=== PATIENT | male | born 1975 | race Caucasian/White ===

== ENCOUNTER 2018-08-26 09:59 | Inpatient (IN) ==
[2018-08-26] MEDS ORDERED: SODIUM CHLORIDE 0.9% 1000ML 1,000 ML IV ONE (10:22)
[2018-08-26] MEDS ORDERED: KETOROLAC TROMETHAMINE 15 MG/ML VIAL IV ONE (10:22)
[2018-08-26 10:47] LABS: Basophils # (auto) 0.02 K/uL (0-0.2); Basophils % (auto) 0.3 %; Eosinophils % (auto) 1.3 %; Hematocrit (blood only) 41.1 % (42-52); Immature Granulocytes # (auto) 0.02 K/uL (0.00-0.02); Immature Granulocytes % (auto) 0.3 %; Lymphocytes # (auto) 1.74 K/uL (1.2-3.4); Lymphocytes % (auto) 23.1 %; Mean Corpuscular Hgb Conc 34.1 g/dL (32-36); Mean Corpuscular Volume 89.9 fL (80-100); Mean Platelet Volume 8.8 fL (7.4-10.4); Monocytes # (auto) 0.54 K/uL (0.11-0.59); Monocytes % (auto) 7.2 %; Neutrophils # (auto) 5.12 K/uL (1.4-6.5); Neutrophils % (auto) 67.8 %; Platelet Count 197 K/uL (130-400); RDW Coefficient of Variation 13.9 % (11.5-14.5); RDW Standard Deviation 45.8 fL (36.4-46.3); Red Blood Count 4.57 M/uL (4.7-6.1); White Blood Count 7.54 K/uL (4.8-10.8)
--- NOTE | 2018-08-26 10:50 | XRay Report ---
XR chest 1V portable CLINICAL HISTORY: Atypical chest pain COMPARISON STUDY: No previous studies for comparison. FINDINGS: The heart is borderline enlarged. There is no failure. There is no focal pulmonary consolid ation. There are no pleural effusions. An 8mm density within the right upper lung zone likely represe nts a summation with the right first rib and costochondral junction.[ IMPRESSION: No active disease in the chest. Electronically signed by: Xavier Martinez M.D. 08/26/2018 10:49 AM
[2018-08-26 11:08] LABS: Alanine Aminotransferase 37 U/L (12-78); Albumin Level 3.7 gm/dl (3.4-5.0); Aspartate Aminotransferase 17 U/L (15-37); BUN Creatinine Ratio 16.1 (10-20); Blood Urea Nitrogen 18 mg/dl (7-18); Calcium 8.8 mg/dl (8.5-10.1); Carbon Dioxide 29 mmol/L (21-32); Chloride 107 mmol/L (98-107); Creatinine Clr Calc Pharmacy 118.5 ml/min; Est GFR (African American) 94.5; Est GFR (Non-African American) 81.5; Glucose 101 mg/dl (70-99); Potassium 3.5 mmol/L (3.5-5.1); Sodium 141 mmol/L (136-145)
[2018-08-26 11:13] LABS: Albumin Globulin Ratio 0.9 (0.9-2); Alkaline Phosphatase 117 U/L (45-117); Bilirubin,Total 0.5 mg/dl (0.2-1); Total Protein 7.7 gm/dl (6.4-8.2); Troponin I < 0.015 ng/ml (0-0.045)
[2018-08-26] MEDS ORDERED: IOVERSOL 100ml IV PRN (11:26)
--- NOTE | 2018-08-26 11:47 | CT Scan Report ---
ABDOMEN AND PELVIS CT WITH IV CONTRAST CT DOSE: 1287.21 mGy.cm HISTORY: Acute epigastric abdominal pain with history of inflammatory bowel disease epigastric abd pa in w/ dark stools hxt chrons TECHNIQUE: Multiaxial CT images of the abdomen and pelvis were performed following the use of intrave nous contrast. A dose lowering technique was utilized adhering to the principles of ALARA. COMPARISON STUDY: CT abdomen and pelvis 02/11/2018. FINDINGS: Lung bases are generally clear. Unchanged 3 mm solid nodule of the right middle lobe, image 30 series 3. Lung bases are otherwise generally clear. No pneumatosis or pneumoperitoneum. Imaged inferior car diac chambers are unremarkable. Cholecystectomy. Spleen, liver, pancreas and right adrenal gland are unremarkable. Mild thickening of the left adrenal gland suggests hyperplasia. There are few left-sided renal cysts noted measuring up to 11 mm within the superior pole. 3 mm nonobstructing calculus of the inferior pole right kidney. N o ureteral calculi or obstructive uropathy. Urinary bladder is unremarkable. Aorta and IVC are within normal limits. No adenopathy. No bowel obstruction. Mild colonic diverticulosis without acute diverticulitis. Persistent extensive wall thickening with mucosal hyperemia is noted about a long segment of terminal ileum which measures over 30 cm in length. No definite associated stricture, fistula or sinus tracts identified. Mild adj acent perinephric stranding with trace free fluid. Mild dilation of the ileum just proximal to the be ginning of the wall thickening is again noted, 3.2 cm. The overall degree of wall thickening appears similar to slightly decreased from comparison. No new segments of wall thickening identified. The ghazal endix is not definitively seen. No secondary signs of acute appendicitis. Prominent lymph nodes of th e right lower quadrant mesentery measure up to 1.2 x 0.9 cm. Soft tissues are unremarkable. Mild spon dylitic spurring of the spine. Partial bony fusion of the right SI joint. IMPRESSION: 1. Long segment wall thickening with mucosal hyperemia of the terminal ileum redemonstrated compatibl e with ileitis. This likely correlates with the patient's known inflammatory bowel disease. Adjacent inflammatory stranding with trace free fluid compatible with active acute inflammation. 2. Prominent lymph nodes of the right lower quadrant mesentery, likely reactive. 3. No bowel obstruction or high-grade stricture identified. 4. Cholecystectomy. 5. Nonobstructing right nephrolithiasis. Electronically signed by: Trung Sabillon M.D. 08/26/2018 11:46 AM
[2018-08-26 12:13] LABS: Appearance Urine Clear (Clear); Bilirubin Urine Negative (Negative); Blood Urine Negative (Negative); Color Urine Yellow; Glucose Urine UA Negative (Negative); Ketones Urine Negative (Negative); Leukocyte Esterase Urine Negative (Negative); Nitrite Urine Negative (Negative); Protein Urine Negative (Negative); Specific Gravity Urine > 1.045 (1.000-1.030); Urobilinogen Urine Negative (Negative)
--- NOTE | 2018-08-26 13:43 | History & Physical Report ---
Date of Service August 26, 2018 Assessment & Plan (1) Chest pain: - Admit to tele - Trend cardiac biomarkers, initial set was negative - EKG reviewed as above - bradycardic with HR in the 50s. Consider pericarditis. - Check 2 D echo - If negative enzymes can consider a stress test tomorrow morning - Consult cardiology, Dr. Santos (2) Ileitis: (3) Hx of Crohn's disease: -Consult GI, Dr. Salcido -Given dose of Solu-Medrol 20 mg IV in the ER, will continue prednisone 40 mg daily with plan to taper down 10 mg at a time over 4 weeks. -Allow clear liquid diet at this time -Continue fluids NSS at 125 mL/h -Analgesia with morphine IV prn, tylenol. -No stool sample provided yet, check fecal occult blood -Cont protonix, switch to 40 mg IV BID (4) History of cholecystectomy: - noted (5) DVT prophylaxis: -teds - no chemical ppx with possible GI bleed History of Present Illness Primary Care Provider: NO PCP This is a 43 yo M with PMHx of ilitis, Crohn's disease, morbid obesity with BMI of 38, smoking use x23 years, 1 pack/week, who presents with new onset of chest pain and abdominal pain. The patient notes that he suddenly developed chest pain several days ago while he was at work. Patient suddenly became lightheaded due to substernal chest pain, clenched his chest, dropped to his knees, and stayed there for about 5 minutes until feeling better. He proceeded to get up and continued with working like he normally would. This happened again last evening when he was home with his 11 yo son in the house, with similar presentation. He did not come to the ER. He reports that the pain is sudden in onset and has occurred whenever he is up walking and doing something physically exertional each time. He denies palpitations or tightness associated with the pain. The patient does not typically exercise however is able to complete a flight of stairs without difficulty. Patient was wondering if this could possibly be due to anxiety, as he is under significant stress at work. He notes that when he is stressed he typically smokes a cigarette to calm himself down. The patient reports that his abdominal pain has been going on for several days now as well, and that he has been afraid to eat anything for fear of worsening pain and diarrhea. Patient reports his last bowel movement was this morning, loose, dark, and denies BRBPR. He reports drinking some apple juice and water in small quantities over the last few days, along with small amounts of food. He denies nausea or vomiting. He was recently diagnosed with Crohn's disease only [address] Salcido by colonoscopy. Patient is not on any medications for tx of Crohn's. Pertinent family history: Father-AL at age 52, [employer] Mother-colitis, [employer] Allergies Allergy/AdvReac Type Severity Reaction Status Date / Time No Known Allergies Allergy Unverified 08/26/18 10:58 Home Medications Home Medications Medication Instructions Recorded Confirmed Type No Known Home Medications 08/26/18 08/26/18 History Past Med/Surg History Medical History Ileitis Hx of Crohn's disease Surgical History History of cholecystectomy (Resolved) Family History Other Colitis Social History Preferred Language: Jordanian Communication Ability: Effective Visual Impairment: No Limitations Hearing Ability: Normal current occupational status: employed 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 [employer] Feels Safe at Home: Yes Smoking Status: Never smoker Review of Systems Review of Systems: Constitutional: No fever, sweats or chills Eyes: No diplopia, no worsening or blurred vision ENT: normal hearing, no trouble swallowing Respiratory: No cough, sputum, dyspnea at rest or on exertion Cardiovascular: As per HPI Abdomen: As per HPI Musculoskeletal: No joint pain, calf pain, swelling Neurologic: No weakness, numbness/tingling, or balance problems Psychiatric: No anxiety or depression Skin: No rash or itch Physical Exam Physical Exam: General: awake, alert, no apparent distress, + obese Head: Normocephalic, atraumatic ENT: PERRL, EOMI, no pharyngeal exudate, mucous membranes moist Chest: Clear to auscultation, on room air, no adventitious breath sounds Cardiac: +bradycardic, no murmur, no JVD, normal peripheral pulses, good capillary refill Abdominal: NABS x 4 quadrants, soft, mildly distended, tender to palpation in the epigastric regions and LLQ with guarding, no rebound. Extremities: Normal inspection, no peripheral edema or erythema, calfs nontender to palpation Psych: Normal mood and affect Neuro: AAO x 3, strength intact bilaterally and related 5/5, no motor deficits, speech is clear, no peripheral sensory deficits Skin: no rash or erythema Results & Data Vital Signs (Past 12 Hours) Vital Signs Temp Pulse Pulse Resp BP BP Pulse Ox 08/26/18 11:47 62 19 136/74 96 08/26/18 10:02 36.6 C 62 20 145/90 H 97 Diagnostic Findings XR chest 1V portable CLINICAL HISTORY: Atypical chest pain COMPARISON STUDY: No previous studies for comparison. FINDINGS: The heart is borderline enlarged. There is no failure. There is no focal pulmonary consolidation. There are no pleural effusions. An 8mm density within the right upper lung zone likely represents a summation with the right first rib and costochondral junction.[ IMPRESSION: No active disease in the chest. ABDOMEN AND PELVIS CT WITH IV CONTRAST CT DOSE: 1287.21 mGy.cm HISTORY: Acute epigastric abdominal pain with history of inflammatory bowel disease epigastric abd pain w/ dark stools hxt chrons TECHNIQUE: Multiaxial CT images of the abdomen and pelvis were performed following the use of intravenous contrast. A dose lowering technique was utilized adhering to the principles of ALARA. COMPARISON STUDY: CT abdomen and pelvis 02/11/2018. FINDINGS: Lung bases are generally clear. Unchanged 3 mm solid nodule of the right middle lobe, image 30 series 3. Lung bases are otherwise generally clear. No pneumatosis or pneumoperitoneum. Imaged inferior cardiac chambers are unremarkable. Cholecystectomy. Spleen, liver, pancreas and right adrenal gland are unremarkable. Mild thickening of the left adrenal gland suggests hyperplasia. There are few left-sided renal cysts noted measuring up to 11 mm within the superior pole. 3 mm nonobstructing calculus of the inferior pole right kidney. No ureteral calculi or obstructive uropathy. Urinary bladder is unremarkable. Aorta and IVC are within normal limits. No adenopathy. No bowel obstruction. Mild colonic diverticulosis without acute diverticulitis. Persistent extensive wall thickening with mucosal hyperemia is noted about a long segment of terminal ileum which measures over 30 cm in length. No definite associated stricture, fistula or sinus tracts identified. Mild adjacent perinephric stranding with trace free fluid. Mild dilation of the ileum just proximal to the beginning of the wall thickening is again noted, 3.2 cm. The overall degree of wall thickening appears similar to slightly decreased from comparison. No new segments of wall thickening identified. The appendix is not definitively seen. No secondary signs of acute appendicitis. Prominent lymph nodes of the right lower quadrant mesentery measure up to 1.2 x 0.9 cm. Soft tissues are unremarkable. Mild spondylitic spurring of the spine. Partial bony fusion of the right SI joint. IMPRESSION: 1. Long segment wall thickening with mucosal hyperemia of the terminal ileum redemonstrated compatible with ileitis. This likely correlates with the patient's known inflammatory bowel disease. Adjacent inflammatory stranding with trace free fluid compatible with active acute inflammation. 2. Prominent lymph nodes of the right lower quadrant mesentery, likely reactive. 3. No bowel obstruction or high-grade stricture identified. 4. Cholecystectomy. 5. Nonobstructing right nephrolithiasis. Code Status & VTE Plan Code Status Full code Supervising Physician Co-Signing Physician Notes The patient was seen and examined by me and I agree with the assessment and plan done by Lisa Apodaca PA-C. The patient has had lower abdominal discomfort for several weeks that is progressively worsening. He states he had a colonoscopy last month and was prescribed medication for Crohn's colitis which he did not fill or take. He also has been having sharp anterior chest pains that are associated with shortness of breath. He denies palpitation or radiation of the discomfort. EKG reveals what appears to be repolarization variant but I suppose it could also represent pericarditis. Cardiac echo is pending along with cardiology consultation. The ED physician discussed the case with Dr. Salcido who will be consulted. Steroids have been started. He is hemodynamically stable at this time. Lungs are clear. Heart rhythm regular without murmur. Abdomen soft with active bowel sounds. Tenderness in the lower quadrants bilaterally without overt rebound or guarding. Extremities unremarkable. PG Care Time/CCT Total # of Minutes Spent Total Time Spent with Patient: Total time spent is greater than 50% in coordination of care (as documented) at patient's floor/unit and/or counseling patient:
[2018-08-26] MEDS ORDERED: PANTOprazole 40 MG in DEXTROSE 5% 100 ML IV SCH (13:45)
[2018-08-26] MEDS ORDERED: PANTOprazole 80 MG in DEXTROSE 5% 100 ML IV ONE (13:45)
[2018-08-26] MEDS ORDERED: ACETAMINOPHEN 325 MG TAB PO PRN (14:03)
[2018-08-26] MEDS ORDERED: ONDANSETRON INJ 2 MG/ML 2 ML VIAL IV PRN (14:03)
[2018-08-26] MEDS ORDERED: MoRPHine SULFATE 2 MG/ML CARP IV PRN (15:33)
[2018-08-26] MEDS: SODIUM CHLORIDE 0.9% 1000ML 1,000 ML IV SCH ×2 (16:01→23:46)
--- NOTE | 2018-08-26 16:29 | Emergency Department Note ---
Entered by Elaine Vega acting as a scribe for History of Present Illness General Chief complaint: Chest Pain Stated complaint: SEVERE UPPER ABD PAIN, PASSED OUT 2TIMES IN 3DAYS Source: patient Mode of arrival: ambulatory Limitations: no limitations History of Present Illness Onset (ago): week(s) 1 Location: chest Severity: severe and similar to prior episodes (Crohn's flare-ups) Pain Consistency: + intermittent Maximum Pain Intensity: 7 Quality: + stabbing Associated symptoms: + chest pain and + other (The patient denies hematochezia and urinary symptoms. ); no nausea/vomiting (The patient denies vomiting. ) and no syncope The patient is a 43 year old male with a history of Crohns disease and ileitis who presents to the ED with complaints of intermittent chest pain that onset 1 week ago. The patient complains of abdominal pain and melena. He notes that he typically has diarrhea secondary to Crohns disease. He states that his abdomen feels tight, as if something is moving through his intentions. The patient notes that the pain is similar to past Crohns flare-ups. He states that he is n ot currently taking medications. The patient denies hematochezia, vomiting, urinary symptoms, and loss of consciousness. The patient states that he has intermittent chest pain that lasts for 5 minutes. He describes this pain as stabbing and severe. He notes that the first time the pain happened he was at work. The patient reports that it brought him to his knees and brought tears to his eyes. He states that he had a similar episode of pain last night that also lasted for 5 minutes. The patient denies any exacerbating or alleviating factors. Home Medications Home Medications Medication Instructions Recorded Confirmed Type No Known Home Medications 08/26/18 08/26/18 History Allergies Allergy/AdvReac Type Severity Reaction Status Date / Time No Known Allergies Allergy Unverified 08/26/18 10:58 Past Med/Surg History Medical History Ileitis Hx of Crohn's disease Surgical History History of cholecystectomy (Resolved) Family History Other Colitis Social History Preferred Language: Greenlandic Communication Ability: Effective Visual Impairment: No Limitations Hearing Ability: Normal Psychiatric Clinical Nurse Specialist Required: No Beliefs That Will Affect Care: None Current Living Situation: Family current occupational status: employed current occupation: [employer] at [employer] Other Information That Helps Us Care for You: No Feels Safe at Home: Yes Safety Concerns: Feels Safe At This Time Smoking Status: Current every day smoker Tobacco Type: cigarettes Cigarettes Per Day: 3 Do You Dip or Chew Tobacco: No Tobacco Cessation Education Requested by Patient: No Hx Alcohol Use: No Hx Substance Use: No Review of Systems See HPI for pertinent positives & negatives. and A total of 10 systems reviewed and were otherwise negative Physical Exam Vital Signs Vital Signs - 24 hr 08/26/18 10:02 08/26/18 11:47 08/26/18 13:43 Temperature 36.6 C Temperature Source Oral Sepsis Recent Fever Within 48 Hours No Sepsis New/Unexplained Change in Mental Status No Sepsis Action Taken by Nursing No Action Required Pulse Rate 62 Pulse Rate [Apical] 62 47 L Pulse Rhythm Regular Pulse Rhythm [Apical] Regular Pulse Strength Normal Pulse Strength [Apical] Normal Respiratory Rate 20 19 17 Respiratory Effort / Characteristics Non-Labored Spontaneous Non-Labored Spontaneous Respiratory Depth Normal Normal Respiratory Pattern Regular Regular Blood Pressure 145/90 H Blood Pressure [Right Arm] 136/74 123/82 Blood Pressure Mean 108 Blood Pressure Mean [Right Arm] 94 95 Blood Pressure Position Sitting Pulse Oximetry 97 96 99 Oxygen Delivery Method Room Air Room Air Room Air GENERAL: Sitting up in bed. Disheveled, alert, well appearing, well nourished, no distress, non-toxic EYE EXAM: Normal conjunctiva. OROPHARYNX: no exudate, no erythema, lips, buccal mucosa, and tongue normal and mucous membranes are moist NECK: supple, no nuchal rigidity, no adenopathy, non-tender LUNGS: Clear to auscultation. Normal chest wall mechanics HEART: no murmurs, S1 normal and S2 normal ABDOMEN: abdomen soft, mild faint tenderness in the epigastric region, normo- active bowel sounds, no masses, no rebound or guarding. RECTAL: No stool in rectal vault, heme negative, no hemorrhoids. BACK: Back is symmetrical on inspection and there is no deformity, no midline tenderness, no CVA tenderness. SKIN: no rashes and no bruising UPPER EXTREMITIES: upper extremities are grossly normal. LOWER EXTREMITIES: No pitting edema. NEURO EXAM: Normal sensorium, cranial nerves II-XII grossly intact, normal speech, no gross weakness of arms, no gross weakness of legs. Course 1012: Past medical records reviewed. The patient was evaluated in room B11B. A complete history and physical examination was performed. 1257: I have re-evaluated the patient. 1336: I reviewed the patient's case with Dr. Salcido - Gastroenterology. 1341: I reviewed the patient's case with Dr. James Del Castillo - [facility]. He will evaluate the patient for further management. 1402: I reviewed the patient's case with Dr. Evgeny Santos - Cardiology. Consultations Consultation #1: 1336: I reviewed the patient's case with Dr. Salcido - Gastroenterology. Time: 13:36 Consultation #2: 1341: I reviewed the patient's case with Dr. James Del Castillo - [facility]. He will evaluate the patient for further management. Time: 13:41 Consultation #3: 1402: I reviewed the patient's case with Dr. Evgeny Santos - Cardiology. Time: 14:02 Administered Medications Sodium Chloride (Nss 1000ml) 1,000 mls @ 125 mls/hr IV .Q8H BONNIE Stop: 08/27/18 14:14 Last Admin: 08/26/18 16:01 Dose: 125 mls/hr Documented by: [id number] Ioversol (Optiray 320 100ml) 94 ml IV ONCE PRN PRN Reason: Interaction Checking Stop: 08/30/18 11:25 Last Admin: 08/26/18 11:27 Dose: 94 ml Documented by: [id number] Morphine Sulfate (Morphine Sulfate) 2 mg IV Q2H PRN PRN Reason: Pain Stop: 09/09/18 15:32 Last Admin: 08/26/18 16:01 Dose: 2 mg Documented by: [id number] Discontinued Medications Sodium Chloride (Nss 1000ml) 1,000 mls @ 999 mls/hr IV .Q1H1M ONE Stop: 08/26/18 11:22 Last Infusion: 08/26/18 11:38 Dose: 0 mls/hr Documented by: [id number] Admin: 08/26/18 10:45 Dose: 999 mls/hr Documented by: [id number] Pantoprazole Sodium 80 mg/ (Dextrose) 120 mls @ 480 mls/hr IV NOW ONE Stop: 08/26/18 13:59 Last Infusion: 08/26/18 14:10 Dose: 0 mls/hr Documented by: [id number] Admin: 08/26/18 13:47 Dose: 480 mls/hr Documented by: [id number] Pantoprazole Sodium 40 mg/ (Dextrose) 100 mls @ 20 mls/hr IV Q5H BONNIE Stop: 09/25/18 13:44 Last Infusion: 08/26/18 16:13 Dose: 0 mls/hr Documented by: [id number] Admin: 08/26/18 14:09 Dose: 20 mls/hr Documented by: [id number] Ketorolac Tromethamine (Toradol) 15 mg IV NOW ONE Stop: 08/26/18 10:23 Last Admin: 08/26/18 10:45 Dose: 15 mg Documented by: [id number] Methylprednisolone (Solumedrol) 20 mg IV NOW STA Stop: 08/26/18 13:38 Last Admin: 08/26/18 13:42 Dose: 20 mg Documented by: [id number] Medical Decision Making Differential Diagnosis Differential diagnoses: Appendicitis, diverticulitis, PUD, biliary pathology, UTI, pancreatitis, obstruction, mesenteric ischemia, aortic pathology, infections, inflammatory bowel disease, renal colic, acute coronary syndrome, myocardial infarction, pericarditis, pulmonary embolus, aortic dissection, pneumonia, pneumothorax, musculoskeletal, shingles, esophageal. Medical Records Attestation: I reviewed the patient's medical records. Home Medications Current Medication List: was personally reviewed by me Laboratory Data Attestation: I reviewed the patient's lab results. Result diagrams: 08/26/18 10:38 08/26/18 10:38 Lab Results 08/26/18 08/26/18 08/26/18 Range/Units 10:38 10:38 10:38 WBC 7.54 (4.8-10.8) K/uL RBC 4.57 L (4.7-6.1) M/uL Hgb 14.0 (14.0-18.0) g/dL Hct 41.1 L (42-52) % MCV 89.9 (80-100) fL MCH 30.6 (25-34) pg MCHC 34.1 (32-36) g/dL RDW Std Deviation 45.8 (36.4-46.3) fL RDW Coeff of Toni 13.9 (11.5-14.5) % Plt Count 197 (130-400) K/uL MPV 8.8 (7.4-10.4) fL Immature Gran % (Auto) 0.3 % Neut % (Auto) 67.8 % Lymph % (Auto) 23.1 % [place] % (Auto) 7.2 % Eos % (Auto) 1.3 % Baso % (Auto) 0.3 % Immature Gran # (Auto) 0.02 (0.00-0.02) K/uL Neut # (Auto) 5.12 (1.4-6.5) K/uL Lymph # (Auto) 1.74 (1.2-3.4) K/uL [place] # (Auto) 0.54 (0.11-0.59) K/uL Eos # (Auto) 0.10 (0-0.5) K/uL Baso # (Auto) 0.02 (0-0.2) K/uL PT 10.0 (9.0-12.0) Seconds INR 1.0 (0.9-1.1) Sodium 141 (136-145) mmol/L Potassium 3.5 (3.5-5.1) mmol/L Chloride 107 (98-107) mmol/L Carbon Dioxide 29 (21-32) mmol/L Anion Gap 5.0 (3-11) BUN 18 (7-18) mg/dl Creatinine 1.09 (0.6-1.4) mg/dl Est Cr Clr Drug Dosing 118.5 ml/min Est GFR ( Amer) 94.5 Est GFR (Non-Af Amer) 81.5 BUN/Creatinine Ratio 16.1 (10-20) Glucose 101 H (70-99) mg/dl Calcium 8.8 (8.5-10.1) mg/dl Total Bilirubin 0.5 (0.2-1) mg/dl AST 17 (15-37) U/L ALT 37 (12-78) U/L Alkaline Phosphatase 117 (45-117) U/L Troponin I < 0.015 (0-0.045) ng/ml Total Protein 7.7 (6.4-8.2) gm/dl Albumin 3.7 (3.4-5.0) gm/dl Globulin 4.0 (2.5-4.0) gm/dl Albumin/Globulin Ratio 0.9 (0.9-2) Lipase 96 (73-393) U/L Urine Color Urine Appearance (Clear) Urine pH (4.5-7.5) Ur Specific [place] (1.000-1.030) Urine Protein (Negative) Urine Glucose (UA) (Negative) Urine Ketones (Negative) Urine Blood (Negative) Urine Nitrite (Negative) Urine Bilirubin (Negative) Urine Urobilinogen (Negative) Ur Leukocyte Esterase (Negative) 08/26/18 Range/Units 12:05 WBC (4.8-10.8) K/uL RBC (4.7-6.1) M/uL Hgb (14.0-18.0) g/dL Hct (42-52) % MCV (80-100) fL MCH (25-34) pg MCHC (32-36) g/dL RDW Std Deviation (36.4-46.3) fL RDW Coeff of Toni (11.5-14.5) % Plt Count (130-400) K/uL MPV (7.4-10.4) fL Immature Gran % (Auto) % Neut % (Auto) % Lymph % (Auto) % [place] % (Auto) % Eos % (Auto) % Baso % (Auto) % Immature Gran # (Auto) (0.00-0.02) K/uL Neut # (Auto) (1.4-6.5) K/uL Lymph # (Auto) (1.2-3.4) K/uL [place] # (Auto) (0.11-0.59) K/uL Eos # (Auto) (0-0.5) K/uL Baso # (Auto) (0-0.2) K/uL PT (9.0-12.0) Seconds INR (0.9-1.1) Sodium (136-145) mmol/L Potassium (3.5-5.1) mmol/L Chloride (98-107) mmol/L Carbon Dioxide (21-32) mmol/L Anion Gap (3-11) BUN (7-18) mg/dl Creatinine (0.6-1.4) mg/dl Est Cr Clr Drug Dosing ml/min Est GFR ( Amer) Est GFR (Non-Af Amer) BUN/Creatinine Ratio (10-20) Glucose (70-99) mg/dl Calcium (8.5-10.1) mg/dl Total Bilirubin (0.2-1) mg/dl AST (15-37) U/L ALT (12-78) U/L Alkaline Phosphatase (45-117) U/L Troponin I (0-0.045) ng/ml Total Protein (6.4-8.2) gm/dl Albumin (3.4-5.0) gm/dl Globulin (2.5-4.0) gm/dl Albumin/Globulin Ratio (0.9-2) Lipase (73-393) U/L Urine Color Yellow Urine Appearance Clear (Clear) Urine pH 6.0 (4.5-7.5) Ur Specific [place] > 1.045 H (1.000-1.030) Urine Protein Negative (Negative) Urine Glucose (UA) Negative (Negative) Urine Ketones Negative (Negative) Urine Blood Negative (Negative) Urine Nitrite Negative (Negative) Urine Bilirubin Negative (Negative) Urine Urobilinogen Negative (Negative) Ur Leukocyte Esterase Negative (Negative) Imaging Data Radiologist's Impression: Radiology results as stated below per my review and the radiologist's interpretation: ABDOMEN AND PELVIS CT WITH IV CONTRAST CT DOSE: 1287.21 mGy.cm HISTORY: Acute epigastric abdominal pain with history of inflammatory bowel disease epigastric abd pain w/ dark stools hxt chrons TECHNIQUE: Multiaxial CT images of the abdomen and pelvis were performed following the use of intravenous contrast. A dose lowering technique was utilized adhering to the principles of ALARA. COMPARISON STUDY: CT abdomen and pelvis 02/11/2018. FINDINGS: Lung bases are generally clear. Unchanged 3 mm solid nodule of the right middle lobe, image 30 series 3. Lung bases are otherwise generally clear. No pneumatosis or pneumoperitoneum. Imaged inferior cardiac chambers are unremarkable. Cholecystectomy. Spleen, liver, pancreas and right adrenal gland are unremarkable. Mild thickening of the left adrenal gland suggests hyperplasia. There are few left-sided renal cysts noted measuring up to 11 mm within the superior pole. 3 mm nonobstructing calculus of the inferior pole right kidney. No ureteral calculi or obstructive uropathy. Urinary bladder is unremarkable. Aorta and IVC are within normal limits. No adenopathy. No bowel obstruction. Mild colonic diverticulosis without acute diverticulitis. Persistent extensive wall thickening with mucosal hyperemia is noted about a long segment of terminal ileum which measures over 30 cm in length. No definite associated stricture, fistula or sinus tracts identified. Mild adjacent perinephric stranding with trace free fluid. Mild dilation of the ileum just proximal to the beginning of the wall thickening is again noted, 3.2 cm. The overall degree of wall thickening appears similar to slightly decreased from comparison. No new segments of wall thickening identified. The appendix is not definitively seen. No secondary signs of acute appendicitis. Prominent lymph nodes of the right lower quadrant mesentery measure up to 1.2 x 0.9 cm. Soft tissues are unremarkable. Mild spondylitic spurring of the spine. Partial bony fusion of the right SI joint. IMPRESSION: 1. Long segment wall thickening with mucosal hyperemia of the terminal ileum redemonstrated compatible with ileitis. This likely correlates with the patient's known inflammatory bowel disease. Adjacent inflammatory stranding with trace free fluid compatible with active acute inflammation. 2. Prominent lymph nodes of the right lower quadrant mesentery, likely reactive. 3. No bowel obstruction or high-grade stricture identified. 4. Cholecystectomy. 5. Nonobstructing right nephrolithiasis. Electronically signed by: Trung Sabillon M.D. 08/26/2018 11:46 AM Dictated: 08/26/18 1134 Transcribed: 08/26/18 1134 XR chest 1V portable CLINICAL HISTORY: Atypical chest pain COMPARISON STUDY: No previous studies for comparison. FINDINGS: The heart is borderline enlarged. There is no failure. There is no focal pulmonary consolidation. There are no pleural effusions. An 8mm density within the right upper lung zone likely represents a summation with the right first rib and costochondral junction.[ IMPRESSION: No active disease in the chest. Electronically signed by: Xavier Martinez M.D. 08/26/2018 10:49 AM Dictated: 08/26/18 1048 Transcribed: 08/26/18 1048 ECG Data Attestation: I personally reviewed and interpreted this ECG as follows: Indication: chest pain Rate (beats per minute): 52 Rhythm: sinus bradycardia Findings: + other (normal axis) Blood Pressure Blood Pressure Findings: Normal blood pressure MDM Narrative Patient is a 43-year-old male who presents the ER for 1 week worth of abdominal pain in the epigastric region associate with cramping. He also admits to some dark tarry stools. He has intermittent chest pain 2-3 episodes over the past 3 days. Patient has no other complaints at this time with exception of the crampy pain and dark tarry stools. Labs show no significant leukocytosis or anemia. INR was unremarkable. BMP along with LFTs troponin bilirubin and lipase is negative. UA was unremarkable. CT shows a severe ileitis. Rectal was negative without any stool in the vault. No hemorrhoids. Attempted to obtain stool on 3 separate occasions but he could not have a bowel movement. EKG did show diffuse ST segment elevations. Do favor that this is likely re-pole as opposed to pericarditis. Discussed with Dr. Delgadillo from cardiology and they agree. Patient has no chest pain at this time. Nothing was positional to suggest pericarditis. Patient was updated bedside. Discussed with GI and they recommended observation and patient was admitted for further work-up. Impression & Plan Ileitis, GI bleed, Abnormal ECG Discharge Plan Visit Data *Final* Discharge Date/Time: 08/26/18 14:35 Chief Complaint: Chest Pain Stated Complaint: SEVERE UPPER ABD PAIN, PASSED OUT 2TIMES IN 3DAYS ED Provider: Burton Andrea Discharge Problem: Ileitis, GI bleed, Abnormal ECG Patient Disposition: Admitted As Inpatient Discharge Instructions Interventions: ED Discharge Assessment Last Done: 08/26/18 14:35 The scribe's documentation has been prepared under my direction and personally reviewed by me in its entirety. I confirm that the note above accurately reflects all work, treatment, procedures, and medical decision making performed by me.
--- NOTE | 2018-08-26 17:50 | Consultation Report ---
DATE OF CONSULTATION: 08/26/2018 REASON FOR EVALUATION: Ileal Crohn's disease. HISTORY OF PRESENT ILLNESS: The patient is a 43-year-old who I first saw in the office in 03/2018 following an Emergency Room visit at [facility] with abdominal pain and elevated pancreatic enzymes. The patient had a CAT scan during that ER visit, which showed ileal inflammation, but no real pancreatitis. He subsequently underwent a colonoscopy which showed rather severe ileal inflammation. The patient was advised to take Pentasa, but he never got the prescription filled because it was too expensive and he does not have any insurance. The patient over the last several weeks has been experiencing worsening lower abdominal pain. He has cut back eating and as consequence, his bowel movements have been less frequent. He also has had several episodes of severe chest pain where he has had to actually kneel on the floor for 5 minutes until the pain subsides. He presented to the hospital today. He has had an EKG which did not show any obvious ischemic changes, although he did have some bradycardia. CT scan of the abdomen again showed a long segment of terminal ileum, which was sausage shaped from inflammation. He is given a dose of IV Solu-Medrol and started on p.o. prednisone at 40 mg a day. Further cardiac evaluation is in progress. PAST MEDICAL HISTORY: Remarkable for appendectomy and cholecystectomy in 2010, appendectomy as a child. MEDICATIONS: None. ALLERGIES: None. 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 He smokes a pack of cigarettes about every 2 weeks. REVIEW OF SYSTEMS: Positive for chest and abdominal pain. PHYSICAL EXAMINATION: GENERAL: The patient is overweight, in no acute distress. VITAL SIGNS: Normal. He is afebrile. SKIN: Shows no abnormalities. ABDOMEN: Shows some scars in the right lower quadrant and laparoscopic scars. He is little bit tender in the lower abdomen bilaterally. No discrete masses were appreciated and there are no peritoneal signs. LABORATORY DATA: CBC is normal. IMPRESSION AND PLAN: The patient has ileal Crohn's disease, which has basically been untreated for the last 6 months because he was not able to afford Pentasa. Currently he is on oral prednisone at 40 mg a day after getting a dose of Solu-Medrol in the ER. I plan on putting him on a full liquid diet and will get his cardiac evaluation completed to make sure there is nothing urgent there. I did talk to him about a potential clinical trial that we may be able to enroll him as an outpatient if he qualifies in which case his medications and study related care would all be paid for and provided for free. He is considering this option, but for now we will just keep him on oral prednisone and see how he does. Will continue to follow the patient during his hospital stay.
[2018-08-26] MEDS: PANTOprazole 40 MG in SYRINGE 0 ML IV SCH (21:26)
[2018-08-27 03:53] LABS: Hematocrit (blood only) 37.9 % (42-52); Hemoglobin 12.8 g/dL (14.0-18.0); Mean Corpuscular Hgb Conc 33.8 g/dL (32-36); Mean Corpuscular Volume 89.2 fL (80-100); Mean Platelet Volume 8.8 fL (7.4-10.4); Platelet Count 183 K/uL (130-400); RDW Coefficient of Variation 13.7 % (11.5-14.5); RDW Standard Deviation 44.6 fL (36.4-46.3); Red Blood Count 4.25 M/uL (4.7-6.1); White Blood Count 9.82 K/uL (4.8-10.8)
[2018-08-27 04:14] LABS: Alanine Aminotransferase 32 U/L (12-78); Aspartate Aminotransferase 13 U/L (15-37); BUN Creatinine Ratio 14.8 (10-20); Blood Urea Nitrogen 14 mg/dl (7-18); Calcium 7.9 mg/dl (8.5-10.1); Carbon Dioxide 26 mmol/L (21-32); Chloride 109 mmol/L (98-107); Creatinine Clr Calc Pharmacy 130.4 ml/min; Est GFR (African American) 107.5; Est GFR (Non-African American) 92.7; Glucose 101 mg/dl (70-99); Magnesium 1.8 mg/dl (1.8-2.4); Potassium 3.7 mmol/L (3.5-5.1); Sodium 139 mmol/L (136-145)
[2018-08-27 04:19] LABS: Albumin Globulin Ratio 0.8 (0.9-2); Alkaline Phosphatase 105 U/L (45-117); Bilirubin,Total 0.6 mg/dl (0.2-1); Globulin 3.6 gm/dl (2.5-4.0); Phosphorus 3.2 mg/dl (2.5-4.9); Total Protein 6.6 gm/dl (6.4-8.2); Troponin I < 0.015 ng/ml (0-0.045)
[2018-08-27] MEDS: SODIUM CHLORIDE 0.9% 1000ML 1,000 ML IV SCH (08:01)
[2018-08-27] MEDS: predniSONE 20 MG TAB PO SCH (08:03)
[2018-08-27] MEDS: PANTOprazole 40 MG in SYRINGE 0 ML IV SCH (08:04)
--- NOTE | 2018-08-27 12:52 | Hospitalist Progress Note ---
Date of Service August 27, 2018 Assessment & Plan (1) Chest pain: Atypical, sharp pains in the substernal region and some in the epigastric region. Serial troponin negative x3, echocardiogram with normal EF, mild to moderate MR, mild AI, and no wall motion abnormalities, no pericardial effusion ECG with sinus bradycardia, likely early repolarization Although he does have a reported history of pericarditis x3, agree with electric motor rebuilder that this is not a recurrence of pericarditis Seems more likely that this is related to his Crohn's disease and a GI etiology versus musculoskeletal in nature although is not reproducible on examination Appreciate cardiology consultation -Defer to GI for further outpatient work-up with possible EGD in the future if pain persist -Start Protonix 40 mg once daily (2) Ileitis: With long segment of severe ileitis seen on CT scan, has mid to left lower quadrant pain on examination and by history which has been long-standing for 6 months He could not afford the Pentasa prescribed due to having no insurance He is started on steroids here and can continue to taper over the next month or so as an outpatient-he should be fairly cheap -Plan to follow-up with GI as an outpatient -Also there are plans to get him enrolled in a clinical trial which will then provide him with medication for free -Appreciate GI consultation (3) Hx of Crohn's disease: As noted above -Continue prednisone 40 mg daily with plan to taper down 10 mg at a time over 4 weeks. Advance diet to regular IV fluids have been discontinued -Continue analgesia with morphine IV prn, tylenol. -No stool sample provided yet, check fecal occult blood -Cont protonix 40 mg once daily (4) History of cholecystectomy: - noted (5) Anemia: Mild normocytic anemia-likely of chronic disease -Follow CBC as an outpatient (6) Bradycardia: With persistent sinus bradycardia in the 40s. He is not a very active individual and this does seem a bit unusual. He is completely asymptomatic. He cannot recall ever being told his heart rate was as low in the past Cardiology recommends checking a TSH -Check TSH with reflex to free T4 if abnormal -Following on telemetry (7) Valvular heart disease: With mild to moderate MR and mild AI -Follow routinely as an outpatient cardiology (8) DVT prophylaxis: Teds, no chemical prophylaxis due to possibility of anemia due to GI bleeding Disposition-remain on telemetry overnight and if tolerating diet and pain improved, can discharge home tomorrow Subjective Patient still having twinges of sharp substernal chest pain at times that go away on their own, no radiation. No nausea or vomiting. Still having left lower quadrant abdominal pain as before but that has been going on for many months now. No blood in his stool. Telemetry with sinus bradycardia with rates in the 40s I discussed case with electric motor rebuilder Review of Systems Review of Systems: All systems reviewed & are unremarkable except as noted in HPI & below Physical Exam Constitutional: WD/WN, vitals as above + obese Eyes: PERRL, conjunctivae normal, anicteric sclerae ENMT: external ear and nose normal, oropharynx normal Neck: trachea midline, no thyromegaly Respiratory: normal respiratory effort, lungs clear to auscultation Cardiovascular: RRR, no murmur, no edema Gastrointestinal (Abdomen): Inspection/Auscultation: abdomen normal to inspection and normal bowel sounds Percussion/Palpation: + abdomen tender (In the left lower quadrant without guarding or rebound tenderness) and abdomen soft Musculoskeletal: Extremities: extremities normal to inspection; no cyanosis and no clubbing Skin: no rashes, warm and dry Neurologic: moves all extremities and awake; no focal motor deficits Psychiatric: A+Ox3, euthymic affect Results & Data Vital Signs (Past 12 Hours) Vital Signs Temp Pulse Pulse Resp BP Pulse Ox 08/27/18 11:33 37 C 47 L 18 122/80 97 08/27/18 08:43 44 L 08/27/18 07:10 36.4 C L 47 L 18 127/83 98 08/27/18 04:30 36.4 C L 45 L 18 110/67 97 Laboratory Results 08/27/18 08/27/18 08/26/18 Range/Units 03:36 03:36 19:43 WBC 9.82 (4.8-10.8) K/uL RBC 4.25 L (4.7-6.1) M/uL Hgb 12.8 L (14.0-18.0) g/dL Hct 37.9 L (42-52) % MCV 89.2 (80-100) fL MCH 30.1 (25-34) pg MCHC 33.8 (32-36) g/dL RDW Std Deviation 44.6 (36.4-46.3) fL RDW Coeff of Toni 13.7 (11.5-14.5) % Plt Count 183 (130-400) K/uL MPV 8.8 (7.4-10.4) fL Sodium 139 (136-145) mmol/L Potassium 3.7 (3.5-5.1) mmol/L Chloride 109 H (98-107) mmol/L Carbon Dioxide 26 (21-32) mmol/L Anion Gap 4.0 (3-11) BUN 14 (7-18) mg/dl Creatinine 0.98 (0.6-1.4) mg/dl Est Cr Clr Drug Dosing 130.4 ml/min Est GFR ( Amer) 107.5 Est GFR (Non-Af Amer) 92.7 BUN/Creatinine Ratio 14.8 (10-20) Glucose 101 H (70-99) mg/dl Calcium 7.9 L (8.5-10.1) mg/dl Phosphorus 3.2 (2.5-4.9) mg/dl Magnesium 1.8 (1.8-2.4) mg/dl Total Bilirubin 0.6 (0.2-1) mg/dl AST 13 L (15-37) U/L ALT 32 (12-78) U/L Alkaline Phosphatase 105 (45-117) U/L Troponin I < 0.015 < 0.015 (0-0.045) ng/ml Total Protein 6.6 (6.4-8.2) gm/dl Albumin 3.0 L (3.4-5.0) gm/dl Globulin 3.6 (2.5-4.0) gm/dl Albumin/Globulin Ratio 0.8 L (0.9-2) PG Care Time/CCT Total # of Minutes Spent Total Time Spent with Patient: Total time spent is greater than 50% in coordination of care (as documented) at patient's floor/unit and/or counseling patient:
--- NOTE | 2018-08-27 14:23 | Cardiology Consultation ---
Date of Consultation August 27, 2018 Assessment & Plan (1) Chest pain: Do not believe the patient's chest pain is likely related to cardiac disease. There was some report of a history of pericarditis, but I do not believe his current symptoms are consistent with pericarditis either. This is certainly not associate financial representative of an acute coronary syndrome or coronary insufficiency. He is not appear to have other symptoms consistent with angina or coronary insufficiency. At this point, I do not see any reason to perform any additional testing. I think his symptoms can be discounted as noncardiac. There are no objective findings of ischemia or coronary disease. The etiology of the chest pain is unclear. I suppose this could be related to anxiety, esophageal spasm or costochondritis. Present on Admission?: Yes (2) Valvular heart disease: He has [id number] mitral regurgitation mild aortic regurgitation. This is somewhat unusual for a gentleman his age, but this point no specific evaluation is required. This can be followed over time with routine office evaluation (3) Bradycardia: Does have an element of sinus bradycardia. This also seems somewhat unusual given his current functional status and age. However, there did not appear to be any other abnormalities noted on his EKG. He is not reporting symptoms consistent with chronotropic incompetence such as dizziness, lightheadedness, syncope or exercise intolerance. Given his abdominal complaints and bradycardia it may be worth checking a TSH. Outside of avoiding medications which may exacerbate bradycardia, I do not believe his any specific evaluation is required currently. History of Present Illness Reason for Consultation: Chest pain Requesting Physician: Toni Attending Physician: Latanya Muñoz MD History of Present Illness The patient is a 43-year-old gentleman without a known history of coronary disease who presented to the emergency room with complaints of both abdominal discomfort and occasional chest pains. Apparently, the patient has been diagnosed with Crohn's previously. However, if this is gone untreated for few weeks. He has some mild intestinal complaints. However, the patient also complained of severe chest discomfort which occurs randomly. The patient states that for several weeks now he has been having symptoms of chest discomfort that have increased in frequency. These episodes now occur on almost daily basis. It seems that the most common setting for his symptoms of chest pain is work. He states that he would generally be working at his computer when he experiences severe jabbing discomfort in the middle of his chest. This is not appear to be associated with other symptoms such as breathing difficulty, dizziness or palpitations. This symptom itself can be followed by several other jabs in short succession. Episodes themselves only lasted couple of minutes before resolution. Patient states that he has had these symptoms over the years but they have become more frequent recently. In general he is a sedentary individual. However, he can perform some significant activity such as at ascending hills or stairs at his house. He has not report any chest pain with activity or exertion. There is not appear to be any reliable means by which to reproduce his symptoms. They are not appear to be positional in nature. There is no pleuritic component. Allergies Allergy/AdvReac Type Severity Reaction Status Date / Time No Known Allergies Allergy Unverified 08/26/18 10:58 Home Medications Home Medications Medication Instructions Recorded Confirmed Type No Known Home Medications 08/26/18 08/26/18 History Patient History Medical History Ileitis Hx of Crohn's disease Surgical History History of cholecystectomy (Resolved) Family History Other Colitis Social History Preferred Language: [place] Communication Ability: Effective Visual Impairment: No Limitations Hearing Ability: Normal Porcelain Enameling Supervisor Required: No Beliefs That Will Affect Care: None Current Living Situation: Family current occupational status: employed 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 He does smoke cigarettes. Does report significant anxiety recently. Physical Exam Physical Exam: The patient is alert and oriented. Mood and affect appeared normal. He answered all questions appropriately. HEENT: Pupils are equal and reactive to light and accommodation. Extraocular movements are intact. The sclerae are anicteric. Neuro: Cranial nerves intact Neck: Patient's neck is supple. He has palpable carotid pulses bilaterally without bruits on auscultation. There is no evidence of jugular venous distention. The thyroid is not enlarged. Lungs: Clear to auscultation bilaterally. He has good air movement without use of accessory muscles. No rales wheezes or rhonchi. Cardiac: Heart demonstrates a regular rate and rhythm. Normal S1 and S2. No murmurs on examination. Pulses: The patient has palpable radial pulses bilaterally that are equal in intensity Extremities: There was no evidence of hypoperfusion. There is no cyanosis or clubbing. There is no edema. Skin: I did not appreciate any rashes on examination today. Results & Data Vital Signs (Past 12 Hours) Vital Signs Temp Pulse Pulse Resp BP Pulse Ox 08/27/18 11:33 37 C 47 L 18 122/80 97 08/27/18 08:43 44 L 08/27/18 07:10 36.4 C L 47 L 18 127/83 98 08/27/18 04:30 36.4 C L 45 L 18 110/67 97 Laboratory Results Abnormal Lab Results 08/26/18 08/27/18 08/27/18 19:43 03:36 03:36 WBC 9.82 RBC 4.25 L Hgb 12.8 L Hct 37.9 L MCV 89.2 MCH 30.1 MCHC 33.8 RDW Std Deviation 44.6 RDW Coeff of Toni 13.7 Plt Count 183 MPV 8.8 Sodium 139 Potassium 3.7 Chloride 109 H Carbon Dioxide 26 Anion Gap 4.0 BUN 14 Creatinine 0.98 Est Cr Clr Drug Dosing 130.4 Est GFR ( Amer) 107.5 Est GFR (Non-Af Amer) 92.7 BUN/Creatinine Ratio 14.8 Glucose 101 H Calcium 7.9 L Phosphorus 3.2 Magnesium 1.8 Total Bilirubin 0.6 AST 13 L ALT 32 Alkaline Phosphatase 105 Troponin I < 0.015 < 0.015 Total Protein 6.6 Albumin 3.0 L Globulin 3.6 Albumin/Globulin Ratio 0.8 L Diagnostic Findings Echocardiogram performed yesterday revealed preserved LV systolic function with some valvular disease to include mild to moderate mitral regurgitation mild aortic regurgitation. ECG Additional Comments: Sinus bradycardia
--- NOTE | 2018-08-27 18:18 | Progress Note ---
DATE: 08/27/2018 SUBJECTIVE: The patient reports that he is continuing to have intermittent episodes of epigastric pain especially after eating. He has seen no blood in his stools. No nausea and vomiting. His cardiac evaluation has just shown some mitral valve dysfunction, but overall no signs of coronary artery disease. His bradycardia is asymptomatic. He is now on oral prednisone 40 mg a day as well as Protonix. His hemoglobin is 12.8, which is relatively stable. OBJECTIVE: Abdominal exam shows a little bit of tenderness in the epigastric area. IMPRESSION AND PLAN: The patient has ileal Crohn's disease which the patient has neglected for the last 6 months and I believe that is part of the problem today. He has not been taking any aspirin or nonsteroidals, but I would recommend continuing Protonix. I plan on advancing him to a low fiber diet to see if he tolerates it and if so, we can manage him as an outpatient. I did offer him the potential for a possible clinical study in which case his medications and care would be provided for free if he qualifies. If not, we will need to find an alternative way to get him treated for his Crohn's, so it does not end up requiring surgery. Hopefully, the patient will be able to be discharged tomorrow if he is able to tolerate solid food. SUKI
[2018-08-27] MEDS ORDERED: FAMOTIDINE 20 MG in SYRINGE 3 ML IV SCH (21:00)
[2018-08-28] MEDS: predniSONE 20 MG TAB PO SCH (07:56)
[2018-08-28] MEDS ORDERED: PANTOprazole 40 MG TAB PO SCH (09:00)
--- NOTE | 2018-08-28 09:17 | Progress Note ---
DATE: 08/28/2018 SUBJECTIVE: The patient reports that last night after supper, he had some lower abdominal pain that resolved. He has not had any since then. He has not moved his bowels since day before yesterday which was a soft, normal stool. He had a low fiber breakfast today which he has tolerated well with no abdominal pain. PHYSICAL EXAMINATION: VITAL SIGNS: Normal. He is afebrile. Room air saturations 96%. ABDOMEN: Soft and nontender. IMPRESSION AND PLAN: The patient has ileal Crohn's disease. I would recommend that he continue oral prednisone at 40 mg a day and we will follow him up as an outpatient for long-term treatment options. He should also continue the Protonix 40 mg a day at least for the next month. I believe he can probably be discharged today with outpatient followup in my office and I would recommend that he get instructed on a low fiber diet that he will need to maintain as an outpatient. This instruction hopefully will occur before he is discharged.
--- NOTE | 2018-08-28 11:51 | Discharge Summary ---
Date of Service August 28, 2018 Admission HPI Per Admitting Provider This is a 43 yo M with PMHx of ilitis, Crohn's disease, morbid obesity with BMI of 38, smoking use x23 years, 1 pack/week, who presents with new onset of chest pain and abdominal pain. The patient notes that he suddenly developed chest pain several days ago while he was at work. Patient suddenly became lightheaded due to substernal chest pain, clenched his chest, dropped to his knees, and stayed there for about 5 minutes until feeling better. He proceeded to get up and continued with working like he normally would. This happened again last evening when he was home with his 11 yo son in the house, with similar presentation. He did not come to the ER. He reports that the pain is sudden in onset and has occurred whenever he is up walking and doing something physically exertional each time. He denies pal pitations or tightness associated with the pain. The patient does not typically exercise however is able to complete a flight of stairs without difficulty. Patient was wondering if this could possibly be due to anxiety, as he is under significant stress at work. He notes that when he is stressed he typically smokes a cigarette to calm himself down. The patient reports that his abdominal pain has been going on for several days now as well, and that he has been afraid to eat anything for fear of worsening pain and diarrhea. Patient reports his last bowel movement was this morning, loose, dark, and denies BRBPR. He reports drinking some apple juice and water in small quantities over the last few days, along with small amounts of food. He denies nausea or vomiting. He was recently diagnosed with Crohn's disease only [address] Salcido by colonoscopy. Patient is not on any medications for tx of Crohn's. Pertinent family history: Father-ID at age 52, A[employer] Mother-colitis, [facility] Principal Diagnosis Crohn's disease flare Atypical chest pain-noncardiac Discharge Exam Constitutional WD/WN, vitals as above + obese Eyes PERRL, conjunctivae normal, anicteric sclerae ENMT external ear and nose normal, oropharynx normal Neck trachea midline, no thyromegaly Respiratory normal respiratory effort, lungs clear to auscultation Cardiovascular RRR, no murmur, no edema Gastrointestinal (Abdomen) Inspection/Auscultation: abdomen normal to inspection and normal bowel sounds Percussion/Palpation: + abdomen tender (Minimal in the left lower quadrant without guarding or rebound tenderness) and abdomen soft Musculoskeletal Extremities: extremities normal to inspection; no cyanosis and no clubbing Skin no rashes, warm and dry Neurologic moves all extremities and awake; no focal motor deficits Psychiatric A+Ox3, euthymic affect Discharge Data Allergies Allergy/AdvReac Type Severity Reaction Status Date / Time No Known Allergies Allergy Unverified 08/26/18 10:58 Consultations Gastroenterology Cardiology Procedures Performed Echocardiogram Ordered Studies 08/26/18 10:24 CT abd pelvis IV con only Stat Chest x-ray Hospital Course (1) Chest pain: Atypical, sharp pains in the substernal region and some in the epigastric region. Now much improved and almost completely resolved after treating with antacids Serial troponin negative x3, echocardiogram with normal EF, mild to moderate MR, mild AI, and no wall motion abnormalities, no pericardial effusion ECG with sinus bradycardia, likely early repolarization Although he does have a reported history of pericarditis x3, agree with assistant administrator that this is not a recurrence of pericarditis Seems more likely that this is related to his Crohn's disease and a GI etiology versus musculoskeletal in nature although is not reproducible on examination Appreciate cardiology consultation -Defer to GI for further outpatient work-up with possible EGD in the future if pain persists -Started Protonix 40 mg once daily and he should remain on this (2) Ileitis: With long segment of severe ileitis seen on CT scan, has mid to left lower quadrant pain on examination and by history which has been long-standing for 6 months He could not afford the Pentasa prescribed due to having no insurance He is started on steroids here and can continue prednisone 40 mg once daily after discharge as per GI recommendations -Plan to follow-up with GI as an outpatient -Also there are plans to get him enrolled in a clinical trial which will then provide him with medication for free -Appreciate GI consultation (3) Hx of Crohn's disease: As noted above -Continue prednisone 40 mg daily as above -Continue low fiber diet IV fluids have been discontinued -Continue analgesia with tylenol PRN. -Cont protonix 40 mg once daily (4) History of cholecystectomy: - noted (5) Anemia: Mild normocytic anemia-likely of chronic disease -Follow CBC as an outpatient (6) Bradycardia: With persistent sinus bradycardia in the 40s-50s. He is not a very active individual and this does seem a bit unusual. He is completely asymptomatic. He cannot recall ever being told his heart rate was as low in the past TSH was normal at 0.8 If no need for further work-up at this time Seen by cardiology (7) Valvular heart disease: With mild to moderate MR and mild AI -Follow routinely as an outpatient with cardiology or PCP (8) DVT prophylaxis: LOTTIE jay Disposition-stable for discharge to home He does not have a primary care physician-he plans to follow-up with [facility] in medicine for primary care Total Time Total Time Spent Total Time Spent (In Minutes): Greater than 30 Total Time Includes: Examination of the Patient, Discharge Planning and Medication Reconciliation Discharge Plan Discharge Items Patient Disposition: Home - Self-Care Reason For Visit: CHEST PAIN, CHRONS FLARE Discharge Diagnosis: Chest pain, Crohn's disease Condition: Good Discharge Goals: Decrease discomfort, Diagnostic testing, Improve disease control, Learn about illness and Therapeutic intervention Activity: As commented below Activity Comment: Please remain out of work until 08/31/2018 Lifting: Gradually increase as tolerated Bathing: No limitations Exercise/Sports: Gradually increase as tolerated Driving/Machine Use: No limitations Non-emergency contact: Primary Care Provider and Regional Truck Driver Call non-emergency contact if: you have any medication questions, your symptoms worsen, your pain is not controlled, your pain is worsening, your pain is unusual for you, your pain is concerning for you, you have a fever and your temperature is above 100.5 Follow-up/Referrals: Al Salcido [Physician] - (Dr. Salcido's office should contact you to schedule your follow-up visit) PCP,NO [Primary Care Provider] - (Please follow-up with [facility] in [facility] within 1 to 2 weeks as per the information given to you by case management.) Diet: Low Fiber Addtl Provider Instructions: Please continue to take prednisone 40 mg once daily along with an antacid once daily. The pantoprazole (Protonix) antacid pill was called into your pharmacy. If this is too expensive, please buy either Nexium 40 mg daily or Prilosec 20 mg daily [id number]. Please continue to follow a low fiber diet and follow-up with the manager battery as discussed. Prescriptions: New acetaminophen [Mapap (acetaminophen)] 325 mg Tablet 650 mg PO Q4H PRN (Reason: pain) Qty: 30 RF: 0 prednisone 20 mg Tablet 40 mg PO DAILY Qty: 60 RF: 0 pantoprazole 40 mg Tablet,Delayed Release (Dr/Ec) 40 mg PO QAM Qty: 30 RF: 0 No Action No Known Home Medications RF: 0 Visit Report Forms: Smoking Cessation Stand-Alone Forms: Work/School Release (ED), [facility] Discharge Orders: Discharge Order (Routine); Ordered 08/28/18 Ordered By: Latanya Muñoz Admission Data Admit Date/Time: 08/26/18 14:01 Attending Provider: Latanya Muñoz Admit Provider: Ariel Ramirez Primary Care Provider: PCP,NO Other Providers: Marcos Santos ; Al Salcido ; Ariel Ramirez Service: Telemetry Other Interventions: Discharge Summary Assessment (RN) Last Done: 08/28/18 11:29 Pending Studies at Discharge: No
== END 2018-08-28 12:32 | disposition home or self-care (01) | DRG 387 ==
LOC: ED 09:59 → 2S 14:01 → SUATTDRO 14:01 → 2S 14:35
DX: R00.1 Bradycardia, unspecified; Z90.49 Acquired absence of other specified parts of digestive tract; Z91.120 Patient's intentional underdosing of medication regimen due to financial hardship; Z86.79 Personal history of other diseases of the circulatory system; Z68.38 Body mass index [BMI] 38.0-38.9, adult; Z83.79 Family history of other diseases of the digestive system; E66.01 Morbid (severe) obesity due to excess calories; R07.89 Other chest pain; K50.00 Crohn's disease of small intestine without complications; T47.8X6A Underdosing of other agents primarily affecting gastrointestinal system, initial encounter; D63.8 Anemia in other chronic diseases classified elsewhere; Z82.49 Family history of ischemic heart disease and other diseases of the circulatory system; F17.210 Nicotine dependence, cigarettes, uncomplicated; I08.0 Rheumatic disorders of both mitral and aortic valves

== ENCOUNTER 2019-12-21 01:52 | Inpatient (IN) ==
[2019-12-21] MEDS: SODIUM CHLORIDE 0.9% 1000ML 1,000 ML IV SCH ×2 (02:26→03:53)
[2019-12-21 02:53] LABS: Alanine Aminotransferase 42 U/L (12-78); Albumin Globulin Ratio 0.7 (0.9-2); Albumin Level 3.5 gm/dl (3.4-5.0); Aspartate Aminotransferase 21 U/L (15-37); BUN Creatinine Ratio 14.9 (10-20); Bilirubin,Total 0.4 mg/dl (0.2-1); Blood Urea Nitrogen 26 mg/dl (7-18); Calcium 9.3 mg/dl (8.5-10.1); Carbon Dioxide 24 mmol/L (21-32); Chloride 91 mmol/L (98-107); Creatinine Clr Calc Pharmacy 70.5 ml/min; Est GFR (African American) 52.6; Est GFR (Non-African American) 45.4; Globulin 4.9 gm/dl (2.5-4.0); Lipase 122 U/L (73-393); Magnesium 1.8 mg/dl (1.8-2.4); Potassium 4.1 mmol/L (3.5-5.1); Sodium 126 mmol/L (136-145); Total Protein 8.4 gm/dl (6.4-8.2)
[2019-12-21 02:57] LABS: Troponin I < 0.015 ng/ml (0-0.045)
[2019-12-21] MEDS ORDERED: ONDANSETRON INJ 2 MG/ML 2 ML VIAL IV STA (02:57)
[2019-12-21 02:58] LABS: Alkaline Phosphatase 149 U/L (45-117)
[2019-12-21 02:59] LABS: Glucose 624 mg/dl (70-99)
[2019-12-21] MEDS ORDERED: NovoLIN-R INSULIN PER UNIT CHARGE IV STA (03:00)
[2019-12-21 03:10] LABS: Basophils # (auto) 0.02 K/uL (0-0.2); Basophils % (auto) 0.2 %; Eosinophils % (auto) 1.2 %; Hematocrit (blood only) 38.7 % (42-52); Hemoglobin 13.4 g/dL (14.0-18.0); Immature Granulocytes # (auto) 0.03 K/uL (0.00-0.02); Immature Granulocytes % (auto) 0.3 %; Lymphocytes # (auto) 2.16 K/uL (1.2-3.4); Lymphocytes % (auto) 24.9 %; Mean Corpuscular Hemoglobin 30.6 pg (25-34); Mean Corpuscular Hgb Conc 34.6 g/dL (32-36); Mean Corpuscular Volume 88.4 fL (80-100); Monocytes # (auto) 0.68 K/uL (0.11-0.59); Monocytes % (auto) 7.8 %; Neutrophils % (auto) 65.6 %; Platelet Count 238 K/uL (130-400); RDW Coefficient of Variation 13.1 % (11.5-14.5); RDW Standard Deviation 42.7 fL (36.4-46.3); Red Blood Count 4.38 M/uL (4.7-6.1); White Blood Count 8.69 K/uL (4.8-10.8)
[2019-12-21 03:18] LABS: Base Excess VBG 0.5 mEq/L; HCO3 VBG 25 mmol/L; Oxygen Saturation VBG 83.1 %; PCO2 VBG 39 mmHg (38-50); PO2 VBG 51 mmHg; pH VBG 7.42 (7.36-7.41)
[2019-12-21 04:04] LABS: Appearance Urine Clear (Clear); Bilirubin Urine Negative (Negative); Blood Urine Negative (Negative); Color Urine Yellow; Glucose Urine UA 3+ (Negative); Ketones Urine 1+ (Negative); Leukocyte Esterase Urine Negative (Negative); Nitrite Urine Negative (Negative); Protein Urine Negative (Negative); Specific Gravity Urine 1.037 (1.000-1.030); Urobilinogen Urine Negative (Negative)
[2019-12-21 04:12] LABS: Adenovirus PCR Not Detected (NotDetected); Bordetella parapertussis PCR Not Detected (NotDetected); Bordetella pertussis PCR Not Detected (NotDetected); Chlamydia pneumoniae PCR Not Detected (NotDetected); Coronavirus 229E PCR Not Detected (NotDetected); Coronavirus CoV-2 (COVID19)PCR Not Detected (NotDetected); Coronavirus HKU1 PCR Not Detected (NotDetected); Coronavirus NL63 PCR Not Detected (NotDetected); Coronavirus OC43PCR Not Detected (NotDetected); Human Metapneumovirus PCR Not Detected (NotDetected); Influenza A PCR Not Detected (NotDetected); Influenza B PCR Not Detected (NotDetected); Mycoplasma pneumoniae PCR Not Detected (NotDetected); Parainfluenza Virus 1 PCR Not Detected (NotDetected); Parainfluenza Virus 2 PCR Not Detected (NotDetected); Parainfluenza Virus 3 PCR Not Detected (NotDetected); Parainfluenza Virus 4 PCR Not Detected (NotDetected); Respiratory Syncytial VirusPCR Not Detected (NotDetected); Rhinovirus/Enterovirus PCR Not Detected (NotDetected)
[2019-12-21] MEDS ORDERED: SODIUM CHLORIDE 0.9% 1000ML 1,000 ML IV ONE (04:40)
[2019-12-21] MEDS ORDERED: INSULIN PROTOCOL GOAL RANGE ONE (04:41)
[2019-12-21] MEDS ORDERED: SEVERE STRESS LEVEL ONE (04:41)
[2019-12-21] MEDS: INSULIN REGULAR 250 UNITS in SODIUM CHLORIDE 0.9% 247.5 ML IV SCH (05:06)
--- NOTE | 2019-12-21 05:16 | History & Physical Report ---
Date of Service December 21, 2019 Assessment & Plan (1) Hyperglycemic crisis in diabetes mellitus: Hyperglycemic hyperosmolar syndrome New diagnosis of diabetes mellitus ARF secondary to above Recurrent syncope likely secondary to orthostasis secondary to dehydration Rule out cardiac dysfunction Abdominal pain with diarrhea rule out IBD flareup Rule out C. difficile New onset anemia Past tobacco abuse Medical telemetry IV insulin Monitor creatinine response to IVF Follow hemoglobin A1c Diabetic education May benefit from pharmacy glycemic control consult Check orthostatic vitals, TTE for syncope work-up Stool C. difficile CT abdomen pelvis RE abdominal pain N.p.o. for now until CT abdomen pelvis results known Anemia work-up, transfuse pRBC if hemoglobin less than 7 and or for symptomatic anemia DVT prophylaxis. Heparin subcu Full code Text document was generated using [employer] voice recognition software. It may contain grammatical or spelling errors. Kindly contact undersigned for clarification of any documentation item in question. History of Present Illness Chief Complaint: Weakness, peeing a lot Primary Care Provider: NO PCP Patient requesting to follow-up with a new PCP from [facility] on discharge. History obtained from patient, family, and records. Medical history significant for Crohn's disease, past tobacco abuse. Last confinement August 2018 for chest pain. The last week patient not feeling well. Peeing a lot, feeling thirsty. No chest pain, no S OB. Dizziness described as lightheadedness. 2 unwitnessed syncopal events at work yesterday preceded by lightheadedness. Patient was just out for a few moments. No headache symptoms. No head trauma. No tongue biting, urinary incontinence. Achy abdominal pain with usual loose watery stools. Patient worried about diabetes. At the ER, blood sugars noted to be 600s. Patient given IV insulin at the ER. Medical History as above Surgical History : Cholecystectomy Family History : Diabetes Personal/Social history : Past tobacco abuse, occasional EtOH intake, [employer] employee Allergies Allergy/AdvReac Type Severity Reaction Status Date / Time No Known Allergies Allergy Verified 12/15/19 18:48 Home Medications Home Medications Medication Instructions Recorded Confirmed Type omeprazole magnesium [Prilosec OTC] 20 mg PO DAILY 12/15/19 12/21/19 History Past Med/Surg History Medical History Abnormal ECG Anemia Bradycardia Hx of Crohn's disease Ileitis Valvular heart disease Surgical History History of cholecystectomy Family History Other Colitis Social History Smoking Status: Former smoker Tobacco Type: Cigarettes Cigarettes Per Day: 3; Hx Alcohol Use: No Hx Substance Use: No Preferred Language: Tuvaluan Communication Ability: Effective Visual Impairment: No Limitations Hearing Ability: Normal Sandwich Artist Required: No Beliefs That Will Affect Care: None Current Living Situation: Significant Other current occupational status: employed current occupation: [employer] at [employer] Other Information That Helps Us Care for You: No Feels Safe at Home: Yes Safety Concerns: Feels Safe At This Time Assistive Devices: Glasses Review of Systems Review of Systems: As per HPI, all 10 systems reviewed, all other ROS negative Physical Exam Physical Exam: GENERAL: Comfortable, pleasant, obese, no respiratory distress SKIN: Pallor , warm HEENT: Alopecia, pale palpebral conjunctivae, no ptosis, dry buccal mucosa NECK : Supple, short neck, no tenderness CHEST : CTA, no tenderness HEART : RRR, no obvious murmurs ABDOMEN: Some distention, minimal hypogatric tenderness RECTAL : Intact sphincter, yellow stool (FOBT negative) EXTREMITIES : Minimal LE swelling, no LE tenderness, no other conspicuous deformities noted NEUROLOGIC : Coherent, no facial asymmetry, no other gross focality Results & Data Results & Data ([facility]) Vital Signs (Past 12 Hours) Vital Signs Temp Pulse Pulse Resp BP BP Pulse Ox 12/21/19 05:00 83 19 130/99 94 12/21/19 03:30 98 H 17 149/100 H 94 12/21/19 02:25 105 H 24 154/104 H 95 12/21/19 02:07 108 H 97 12/21/19 01:57 37.3 C 114 H 16 130/94 96 Laboratory Results 12/21/19 12/21/19 12/21/19 02:05 02:16 02:16 WBC Cancelled RBC Cancelled Hgb Cancelled Hct Cancelled MCV Cancelled MCH Cancelled MCHC Cancelled RDW Std Deviation Cancelled RDW Coeff of Toni Cancelled Plt Count Cancelled MPV Cancelled Immature Gran % (Auto) Cancelled Neut % (Auto) Cancelled Lymph % (Auto) Cancelled [place] % (Auto) Cancelled Eos % (Auto) Cancelled Baso % (Auto) Cancelled Neut # (Auto) Cancelled Lymph # (Auto) Cancelled [place] # (Auto) Cancelled Eos # (Auto) Cancelled Baso # (Auto) Cancelled Immature Gran # (Auto) Cancelled Absolute Nucleated RBC Cancelled Nucleated RBC % (auto) Cancelled Neutrophils % (Manual) Cancelled Band Neutrophils % Cancelled Lymphocytes % (Manual) Cancelled Prolymphocyte % Cancelled Reactive Lymphs % (Man) Cancelled Monocytes % (Manual) Cancelled Eosinophils % (Manual) Cancelled Basophils % (Manual) Cancelled Metamyelocytes % (Man) Cancelled Myelocytes % (Man) Cancelled Promyelocytes % (Man) Cancelled Blast Cells % (Manual) Cancelled Plasma Cell % (Manual) Cancelled Other Cells % Cancelled Nucleated RBC % Cancelled Neutrophils # (Manual) Cancelled Band Neutrophils # Cancelled Total Absolute Neuts Cancelled Lymphocytes # (Manual) Cancelled Prolymphocyte # Cancelled Reactive Lymphs # Cancelled Total Abs Lymphocytes Cancelled Monocytes # (Manual) Cancelled Eosinophils # (Manual) Cancelled Basophils # (Manual) Cancelled Metamyelocytes # (Man) Cancelled Myelocytes # (Manual) Cancelled Promyelocytes # (Man) Cancelled Blast Cells # (Man) Cancelled Plasma Cell # (Manual) Cancelled Other Cells # Cancelled Nucleated RBCs # (Man) Cancelled Hypersegmented Neuts Cancelled Hyposegmented Neuts Cancelled Hypogranular Neuts Cancelled Large Granular Lymphs Cancelled # Lrg Granular Lymphs Cancelled Hairy Cells Cancelled Smudge Cells Cancelled Toxic Granulation Cancelled Toxic Vacuolation Cancelled Dohle Bodies Cancelled Dionne Rods Cancelled Platelet Estimate Cancelled Hypogranular Platelets Cancelled Clumped Platelets Cancelled Giant Platelets Cancelled Platelet Satelliting Cancelled RBC Morphology Cancelled Polychromasia Cancelled Hypochromasia Cancelled Poikilocytosis Cancelled Basophilic Stippling Cancelled Anisocytosis Cancelled Microcytosis Cancelled Macrocytosis Cancelled Spherocytes Cancelled Pappenheimer Bodies Cancelled Sickle Cells Cancelled Target Cells Cancelled Tear Drop Cells Cancelled Ovalocytes Cancelled Stomatocytes Cancelled [place] Bodies Cancelled Echinocytes Cancelled Acanthocytes (Spur) Cancelled Rouleaux Cancelled RBC Agglutinates Cancelled Schistocytes Cancelled RBC Morph Comment Cancelled Sezary Cell Cancelled VBG pH VBG pCO2 VBG pO2 VBG HCO3 VBG O2 Saturation VBG Base Excess Sodium 126 L Potassium 4.1 Chloride 91 L Carbon Dioxide 24 Anion Gap 11.0 BUN 26 H Creatinine 1.76 H Est Cr Clr Drug Dosing 70.5 Est GFR ( Amer) 52.6 Est GFR (Non-Af Amer) 45.4 BUN/Creatinine Ratio 14.9 Glucose 624 H* POC Glucose 573 H* Estimat Average Glucose Hemoglobin A1c Calcium 9.3 Magnesium 1.8 Total Bilirubin 0.4 AST 21 ALT 42 Alkaline Phosphatase 149 H Troponin I < 0.015 Total Protein 8.4 H Albumin 3.5 Globulin 4.9 H Albumin/Globulin Ratio 0.7 L Lipase 122 Beta-Hydroxybutyric Acd TSH 3.900 Specimen Hemolysis Urine Color Urine Appearance Urine pH Ur Specific [place] Urine Protein Urine Glucose (UA) Urine Ketones Urine Blood Urine Nitrite Urine Bilirubin Urine Urobilinogen Ur Leukocyte Esterase Adenovirus (PCR) B. pertussis DNA (PCR) B.parapertussis DNA PCR C. pneumoniae DNA (PCR) Coronavirus OC43 (PCR) Coronavirus HKU1 (PCR) Coronavirus 229E (PCR) COVID-19 PCR Coronavirus NL63 (PCR) Human Metapneumovir PCR Influenza Type A (PCR) Influenza Type B (PCR) M. pneumoniae (PCR) Parainfluenza 1 (PCR) Parainfluenza 2 (PCR) Parainfluenza 3 (PCR) Parainfluenza 4 (PCR) RSV (PCR) Entero/Rhino (PCR) 12/21/19 12/21/19 12/21/19 02:16 02:41 02:58 WBC RBC Hgb Hct MCV MCH MCHC RDW Std Deviation RDW Coeff of Toni Plt Count MPV Immature Gran % (Auto) Neut % (Auto) Lymph % (Auto) [place] % (Auto) Eos % (Auto) Baso % (Auto) Neut # (Auto) Lymph # (Auto) [place] # (Auto) Eos # (Auto) Baso # (Auto) Immature Gran # (Auto) Absolute Nucleated RBC Nucleated RBC % (auto) Neutrophils % (Manual) Band Neutrophils % Lymphocytes % (Manual) Prolymphocyte % Reactive Lymphs % (Man) Monocytes % (Manual) Eosinophils % (Manual) Basophils % (Manual) Metamyelocytes % (Man) Myelocytes % (Man) Promyelocytes % (Man) Blast Cells % (Manual) Plasma Cell % (Manual) Other Cells % Nucleated RBC % Neutrophils # (Manual) Band Neutrophils # Total Absolute Neuts Lymphocytes # (Manual) Prolymphocyte # Reactive Lymphs # Total Abs Lymphocytes Monocytes # (Manual) Eosinophils # (Manual) Basophils # (Manual) Metamyelocytes # (Man) Myelocytes # (Manual) Promyelocytes # (Man) Blast Cells # (Man) Plasma Cell # (Manual) Other Cells # Nucleated RBCs # (Man) Hypersegmented Neuts Hyposegmented Neuts Hypogranular Neuts Large Granular Lymphs # Lrg Granular Lymphs Hairy Cells Smudge Cells Toxic Granulation Toxic Vacuolation Dohle Bodies Dionne Rods Platelet Estimate Hypogranular Platelets Clumped Platelets Giant Platelets Platelet Satelliting RBC Morphology Polychromasia Hypochromasia Poikilocytosis Basophilic Stippling Anisocytosis Microcytosis Macrocytosis Spherocytes Pappenheimer Bodies Sickle Cells Target Cells Tear Drop Cells Ovalocytes Stomatocytes [place] Bodies Echinocytes Acanthocytes (Spur) Rouleaux RBC Agglutinates Schistocytes RBC Morph Comment Sezary Cell VBG pH 7.42 H VBG pCO2 39 VBG pO2 51 VBG HCO3 25 VBG O2 Saturation 83.1 VBG Base Excess 0.5 Sodium Potassium Chloride Carbon Dioxide Anion Gap BUN Creatinine Est Cr Clr Drug Dosing Est GFR ( Amer) Est GFR (Non-Af Amer) BUN/Creatinine Ratio Glucose POC Glucose Estimat Average Glucose Cancelled Hemoglobin A1c Cancelled Calcium Magnesium Total Bilirubin AST ALT Alkaline Phosphatase Troponin I Total Protein Albumin Globulin Albumin/Globulin Ratio Lipase Beta-Hydroxybutyric Acd TSH Specimen Hemolysis Urine Color Urine Appearance Urine pH Ur Specific [place] Urine Protein Urine Glucose (UA) Urine Ketones Urine Blood Urine Nitrite Urine Bilirubin Urine Urobilinogen Ur Leukocyte Esterase Adenovirus (PCR) Not Detected B. pertussis DNA (PCR) Not Detected B.parapertussis DNA PCR Not Detected C. pneumoniae DNA (PCR) Not Detected Coronavirus OC43 (PCR) Not Detected Coronavirus HKU1 (PCR) Not Detected Coronavirus 229E (PCR) Not Detected COVID-19 PCR Not Detected Coronavirus NL63 (PCR) Not Detected Human Metapneumovir PCR Not Detected Influenza Type A (PCR) Not Detected Influenza Type B (PCR) Not Detected M. pneumoniae (PCR) Not Detected Parainfluenza 1 (PCR) Not Detected Parainfluenza 2 (PCR) Not Detected Parainfluenza 3 (PCR) Not Detected Parainfluenza 4 (PCR) Not Detected RSV (PCR) Not Detected Entero/Rhino (PCR) Not Detected 12/21/19 12/21/19 12/21/19 02:58 02:58 03:47 WBC 8.69 RBC 4.38 L Hgb 13.4 L Hct 38.7 L MCV 88.4 MCH 30.6 MCHC 34.6 RDW Std Deviation 42.7 RDW Coeff of Toni 13.1 Plt Count 238 MPV 9.0 Immature Gran % (Auto) 0.3 Neut % (Auto) 65.6 Lymph % (Auto) 24.9 [place] % (Auto) 7.8 Eos % (Auto) 1.2 Baso % (Auto) 0.2 Neut # (Auto) 5.70 Lymph # (Auto) 2.16 [place] # (Auto) 0.68 H Eos # (Auto) 0.10 Baso # (Auto) 0.02 Immature Gran # (Auto) 0.03 H Absolute Nucleated RBC Nucleated RBC % (auto) Neutrophils % (Manual) Band Neutrophils % Lymphocytes % (Manual) Prolymphocyte % Reactive Lymphs % (Man) Monocytes % (Manual) Eosinophils % (Manual) Basophils % (Manual) Metamyelocytes % (Man) Myelocytes % (Man) Promyelocytes % (Man) Blast Cells % (Manual) Plasma Cell % (Manual) Other Cells % Nucleated RBC % Neutrophils # (Manual) Band Neutrophils # Total Absolute Neuts Lymphocytes # (Manual) Prolymphocyte # Reactive Lymphs # Total Abs Lymphocytes Monocytes # (Manual) Eosinophils # (Manual) Basophils # (Manual) Metamyelocytes # (Man) Myelocytes # (Manual) Promyelocytes # (Man) Blast Cells # (Man) Plasma Cell # (Manual) Other Cells # Nucleated RBCs # (Man) Hypersegmented Neuts Hyposegmented Neuts Hypogranular Neuts Large Granular Lymphs # Lrg Granular Lymphs Hairy Cells Smudge Cells Toxic Granulation Toxic Vacuolation Dohle Bodies Dionne Rods Platelet Estimate Hypogranular Platelets Clumped Platelets Giant Platelets Platelet Satelliting RBC Morphology Polychromasia Hypochromasia Poikilocytosis Basophilic Stippling Anisocytosis Microcytosis Macrocytosis Spherocytes Pappenheimer Bodies Sickle Cells Target Cells Tear Drop Cells Ovalocytes Stomatocytes [place] Bodies Echinocytes Acanthocytes (Spur) Rouleaux RBC Agglutinates Schistocytes RBC Morph Comment Sezary Cell VBG pH VBG pCO2 VBG pO2 VBG HCO3 VBG O2 Saturation VBG Base Excess Sodium Potassium Chloride Carbon Dioxide Anion Gap BUN Creatinine Est Cr Clr Drug Dosing Est GFR ( Amer) Est GFR (Non-Af Amer) BUN/Creatinine Ratio Glucose POC Glucose 426 H* Estimat Average Glucose Hemoglobin A1c Calcium Magnesium Total Bilirubin AST ALT Alkaline Phosphatase Troponin I Total Protein Albumin Globulin Albumin/Globulin Ratio Lipase Beta-Hydroxybutyric Acd 14.60 H TSH Specimen Hemolysis Urine Color Urine Appearance Urine pH Ur Specific [place] Urine Protein Urine Glucose (UA) Urine Ketones Urine Blood Urine Nitrite Urine Bilirubin Urine Urobilinogen Ur Leukocyte Esterase Adenovirus (PCR) B. pertussis DNA (PCR) B.parapertussis DNA PCR C. pneumoniae DNA (PCR) Coronavirus OC43 (PCR) Coronavirus HKU1 (PCR) Coronavirus 229E (PCR) COVID-19 PCR Coronavirus NL63 (PCR) Human Metapneumovir PCR Influenza Type A (PCR) Influenza Type B (PCR) M. pneumoniae (PCR) Parainfluenza 1 (PCR) Parainfluenza 2 (PCR) Parainfluenza 3 (PCR) Parainfluenza 4 (PCR) RSV (PCR) Entero/Rhino (PCR) 12/21/19 12/21/19 03:55 04:40 WBC RBC Hgb Hct MCV MCH MCHC RDW Std Deviation RDW Coeff of Toni Plt Count MPV Immature Gran % (Auto) Neut % (Auto) Lymph % (Auto) [place] % (Auto) Eos % (Auto) Baso % (Auto) Neut # (Auto) Lymph # (Auto) [place] # (Auto) Eos # (Auto) Baso # (Auto) Immature Gran # (Auto) Absolute Nucleated RBC Nucleated RBC % (auto) Neutrophils % (Manual) Band Neutrophils % Lymphocytes % (Manual) Prolymphocyte % Reactive Lymphs % (Man) Monocytes % (Manual) Eosinophils % (Manual) Basophils % (Manual) Metamyelocytes % (Man) Myelocytes % (Man) Promyelocytes % (Man) Blast Cells % (Manual) Plasma Cell % (Manual) Other Cells % Nucleated RBC % Neutrophils # (Manual) Band Neutrophils # Total Absolute Neuts Lymphocytes # (Manual) Prolymphocyte # Reactive Lymphs # Total Abs Lymphocytes Monocytes # (Manual) Eosinophils # (Manual) Basophils # (Manual) Metamyelocytes # (Man) Myelocytes # (Manual) Promyelocytes # (Man) Blast Cells # (Man) Plasma Cell # (Manual) Other Cells # Nucleated RBCs # (Man) Hypersegmented Neuts Hyposegmented Neuts Hypogranular Neuts Large Granular Lymphs # Lrg Granular Lymphs Hairy Cells Smudge Cells Toxic Granulation Toxic Vacuolation Dohle Bodies Dionne Rods Platelet Estimate Hypogranular Platelets Clumped Platelets Giant Platelets Platelet Satelliting RBC Morphology Polychromasia Hypochromasia Poikilocytosis Basophilic Stippling Anisocytosis Microcytosis Macrocytosis Spherocytes Pappenheimer Bodies Sickle Cells Target Cells Tear Drop Cells Ovalocytes Stomatocytes [place] Bodies Echinocytes Acanthocytes (Spur) Rouleaux RBC Agglutinates Schistocytes RBC Morph Comment Sezary Cell VBG pH VBG pCO2 VBG pO2 VBG HCO3 VBG O2 Saturation VBG Base Excess Sodium Potassium Chloride Carbon Dioxide Anion Gap BUN Creatinine Est Cr Clr Drug Dosing Est GFR ( Amer) Est GFR (Non-Af Amer) BUN/Creatinine Ratio Glucose POC Glucose 453 H* Estimat Average Glucose Hemoglobin A1c Calcium Magnesium Total Bilirubin AST ALT Alkaline Phosphatase Troponin I Total Protein Albumin Globulin Albumin/Globulin Ratio Lipase Beta-Hydroxybutyric Acd TSH Specimen Hemolysis Urine Color Yellow Urine Appearance Clear Urine pH 5.0 Ur Specific [place] 1.037 H Urine Protein Negative Urine Glucose (UA) 3+ H Urine Ketones 1+ H Urine Blood Negative Urine Nitrite Negative Urine Bilirubin Negative Urine Urobilinogen Negative Ur Leukocyte Esterase Negative Adenovirus (PCR) B. pertussis DNA (PCR) B.parapertussis DNA PCR C. pneumoniae DNA (PCR) Coronavirus OC43 (PCR) Coronavirus HKU1 (PCR) Coronavirus 229E (PCR) COVID-19 PCR Coronavirus NL63 (PCR) Human Metapneumovir PCR Influenza Type A (PCR) Influenza Type B (PCR) M. pneumoniae (PCR) Parainfluenza 1 (PCR) Parainfluenza 2 (PCR) Parainfluenza 3 (PCR) Parainfluenza 4 (PCR) RSV (PCR) Entero/Rhino (PCR) Diagnostic Findings Chest x-ray as per my dictation atelectasis EKG as per my interpretation : Rate 115, sinus tachycardia, normal axis, early repolarization
--- NOTE | 2019-12-21 05:29 | Emergency Department Note ---
History of Present Illness General Chief complaint: Hyperglycemia Stated complaint: SYNCOPE,FREQUENT URINATION,BLURRY VISION,THIRSTY Time Seen by Provider: 12/21/19 02:01 History of Present Illness This is a 44-year-old male presenting to the emergency department for evaluation of polyuria and polydipsia. The patient has also been feeling unwell for the past several days and had multiple near syncopal episodes at work. The patient has been seen in this department recently where he was vomiting and struck his head on the toilet. At that visit CT scan of the head was performed and was negative. The patient is currently not having significant head or neck pain. No chest pain, chest tightness, shortness of breath. He does have a family history of diabetes, and is concerned for the same. He rates his current discomfort a 7/10. He feels like he is urinating every hour or more. He does not have a history of diabetes. Home Medications Home Medications Medication Instructions Recorded Confirmed Type omeprazole magnesium [Prilosec OTC] 20 mg PO DAILY 12/15/19 12/21/19 History Allergies Allergy/AdvReac Type Severity Reaction Status Date / Time No Known Allergies Allergy Verified 12/15/19 18:48 Past Med/Surg History Medical History Abnormal ECG Anemia Bradycardia Hx of Crohn's disease Ileitis Valvular heart disease Surgical History History of cholecystectomy Family History Other Colitis Social History Smoking Status: Former smoker Tobacco Type: Cigarettes Cigarettes Per Day: 3; Hx Alcohol Use: No Hx Substance Use: No Preferred Language: Moldovan Communication Ability: Effective Visual Impairment: No Limitations Hearing Ability: Normal Commercial Service Technician Required: No Beliefs That Will Affect Care: None Current Living Situation: Family current occupational status: employed 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 [employer] Feels Safe at Home: Yes Assistive Devices: Apnea Monitor Review of Systems A total of 10 systems reviewed and were otherwise negative Physical Exam Vital Signs Vital Signs - 24 hr 12/21/19 01:57 12/21/19 02:07 12/21/19 02:25 Temperature 37.3 C Temperature Source Oral Pulse Rate 114 H 108 H Pulse Rate [Apical] 105 H Respiratory Rate 16 24 Respiratory Effort / Characteristics Non-Labored Spontaneous Respiratory Depth Normal Respiratory Pattern Regular Blood Pressure 130/94 Blood Pressure [Left Arm] 154/104 H Blood Pressure Mean 106 Blood Pressure Mean [Left Arm] 120 Blood Pressure Position Sitting Blood Pressure Position [Left Arm] Sitting Pulse Oximetry 96 97 95 Oxygen Delivery Method Room Air Room Air Room Air Sepsis Recent Fever Within 48 Hours No Sepsis New/Unexplained Change in Mental Status No Sepsis Action Taken by Nursing No Action Required 12/21/19 03:30 12/21/19 05:00 12/21/19 06:13 Temperature Temperature Source Pulse Rate Pulse Rate [Apical] 98 H 83 88 Respiratory Rate 17 19 20 Respiratory Effort / Characteristics Non-Labored Spontaneous Respiratory Depth Normal Respiratory Pattern Blood Pressure Blood Pressure [Left Arm] 149/100 H 130/99 126/83 Blood Pressure Mean Blood Pressure Mean [Left Arm] 116 109 97 Blood Pressure Position Blood Pressure Position [Left Arm] Lying Pulse Oximetry 94 94 95 Oxygen Delivery Method Room Air Room Air Sepsis Recent Fever Within 48 Hours Sepsis New/Unexplained Change in Mental Status Sepsis Action Taken by Nursing VITALS: Vitals are noted on the nurse's note and reviewed by myself. Vital signs with tachycardia GENERAL: Well-developed, well-nourished, white male, who is in no acute distress and resting comfortably. Patient is cooperative with the examination. HEAD: Normocephalic atraumatic. EARS: External ear normal. External auditory canals clear, tympanic membranes pearly cross without erythema or effusion bilaterally. EYES: Pupils equal round and reactive to light and accommodation. Conjunctivae without injection, sclerae without icterus. Extraocular movements intact. NOSE: Patent, turbinates without inflammation or discharge. MOUTH: Mucous membranes moist. Tonsils are not enlarged. Pharynx without erythema, blood, or exudate. Uvula midline. Airway patent. NECK: Supple without nuchal rigidity. No lymphadenopathy. No thyromegaly. Cervical spine is nontender. HEART: Regular rate and rhythm without murmurs gallops or rubs. LUNGS: Clear to auscultation bilaterally without wheezes, rales or rhonchi. No retractions or accessory muscle use. ABDOMEN: Positive normal bowel sounds x 4. Soft, nontender, without masses or organomegaly. No guarding or rebound tenderness. MUSCULOSKELETAL: No muscle atrophy, erythema, or edema noted. Full range of motion in all extremities. Course Administered Medications Insulin Human Regular 250 (units/ Sodium Chloride) 250 mls @ 5.3 mls/hr IV .Q24H BONNIE; Protocol Stop: 01/20/20 04:44 Last Titration: 12/21/19 06:11 Dose: 5.3 units/hr, 5.3 mls/hr Documented by: [id number] Cosigned by: [id number] Admin: 12/21/19 05:06 Dose: 4.4 units/hr, 4.4 mls/hr Documented by: [id number] Cosigned by: [id number] Discontinued Medications Sodium Chloride (Nss 1000ml) 1,000 mls @ 999 mls/hr IV .Q1H1M BONNIE Stop: 12/21/19 04:12 Last Infusion: 12/21/19 04:35 Dose: 0 mls/hr Documented by: [id number] Admin: 12/21/19 03:53 Dose: 999 mls/hr Documented by: [id number] Infusion: 12/21/19 03:53 Dose: 0 mls/hr Documented by: [id number] Admin: 12/21/19 02:26 Dose: 999 mls/hr Documented by: [id number] Sodium Chloride (Nss 1000ml) 1,000 mls @ 999 mls/hr IV .Q1H1M ONE Stop: 12/21/19 05:40 Last Infusion: 12/21/19 05:48 Dose: 0 mls/hr Documented by: [id number] Admin: 12/21/19 04:44 Dose: 999 mls/hr Documented by: [id number] Insulin Human Regular (Novolin-R Insulin Per Unit Charge) 10 units IV NOW STA Stop: 12/21/19 03:01 Last Admin: 12/21/19 03:07 Dose: 10 units Documented by: [id number] Cosigned by: [id number] Ondansetron HCl (Ondansetron Inj 2 Mg/Ml 2 Ml Vial) 4 mg IV NOW STA Stop: 12/21/19 02:58 Last Admin: 12/21/19 03:00 Dose: 4 mg Documented by: [id number] Medical Decision Making Differential Diagnosis Differential includes acute coronary syndrome, myocardial infarction, CVA, TIA, anemia, infection, pneumonia, UTI, pyelonephritis, poor nutrition, dehydration, electrolyte disturbance,hypoglycemia. Laboratory Data Result diagrams: 12/21/19 02:58 12/21/19 02:16 Lab Results 12/21/19 12/21/19 12/21/19 Range/Units 02:05 02:16 02:16 WBC Cancelled RBC Cancelled Hgb Cancelled Hct Cancelled MCV Cancelled MCH Cancelled MCHC Cancelled RDW Std Deviation Cancelled RDW Coeff of Toni Cancelled Plt Count Cancelled MPV Cancelled Immature Gran % (Auto) Cancelled Neut % (Auto) Cancelled Lymph % (Auto) Cancelled [place] % (Auto) Cancelled Eos % (Auto) Cancelled Baso % (Auto) Cancelled Neut # (Auto) Cancelled Lymph # (Auto) Cancelled [place] # (Auto) Cancelled Eos # (Auto) Cancelled Baso # (Auto) Cancelled Immature Gran # (Auto) Cancelled Absolute Nucleated RBC Cancelled Nucleated RBC % (auto) Cancelled Neutrophils % (Manual) Cancelled Band Neutrophils % Cancelled Lymphocytes % (Manual) Cancelled Prolymphocyte % Cancelled Reactive Lymphs % (Man) Cancelled Monocytes % (Manual) Cancelled Eosinophils % (Manual) Cancelled Basophils % (Manual) Cancelled Metamyelocytes % (Man) Cancelled Myelocytes % (Man) Cancelled Promyelocytes % (Man) Cancelled Blast Cells % (Manual) Cancelled Plasma Cell % (Manual) Cancelled Other Cells % Cancelled Nucleated RBC % Cancelled Neutrophils # (Manual) Cancelled Band Neutrophils # Cancelled Total Absolute Neuts Cancelled Lymphocytes # (Manual) Cancelled Prolymphocyte # Cancelled Reactive Lymphs # Cancelled Total Abs Lymphocytes Cancelled Monocytes # (Manual) Cancelled Eosinophils # (Manual) Cancelled Basophils # (Manual) Cancelled Metamyelocytes # (Man) Cancelled Myelocytes # (Manual) Cancelled Promyelocytes # (Man) Cancelled Blast Cells # (Man) Cancelled Plasma Cell # (Manual) Cancelled Other Cells # Cancelled Nucleated RBCs # (Man) Cancelled Hypersegmented Neuts Cancelled Hyposegmented Neuts Cancelled Hypogranular Neuts Cancelled Large Granular Lymphs Cancelled # Lrg Granular Lymphs Cancelled Hairy Cells Cancelled Smudge Cells Cancelled Toxic Granulation Cancelled Toxic Vacuolation Cancelled Dohle Bodies Cancelled Dionne Rods Cancelled Platelet Estimate Cancelled Hypogranular Platelets Cancelled Clumped Platelets Cancelled Giant Platelets Cancelled Platelet Satelliting Cancelled RBC Morphology Cancelled Polychromasia Cancelled Hypochromasia Cancelled Poikilocytosis Cancelled Basophilic Stippling Cancelled Anisocytosis Cancelled Microcytosis Cancelled Macrocytosis Cancelled Spherocytes Cancelled Pappenheimer Bodies Cancelled Sickle Cells Cancelled Target Cells Cancelled Tear Drop Cells Cancelled Ovalocytes Cancelled Stomatocytes Cancelled Archer-Hall Bodies Cancelled Echinocytes Cancelled Acanthocytes (Spur) Cancelled Rouleaux Cancelled RBC Agglutinates Cancelled Schistocytes Cancelled RBC Morph Comment Cancelled Sezary Cell Cancelled VBG pH (7.36-7.41) VBG pCO2 (38-50) mmHg VBG pO2 mmHg VBG HCO3 mmol/L VBG O2 Saturation % VBG Base Excess mEq/L Sodium 126 L (136-145) mmol/L Potassium 4.1 (3.5-5.1) mmol/L Chloride 91 L (98-107) mmol/L Carbon Dioxide 24 (21-32) mmol/L Anion Gap 11.0 (3-11) BUN 26 H (7-18) mg/dl Creatinine 1.76 H (0.6-1.4) mg/dl Est Cr Clr Drug Dosing 70.5 ml/min Est GFR ( Amer) 52.6 Est GFR (Non-Af Amer) 45.4 BUN/Creatinine Ratio 14.9 (10-20) Glucose 624 H* (70-99) mg/dl POC Glucose 573 H* (70-99) mg/dl Estimat Average Glucose Hemoglobin A1c Osmolality (280-300) mOsm/kg Calcium 9.3 (8.5-10.1) mg/dl Magnesium 1.8 (1.8-2.4) mg/dl Total Bilirubin 0.4 (0.2-1) mg/dl AST 21 (15-37) U/L ALT 42 (12-78) U/L Alkaline Phosphatase 149 H (45-117) U/L Troponin I < 0.015 (0-0.045) ng/ml Total Protein 8.4 H (6.4-8.2) gm/dl Albumin 3.5 (3.4-5.0) gm/dl Globulin 4.9 H (2.5-4.0) gm/dl Albumin/Globulin Ratio 0.7 L (0.9-2) Lipase 122 (73-393) U/L Beta-Hydroxybutyric Acd (0.2-2.81) mg/dl TSH 3.900 (0.300-4.500) uIu/ml Specimen Hemolysis Urine Color Urine Appearance (Clear) Urine pH (4.5-7.5) Ur Specific [place]es (1.000-1.030) Urine Protein (Negative) Urine Glucose (UA) (Negative) Urine Ketones (Negative) Urine Blood (Negative) Urine Nitrite (Negative) Urine Bilirubin (Negative) Urine Urobilinogen (Negative) Ur Leukocyte Esterase (Negative) Adenovirus (PCR) (NotDetected) B. pertussis DNA (PCR) (NotDetected) B.parapertussis DNA PCR (NotDetected) C. pneumoniae DNA (PCR) (NotDetected) Coronavirus OC43 (PCR) (NotDetected) Coronavirus HKU1 (PCR) (NotDetected) Coronavirus 229E (PCR) (NotDetected) COVID-19 PCR (NotDetected) Coronavirus NL63 (PCR) (NotDetected) Human Metapneumovir PCR (NotDetected) Influenza Type A (PCR) (NotDetected) Influenza Type B (PCR) (NotDetected) M. pneumoniae (PCR) (NotDetected) Parainfluenza 1 (PCR) (NotDetected) Parainfluenza 2 (PCR) (NotDetected) Parainfluenza 3 (PCR) (NotDetected) Parainfluenza 4 (PCR) (NotDetected) RSV (PCR) (NotDetected) Entero/Rhino (PCR) (NotDetected) 12/21/19 12/21/19 12/21/19 Range/Units 02:16 02:41 02:58 WBC RBC Hgb Hct MCV MCH MCHC RDW Std Deviation RDW Coeff of Toni Plt Count MPV Immature Gran % (Auto) Neut % (Auto) Lymph % (Auto) [place] % (Auto) Eos % (Auto) Baso % (Auto) Neut # (Auto) Lymph # (Auto) [place] # (Auto) Eos # (Auto) Baso # (Auto) Immature Gran # (Auto) Absolute Nucleated RBC Nucleated RBC % (auto) Neutrophils % (Manual) Band Neutrophils % Lymphocytes % (Manual) Prolymphocyte % Reactive Lymphs % (Man) Monocytes % (Manual) Eosinophils % (Manual) Basophils % (Manual) Metamyelocytes % (Man) Myelocytes % (Man) Promyelocytes % (Man) Blast Cells % (Manual) Plasma Cell % (Manual) Other Cells % Nucleated RBC % Neutrophils # (Manual) Band Neutrophils # Total Absolute Neuts Lymphocytes # (Manual) Prolymphocyte # Reactive Lymphs # Total Abs Lymphocytes Monocytes # (Manual) Eosinophils # (Manual) Basophils # (Manual) Metamyelocytes # (Man) Myelocytes # (Manual) Promyelocytes # (Man) Blast Cells # (Man) Plasma Cell # (Manual) Other Cells # Nucleated RBCs # (Man) Hypersegmented Neuts Hyposegmented Neuts Hypogranular Neuts Large Granular Lymphs # Lrg Granular Lymphs Hairy Cells Smudge Cells Toxic Granulation Toxic Vacuolation Dohle Bodies Dionne Rods Platelet Estimate Hypogranular Platelets Clumped Platelets Giant Platelets Platelet Satelliting RBC Morphology Polychromasia Hypochromasia Poikilocytosis Basophilic Stippling Anisocytosis Microcytosis Macrocytosis Spherocytes Pappenheimer Bodies Sickle Cells Target Cells Tear Drop Cells Ovalocytes Stomatocytes Archer-Hall Bodies Echinocytes Acanthocytes (Spur) Rouleaux RBC Agglutinates Schistocytes RBC Morph Comment Sezary Cell VBG pH 7.42 H (7.36-7.41) VBG pCO2 39 (38-50) mmHg VBG pO2 51 mmHg VBG HCO3 25 mmol/L VBG O2 Saturation 83.1 % VBG Base Excess 0.5 mEq/L Sodium (136-145) mmol/L Potassium (3.5-5.1) mmol/L Chloride (98-107) mmol/L Carbon Dioxide (21-32) mmol/L Anion Gap (3-11) BUN (7-18) mg/dl Creatinine (0.6-1.4) mg/dl Est Cr Clr Drug Dosing ml/min Est GFR ( Amer) Est GFR (Non-Af Amer) BUN/Creatinine Ratio (10-20) Glucose (70-99) mg/dl POC Glucose (70-99) mg/dl Estimat Average Glucose Cancelled Hemoglobin A1c Cancelled Osmolality (280-300) mOsm/kg Calcium (8.5-10.1) mg/dl Magnesium (1.8-2.4) mg/dl Total Bilirubin (0.2-1) mg/dl AST (15-37) U/L ALT (12-78) U/L Alkaline Phosphatase (45-117) U/L Troponin I (0-0.045) ng/ml Total Protein (6.4-8.2) gm/dl Albumin (3.4-5.0) gm/dl Globulin (2.5-4.0) gm/dl Albumin/Globulin Ratio (0.9-2) Lipase (73-393) U/L Beta-Hydroxybutyric Acd (0.2-2.81) mg/dl TSH (0.300-4.500) uIu/ml Specimen Hemolysis Urine Color Urine Appearance (Clear) Urine pH (4.5-7.5) Ur Specific [place] (1.000-1.030) Urine Protein (Negative) Urine Glucose (UA) (Negative) Urine Ketones (Negative) Urine Blood (Negative) Urine Nitrite (Negative) Urine Bilirubin (Negative) Urine Urobilinogen (Negative) Ur Leukocyte Esterase (Negative) Adenovirus (PCR) Not Detected (NotDetected) B. pertussis DNA (PCR) Not Detected (NotDetected) B.parapertussis DNA PCR Not Detected (NotDetected) C. pneumoniae DNA (PCR) Not Detected (NotDetected) Coronavirus OC43 (PCR) Not Detected (NotDetected) Coronavirus HKU1 (PCR) Not Detected (NotDetected) Coronavirus 229E (PCR) Not Detected (NotDetected) COVID-19 PCR Not Detected (NotDetected) Coronavirus NL63 (PCR) Not Detected (NotDetected) Human Metapneumovir PCR Not Detected (NotDetected) Influenza Type A (PCR) Not Detected (NotDetected) Influenza Type B (PCR) Not Detected (NotDetected) M. pneumoniae (PCR) Not Detected (NotDetected) Parainfluenza 1 (PCR) Not Detected (NotDetected) Parainfluenza 2 (PCR) Not Detected (NotDetected) Parainfluenza 3 (PCR) Not Detected (NotDetected) Parainfluenza 4 (PCR) Not Detected (NotDetected) RSV (PCR) Not Detected (NotDetected) Entero/Rhino (PCR) Not Detected (NotDetected) 12/21/19 12/21/19 12/21/19 Range/Units 02:58 02:58 02:59 WBC 8.69 RBC 4.38 L Hgb 13.4 L Hct 38.7 L MCV 88.4 MCH 30.6 MCHC 34.6 RDW Std Deviation 42.7 RDW Coeff of Toni 13.1 Plt Count 238 MPV 9.0 Immature Gran % (Auto) 0.3 Neut % (Auto) 65.6 Lymph % (Auto) 24.9 [place] % (Auto) 7.8 Eos % (Auto) 1.2 Baso % (Auto) 0.2 Neut # (Auto) 5.70 Lymph # (Auto) 2.16 [place] # (Auto) 0.68 H Eos # (Auto) 0.10 Baso # (Auto) 0.02 Immature Gran # (Auto) 0.03 H Absolute Nucleated RBC Nucleated RBC % (auto) Neutrophils % (Manual) Band Neutrophils % Lymphocytes % (Manual) Prolymphocyte % Reactive Lymphs % (Man) Monocytes % (Manual) Eosinophils % (Manual) Basophils % (Manual) Metamyelocytes % (Man) Myelocytes % (Man) Promyelocytes % (Man) Blast Cells % (Manual) Plasma Cell % (Manual) Other Cells % Nucleated RBC % Neutrophils # (Manual) Band Neutrophils # Total Absolute Neuts Lymphocytes # (Manual) Prolymphocyte # Reactive Lymphs # Total Abs Lymphocytes Monocytes # (Manual) Eosinophils # (Manual) Basophils # (Manual) Metamyelocytes # (Man) Myelocytes # (Manual) Promyelocytes # (Man) Blast Cells # (Man) Plasma Cell # (Manual) Other Cells # Nucleated RBCs # (Man) Hypersegmented Neuts Hyposegmented Neuts Hypogranular Neuts Large Granular Lymphs # Lrg Granular Lymphs Hairy Cells Smudge Cells Toxic Granulation Toxic Vacuolation Dohle Bodies Dionne Rods Platelet Estimate Hypogranular Platelets Clumped Platelets Giant Platelets Platelet Satelliting RBC Morphology Polychromasia Hypochromasia Poikilocytosis Basophilic Stippling Anisocytosis Microcytosis Macrocytosis Spherocytes Pappenheimer Bodies Sickle Cells Target Cells Tear Drop Cells Ovalocytes Stomatocytes Marylly Bodies Echinocytes Acanthocytes (Spur) Rouleaux RBC Agglutinates Schistocytes RBC Morph Comment Sezary Cell VBG pH (7.36-7.41) VBG pCO2 (38-50) mmHg VBG pO2 mmHg VBG HCO3 mmol/L VBG O2 Saturation % VBG Base Excess mEq/L Sodium (136-145) mmol/L Potassium (3.5-5.1) mmol/L Chloride (98-107) mmol/L Carbon Dioxide (21-32) mmol/L Anion Gap (3-11) BUN (7-18) mg/dl Creatinine (0.6-1.4) mg/dl Est Cr Clr Drug Dosing ml/min Est GFR ( Amer) Est GFR (Non-Af Amer) BUN/Creatinine Ratio (10-20) Glucose (70-99) mg/dl POC Glucose (70-99) mg/dl Estimat Average Glucose Hemoglobin A1c Osmolality 310 H (280-300) mOsm/kg Calcium (8.5-10.1) mg/dl Magnesium (1.8-2.4) mg/dl Total Bilirubin (0.2-1) mg/dl AST (15-37) U/L ALT (12-78) U/L Alkaline Phosphatase (45-117) U/L Troponin I (0-0.045) ng/ml Total Protein (6.4-8.2) gm/dl Albumin (3.4-5.0) gm/dl Globulin (2.5-4.0) gm/dl Albumin/Globulin Ratio (0.9-2) Lipase (73-393) U/L Beta-Hydroxybutyric Acd 14.60 H (0.2-2.81) mg/dl TSH (0.300-4.500) uIu/ml Specimen Hemolysis Urine Color Urine Appearance (Clear) Urine pH (4.5-7.5) Ur Specific [place] (1.000-1.030) Urine Protein (Negative) Urine Glucose (UA) (Negative) Urine Ketones (Negative) Urine Blood (Negative) Urine Nitrite (Negative) Urine Bilirubin (Negative) Urine Urobilinogen (Negative) Ur Leukocyte Esterase (Negative) Adenovirus (PCR) (NotDetected) B. pertussis DNA (PCR) (NotDetected) B.parapertussis DNA PCR (NotDetected) C. pneumoniae DNA (PCR) (NotDetected) Coronavirus OC43 (PCR) (NotDetected) Coronavirus HKU1 (PCR) (NotDetected) Coronavirus 229E (PCR) (NotDetected) COVID-19 PCR (NotDetected) Coronavirus NL63 (PCR) (NotDetected) Human Metapneumovir PCR (NotDetected) Influenza Type A (PCR) (NotDetected) Influenza Type B (PCR) (NotDetected) M. pneumoniae (PCR) (NotDetected) Parainfluenza 1 (PCR) (NotDetected) Parainfluenza 2 (PCR) (NotDetected) Parainfluenza 3 (PCR) (NotDetected) Parainfluenza 4 (PCR) (NotDetected) RSV (PCR) (NotDetected) Entero/Rhino (PCR) (NotDetected) 12/21/19 12/21/19 12/21/19 Range/Units 03:47 03:55 04:40 WBC RBC Hgb Hct MCV MCH MCHC RDW Std Deviation RDW Coeff of Toni Plt Count MPV Immature Gran % (Auto) Neut % (Auto) Lymph % (Auto) [place] % (Auto) Eos % (Auto) Baso % (Auto) Neut # (Auto) Lymph # (Auto) [place] # (Auto) Eos # (Auto) Baso # (Auto) Immature Gran # (Auto) Absolute Nucleated RBC Nucleated RBC % (auto) Neutrophils % (Manual) Band Neutrophils % Lymphocytes % (Manual) Prolymphocyte % Reactive Lymphs % (Man) Monocytes % (Manual) Eosinophils % (Manual) Basophils % (Manual) Metamyelocytes % (Man) Myelocytes % (Man) Promyelocytes % (Man) Blast Cells % (Manual) Plasma Cell % (Manual) Other Cells % Nucleated RBC % Neutrophils # (Manual) Band Neutrophils # Total Absolute Neuts Lymphocytes # (Manual) Prolymphocyte # Reactive Lymphs # Total Abs Lymphocytes Monocytes # (Manual) Eosinophils # (Manual) Basophils # (Manual) Metamyelocytes # (Man) Myelocytes # (Manual) Promyelocytes # (Man) Blast Cells # (Man) Plasma Cell # (Manual) Other Cells # Nucleated RBCs # (Man) Hypersegmented Neuts Hyposegmented Neuts Hypogranular Neuts Large Granular Lymphs # Lrg Granular Lymphs Hairy Cells Smudge Cells Toxic Granulation Toxic Vacuolation Dohle Bodies Dionne Rods Platelet Estimate Hypogranular Platelets Clumped Platelets Giant Platelets Platelet Satelliting RBC Morphology Polychromasia Hypochromasia Poikilocytosis Basophilic Stippling Anisocytosis Microcytosis Macrocytosis Spherocytes Pappenheimer Bodies Sickle Cells Target Cells Tear Drop Cells Ovalocytes Stomatocytes Archer-Hall Bodies Echinocytes Acanthocytes (Spur) Rouleaux RBC Agglutinates Schistocytes RBC Morph Comment Sezary Cell VBG pH (7.36-7.41) VBG pCO2 (38-50) mmHg VBG pO2 mmHg VBG HCO3 mmol/L VBG O2 Saturation % VBG Base Excess mEq/L Sodium (136-145) mmol/L Potassium (3.5-5.1) mmol/L Chloride (98-107) mmol/L Carbon Dioxide (21-32) mmol/L Anion Gap (3-11) BUN (7-18) mg/dl Creatinine (0.6-1.4) mg/dl Est Cr Clr Drug Dosing ml/min Est GFR ( Amer) Est GFR (Non-Af Amer) BUN/Creatinine Ratio (10-20) Glucose (70-99) mg/dl POC Glucose 426 H* 453 H* (70-99) mg/dl Estimat Average Glucose Hemoglobin A1c Osmolality (280-300) mOsm/kg Calcium (8.5-10.1) mg/dl Magnesium (1.8-2.4) mg/dl Total Bilirubin (0.2-1) mg/dl AST (15-37) U/L ALT (12-78) U/L Alkaline Phosphatase (45-117) U/L Troponin I (0-0.045) ng/ml Total Protein (6.4-8.2) gm/dl Albumin (3.4-5.0) gm/dl Globulin (2.5-4.0) gm/dl Albumin/Globulin Ratio (0.9-2) Lipase (73-393) U/L Beta-Hydroxybutyric Acd (0.2-2.81) mg/dl TSH (0.300-4.500) uIu/ml Specimen Hemolysis Urine Color Yellow Urine Appearance Clear (Clear) Urine pH 5.0 (4.5-7.5) Ur Specific [place] 1.037 H (1.000-1.030) Urine Protein Negative (Negative) Urine Glucose (UA) 3+ H (Negative) Urine Ketones 1+ H (Negative) Urine Blood Negative (Negative) Urine Nitrite Negative (Negative) Urine Bilirubin Negative (Negative) Urine Urobilinogen Negative (Negative) Ur Leukocyte Esterase Negative (Negative) Adenovirus (PCR) (NotDetected) B. pertussis DNA (PCR) (NotDetected) B.parapertussis DNA PCR (NotDetected) C. pneumoniae DNA (PCR) (NotDetected) Coronavirus OC43 (PCR) (NotDetected) Coronavirus HKU1 (PCR) (NotDetected) Coronavirus 229E (PCR) (NotDetected) COVID-19 PCR (NotDetected) Coronavirus NL63 (PCR) (NotDetected) Human Metapneumovir PCR (NotDetected) Influenza Type A (PCR) (NotDetected) Influenza Type B (PCR) (NotDetected) M. pneumoniae (PCR) (NotDetected) Parainfluenza 1 (PCR) (NotDetected) Parainfluenza 2 (PCR) (NotDetected) Parainfluenza 3 (PCR) (NotDetected) Parainfluenza 4 (PCR) (NotDetected) RSV (PCR) (NotDetected) Entero/Rhino (PCR) (NotDetected) 12/21/19 Range/Units 06:07 WBC RBC Hgb Hct MCV MCH MCHC RDW Std Deviation RDW Coeff of Toni Plt Count MPV Immature Gran % (Auto) Neut % (Auto) Lymph % (Auto) [place] % (Auto) Eos % (Auto) Baso % (Auto) Neut # (Auto) Lymph # (Auto) [place] # (Auto) Eos # (Auto) Baso # (Auto) Immature Gran # (Auto) Absolute Nucleated RBC Nucleated RBC % (auto) Neutrophils % (Manual) Band Neutrophils % Lymphocytes % (Manual) Prolymphocyte % Reactive Lymphs % (Man) Monocytes % (Manual) Eosinophils % (Manual) Basophils % (Manual) Metamyelocytes % (Man) Myelocytes % (Man) Promyelocytes % (Man) Blast Cells % (Manual) Plasma Cell % (Manual) Other Cells % Nucleated RBC % Neutrophils # (Manual) Band Neutrophils # Total Absolute Neuts Lymphocytes # (Manual) Prolymphocyte # Reactive Lymphs # Total Abs Lymphocytes Monocytes # (Manual) Eosinophils # (Manual) Basophils # (Manual) Metamyelocytes # (Man) Myelocytes # (Manual) Promyelocytes # (Man) Blast Cells # (Man) Plasma Cell # (Manual) Other Cells # Nucleated RBCs # (Man) Hypersegmented Neuts Hyposegmented Neuts Hypogranular Neuts Large Granular Lymphs # Lrg Granular Lymphs Hairy Cells Smudge Cells Toxic Granulation Toxic Vacuolation Dohle Bodies Dionne Rods Platelet Estimate Hypogranular Platelets Clumped Platelets Giant Platelets Platelet Satelliting RBC Morphology Polychromasia Hypochromasia Poikilocytosis Basophilic Stippling Anisocytosis Microcytosis Macrocytosis Spherocytes Pappenheimer Bodies Sickle Cells Target Cells Tear Drop Cells Ovalocytes Stomatocytes Archer-Hall Bodies Echinocytes Acanthocytes (Spur) Rouleaux RBC Agglutinates Schistocytes RBC Morph Comment Sezary Cell VBG pH (7.36-7.41) VBG pCO2 (38-50) mmHg VBG pO2 mmHg VBG HCO3 mmol/L VBG O2 Saturation % VBG Base Excess mEq/L Sodium (136-145) mmol/L Potassium (3.5-5.1) mmol/L Chloride (98-107) mmol/L Carbon Dioxide (21-32) mmol/L Anion Gap (3-11) BUN (7-18) mg/dl Creatinine (0.6-1.4) mg/dl Est Cr Clr Drug Dosing ml/min Est GFR ( Amer) Est GFR (Non-Af Amer) BUN/Creatinine Ratio (10-20) Glucose (70-99) mg/dl POC Glucose 388 H* (70-99) mg/dl Estimat Average Glucose Hemoglobin A1c Osmolality (280-300) mOsm/kg Calcium (8.5-10.1) mg/dl Magnesium (1.8-2.4) mg/dl Total Bilirubin (0.2-1) mg/dl AST (15-37) U/L ALT (12-78) U/L Alkaline Phosphatase (45-117) U/L Troponin I (0-0.045) ng/ml Total Protein (6.4-8.2) gm/dl Albumin (3.4-5.0) gm/dl Globulin (2.5-4.0) gm/dl Albumin/Globulin Ratio (0.9-2) Lipase (73-393) U/L Beta-Hydroxybutyric Acd (0.2-2.81) mg/dl TSH (0.300-4.500) uIu/ml Specimen Hemolysis Urine Color Urine Appearance (Clear) Urine pH (4.5-7.5) Ur Specific Lowes (1.000-1.030) Urine Protein (Negative) Urine Glucose (UA) (Negative) Urine Ketones (Negative) Urine Blood (Negative) Urine Nitrite (Negative) Urine Bilirubin (Negative) Urine Urobilinogen (Negative) Ur Leukocyte Esterase (Negative) Adenovirus (PCR) (NotDetected) B. pertussis DNA (PCR) (NotDetected) B.parapertussis DNA PCR (NotDetected) C. pneumoniae DNA (PCR) (NotDetected) Coronavirus OC43 (PCR) (NotDetected) Coronavirus HKU1 (PCR) (NotDetected) Coronavirus 229E (PCR) (NotDetected) COVID-19 PCR (NotDetected) Coronavirus NL63 (PCR) (NotDetected) Human Metapneumovir PCR (NotDetected) Influenza Type A (PCR) (NotDetected) Influenza Type B (PCR) (NotDetected) M. pneumoniae (PCR) (NotDetected) Parainfluenza 1 (PCR) (NotDetected) Parainfluenza 2 (PCR) (NotDetected) Parainfluenza 3 (PCR) (NotDetected) Parainfluenza 4 (PCR) (NotDetected) RSV (PCR) (NotDetected) Entero/Rhino (PCR) (NotDetected) MDM Narrative Physical exam and history were performed. Nursing notes, EMR, and Medication List were personally reviewed. Patient appears to have polyuria, polydipsia, and near syncopal episodes recently. EKG was performed and does not show acute ST elevation. Bedside glucose was gathered by nursing, and was greater than 550. IV access was established and labs were obtained. The patient was hydrated with 2 L normal saline. An order was placed for continuous cardiac monitoring. The monitor shows a rate of 83 with normal sinus rhythm. The patient's blood work is as above and was reviewed. He does not have a significantly elevated white blood cell count or gross anemia. Sodium is low at 126 with a chloride that is also low at 91. BUN and creatinine are elevated at 26 and 1.76. Lab glucose is 624 and the patient was given 10 units IV insulin. Lipase and transaminases are not diagnostic. Beta hydroxy is elevated at 14. Troponin x1 is negative. Urine is with glucose and ketones. Overall the patient does not appear well for discharge home. He has significant hyperglycemia and this is likely consistent with a new diagnosis of diabetes. He is ketotic without acidosis. The patient has had a vague cough for the past month, and due to his pending admission I did do viral PCR, which was negative including a negative influenza and negative COVID-19. The case was discussed with the on-call hospitalist, Dr. Stiles, who agreed to evaluate him here in the ER. Please see Dr. Stiles's dictation for further patient course, plan, and disposition. The chart was completed utilizing [employer] Speech Voice Recognition Software. Grammatical errors, random word insertions, pronoun errors, and incomplete sentences are an occasional consequence of this system due to software limitations, ambient noise, and hardware issues. Any formal questions or concerns about the content, text, or information contained within the body of this dictation should be directly addressed to the provider for clarification. . Impression & Plan Acute hyperglycemia, Diabetic ketosis, Near syncope, Acute dehydration Discharge Plan Visit Data Chief Complaint: Hyperglycemia Stated Complaint: SYNCOPE,FREQUENT URINATION,BLURRY VISION,THIRSTY ED Provider: [facility] Midlevel Provider: Иван Gaytan Discharge Problem: Acute hyperglycemia, Diabetic ketosis, Near syncope, Acute dehydration Forms Stand Alone Forms: My [facility] [employer] Prescriptions Prescriptions: No Action omeprazole magnesium [Prilosec OTC] 20 mg Tablet,Delayed Release (Dr/Ec) 20 mg PO DAILY RF: 0 Referrals Referrals: PCP,NO [Primary Care Provider] -
[2019-12-21 06:46] LABS: Estimated Average Glucose 298 mg/dl
[2019-12-21] MEDS ORDERED: PROMETHAZINE HCL 12.5 MG in SODIUM CHLORIDE 0.9% 50 ML IV PRN (08:15)
[2019-12-21] MEDS ORDERED: HYDROmorphone INJ 0.5 MG/0.5 ML SYR IV PRN (08:15)
[2019-12-21] MEDS ORDERED: oxyCODONE HCL IR 5 MG TAB (IMMEDIATE RELEASE) PO PRN (08:15)
--- NOTE | 2019-12-21 09:01 | CT Scan Report ---
CT OF THE ABDOMEN AND PELVIS WITHOUT CONTRAST CLINICAL HISTORY: Abdominal pain and vomiting. COMPARISON STUDY: CT of the abdomen and pelvis August 26, 2018. TECHNIQUE: Axial images of the abdomen and pelvis were obtained without IV contrast. Images were revi ewed in the axial, sagittal, and coronal planes. Automated exposure control was utilized for the fransisca dy. A dose lowering technique was utilized adhering to the principles of ALARA. FINDINGS: Lung bases are unremarkable. No pneumatosis, free air or portal venous gas is present. A 3 mm right renal calculus is noted. There are no ureteral calculi. No hydronephrosis or hydroureter. Ev aluation of the remainder of the abdomen and pelvis is suboptimal on this unenhanced exam. There is m oderate to severe fatty infiltration of the liver. There is hepatomegaly. There is no biliary ductal dilatation status post cholecystectomy. The spleen, adrenal glands and pancreas are unremarkable. The re is no evidence for a bowel obstruction. The appendix is not visualized. There is mild wall thicken ing and mild mesenteric infiltration within the distal ileum. This is slightly decreased when compare d to exam of August 26, 2018. There is no abscess. There is no free air. No fistula is identified. No a dditional sites of bowel wall thickening are identified on this examination. A few prominent ileocoli c lymph nodes are likely reactive. IMPRESSION: 1. Mild wall thickening with adjacent infiltration of the distal ileum, slightly decreased since CT o f August 26, 2018. This suggests mild active inflammatory bowel disease. No abscess, fistula or bowel o bstruction. 2. Fatty infiltration of the liver and hepatomegaly. 3. 3 mm right renal calculus. No ureteral calculi. ACT 112: Negative or not required by law. Electronically signed by: Parag Mike M.D. 12/21/2019 8:59 AM
--- NOTE | 2019-12-21 09:42 | XRay Report ---
XR chest 1V portable HISTORY: Cough COMPARISON: Chest 09/14/2019. FINDINGS: There are low lung volumes. Mild elevation the right hemidiaphragm. The heart is normal in size. No pleural effusions. No pneumothorax. No new focal lung consolidations to suggest pneumonia. N o evidence for pulmonary edema. IMPRESSION: Low lung volumes. No acute process within the chest. ACT 112: Negative or not required by law. Electronically signed by: Rolly Mahajan M.D. 12/21/2019 9:41 AM
[2019-12-21] MEDS ORDERED: D5W AND LACTATED RINGERS 1,000 ML IV PRN (10:10)
[2019-12-21 10:11] LABS: Reticulocyte % 1.7 % (0.5-2.0); Reticulocytes # 0.07 10^6/uL (0.02-0.10)
[2019-12-21 10:30] LABS: Calcium 8.5 mg/dl (8.5-10.1); Est GFR (African American) 77.3; Est GFR (Non-African American) 66.7
[2019-12-21 10:35] LABS: Ferritin 330.6 ng/ml (8-388)
[2019-12-21] MEDS: INSULIN ASPART 100 UNITS/ML 3 ML PEN SC SCH ×5 (10:46→21:31)
[2019-12-21] MEDS: PANTOprazole 40 MG TAB PO SCH (10:50)
[2019-12-21] MEDS: NSS + 20MEQ KCL 20 MEQ/1,000 ML BAG IV SCH ×3 (10:50→22:09)
[2019-12-21] MEDS: HEPARIN SOD 5,000 UNIT/0.5 ML VIAL SQ SCH ×3 (10:53→22:09)
[2019-12-21 11:11] LABS: Potassium 3.4 mmol/L (3.5-5.1)
--- NOTE | 2019-12-21 13:14 | Electrocardiogram Report ---
Test Reason : Blood Pressure : / mmHG Vent. Rate : 113 BPM Atrial Rate : 113 BPM P-R Int : 148 ms QRS Dur : 094 ms QT Int : 334 ms P-R-T Axes : 054 053 030 degrees QTc Int : 458 ms Poor data quality, interpretation may be adversely affected Sinus tachycardia Biatrial enlargement Early repolarization Abnormal ECG When compared with ECG of 14-SEP-2019 00:12, Vent. rate has increased BY [address] elevation now present in Inferior leads ST elevation now present in Lateral leads Confirmed by Mike Morales ([id number]) on 12/21/2019 1:14:28 PM Referred By: REFERRED SELF Confirmed By:Mike Morales
[2019-12-21] MEDS: ACETAMINOPHEN 325 MG TAB PO PRN (15:49)
--- NOTE | 2019-12-21 21:31 | Hospitalist Progress Note ---
Date of Service December 21, 2019 Assessment & Plan (1) Hyperglycemic crisis in diabetes mellitus: admitted with hyperglycemia , polyuria , polydypsia : new diagnosis of diabetes Type 2 Hb A1c 12 started on IV insulin appreciate input from Pharmacy for glycemic management and packer dried beef Acute renal failure : due to hyperglycemia , uncontrolled DM , dehydration renal function improved with IV hydration Recurrent syncope likely secondary to orthostasis secondary to dehydration symptoms has resolved stable vitals ECHO : normal study DVT prophylaxis. Heparin subcu Full code Disposition : will be discharged home when medically stable Admission and Anticipated Discharge Date Admission Date: December 21, 2019 Subjective pt reports of feeling much better today no complain of nausea vomitinf Review of Systems Review of Systems: All systems reviewed & are unremarkable except as noted in HPI & below Physical Exam Constitutional: WD/WN, vitals as above + obese Eyes: PERRL, conjunctivae normal, anicteric sclerae ENMT: external ear and nose normal, oropharynx normal Neck: trachea midline, no thyromegaly Respiratory: normal respiratory effort, lungs clear to auscultation Cardiovascular: RRR, no murmur, no edema Gastrointestinal (Abdomen): normal bowel sounds, soft, nontender, no hepatosplenomegaly Musculoskeletal: no cyanosis or clubbing, extremities motor strength 5/5 Skin: no rashes, warm and dry Neurologic: PERRL, EOMI, accommodation nl, no face palsy, no dysarthria Psychiatric: A+Ox3, euthymic affect Results & Data Results & Data ([facility]) Vital Signs (Past 12 Hours) Vital Signs Temp Pulse Pulse Pulse Resp BP Pulse Ox 12/21/19 19:00 36.9 C 69 18 119/79 96 12/21/19 16:02 76 12/21/19 14:59 36.3 C L 72 18 123/80 94 12/21/19 11:34 36.9 C 77 19 140/90 95
[2019-12-21] MEDS ORDERED: DEXTROSE 50% 50 ML SYRINGE IV PRN (22:30)
[2019-12-21] MEDS ORDERED: GLUCAGON FOR INJ 1 MG VIAL SQ PRN (22:30)
[2019-12-21] MEDS ORDERED: GLUCOSE 40% GEL 15 GM TUBE PO PRN (22:30)
[2019-12-21] MEDS ORDERED: GLUCOSE 10 TABS/TUBE PO PRN (22:30)
[2019-12-21] MEDS ORDERED: CARBOHYDRATES FOR HYPOGLYCEMIA PO PRN (22:30)
[2019-12-21] MEDS ORDERED: PHARMACY GLYCEMIC MGMT CONSULT PRN (23:08)
[2019-12-22] MEDS: NSS + 20MEQ KCL 20 MEQ/1,000 ML BAG IV SCH ×2 (04:36→16:41)
[2019-12-22 07:58] LABS: Basophils # (auto) 0.02 K/uL (0-0.2); Basophils % (auto) 0.3 %; Eosinophils # (auto) 0.11 K/uL (0-0.5); Eosinophils % (auto) 1.5 %; Hemoglobin 12.9 g/dL (14.0-18.0); Immature Granulocytes # (auto) 0.03 K/uL (0.00-0.02); Immature Granulocytes % (auto) 0.4 %; Lymphocytes # (auto) 1.68 K/uL (1.2-3.4); Lymphocytes % (auto) 23.4 %; Mean Corpuscular Hemoglobin 30.5 pg (25-34); Mean Corpuscular Hgb Conc 33.9 g/dL (32-36); Mean Corpuscular Volume 89.8 fL (80-100); Mean Platelet Volume 8.8 fL (7.4-10.4); Monocytes # (auto) 0.54 K/uL (0.11-0.59); Monocytes % (auto) 7.5 %; Neutrophils % (auto) 66.9 %; Platelet Count 203 K/uL (130-400); RDW Coefficient of Variation 13.7 % (11.5-14.5); RDW Standard Deviation 44.9 fL (36.4-46.3); Red Blood Count 4.23 M/uL (4.7-6.1); White Blood Count 7.18 K/uL (4.8-10.8)
[2019-12-22] MEDS ORDERED: INSULIN GLARGINE 100 UNIT/ML VIAL SC ONE ×3 (08:00→18:30)
[2019-12-22] MEDS: HEPARIN SOD 5,000 UNIT/0.5 ML VIAL SQ SCH ×3 (09:00→20:32)
[2019-12-22] MEDS: INSULIN ASPART 100 UNITS/ML 3 ML PEN SC SCH ×4 (09:01→20:31)
[2019-12-22] MEDS: PANTOprazole 40 MG TAB PO SCH (09:06)
[2019-12-22] MEDS: INSULIN REGULAR 250 UNITS in SODIUM CHLORIDE 0.9% 247.5 ML IV SCH (12:37)
--- NOTE | 2019-12-22 15:24 | Pharmacy Report ---
Glycemic Control Consultation - Date of Service December 22, 2019 - Scope Scope: Glycemic Pharmacist consulted for glycemic control and to write orders per [facility] inpatient glycemic control protocol. - Objective Weight: 147.6 kg Accuchecks BSG (last 24hrs): 12/21/19 12/21/19 12/21/19 15:28 16:17 17:19 POC Glucose 185 H 188 H 166 H 12/21/19 12/21/19 12/21/19 18:19 20:14 21:27 POC Glucose 191 H 125 H 118 H 12/21/19 12/21/19 12/21/19 21:46 22:07 22:09 POC Glucose 113 H 228 H 139 H 12/21/19 12/21/19 12/22/19 22:11 23:15 00:30 POC Glucose 217 H 165 H 188 H 12/22/19 12/22/19 12/22/19 02:04 03:01 04:05 POC Glucose 175 H 167 H 155 H 12/22/19 12/22/19 12/22/19 06:02 08:01 09:55 POC Glucose 174 H 180 H 266 H 12/22/19 12/22/19 11:47 14:06 POC Glucose 239 H 236 H HbA1c: Hemoglobin A1c 12.0 % (4.5-5.6) H 12/21/19 02:58 - Recent Pertinent Medications Outpatient Anti-diabetic Regimen: * None * A1c = 12% on 12/21/19 Risk Factors for Insulin Resistance: * Steroids: none * Infection: none * IVF: NS + 20 meq KCL @ 150 ml/hr * Recent Surgery: Cardiac cath * Diet: T2DM - Assessment & Plan Assessment & Plan: ASSESSMENT: * 44 y/o M admitted with Hyperglycemia. He is a newly diagnosed Type 2 diabetic. * Insulin infusion started per severe stress protocol. * Goal range was started at 150-200 then modified to 140-180 last night. Today it was adjusted down to goal of 120-160 mg/dl. * Insulin infusion rates have been changing since yesterday- currently running at 4.6 units/hr. Averaged around 120 units of insulin in past 24 hrs. * Patient also received additional 15 units of Novolog to cover carbs yesterday. * Lantus 60 units was given this AM. Additional Lantus ordered with dinner today to help transition patient off the drip. * Pending order entered to turn the drip off when BSG less than 180x 2 and insulin infusion rate is 1 unit/hr or less. PLAN FOR INPATIENT GLYCEMIC CONTROL: * IV insulin infusion per (severe) stress protocol * Goal Range 120 - 160 mg/dl * Plan to transition off tonight when BSG less than 180 mg/dl x 2 and drip rate is 1 unit/hr or less. * Basal insulin * Lantus 60 units SQ x1 this AM * Lantus 0-20 units at 1630 based on BSG scale * Bolus insulin * NovoLog per scale ACHS or Q6hrs while NPO * Goal Range: Low 120 mg/dL - High 160 mg/dL * Correction Factor: 12 mg/dL/unit * Nutritional / Prandial insulin per carb ratio of 1 unit per 4 grams CHO consumed * Please note that the plan above was derived based on current level of insulin resistance and hospital stress. These recommendations are appropriate for inpatient admission only. Plan of care upon discharge will need to be reassessed to avoid potential outpatient hypo/hyperglycemia. Thank you.
[2019-12-22 15:39] LABS: BUN Creatinine Ratio 9.3 (10-20); Calcium 8.4 mg/dl (8.5-10.1); Creatinine Clr Calc Pharmacy 118.4 ml/min; Est GFR (African American) 85.3; Est GFR (Non-African American) 73.6; Potassium 3.8 mmol/L (3.5-5.1)
--- NOTE | 2019-12-22 18:25 | Hospitalist Progress Note ---
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 cont BSG control witn IV insulin will need formal diabetic opthalmology eval DVT prophylaxis. Heparin subcu Full code Disposition : will be discharged home when medically stable Admission and Anticipated Discharge Date Admission Date: December 21, 2019 Subjective complains of headache started since afternoon mentions that he has been experiencing blurriness of vision for past few weeks not able to read letters Physical Exam Constitutional: WD/WN, vitals as above + obese Eyes: + anicteric sclerae blurred vision bilaterally ENMT: external ear and nose normal, oropharynx normal Neck: trachea midline, no thyromegaly Respiratory: normal respiratory effort, lungs clear to auscultation Cardiovascular: RRR, no murmur, no edema Gastrointestinal (Abdomen): normal bowel sounds, soft, nontender, no hepatos plenomegaly Musculoskeletal: no cyanosis or clubbing, extremities motor strength 5/5 Skin: no rashes, warm and dry Neurologic: PERRL, EOMI, accommodation nl, no face palsy, no dysarthria Psychiatric: A+Ox3, euthymic affect Results & Data Results & Data ([facility]) Vital Signs (Past 12 Hours) Vital Signs Temp Pulse Pulse Resp BP BP Pulse Ox 12/22/19 16:00 80 12/22/19 15:33 36.7 C 72 18 110/72 96 12/22/19 12:18 36.4 C L 64 20 125/63 93 12/22/19 08:28 37.6 C H 77 18 120/79 94 12/22/19 07:16 68
[2019-12-22] MEDS: ACETAMINOPHEN 325 MG TAB PO PRN (19:23)
[2019-12-22] MEDS ORDERED: DC IV INSULIN INFUSION 1 EA DEVI ONE (21:00)
[2019-12-23] MEDS: NSS + 20MEQ KCL 20 MEQ/1,000 ML BAG IV SCH ×3 (00:20→17:06)
[2019-12-23] MEDS: INSULIN ASPART 100 UNITS/ML 3 ML PEN SC SCH ×6 (00:21→20:47)
[2019-12-23] MEDS: HEPARIN SOD 5,000 UNIT/0.5 ML VIAL SQ SCH ×3 (06:00→21:12)
[2019-12-23 07:46] LABS: BUN Creatinine Ratio 9.3 (10-20); Calcium 8.4 mg/dl (8.5-10.1); Est GFR (African American) 93.8; Potassium 3.7 mmol/L (3.5-5.1)
[2019-12-23] MEDS: INSULIN GLARGINE 100 UNIT/ML VIAL SC SCH (08:32)
[2019-12-23] MEDS: PANTOprazole 40 MG TAB PO SCH (08:32)
[2019-12-23] MEDS ORDERED: diphenhydrAMINE Capsule 25 MG CAP PO PRN (11:08)
[2019-12-23] MEDS ORDERED: metFORMIN HCL 500 MG TAB PO SCH (12:00)
--- NOTE | 2019-12-23 12:09 | Communication Note ---
Date of Service: December 23, 2019 Developed pain and swelling on rt side of face since this AM difficult to open mouth wide open and experiencing difficulty is chewing food no fever or chills oral exam shows : broken tooth on rt upper jaw , very poor dentition + erythema , tenderness and swelling on rt facial area involving from lower jaw , cheek to rt scientology No sinus pressure or sinus congestion ,no complain of post nasal drip RT FACIAL CELLULITIS : possible due to dental infection ordered for CT of face start on IV Abx Unasyn with any evidence of abscess pt will need oralmaxilofacial surgery consult will need continued hospital stay for treatment Huong Watkins MD
[2019-12-23] MEDS ORDERED: OPTIRAY 320 125ml IV ONE (13:30)
--- NOTE | 2019-12-23 13:34 | Pharmacy Report ---
Pharmacy Glycemic Short Note 2 - Date of Service December 23, 2019 - Glycemic Short BSG Results (Last 24 hours): 12/22/19 12/22/19 12/22/19 14:06 15:04 15:55 Glucose 165 H POC Glucose 236 H 155 H 12/22/19 12/22/19 12/22/19 17:05 18:05 18:57 Glucose POC Glucose 138 H 250 H 220 H 12/22/19 12/23/19 12/23/19 20:04 00:13 04:26 Glucose POC Glucose 215 H 208 H 243 H 12/23/19 12/23/19 06:31 12:00 Glucose 206 H POC Glucose 174 H OUTPATIENT ANTIDIABETIC REGIMEN: * None * A1c = 12% on 12/21/19 Risk Factors for Insulin Resistance: * Infection: New facial cellulitis, IV Unasyn * IVF: NS + 20 meq KCL @ 150 ml/hr * Recent Surgery: Cardiac cath * Diet: T2DM ASSESSMENT: 12/23/19 * Patient transitioned off of insulin drip yesterday onto SQ insulin. Patient had 75 units basal and 55 units bolus + insulin drip yesterday. * Will continue to titrate basal insulin up and tighten CF and CR. * Patient does not have health insurance until Mar 2020 but discussed case with CDE and he is willing to use the card provided by CDE to pay the $99/mo for Toujeo pens (ideal for obese patient) and do once daily injections upon discharge. * OK to start Metformin as discussed with Dr Watkins. * New facial cellulitis developed today and started on IV Unasyn, pt to stay inpatient at this time d/t infection. * ADA & AACE recommend a goal blood sugar range 140-180 mg/dl for the majority of critically ill & non-critically ill patients. However, more stringent targets may be selected in individual cases. Will utilize more stringent goal of 110-140mg/dl based on patient age & comorbidities. Additionally, tighter glycemic control is warranted to facilitate wound/infection healing. 12/22/19 * 44 y/o M admitted with Hyperglycemia. He is a newly diagnosed Type 2 diabetic. * Insulin infusion started per severe stress protocol. * Goal range was started at 150-200 then modified to 140-180 last night. Today it was adjusted down to goal of 120-160 mg/dl. * Insulin infusion rates have been changing since yesterday- currently running at 4.6 units/hr. Averaged around 120 units of insulin in past 24 hrs. * Patient also received additional 15 units of Novolog to cover carbs yesterday. * Lantus 60 units was given this AM. Additional Lantus ordered with dinner today to help transition patient off the drip. * Pending order entered to turn the drip off when BSG less than 180x 2 and insulin infusion rate is 1 unit/hr or less. PLAN FOR INPATIENT GLYCEMIC CONTROL: * Metformin - begin with 500mg daily today, titrate up if hospital stay extended > 3 more days * Basal insulin -increase * Lantus 75 units SQ daily, titrate up daily based on fasting blood sugar * Bolus insulin - tighten CF/CR and goal range * NovoLog per scale ACHS or Q6hrs while NPO * Goal Range: Low 110 mg/dL - High 140 mg/dL * Correction Factor: 10 mg/dL/unit * Nutritional / Prandial insulin per carb ratio of 1 unit per 3 grams CHO consumed PLAN FOR DISCHARGE: 1. A1c 12%/new diagnosis- Ronnielina (with $99/mo card from [employer]) + Metformin. Doses determined upon discharge. 2. Lifestyle changes- eliminate regular soda/milk to drink. 3. A1c >9%- pt will need close follow-up at time of discharge. marketing campaign analyst notified to arrange for new PCP follow-up and MTM clinic follow-up.
[2019-12-23] MEDS: AMPICILLIN/SULBACTAM SOD 3,000 MG in 0.9 % SODIUM CHLORIDE 100 ML IV SCH ×2 (13:45→20:44)
--- NOTE | 2019-12-23 13:55 | CT Scan Report ---
CT facial bones w con HISTORY: 44 years-old Male cellulitis of face on right side WITH IV ONLY PER DR MUIR diffuse soft tissue swelling of the right face with reported cellulitis COMPARISON: Head CT 12/15/2019 TECHNIQUE: Multiple axial CT images of the maxillofacial bones were obtained following the intravenou s administration of 120 mL Optiray 320. A dose lowering technique was used consistent with the princi pals of GOOD. FINDINGS: Multifocal odontogenic disease with numerous dental caries and periapical cysts. Moderate periapical cyst involves the left mandibular second bicuspid. There is a large periapical cyst involving the rig ht lateral maxillary incisor (1.3 x 0.9 cm) with anterior cortical dehiscence on image 379 series 3. Moderate adjacent deep subcutaneous edema with peripherally enhancing 9 x 5 mm fluid collection, imag e 400 series 4. Moderate periapical cyst with mild anterior cortical dehiscence involves the right ma xillary first bicuspid. The orbits and globes are unremarkable. The parotid and some mandibular glands are unremarkable. Prom inent submandibular and cervical chain lymph nodes measure up to 8-9 mm. Unremarkable thyroid. No acu te fracture. Mild mucosal thickening of the maxillary and ethmoid sinuses. The mastoid air cells and middle ear cavities are clear. IMPRESSION: 1. Multifocal odontogenic disease with numerous dental caries and periapical cysts. There is a large periapical cyst involving the right lateral maxillary incisor with anterior cortical dehiscence. Mode rate adjacent cellulitis with subcentimeter peripherally enhancing fluid collection suggestive of abs cess. 2. Prominent cervical chain lymph nodes, likely reactive. ACT 112: Negative or not required by law. The above report was generated using voice recognition software. It may contain grammatical, syntax o r spelling errors. Electronically signed by: Trung Sabillon M.D. 12/23/2019 1:54 PM
[2019-12-23] MEDS ORDERED: diphenhydrAMINE 50 MG/ML VIAL IV PRN (14:01)
[2019-12-23] MEDS ORDERED: diphenhydrAMINE 50 MG/ML VIAL IV STA (14:01)
[2019-12-23] MEDS ORDERED: diphenhydrAMINE 50 MG/ML VIAL ONE (14:07)
[2019-12-23] MEDS ORDERED: MoRPHine SULFATE 2 MG/ML CARP IV STA (14:08)
[2019-12-23] MEDS: FAMOTIDINE 20 MG in SYRINGE 3 ML IV SCH ×2 (14:26→20:47)
--- NOTE | 2019-12-23 18:09 | Communication Note ---
Date of Service: December 23, 2019 CT of Face : Multifocal odontogenic disease with numerous dental caries and periapical cysts. There is a large periapical cyst involving the right lateral maxillary incisor with anterior cortical dehiscence. Moderate adjacent cellulitis with subcentimeter peripherally enhancing fluid collection suggestive of abscess. pt is continued with IV Unasyn maxilofacial surgery : Dr Guaman consulted pt updated regarding CT report Huong Watkins MD
[2019-12-23] MEDS ORDERED: HYDROmorphone INJ 1 MG/ML SYRINGE IV PRN (18:16)
[2019-12-24] MEDS: AMPICILLIN/SULBACTAM SOD 3,000 MG in 0.9 % SODIUM CHLORIDE 100 ML IV SCH ×3 (00:54→13:01)
[2019-12-24] MEDS: NSS + 20MEQ KCL 20 MEQ/1,000 ML BAG IV SCH ×3 (01:59→13:53)
[2019-12-24] MEDS: HEPARIN SOD 5,000 UNIT/0.5 ML VIAL SQ SCH ×2 (06:21→13:02)
[2019-12-24] MEDS: FAMOTIDINE 20 MG in SYRINGE 3 ML IV SCH (08:25)
[2019-12-24] MEDS: PANTOprazole 40 MG TAB PO SCH (08:26)
[2019-12-24] MEDS: INSULIN GLARGINE 100 UNIT/ML VIAL SC SCH (08:29)
[2019-12-24] MEDS: INSULIN ASPART 100 UNITS/ML 3 ML PEN SC SCH ×2 (08:32→13:01)
[2019-12-24 08:42] LABS: Hematocrit (blood only) 38.8 % (42-52); Hemoglobin 13.1 g/dL (14.0-18.0); Mean Corpuscular Hemoglobin 30.5 pg (25-34); Mean Corpuscular Hgb Conc 33.8 g/dL (32-36); Mean Corpuscular Volume 90.2 fL (80-100); Mean Platelet Volume 8.8 fL (7.4-10.4); Platelet Count 193 K/uL (130-400); RDW Coefficient of Variation 13.9 % (11.5-14.5); RDW Standard Deviation 45.5 fL (36.4-46.3); White Blood Count 8.49 K/uL (4.8-10.8)
[2019-12-24 09:13] LABS: BUN Creatinine Ratio 8.4 (10-20); Creatinine Clr Calc Pharmacy 117.7 ml/min; Est GFR (African American) 85.3; Est GFR (Non-African American) 73.6; Potassium 3.9 mmol/L (3.5-5.1)
--- NOTE | 2019-12-24 14:19 | Pharmacy Report ---
Pharmacy Glycemic Short Note 2 - Date of Service December 24, 2019 - Glycemic Short BSG Results (Last 24 hours): 12/23/19 12/23/19 12/24/19 16:18 20:46 07:24 Glucose POC Glucose 177 H 154 H 178 H 12/24/19 12/24/19 08:19 11:28 Glucose 187 H POC Glucose 163 H OUTPATIENT ANTIDIABETIC REGIMEN: * None * A1c = 12% on 12/21/19 Risk Factors for Insulin Resistance: * Infection: New facial cellulitis, IV Unasyn * IVF: NS + 20 meq KCL @ 150 ml/hr * Recent Surgery: Cardiac cath * Diet: T2DM ASSESSMENT: 12/24/19 * Patient received 153 units of insulin yesterday, 75 basal, blood sugars just above goal. * Patient to be discharged on oral antibiotics, see recommendations below 12/23/19 * Patient transitioned off of insulin drip yesterday onto SQ insulin. Patient had 75 units basal and 55 units bolus + insulin drip yesterday. * Will continue to titrate basal insulin up and tighten CF and CR. * Patient does not have health insurance until Mar 2020 but discussed case with CDE and he is willing to use the card provided by CDE to pay the $99/mo for Toujeo pens (ideal for obese patient) and do once daily injections upon discharge. * OK to start Metformin as discussed with Dr Watkins. * New facial cellulitis developed today and started on IV Unasyn, pt to stay inpatient at this time d/t infection. * ADA & AACE recommend a goal blood sugar range 140-180 mg/dl for the majority of critically ill & non-critically ill patients. However, more stringent targets may be selected in individual cases. Will utilize more stringent goal of 110-140mg/dl based on patient age & comorbidities. Additionally, tighter glycemic control is warranted to facilitate wound/infection healing. 12/22/19 * 44 y/o M admitted with Hyperglycemia. He is a newly diagnosed Type 2 diabetic. * Insulin infusion started per severe stress protocol. * Goal range was started at 150-200 then modified to 140-180 last night. Today it was adjusted down to goal of 120-160 mg/dl. * Insulin infusion rates have been changing since yesterday- currently running at 4.6 units/hr. Averaged around 120 units of insulin in past 24 hrs. * Patient also received additional 15 units of Novolog to cover carbs yesterday. * Lantus 60 units was given this AM. Additional Lantus ordered with dinner today to help transition patient off the drip. * Pending order entered to turn the drip off when BSG less than 180x 2 and insu kostas infusion rate is 1 unit/hr or less. PLAN FOR INPATIENT GLYCEMIC CONTROL: * Metformin - on hold thursday d/t IV Contrast * Basal insulin * Lantus 75 units SQ daily * Bolus insulin * NovoLog per scale ACHS or Q6hrs while NPO * Goal Range: Low 110 mg/dL - High 140 mg/dL * Correction Factor: 10 mg/dL/unit * Nutritional / Prandial insulin per carb ratio of 1 unit per 3 grams CHO consumed PLAN FOR DISCHARGE: 1. A1c 12%/new diagnosis- Toujeo (with $99/mo card from [employer]) + Metformin. * Toujeo 100 units SQ daily in the morning * Metformin - start Thursday12/26/19 - 500mg PO daily x 3 days, 500mg BID x 3 days, 1000mg with breakfast and 500mg with dinner x 3 days, then 1000mg twice daily with breakfast and dinner 2. Lifestyle changes- eliminate regular soda/milk to drink. 3. A1c >9%- pt will need close follow-up at time of discharge. boat mechanic notified to arrange for new PCP follow-up and MTM clinic follow-up.
--- NOTE | 2019-12-24 14:52 | Discharge Summary ---
Date of Service December 24, 2019 Admission HPI Per Admitting Provider History obtained from patient, family, and records. Medical history significant for Crohn's disease, past tobacco abuse. Last confinement August 2018 for chest pain. The last week patient not feeling well. Peeing a lot, feeling thirsty. No chest pain, no S OB. Dizziness described as lightheadedness. 2 unwitnessed syncopal events at work yesterday preceded by lightheadedness. Patient was just out for a few moments. No headache symptoms. No head trauma. No tongue biting, urinary incontinence. Achy abdominal pain with usual loose watery stools. Patient worried about diabetes. At the ER, blood sugars noted to be 600s. Patient given IV insulin at the ER. Medical History as above Surgical History : Cholecystectomy Family History : Diabetes Personal/Social history : Past tobacco abuse, occasional EtOH intake, [employer] employee Principal Diagnosis TYPE 2 DIABETES -NEW DIAGNOSIS DENTAL ABSCESS HYPERTENSION Discharge Exam Constitutional WD/WN, vitals as above + obese Eyes PERRL, conjunctivae normal, anicteric sclerae + anicteric sclerae ENMT external ear and nose normal, oropharynx normal Neck trachea midline, no thyromegaly Respiratory normal respiratory effort, lungs clear to auscultation Cardiovascular RRR, no murmur, no edema Gastrointestinal (Abdomen) normal bowel sounds, soft, nontender, no hepatosplenomegaly Musculoskeletal no cyanosis or clubbing, extremities motor strength 5/5 Skin no rashes, warm and dry Neurologic PERRL, EOMI, accommodation nl, no face palsy, no dysarthria Psychiatric A+Ox3, euthymic affect Discharge Data Allergies Allergy/AdvReac Type Severity Reaction Status Date / Time Iodinated Contrast Media Allergy Intermediate Rash Verified 12/24/19 14:53 Consultations 12/21/19 04:35 ED Decision to Admit Stat 12/23/19 18:07 Consult Oromaxillofacial Surgery Routine Ordered Studies 12/21/19 05:16 CT abd pelvis wo con Urgent 12/23/19 12:02 CT facial bones w con Routine Diabetes Follow up Diabetes Follow-up Needed for HgbA1c >9%,Newly Diagnosed Diabetes Hospital Course (1) Hyperglycemic crisis in diabetes mellitus: admitted with hyperglycemia , polyuria , polydypsia : new diagnosis of diabetes Type 2 Hb A1c 12 appreciate input from Pharmacy for glycemic management and 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 A1c 12%/new diagnosis- Toujeo (with $99/mo card from [employer]) + Metformin. Toujeo 100 units SQ daily in the morning Metformin - start Thursday12/26/19 ( as received IV contrast for CT face ) - 500mg PO daily x 3 days, 500mg BID x 3 days, 1000mg with breakfast and 500mg with dinner x 3 days, then 1000mg twice daily with breakfast and dinner 2. Lifestyle changes- eliminate regular soda/milk to drink. 3. A1c >9%- pt will need close follow-up at time of discharge. pt is scheduled with PCP follow-up and MTM clinic follow-up. Acute renal failure : due to hyperglycemia , uncontrolled DM , dehydration renal function improved with IV hydration Recurrent syncope likely secondary to orthostasis secondary to dehydration symptoms has resolved stable vitals ECHO : normal study HTN : BP 140's started on low dose ACEI DENTAL ABSCESS CT of Face : Multifocal odontogenic disease with numerous dental caries and periapical cysts. There is a large periapical cyst involving the right lateral maxillary incisor with anterior cortical dehiscence. Moderate adjacent cellulitis with subcentimeter peripherally enhancing fluid collection suggestive of abscess. pt is continued with IV Unasyn pain and swelling on much improved today no fever or chills , normal white count pt is very eager to be discharged home will be discharged with PO Augmentin , follow up with dentist /maxillofacial surgery in clinic bilateral blurred vision : possibly due to poorly controlled diabetes ? cont BSG control witn IV insulin will need formal diabetic opthalmology eval out pt DVT prophylaxis. Heparin subcu Full code Disposition : discharged home today Total Time Total Time Spent Total Time Spent (In Minutes): 35 mins Total Time Includes: Examination of the Patient, Discharge Planning and Medication Reconciliation Discharge Plan Discharge Items Patient Disposition: Home - Self-Care Reason For Visit: SYNCOPE,HYPERGLYCEMIC CRISIS Discharge Diagnosis: TYPE 2 DIABETES -NEW DIAGNOSIS DENTAL ABSCESS HYPERTENSION Activity: Resume your previous activity Non-emergency contact: Primary Care Provider Call non-emergency contact if: you have any medication questions Follow-up/Referrals: Charity Martin MD [Hospitalist] - (Date & Time 12/26/2019 11:00 AM Provider Charity Martin MD Department General Internal Medicine [place], [place] ) Rik Delcid, DMD [Physician] - Diet: Carb Consistent or DM2, Heart Healthy and Low Sodium (2gm) Addtl Attending Provider Instructions: NEED DIABATIC EYE EXAM SOON POSSIBLE -FOR BLURRED VISION , POORLY CONTROLLED DIABETES ESTABLISH CARE WITH DIABETIC /MTM PHARMACY AT [facility] PLEASE FOLLOW UP WITH DR DELCID FOR DENTAL ABSCESS DIABETIC MEDICATIONS : START TAKING METFORMIN 500 MG 1 TABLET DAILY FROM Thursday12/26/19 COMPLETE ANTIBIOTIC : AUGMENTIN 1 TABLET TWICE DAILY FOR 10 DAYS FOR DENTAL ABSCESS PLEASE NOTIFY YOUR FAMILY PHYSICIAN OR COME TO ER IF YOU HAVE FEVER , WORSENING PAIN IN MOUTH OR INCREASED SWELLING OF FACE Addtl Quarrying Manager Provider Instructions: DIABETIC MEDICATION DISCHARGE INSTRUCTION: 1. Toujeo 100 units SQ daily in the morning Metformin - start Thursday12/26/19 - 500mg PO daily x 3 days, 500mg BID x 3 days, 1000mg with breakfast and 500mg with dinner x 3 days, then 1000mg twice daily with breakfast and dinner 2. Lifestyle changes- eliminate regular soda/milk to drink. 3. A1c >9%- pt will need close follow-up at time of discharge. 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 please check blood sugar twice a day : before breakfast ( fasting ) before dinner keep log of the blood sugar reading and bring it to next physician visit Pending Studies at Discharge: No Stand-Alone Forms: My [facility], Work/School Release (Inpt), Smoking Cessation Medications and DC Order Prescriptions: New metformin [Glucophage] 500 mg Tablet 500 mg PO DAILY 30 Days Qty: 30 RF: 3 amoxicillin-pot clavulanate [Augmentin] 875-125 mg Tablet 1 tab PO BIDM 10 Days Qty: 20 RF: 0 lisinopril 2.5 mg tablet 2.5 mg PO DAILY Qty: 30 RF: 2 Toujeo SoloStar U-300 Insulin 300 unit/mL (1.5 mL) insulin pen 100 unit subcut DAILY Qty: 4.5 RF: 3 Continued omeprazole magnesium [Prilosec OTC] 20 mg Tablet,Delayed Release (Dr/Ec) 20 mg PO DAILY RF: 0 Discharge Orders: Discharge Order (Routine); Ordered 12/24/19 Ordered By: Huong Izaguirre/Other Patient Handouts: Diabetic Retinopathy Evaluate Eyes, Diabetes Shopping Preparing Meals, Diabetes Exercise Get Started, Blood Sugar Monitoring and ..., Diabetes Exercise Plan, Diabetes Learn Serve Portion Size, Diabetes and High Blood Pressure, A1C Admission Data Admit Date/Time: 12/21/19 05:18 Attending Provider: Huong Watkins Admit Provider: Huong Watkins Primary Care Provider: PCP,NO Other Providers: Anatoliy Stiles ; Rik Delcid Other Interventions: Discharge Summary Assessment (RN) Last Done: 12/24/19 16:04
[2019-12-24] MEDS ORDERED: AMOXICILLIN/CLAVULANATE 875 MG TAB PO SCH (17:00)
[2019-12-25] MEDS ORDERED: INSULIN GLARGINE 100 UNIT/ML VIAL SC SCH (09:00)
== END 2019-12-24 16:44 | disposition home or self-care (01) | DRG 638 ==
LOC: ED 01:52 → 2W 05:18

== ENCOUNTER 2021-08-12 05:51 | Observation (INO) ==
[2021-08-12] MEDS ORDERED: SODIUM CHLORIDE 0.9% 1000ML 1,000 ML IV STA (06:25)
[2021-08-12] MEDS ORDERED: ONDANSETRON INJ 2 MG/ML 2 ML VIAL IV STA (06:25)
[2021-08-12 06:40] LABS: Basophils # (auto) 0.03 K/uL (0-0.2); Basophils % (auto) 0.3 %; Eosinophils # (auto) 0.08 K/uL (0-0.5); Eosinophils % (auto) 0.9 %; Hematocrit (blood only) 43.9 % (42-52); Hemoglobin 15.3 g/dL (14.0-18.0); Immature Granulocytes # (auto) 0.02 K/uL (0.00-0.02); Immature Granulocytes % (auto) 0.2 %; Lymphocytes # (auto) 1.16 K/uL (1.2-3.4); Lymphocytes % (auto) 13.1 %; Mean Corpuscular Hgb Conc 34.9 g/dL (32-36); Mean Corpuscular Volume 88.9 fL (80-100); Mean Platelet Volume 9.4 fL (7.4-10.4); Monocytes # (auto) 0.75 K/uL (0.11-0.59); Monocytes % (auto) 8.5 %; Neutrophils # (auto) 6.81 K/uL (1.4-6.5); Platelet Count 223 K/uL (130-400); RDW Coefficient of Variation 13.5 % (11.5-14.5); RDW Standard Deviation 44.2 fL (36.4-46.3); Red Blood Count 4.94 M/uL (4.7-6.1); White Blood Count 8.85 K/uL (4.8-10.8)
--- NOTE | 2021-08-12 06:52 | Emergency Department Note ---
Impression & Plan Acute hyperglycemia, Nausea, Hypomagnesemia, Noncompliance with medication regimen ED Provider Note NAME: GARCIA CHEN AGE: 46 SEX: M : 1975 ARRIVES VIA: Walk-In INFORMANT: Patient, ED PROVIDER(S): Mike Workman DO CHIEF COMPLAINT: Elevated blood sugar and palpitations HPI: The patient is a 46-year-old male who presented to the emergency department for an evaluation of elevated heart rate and elevated blood sugar. The patient states that he has had symptoms over the last 2 to 3 days. He ran out of his diabetes medications. Patient stopped taking his insulin he thinks almost a month ago. He stopped taking his medications for other medical issues as well because of financial issues. He did not see his family doctor for the symptoms. He started noticing over the last 48 hours his blood sugars started to become much higher than usual. He has noticed them to be in the 600 range. He is also started to notice nausea. He has noticed polyuria and polydipsia. He also noticed palpitations. He denies having any chest pain. He has had a slight cough which is nonproductive. He has noticed slight lower extremity swelling as well. ROS: See above HPI for pertinent positives & negatives. A total of 10 systems reviewed and were otherwise negative. PAST MEDICAL HISTORY: See Below PAST SURGICAL HISTORY: See Below FAMILY HISTORY: See Below SOCIAL HISTORY: See Below HOME MEDICATIONS: See Below ALLERGIES: See Below VITALS: See Below PHYSICAL EXAMINATION: GENERAL: Patient is awake alert in no acute distress patient is resting comfortably and showing no signs of anxiety EYES: The conjunctivae are clear. The pupils are round and reactive. EARS, NOSE, MOUTH AND THROAT: The nose is without any evidence of any deformity. Mucous membranes are dry. NECK: The neck is nontender and supple. RESPIRATORY: Normal respiratory effort is noted there is no evidence of wheezing rhonchi or rales CARDIOVASCULAR: Tachycardic rate with regular rhythm was noted. There is no definite murmur. GASTROINTESTINAL: The abdomen is soft. Abdomen is nontender. MUSCULOSKELETAL/EXTREMITIES: There is no evidence of gross deformity full range of motion is noted in the hips and shoulders. SKIN: Trace pedal edema was noted bilaterally. NEUROLOGIC: Patient is awake alert and oriented x 3. MEDICAL DECISION MAKING: Patient is a 46-year-old male who presented to the emergency department for an evaluation of nausea and elevated blood sugar. The patient been noncompliant with his medications due to cost. He was treated in the emergency department with IV fluids and IV insulin. He was also treated with IV magnesium replacement. I discussed the patient's laboratory and radiographic studies with him. Given his elevated blood sugar as well as his noncompliance with medication I do not feel the patient would be a good candidate for outpatient management at this time. [facility] They will evaluate the patient in the emergency department for further management and disposition. Triage Nursing notes reviewed. Prior medical records reviewed Vital Signs: reviewed and remarkable for no significant abnormalities Differential diagnosis: Infection, dehydration, metabolic abnormality, hypo/hyperglycemia, electrolyte disturbance, anemia, hypoxia, cardiac sources, intracerebral event, toxicologic, neurologic, as well as other pathologies. ER treatment provided: See below Diagnostics interpreted by me: ECG: EKG was obtained in the emergency department. My interpretation is normal sinus rhythm at [address] segment abnormalities were noted diffusely. This was compared to a tracing from May 08, 2021. The ST segment abnormalities are new compared to the earlier tracing. Cardiac Monitoring: An order was placed for continuous cardiac monitoring. The monitor shows a rate of 76 bpm with sinus rhythm. Laboratory studies: As stated above and show below. Imaging studies: See below Consultation(s): [facility]. Past Med/Surg History Medical History (Updated 08/12/21 @ 07:52 by Mike Workman DO) Abnormal ECG Anemia Bradycardia Hx of Crohn's disease Ileitis Valvular heart disease Surgical History History of cholecystectomy Family History Other Colitis Social History Smoking Status: Never smoker Tobacco Type: Cigarettes Cigarettes Per Day: 3; Hx Alcohol Use: No Hx Substance Use: No Preferred Language: Lithuanian Communication Ability: Effective Visual Impairment: No Limitations Hearing Ability: Normal Typesetting Supervisor Required: No Beliefs That Will Affect Care: None marital status: Current Living Situation: Significant Other current occupational status: employed 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 [employer] Feels Safe at Home: Yes Assistive Devices: Glasses Allergies Allergies Allergy/AdvReac Type Severity Reaction Status Date / Time Iodinated Contrast Media Allergy Intermediate Rash Verified 08/12/21 07:02 metformin AdvReac Intermediate Swelling ~ Unverified 08/12/21 07:02 nausea Home Meds Home Medications Medication Instructions Recorded Confirmed Otc Restless Leg Tablet 2 tab PO HS 08/12/21 08/12/21 dulaglutide 1.5 mg/0.5 mL 1.5 mg SUBCUT WK 08/12/21 08/12/21 subcutaneous pen injector (Trulicity) lisinopril 2.5 mg tablet 2.5 mg PO QAM 08/12/21 08/12/21 Previous Rx's Medication Instructions Recorded insulin glargine U-300 conc 300 100 unit SUBCUT DAILY #4.5 ml 12/24/19 unit/mL (1.5 mL) subcutaneous pen (Toujeo SoloStar U-300 Insulin) magnesium oxide 400 mg (241.3 mg 400 mg PO BID #30 tab 05/08/21 magnesium) tablet Results & Data (ED) Vital Signs Vital Signs - 24 hr 08/12/21 05:56 08/12/21 06:26 Temperature 36.1 C L Temperature Source Temporal Artery Scan Pulse Rate 85 76 Pulse Rhythm Regular Pulse Strength Normal Respiratory Rate 18 20 Respiratory Effort / Characteristics Non-Labored Spontaneous Respiratory Depth Normal Blood Pressure 147/90 H 137/96 Blood Pressure Mean 109 109 Blood Pressure Position Sitting Pulse Oximetry 97 97 Oxygen Delivery Method Room Air Room Air Sepsis Recent Fever Within 48 Hours No Sepsis New/Unexplained Change in Mental Status N/A Sepsis Action Taken by Nursing No Action Required Home Medications Current Medication List: was personally reviewed by me Laboratory Data Attestation: I reviewed the patient's lab results. Result diagrams: 08/12/21 06:27 08/12/21 06:27 Lab Results 08/12/21 08/12/21 08/12/21 Range/Units 06:12 06:27 06:27 WBC 8.85 (4.8-10.8) K/uL RBC 4.94 (4.7-6.1) M/uL Hgb 15.3 (14.0-18.0) g/dL Hct 43.9 (42-52) % MCV 88.9 (80-100) fL MCH 31.0 (25-34) pg MCHC 34.9 (32-36) g/dL RDW Std Deviation 44.2 (36.4-46.3) fL RDW Coeff of Toni 13.5 (11.5-14.5) % Plt Count 223 (130-400) K/uL MPV 9.4 (7.4-10.4) fL Immature Gran % (Auto) 0.2 % Neut % (Auto) 77.0 % Lymph % (Auto) 13.1 % [place] % (Auto) 8.5 % Eos % (Auto) 0.9 % Baso % (Auto) 0.3 % Neut # (Auto) 6.81 H (1.4-6.5) K/uL Lymph # (Auto) 1.16 L (1.2-3.4) K/uL [place] # (Auto) 0.75 H (0.11-0.59) K/uL Eos # (Auto) 0.08 (0-0.5) K/uL Baso # (Auto) 0.03 (0-0.2) K/uL Immature Gran # (Auto) 0.02 (0.00-0.02) K/uL VBG pH (7.36-7.41) VBG pCO2 (38-50) mmHg VBG pO2 mmHg VBG HCO3 mmol/L VBG O2 Saturation % VBG Base Excess mEq/L Barometric Pressure mm/Hg Sodium 127 L (136-145) mmol/L Potassium 4.8 (3.5-5.1) mmol/L Chloride 93 L (98-107) mmol/L Carbon Dioxide 22 (21-32) mmol/L Anion Gap 12 H (3-11) BUN 20 (6-23) mg/dl Creatinine 1.09 (0.6-1.4) mg/dl Est Cr Clr Drug Dosing 115.4 ml/min Est GFR ( Amer) 92.5 ml/min Est GFR (Non-Af Amer) 79.8 ml/min BUN/Creatinine Ratio 18.3 (10-20) Glucose 749 H* (70-99(Fasting)) mg/dl POC Glucose > 600 H* (70-99) mg/dl Calcium 9.5 (8.5-10.1) mg/dl Magnesium 1.5 L (1.7-2.4) mg/dl Total Bilirubin 0.4 (0.2-1.0) mg/dl AST 14 (13-39) U/L ALT 16 (7-52) U/L Alkaline Phosphatase 125 H (34-104) U/L Troponin I High Sens 5.0 (0-20) pg/ml Total Protein 7.7 (6.0-8.3) gm/dl Albumin 4.0 (3.4-5.0) gm/dl Globulin 3.7 (2.5-4.0) gm/dl Albumin/Globulin Ratio 1.1 (0.9-2) Lipase 62 (11-82) U/L SARS-CoV-2, RNA, NAAT (NEGATIVE) 08/12/21 08/12/21 Range/Units 07:03 07:16 WBC (4.8-10.8) K/uL RBC (4.7-6.1) M/uL Hgb (14.0-18.0) g/dL Hct (42-52) % MCV (80-100) fL MCH (25-34) pg MCHC (32-36) g/dL RDW Std Deviation (36.4-46.3) fL RDW Coeff of Toni (11.5-14.5) % Plt Count (130-400) K/uL MPV (7.4-10.4) fL Immature Gran % (Auto) % Neut % (Auto) % Lymph % (Auto) % [place] % (Auto) % Eos % (Auto) % Baso % (Auto) % Neut # (Auto) (1.4-6.5) K/uL Lymph # (Auto) (1.2-3.4) K/uL [place] # (Auto) (0.11-0.59) K/uL Eos # (Auto) (0-0.5) K/uL Baso # (Auto) (0-0.2) K/uL Immature Gran # (Auto) (0.00-0.02) K/uL VBG pH 7.39 (7.36-7.41) VBG pCO2 42 (38-50) mmHg VBG pO2 57 mmHg VBG HCO3 25 mmol/L VBG O2 Saturation 90.1 % VBG Base Excess -0.1 mEq/L Barometric Pressure 732.3 mm/Hg Sodium (136-145) mmol/L Potassium (3.5-5.1) mmol/L Chloride (98-107) mmol/L Carbon Dioxide (21-32) mmol/L Anion Gap (3-11) BUN (6-23) mg/dl Creatinine (0.6-1.4) mg/dl Est Cr Clr Drug Dosing ml/min Est GFR ( Amer) ml/min Est GFR (Non-Af Amer) ml/min BUN/Creatinine Ratio (10-20) Glucose (70-99(Fasting)) mg/dl POC Glucose (70-99) mg/dl Calcium (8.5-10.1) mg/dl Magnesium (1.7-2.4) mg/dl Total Bilirubin (0.2-1.0) mg/dl AST (13-39) U/L ALT (7-52) U/L Alkaline Phosphatase (34-104) U/L Troponin I High Sens (0-20) pg/ml Total Protein (6.0-8.3) gm/dl Albumin (3.4-5.0) gm/dl Globulin (2.5-4.0) gm/dl Albumin/Globulin Ratio (0.9-2) Lipase (11-82) U/L SARS-CoV-2, RNA, NAAT NEGATIVE (NEGATIVE) Administered Medications Magnesium Sulfate/Dextrose (Magnesium Sulfate / D5w) 1 gm in 100 mls @ 100 mls/hr IV Q1H BONNIE Stop: 08/12/21 09:27 Last Admin: 08/12/21 07:38 Dose: 100 mls/hr Documented by: [id number] Sodium Chloride (Nss 1000ml) 1,000 mls @ 999 mls/hr IV .Q1H1M ONE Stop: 08/12/21 08:27 Last Admin: 08/12/21 07:38 Dose: 999 mls/hr Documented by: [id number] Discontinued Medications Sodium Chloride (Nss 1000ml) 1,000 mls @ 999 mls/hr IV .Q1H1M STA Stop: 08/12/21 07:25 Last Admin: 08/12/21 06:36 Dose: 999 mls/hr Documented by: [id number] Insulin Human Regular (Novolin-R Insulin Per Unit Charge) 10 units IV NOW STA Stop: 08/12/21 07:37 Last Admin: 08/12/21 07:41 Dose: 10 units Documented by: [id number] Cosigned by: [id number] Ondansetron HCl (Ondansetron Inj 2 Mg/Ml 2 Ml Vial) 4 mg IV NOW STA Stop: 08/12/21 06:26 Last Admin: 08/12/21 06:36 Dose: 4 mg Documented by: [id number] Imaging Data Radiologist's Impression: Chest X-Ray 08/12/21 06:26 XR chest 1V portable CLINICAL HISTORY: palps TECHNIQUE: Single frontal radiograph of the chest was obtained. Comparison: Comparison is made to chest radiograph of 05/08/2021 FINDINGS: No lines and tubes are seen. The cardiomediastinal silhouette is normal. The lungs are clear. No evidence of pleural effusion or pneumothorax. IMPRESSION: No acute chest disease. ACT 112: Negative or not required by law. Electronically signed by: Hola Hunt M.D. 08/12/2021 7:24 AM Discharge Plan Visit Data Chief Complaint: Hyperglycemia Stated Complaint: RACING HEART,HIGH SUGAR ED Provider: Mike Workman Discharge Problem: Acute hyperglycemia, Nausea, Hypomagnesemia, Noncompliance with medication regimen Patient Disposition: Being Evaluated by Hospitalist Forms Stand Alone Forms: My [facility] Prescriptions Prescriptions: No Action Rosa M Farfan U-300 Insulin 300 unit/mL (1.5 mL) insulin pen 100 unit subcut DAILY Qty: 4.5 RF: 3 magnesium oxide 400 mg (241.3 mg magnesium) tablet 400 mg PO BID Qty: 30 RF: 0 Trulicity 1.5 mg/0.5 mL pen injector 1.5 mg SUBCUT WK RF: 0 Otc Restless Leg Tablet 2 tab PO HS RF: 0 lisinopril 2.5 mg tablet 2.5 mg PO QAM RF: 0 Referrals Referrals: Charity Martin MD [Primary Care Provider] -
[2021-08-12 07:11] LABS: Albumin Globulin Ratio 1.1 (0.9-2); BUN Creatinine Ratio 18.3 (10-20); Bilirubin,Total 0.4 mg/dl (0.2-1.0); Calcium 9.5 mg/dl (8.5-10.1); Creatinine Clr Calc Pharmacy 115.4 ml/min; Est GFR (African American) 92.5 ml/min; Est GFR (Non-African American) 79.8 ml/min; Globulin 3.7 gm/dl (2.5-4.0); Magnesium 1.5 mg/dl (1.7-2.4); Total Protein 7.7 gm/dl (6.0-8.3)
--- NOTE | 2021-08-12 07:25 | XRay Report ---
XR chest 1V portable CLINICAL HISTORY: palps TECHNIQUE: Single frontal radiograph of the chest was obtained. Comparison: Comparison is made to chest radiograph of 05/08/2021 FINDINGS: No lines and tubes are seen. The cardiomediastinal silhouette is normal. The lungs are clear. No evid ence of pleural effusion or pneumothorax. IMPRESSION: No acute chest disease. ACT 112: Negative or not required by law. Electronically signed by: Hola Hunt M.D. 08/12/2021 7:24 AM
[2021-08-12] MEDS ORDERED: SODIUM CHLORIDE 0.9% 1000ML 1,000 ML IV ONE (07:27)
[2021-08-12 07:30] LABS: Base Excess VBG -0.1 mEq/L; Oxygen Saturation VBG 90.1 %; pH VBG 7.39 (7.36-7.41)
[2021-08-12 07:34] LABS: Potassium 4.8 mmol/L (3.5-5.1)
[2021-08-12] MEDS ORDERED: NovoLIN-R INSULIN PER UNIT CHARGE IV STA (07:36)
[2021-08-12] MEDS: MAGNESIUM SULFATE / D5W 1 GM/100 ML BAG IV SCH ×2 (07:38→08:59)
[2021-08-12 07:53] LABS: Appearance Urine Clear (Clear); Bilirubin Urine Negative (Negative); Blood Urine Negative (Negative); Color Urine Yellow; Glucose Urine UA 3+ (Negative); Ketones Urine Trace (Negative); Leukocyte Esterase Urine Negative (Negative); Nitrite Urine Negative (Negative); Protein Urine Negative (Negative); Specific Gravity Urine 1.026 (1.000-1.030); Urobilinogen Urine Negative (Negative); pH Urine 5.5 (4.5-7.5)
--- NOTE | 2021-08-12 08:33 | History & Physical Report ---
Date of Service August 12, 2021 Assessment & Plan (1) Hyperglycemic crisis in diabetes mellitus: (2) Noncompliance with medication regimen: (3) Hypomagnesemia: (4) Bilateral leg cramps: Plan: This is a 46-year-old male who has a significant past medical history of i nsulin-dependent uncontrolled T2DM, morbid obesity, HTN, Crohn's disease who presents to ED secondary to elevated blood sugar and palpitations x2 days. Hyperglycemia crisis in diabetes mellitus Noncompliance with medication regimen due to inability to afford medications Admit to telemetry Continue IV fluid Placed on insulin regimen, Lantus 50 units x 1 now and then twice daily NovoLog per protocol Consult glycemic pharmacy Consult nurse educator -patient states he does have supplies at home including glucose monitor, strips and lancets Consult case management to see if any aid in medications Hypomagnesemia Repleted in ED Will repeat magnesium and BMP at 1500 to monitor mag and potassium Bilateral leg cramps Likely secondary to hypomagnesemia and hyperglycemia Recommend to apply heat, gentle stretching Supplement magnesium, hydration As needed Flexeril DVT prophylaxis Lovenox twice daily Dispo: tele, likely d/c when bsg under control and plan in place for pt to be able to obtain and afford insulin in outpt setting PCP: Charity Martin FULL CODE Pt was seen and examined in collaboration with Dr. Donald, please see addendum History of Present Illness Chief Complaint: Elevated blood sugar and palpitations x 2 days. Primary Care Provider: Charity Martin MD This is a 46-year-old male who has a significant past medical history of insulin-dependent uncontrolled T2DM, morbid obesity, HTN, Crohn's disease who presents to ED secondary to elevated blood sugar and palpitations x2 days. Over the past two days his bsg was in 700s and lowest he got it down to was 350s, but it goes right back up. Prior to that it was in the 600s. Over the last two days he has been complaining of heart racing, SOB when his heart races, nausea, 2 episodes of vomiting this morning and leg cramps. He has been experiencing leg cramps frequently. He has not taken his medications in the last two months due to unable to afford it. He states he works for [employer] and when his shifts are scheduled there are no buses so he has to [employer] and he has been paying 1,000$ in [employer] a month and sacrificing his medicines due to cost of transport. He does have chronic diarrhea due to crohns. He does not take any medications for crohns due to unable to afford. He denies any recent illness, f/c/s, dizziness, lightheaded, chest pain, sob w/ exertion, abd pain, dysuria, increased urg/freq, dysuria, melena and hematochezia. In ED patient was found to have elevated blood sugar at 749. His serum sodium was low at 127 but corrected was 137. He did have mild elevation of anion gap to 12. His magnesium was low at 1.5. His CBC and VBG was otherwise unremarkable. Chest x-ray is negative for acute abnormality. In ED he received IV fluids, 10 units of regular insulin and was recommended for admission. Allergies Allergy/AdvReac Type Severity Reaction Status Date / Time Iodinated Contrast Media Allergy Intermediate Rash Verified 08/12/21 07:02 metformin AdvReac Intermediate Swelling ~ Unverified 08/12/21 07:02 nausea Home Medications Medication Instructions Recorded Confirmed Type insulin glargine U-300 conc 300 100 unit SUBCUT DAILY #4.5 ml 12/24/19 08/12/21 Rx unit/mL (1.5 mL) subcutaneous pen (Toujeo SoloStar U-300 Insulin) magnesium oxide 400 mg (241.3 mg 400 mg PO BID #30 tab 05/08/21 08/12/21 Rx magnesium) tablet Otc Restless Leg Tablet 2 tab PO HS 08/12/21 08/12/21 History dulaglutide 1.5 mg/0.5 mL 1.5 mg SUBCUT WK 08/12/21 08/12/21 History subcutaneous pen injector (Trulicity) lisinopril 2.5 mg tablet 2.5 mg PO QAM 08/12/21 08/12/21 History Past Med/Surg History Medical History (Updated 08/12/21 @ 09:03 by Lainey Berumen PA-C) Abnormal ECG Anemia Bilateral leg cramps Bradycardia Hx of Crohn's disease Ileitis T2DM (type 2 diabetes mellitus) Valvular heart disease Surgical History (Updated 08/12/21 @ 09:03 by Lainey Berumen PA-C) History of appendectomy History of cholecystectomy History of tonsillectomy Family History Mother Diabetes Other Colitis Social History (Updated 08/12/21 @ 08:44 by Lainey Berumen PA-C) Smoking Status: Never smoker Tobacco Type: Cigarettes Hx Alcohol Use: No Hx Substance Use: No Preferred Language: [place] Communication Ability: Effective Visual Impairment: No Limitations Hearing Ability: Normal Assembly Mechanic Required: No Beliefs That Will Affect Care: None marital status: Current Living Situation: Significant Other current occupational status: employed current occupation: works at [employer] Feels Safe at Home: Yes Assistive Devices: Glasses Review of Systems Review of Systems: All systems reviewed & are unremarkable except as noted in HPI & below Physical Exam Physical Exam: please refer to DR. Odilon yao for physical exam findings Results & Data Results & Data ([facility] [place]) Vital Signs (Past 12 Hours) Vital Signs Temp Pulse Resp BP Pulse Ox 08/12/21 06:26 76 20 137/96 97 08/12/21 05:56 36.1 C L 85 18 147/90 H 97 Diagnostic Findings Chest X-Ray 08/12/21 06:26 XR chest 1V portable CLINICAL HISTORY: palps TECHNIQUE: Single frontal radiograph of the chest was obtained. Comparison: Comparison is made to chest radiograph of 05/08/2021 FINDINGS: No lines and tubes are seen. The cardiomediastinal silhouette is normal. The lungs are clear. No evidence of pleural effusion or pneumothorax. IMPRESSION: No acute chest disease. ACT 112: Negative or not required by law. Electronically signed by: Hola Hunt M.D. 08/12/2021 7:24 AM Medications Administered Medication List Magnesium Sulfate/Dextrose (Magnesium Sulfate / D5w) 1 gm in 100 mls @ 100 mls/hr IV Q1H BONNIE Stop: 08/12/21 09:27 Last Admin: 08/12/21 07:38 Dose: 100 mls/hr Documented by: [id number] Discontinued Medications Sodium Chloride (Nss 1000ml) 1,000 mls @ 999 mls/hr IV .Q1H1M STA Stop: 08/12/21 07:25 Last Infusion: 08/12/21 07:59 Dose: 0 mls/hr Documented by: [id number] Admin: 08/12/21 06:36 Dose: 999 mls/hr Documented by: [id number] Sodium Chloride (Nss 1000ml) 1,000 mls @ 999 mls/hr IV .Q1H1M ONE Stop: 08/12/21 08:27 Last Admin: 08/12/21 07:38 Dose: 999 mls/hr Documented by: [id number] Insulin Human Regular (Novolin-R Insulin Per Unit Charge) 10 units IV NOW STA Stop: 08/12/21 07:37 Last Admin: 08/12/21 07:41 Dose: 10 units Documented by: [id number] Cosigned by: [id number] Ondansetron HCl (Ondansetron Inj 2 Mg/Ml 2 Ml Vial) 4 mg IV NOW STA Stop: 08/12/21 06:26 Last Admin: 08/12/21 06:36 Dose: 4 mg Documented by: [id number] ECG Rate (beats per minute): 74 Rhythm: normal sinus Additional Comments: early repol changes COVID-19 Results Results COVID-19 Adm Lab Results: RBC 4.94 M/uL (4.7-6.1) 08/12/21 WBC 8.85 K/uL (4.8-10.8) 08/12/21 Hgb 15.3 g/dL (14.0-18.0) 08/12/21 Hct 43.9 % (42-52) 08/12/21 Plt Count 223 K/uL (130-400) 08/12/21 Neutrophils (%) (Auto) 77.0 % 08/12/21 Lymphocytes (%) (Auto) 13.1 % 08/12/21 Monocytes # (Auto) 0.75 K/uL (0.11-0.59) H 08/12/21 Eosinophils # (Auto) 0.08 K/uL (0-0.5) 08/12/21 Immature Granulocyte % (Auto) 0.2 % 08/12/21 Neutrophils # (Auto) 6.81 K/uL (1.4-6.5) H 08/12/21 Lymphocytes # (Auto) 1.16 K/uL (1.2-3.4) L 08/12/21 Monocytes # (Auto) 0.75 K/uL (0.11-0.59) H 08/12/21 Eosinophils # (Auto) 0.08 K/uL (0-0.5) 08/12/21 Basophils # (Auto) 0.03 K/uL (0-0.2) 08/12/21 Immature Granulocyte # (Auto) 0.02 K/uL (0.00-0.02) 08/12/21 Na 127 mmol/L (136-145) L 08/12/21 K 4.8 mmol/L (3.5-5.1) 08/12/21 Cl 93 mmol/L (98-107) L 08/12/21 CO2 22 mmol/L (21-32) 08/12/21 Anion Gap 12 (3-11) H 08/12/21 BUN 20 mg/dl (6-23) 08/12/21 Creatinine 1.09 mg/dl (0.6-1.4) 08/12/21 BUN/Creatinine Ratio 18.3 (10-20) 08/12/21 Glucose Level 749 mg/dl (70-99(Fasting)) H* 08/12/21 Ca 9.5 mg/dl (8.5-10.1) 08/12/21 Total Bilirubin 0.4 mg/dl (0.2-1.0) 08/12/21 AST/SGOT 14 U/L (13-39) 08/12/21 ALT/SGPT 16 U/L (7-52) 08/12/21 Alkaline Phosphatase 125 U/L (34-104) H 08/12/21 Total Protein 7.7 gm/dl (6.0-8.3) 08/12/21 Albumin 4.0 gm/dl (3.4-5.0) 08/12/21 Globulin 3.7 gm/dl (2.5-4.0) 08/12/21 Albumin/Globulin Ratio 1.1 (0.9-2) 08/12/21 SARS-CoV-2, RNA, NAAT NEGATIVE (NEGATIVE) 08/12/21 Chest X-Ray 08/12/21 Code Status & VTE Plan Code Status Full Code VTE Prophylaxis Plan VTE Prophylaxis will be ordered: Yes Supervising Physician Co-Signing Physician Notes History and physical exam performed by me. History notable for 46 years old insulin-dependent diabetic who presents with high blood sugars at home,palpitations and leg cramps. Patient reported that he has not been able to afford his medications in the past 2 months due to increased spending to transport himself to work. He usually takes insulin glargine 100 units daily and Trulicity once a week. Reports that his blood sugar used to range between 70s to 200s then. However, in the past 2 months has not been able to afford his medicines due to increased travel expenses to work (No bus schedules during his work schedules) Blood glucose has been runnning in 300-600s in the past few days associated with palpitation, nausea, vomiting and leg cramps On exam, General: Well nourished, well hydrated, obese, intermittently in distress from leg cramps Eyes: PERRL, conjunctivae normal, not pale, anicteric sclerae, EOM intact bilaterally ENMT: External ear and nose normal, oropharynx normal Respiratory: Normal respiratory effort, no respiratory distress, lungs clear to auscultation, no crackles and no wheezes Cardiovascular:RRR S1 S2 Gastrointestinal (Abdomen): Abdomen is not distended, soft, non-tender to palpation, no guarding, no palpable hepatosplenomegaly, normal bowel sounds Musculoskeletal:No cyanosis or clubbing, all extremities motor strength 5/5. No pedal edema Neurologic: Alert and oriented x 3, No focal weakness, sensation grossly intact Psychiatric: Alert and oriented x 3, euthymic affect, no depressed affect Lab work notable for sodium of 127 [137 corrected for hyperglycemia], blood glucose of 749, magnesium of 1.5, alkaline phosphatase of 125, trace ketones in urine. Hyperglycemia Uncontrolled diabetes mellitus Hypomagnesemia Patient got IV fluids and 10 units of insulin in ER. Blood sugar repeat in ER at 554. Give insulin Lantus 15 units twice daily. Insulin sliding scale. Flexeril prn Pharmacy glycemic consult. community educator consult Case management consult to provide resources to aid patient medication. Follow up with GI outpatient for his crohn's Agree with other plans as detailed by Lainey Berumen PA-C
[2021-08-12] MEDS ORDERED: CYCLOBENZAPRINE HCL 5 MG TAB PO STA (08:45)
--- NOTE | 2021-08-12 09:00 | Communication Note ---
Date of Service: August 12 History and physical exam performed by me. History notable for 46 years old insulin-dependent diabetic who presents with high blood sugars at home and leg cramps. Patient reported that he has not been able to afford his medications in the past 2 months due to increased spending to transport himself to work. He usually takes insulin glargine 100 units daily and Trulicity once a week. Reports that his blood sugar used to range between 70s to 200s then. However, in the past 2 months has not been able to afford his medicines due to increased travel ex penses to work (No bus schedules during his work schedules) Blood glucose has been runnning in 300-600s in the past few days associated with palpitation, nausea, vomiting and leg cramps On exam, General: Well nourished, well hydrated, obese, intermittently in distress from leg cramps Eyes: PERRL, conjunctivae normal, not pale, anicteric sclerae, EOM intact bilaterally ENMT: External ear and nose normal, oropharynx normal Respiratory: Normal respiratory effort, no respiratory distress, lungs clear to auscultation, no crackles and no wheezes Cardiovascular: RRR S1 S2 Gastrointestinal (Abdomen): Abdomen is not distended, soft, non-tender to palpation, no guarding, no palpable hepatosplenomegaly, normal bowel sounds Musculoskeletal: No cyanosis or clubbing, all extremities motor strength 5/5. No pedal edema Neurologic: Alert and oriented x 3, No focal weakness, sensation grossly intact Psychiatric: Alert and oriented x 3, euthymic affect, no depressed affect Lab work notable for sodium of 127 [137 corrected for hyperglycemia], blood glucose of 749, magnesium of 1.5, alkaline phosphatase of 125, trace ketones in urine. Hyperglycemia Uncontrolled diabetes mellitus Hypomagnesemia Patient got IV fluids and 10 units of insulin in ER. Blood sugar repeat in ER at 554. Give insulin Lantus 15 units twice daily. Insulin sliding scale. Flexeril prn Pharmacy glycemic consult. outside sales engineer consult Case management consult to provide resources to aid patient medication. Agree with other plans as detailed by Lainey Berumen PA-C
[2021-08-12] MEDS ORDERED: LANTUS PER UNIT CHARGE SQ STA (09:07)
[2021-08-12] MEDS ORDERED: ALUMINUM/MAGNESIUM SUSP 30 ML UDC PO PRN (10:29)
[2021-08-12] MEDS ORDERED: GLUCAGON FOR INJ 1 MG VIAL SQ PRN (10:29)
[2021-08-12] MEDS ORDERED: GLUCOSE 40% GEL 15 GM TUBE PO PRN (10:29)
[2021-08-12] MEDS ORDERED: GLUCOSE 10 TABS/TUBE PO PRN (10:29)
[2021-08-12] MEDS ORDERED: ONDANSETRON INJ 2 MG/ML 2 ML VIAL IV PRN (10:29)
[2021-08-12] MEDS ORDERED: PHARMACY GLYCEMIC MGMT CONSULT PRN (10:29)
[2021-08-12] MEDS ORDERED: DEXTROSE 50% 50 ML SYRINGE IV PRN (10:29)
[2021-08-12] MEDS ORDERED: MAGNESIUM HYDROXIDE SUSP 30 ML UDC PO PRN (10:29)
[2021-08-12] MEDS ORDERED: ACETAMINOPHEN 325 MG TAB PO PRN (10:29)
[2021-08-12] MEDS ORDERED: POLYETHYLENE (MIRALAX) 17 GM PACK PO PRN (10:29)
[2021-08-12] MEDS ORDERED: CYCLOBENZAPRINE HCL 5 MG TAB PO PRN (10:29)
[2021-08-12] MEDS ORDERED: CARBOHYDRATES FOR HYPOGLYCEMIA PO PRN (10:29)
[2021-08-12] MEDS: SODIUM CHLORIDE 0.9% 1000ML 1,000 ML IV SCH ×2 (11:05→18:46)
--- NOTE | 2021-08-12 11:29 | Pharmacy Report ---
Pharmacy Glycemic Short Note 2 - Date of Service August 12, 2021 - Glycemic Short BSG Results (Last 24 hours): 08/12/21 08/12/21 08/12/21 06:12 06:27 08:50 Glucose 749 H* POC Glucose > 600 H* 554 H* OUTPATIENT ANTIDIABETIC REGIMEN: * Trulicity 1.5mg SQ weekly * Toujeo 100 units SQ daily HbA1C - pending ASSESSMENT: * Pharmacy consulted for assistance with glycemic control in this Type 2 diabetic who is uncontrolled due noncompliance secondary to inability to afford outpatient medications. Presents hyperglycemic, BSG - >600mg/dL, pH- 7.39, bicarb-22, AG-12. * Pt received 10 units regular insulin IV bolus this AM in the ED followed by 50 units of Lantus SQ X 1. ict educator consulted. * Discussed with hospitalist service, will attempt to avoid insulin infusion if possible. Pt is likely basal deficient and anticipate BSGs will trend down over the next 12-24h. Based upon the patient's outpatient insulin regimen, will transition to basal/bolus while hospitalized (): * Lantus per scale tonight + Novolog SSI ACHS with overnight checks * Reassess basal tomorrow PLAN FOR INPATIENT GLYCEMIC CONTROL: * Hold outpatient oral diabetes medications * Basal insulin * Lantus per scale HS - reassess basal in AM * Bolus insulin * NovoLog per scale ACHS or Q6hrs while NPO * Goal Range: Low 110 mg/dL - High 140 mg/dL * Correction Factor: 20 mg/dL/unit * Nutritional / Prandial insulin per carb ratio of 1 unit per 6 grams CHO consumed
[2021-08-12] MEDS ORDERED: INSULIN ASPART PER UNIT SC SCH ×2 (11:30→16:30)
[2021-08-12] MEDS: MAGNESIUM OXIDE 400 MG TAB PO SCH ×2 (11:50→21:02)
[2021-08-12] MEDS: lisinopril 2.5 MG TAB PO SCH (11:50)
[2021-08-12] MEDS ORDERED: INSULIN ASPART PER UNIT SC ONE (12:00)
[2021-08-12 15:39] LABS: BUN Creatinine Ratio 14.9 (10-20); Calcium 8.8 mg/dl (8.5-10.1); Creatinine Clr Calc Pharmacy 133.8 ml/min; Est GFR (African American) 110.7 ml/min; Est GFR (Non-African American) 95.5 ml/min; Magnesium 2.1 mg/dl (1.7-2.4); Potassium 3.7 mmol/L (3.5-5.1)
[2021-08-12] MEDS ORDERED: POTASSIUM CHLORIDE CRTAB 20 MEQ TABCR PO STA (16:19)
[2021-08-12] MEDS: INSULIN ASPART PER UNIT SC SCH ×2 (16:44→21:02)
[2021-08-12] MEDS ORDERED: INSULIN GLARGINE SOLOSTAR 100 UNITS/ML 3 ML PEN SC SCH ×2 (21:00→22:00)
[2021-08-12] MEDS: ENOXAPARIN INJ 40 MG/0.4 ML SYR SQ SCH (21:03)
[2021-08-13] MEDS: INSULIN ASPART PER UNIT SC SCH ×5 (00:43→17:37)
[2021-08-13] MEDS: SODIUM CHLORIDE 0.9% 1000ML 1,000 ML IV SCH ×2 (02:54→12:33)
[2021-08-13 06:07] LABS: Basophils # (auto) 0.01 K/uL (0-0.2); Basophils % (auto) 0.2 %; Eosinophils # (auto) 0.12 K/uL (0-0.5); Hematocrit (blood only) 38.2 % (42-52); Hemoglobin 13.4 g/dL (14.0-18.0); Immature Granulocytes # (auto) 0.02 K/uL (0.00-0.02); Immature Granulocytes % (auto) 0.3 %; Lymphocytes # (auto) 2.33 K/uL (1.2-3.4); Lymphocytes % (auto) 38.3 %; Mean Corpuscular Hemoglobin 30.7 pg (25-34); Mean Corpuscular Hgb Conc 35.1 g/dL (32-36); Mean Corpuscular Volume 87.6 fL (80-100); Mean Platelet Volume 8.8 fL (7.4-10.4); Monocytes # (auto) 0.48 K/uL (0.11-0.59); Monocytes % (auto) 7.9 %; Neutrophils # (auto) 3.12 K/uL (1.4-6.5); Neutrophils % (auto) 51.3 %; Platelet Count 181 K/uL (130-400); RDW Coefficient of Variation 13.9 % (11.5-14.5); RDW Standard Deviation 44.9 fL (36.4-46.3); Red Blood Count 4.36 M/uL (4.7-6.1); White Blood Count 6.08 K/uL (4.8-10.8)
[2021-08-13 06:33] LABS: Albumin Globulin Ratio 1.1 (0.9-2); Albumin Level 3.4 gm/dl (3.4-5.0); BUN Creatinine Ratio 17.4 (10-20); Bilirubin,Total 0.4 mg/dl (0.2-1.0); Calcium 8.2 mg/dl (8.5-10.1); Creatinine Clr Calc Pharmacy 147.5 ml/min; Est GFR (African American) 118.8 ml/min; Est GFR (Non-African American) 102.5 ml/min; Magnesium 1.8 mg/dl (1.7-2.4); Phosphorus 2.8 mg/dl (2.5-4.9); Potassium 3.6 mmol/L (3.5-5.1); Total Protein 6.4 gm/dl (6.0-8.3)
[2021-08-13 07:17] LABS: Estimated Average Glucose 312 mg/dl; Hemoglobin A1C 12.5 % (4.5-5.6)
[2021-08-13] MEDS: lisinopril 2.5 MG TAB PO SCH (08:01)
[2021-08-13] MEDS: MAGNESIUM OXIDE 400 MG TAB PO SCH (08:01)
[2021-08-13] MEDS: ENOXAPARIN INJ 40 MG/0.4 ML SYR SQ SCH (08:01)
[2021-08-13] MEDS ORDERED: INSULIN GLARGINE SOLOSTAR 100 UNITS/ML 3 ML PEN SC ONE (09:00)
--- NOTE | 2021-08-13 11:52 | Hospitalist Progress Note ---
Date of Service August 13, 2021 Assessment & Plan (1) Hyperglycemic crisis in diabetes mellitus: (2) Noncompliance with medication regimen: (3) Hypomagnesemia: (4) Bilateral leg cramps: Plan: This is a 46-year-old male who has a significant past medical history of i nsulin-dependent uncontrolled T2DM, morbid obesity, HTN, Crohn's disease who presents to ED secondary to elevated blood sugar and palpitations x2 days. Uncontrolled diabetes mellitus with hyperglycemia due to medication non compliance due to inability to afford medications - A1c 12.5. BG on presentation 749 but was not in DKA or HHS. - BG improved with basal bolus insulin. - Glycemic pharmacist managing his insulin - Seen by public health educator- recommendations noted - Will stop IVF Hypomagnesemia- resolved with repletion Bilateral leg cramps- resolved. DVT prophylaxis Lovenox twice daily Anticipate discharge tomorrow once he is able to afford his insulin. Admission and Anticipated Discharge Date Admission Date: August 12, 2021 Subjective Feels better. States he has coupon for [email or web address] and [employer] but does not have the money until tomorrow to get the medications. No nausea, vomiting, chest pain, shortness of breath. Reinforced about compliance to insulin. States he has been checking his BG at home even when he was not taking his insulin. Physical Exam Physical Exam: General: Lying comfortably in bed, not in distress, on room air HEENT: EOMI, CHARISMA, MMM Chest: Clear breath sounds bilaterally, no wheezes or crackles CVS: Regular rate and rhythm, normal heart sounds, no murmur Abdomen: Soft, non tender, not distended, normal bowel sounds Neuro: Awake, alert, oriented, conversing well, non focal Extremities: No cyanosis, clubbing or edema Results & Data Results & Data ([facility]) Vital Signs (Past 12 Hours) Vital Signs Temp Pulse Pulse Resp BP Pulse Ox 08/13/21 11:38 36.5 C 56 L 15 127/76 94 08/13/21 08:16 36.4 C L 56 L 16 105/57 L 95 08/13/21 07:23 56 L 08/13/21 03:00 36.9 C 54 L 18 140/86 93 08/12/21 23:59 60 Laboratory Results Short CBC 08/13/21 Range/Units 05:48 WBC 6.08 (4.8-10.8) K/uL Hgb 13.4 L (14.0-18.0) g/dL Hct 38.2 L (42-52) % Plt Count 181 (130-400) K/uL BMP 08/12/21 08/13/21 15:00 05:48 Sodium 135 L 137 Potassium 3.7 D 3.6 Chloride 102 107 Carbon Dioxide 28 24 BUN 14 15 Creatinine 0.94 0.86 Glucose 353 H* 166 H Calcium 8.8 8.2 L Liver Function 08/13/21 Range/Units 05:48 Total Bilirubin 0.4 (0.2-1.0) mg/dl AST 17 (13-39) U/L ALT 16 (7-52) U/L Alkaline Phosphatase 90 (34-104) U/L Albumin 3.4 (3.4-5.0) gm/dl Medications Administered Current Inpatient Medications Acetaminophen (Acetaminophen 325 Mg Tab) 650 mg PO Q4H PRN PRN Reason: Pain or Fever Stop: 09/11/21 10:28 Al Hydrox/Mg Hydrox/Simethicone (Aluminum/Magnesium Susp 30 Ml Udc) 15 ml PO Q4H PRN PRN Reason: Dyspepsia Stop: 09/11/21 10:28 Cyclobenzaprine HCl (Cyclobenzaprine Hcl 5 Mg Tab) 5 mg PO TID PRN PRN Reason: leg cramps Stop: 09/11/21 10:28 Last Admin: 08/12/21 17:00 Dose: 5 mg Documented by: Dextrose (Dextrose 50% 50 Ml Syringe) 25 - 50 ml IV UD PRN; Protocol PRN Reason: Hypoglycemia Protocol Stop: 09/11/21 10:28 Enoxaparin Sodium (Enoxaparin Inj 40 Mg/0.4 Ml Syr) 40 mg SQ Q12H [facility] Stop: 09/11/21 21:59 Last Admin: 08/13/21 08:01 Dose: 40 mg Documented by: Glucagon (Glucagon For Inj 1 Mg Vial) 1 mg SQ UD PRN; Protocol PRN Reason: Hypoglycemia Protocol Stop: 09/11/21 10:28 Glucose (Glucose 10 Tabs/Tube) 4 - 8 tabs PO UD PRN; Protocol PRN Reason: Hypoglycemia Protocol Stop: 09/11/21 10:28 Glucose (Glucose 40% Gel 15 Gm Tube) 15 - 30 gm PO UD PRN; Protocol PRN Reason: Hypoglycemia Protocol Stop: 09/11/21 10:28 Sodium Chloride (Nss 1000ml) 1,000 mls @ 125 mls/hr IV .Q8H [facility] Stop: 09/11/21 10:28 Last Admin: 08/13/21 02:54 Dose: 125 mls/hr Documented by: Insulin Aspart (Insulin Aspart Per Unit) 0 units SC ACHS [facility] Stop: 09/11/21 16:29 Last Admin: 08/13/21 08:16 Dose: 15 units Documented by: Insulin Glargine (Insulin Glargine Solostar 100 Units/Ml 3 Ml Pen) 0 units SC HS [facility]; Protocol Stop: 09/11/21 20:59 Last Admin: 08/12/21 21:02 Dose: 30 units Documented by: Lisinopril (Lisinopril 2.5 Mg Tab) 2.5 mg PO QAM [facility] Stop: 09/11/21 10:28 Last Admin: 08/13/21 08:01 Dose: 2.5 mg Documented by: Magnesium Hydroxide (Magnesium Hydroxide Susp 30 Ml Udc) 30 ml PO Q12H PRN PRN Reason: Constipation Stop: 09/11/21 10:28 Magnesium Oxide (Magnesium Oxide 400 Mg Tab) 400 mg PO BID [facility] Stop: 09/11/21 10:28 Last Admin: 08/13/21 08:01 Dose: 400 mg Documented by: Miscellaneous (Carbohydrates For Hypoglycemia ) 15 - 30 gm PO UD PRN PRN Reason: Hypoglycemia Protocol Stop: 09/11/21 10:28 Miscellaneous Information (Pharmacy Glycemic Mgmt Consult) 1 ea N/A UD PRN; Protocol PRN Reason: Consult Stop: 09/11/21 10:28 Ondansetron HCl (Ondansetron Inj 2 Mg/Ml 2 Ml Vial) 4 mg IV Q6H PRN PRN Reason: Nausea Stop: 09/11/21 10:28 Polyethylene Glycol (Polyethylene (Miralax) 17 Gm Pack) 17 gm PO DAILY PRN PRN Reason: Constipation Stop: 09/11/21 10:28
--- NOTE | 2021-08-13 18:01 | Discharge Summary ---
Date of Service August 13, 2021 Admission HPI Per Admitting Provider Chief Complaint: Elevated blood sugar and palpitations x 2 days. Primary Care Provider: Charity Martin MD This is a 46-year-old male who has a significant past medical history of insulin-dependent uncontrolled T2DM, morbid obesity, HTN, Crohn's disease who presents to ED secondary to elevated blood sugar and palpitations x2 days. Over the past two days his bsg was in 700s and lowest he got it down to was 350s, but it goes right back up. Prior to that it was in the 600s. Over the last two days he has been complaining of heart racing, SOB when his heart races, nausea, 2 episodes of vomiting this morning and leg cramps. He has been experiencing leg cramps frequently. He has not taken his medications in the last two months due to unable to afford it. He states he works for [employer] and when his shifts are scheduled there are no buses so he has to [employer] and he has been paying 1,000$ in [employer] a month and sacrificing his medicines due to cost of transport. He does have chronic diarrhea due to crohns. He does not take any medications for crohns due to unable to afford. He denies any recent illness, f/c/s, dizziness, lightheaded, chest pain, sob w/ exertion, abd pain, dysuria, increased urg/freq, dysuria, melena and hematochezia. In ED patient was found to have elevated blood sugar at 749. His serum sodium was low at 127 but corrected was 137. He did have mild elevation of anion gap to 12. His magnesium was low at 1.5. His CBC and VBG was otherwise unremarkable. Chest x-ray is negative for acute abnormality. In ED he received IV fluids, 10 units of regular insulin and was recommended for admission Admission Exam Per Admitting Provider General: Well nourished, well hydrated, obese, intermittently in distress from leg cramps Eyes: PERRL, conjunctivae normal, not pale, anicteric sclerae, EOM intact bilaterally ENMT: External ear and nose normal, oropharynx normal Respiratory: Normal respiratory effort, no respiratory distress, lungs clear to auscultation, no crackles and no wheezes Cardiovascular:RRR S1 S2 Gastrointestinal (Abdomen): Abdomen is not distended, soft, non-tender to palpation, no guarding, no palpable hepatosplenomegaly, normal bowel sounds Musculoskeletal:No cyanosis or clubbing, all extremities motor strength 5/5. No pedal edema Neurologic: Alert and oriented x 3, No focal weakness, sensation grossly intact Psychiatric: Alert and oriented x 3, euthymic affect, no depressed affect Principal Diagnosis Uncontrolled diabetes mellitus type 2 with hyperglycemia Discharge Exam General: Lying comfortably in bed, not in distress, on room air HEENT: EOMI, CHARISMA, MMM Chest: Clear breath sounds bilaterally, no wheezes or crackles CVS: Regular rate and rhythm, normal heart sounds, no murmur Abdomen: Soft, non tender, not distended, normal bowel sounds Neuro: Awake, alert, oriented, conversing well, non focal Extremities: No cyanosis, clubbing or edema Discharge Data Allergies Allergy/AdvReac Type Severity Reaction Status Date / Time Iodinated Contrast Media Allergy Intermediate Rash Verified 08/12/21 07:02 metformin AdvReac Intermediate Swelling ~ Unverified 08/12/21 07:02 nausea Consultations 08/12/21 07:53 ED Decision to Admit Stat Ordered Studies Laboratory Results WBC 6.08 K/uL (4.8-10.8) 08/13/21 05:48 RBC 4.36 M/uL (4.7-6.1) L 08/13/21 05:48 Hgb 13.4 g/dL (14.0-18.0) L 08/13/21 05:48 Hct 38.2 % (42-52) L 08/13/21 05:48 MCV 87.6 fL (80-100) 08/13/21 05:48 MCH 30.7 pg (25-34) 08/13/21 05:48 MCHC 35.1 g/dL (32-36) 08/13/21 05:48 RDW Std Deviation 44.9 fL (36.4-46.3) 08/13/21 05:48 RDW Coeff of Toni 13.9 % (11.5-14.5) 08/13/21 05:48 Plt Count 181 K/uL (130-400) 08/13/21 05:48 MPV 8.8 fL (7.4-10.4) 08/13/21 05:48 Immature Gran % (Auto) 0.3 % 08/13/21 05:48 Neut % (Auto) 51.3 % 08/13/21 05:48 Lymph % (Auto) 38.3 % 08/13/21 05:48 [place] % (Auto) 7.9 % 08/13/21 05:48 Eos % (Auto) 2.0 % 08/13/21 05:48 Baso % (Auto) 0.2 % 08/13/21 05:48 Neut # (Auto) 3.12 K/uL (1.4-6.5) 08/13/21 05:48 Lymph # (Auto) 2.33 K/uL (1.2-3.4) 08/13/21 05:48 [place] # (Auto) 0.48 K/uL (0.11-0.59) 08/13/21 05:48 Eos # (Auto) 0.12 K/uL (0-0.5) 08/13/21 05:48 Baso # (Auto) 0.01 K/uL (0-0.2) 08/13/21 05:48 Immature Gran # (Auto) 0.02 K/uL (0.00-0.02) 08/13/21 05:48 VBG pH 7.39 (7.36-7.41) 08/12/21 07:03 VBG pCO2 42 mmHg (38-50) 08/12/21 07:03 VBG pO2 57 mmHg 08/12/21 07:03 VBG HCO3 25 mmol/L 08/12/21 07:03 VBG O2 Saturation 90.1 % 08/12/21 07:03 VBG Base Excess -0.1 mEq/L 08/12/21 07:03 Barometric Pressure 732.3 mm/Hg 08/12/21 07:03 Sodium 137 mmol/L (136-145) 08/13/21 05:48 Potassium 3.6 mmol/L (3.5-5.1) 08/13/21 05:48 Chloride 107 mmol/L (98-107) 08/13/21 05:48 Carbon Dioxide 24 mmol/L (21-32) 08/13/21 05:48 Anion Gap 6 (3-11) 08/13/21 05:48 BUN 15 mg/dl (6-23) 08/13/21 05:48 Creatinine 0.86 mg/dl (0.6-1.4) 08/13/21 05:48 Est Cr Clr Drug Dosing 147.5 ml/min 08/13/21 05:48 Est GFR ( Amer) 118.8 ml/min 08/13/21 05:48 Est GFR (Non-Af Amer) 102.5 ml/min 08/13/21 05:48 BUN/Creatinine Ratio 17.4 (10-20) 08/13/21 05:48 Glucose 166 mg/dl (70-99(Fasting)) H 08/13/21 05:48 POC Glucose 175 mg/dl (70-99) H 08/13/21 16:22 Estimat Average Glucose 312 mg/dl 08/13/21 05:48 Hemoglobin A1c 12.5 % (4.5-5.6) H 08/13/21 05:48 Calcium 8.2 mg/dl (8.5-10.1) L 08/13/21 05:48 Phosphorus 2.8 mg/dl (2.5-4.9) 08/13/21 05:48 Magnesium 1.8 mg/dl (1.7-2.4) 08/13/21 05:48 Total Bilirubin 0.4 mg/dl (0.2-1.0) 08/13/21 05:48 AST 17 U/L (13-39) 08/13/21 05:48 ALT 16 U/L (7-52) 08/13/21 05:48 Alkaline Phosphatase 90 U/L (34-104) 08/13/21 05:48 Troponin I High Sens 5.0 pg/ml (0-20) 08/12/21 06:27 Total Protein 6.4 gm/dl (6.0-8.3) 08/13/21 05:48 Albumin 3.4 gm/dl (3.4-5.0) 08/13/21 05:48 Globulin 3.0 gm/dl (2.5-4.0) 08/13/21 05:48 Albumin/Globulin Ratio 1.1 (0.9-2) 08/13/21 05:48 Lipase 62 U/L (11-82) 08/12/21 06:27 Urine Color Yellow 08/12/21 07:45 Urine Appearance Clear (Clear) 08/12/21 07:45 Urine pH 5.5 (4.5-7.5) 08/12/21 07:45 Ur Specific [place] 1.026 (1.000-1.030) 08/12/21 07:45 Urine Protein Negative (Negative) 08/12/21 07:45 Urine Glucose (UA) 3+ (Negative) H 08/12/21 07:45 Urine Ketones Trace (Negative) H 08/12/21 07:45 Urine Blood Negative (Negative) 08/12/21 07:45 Urine Nitrite Negative (Negative) 08/12/21 07:45 Urine Bilirubin Negative (Negative) 08/12/21 07:45 Urine Urobilinogen Negative (Negative) 08/12/21 07:45 Ur Leukocyte Esterase Negative (Negative) 08/12/21 07:45 SARS-CoV-2, RNA, NAAT NEGATIVE (NEGATIVE) 08/12/21 07:16 Impressions Chest X-Ray 08/12/21 06:26 XR chest 1V portable CLINICAL HISTORY: palps TECHNIQUE: Single frontal radiograph of the chest was obtained. Comparison: Comparison is made to chest radiograph of 05/08/2021 FINDINGS: No lines and tubes are seen. The cardiomediastinal silhouette is normal. The lungs are clear. No evidence of pleural effusion or pneumothorax. IMPRESSION: No acute chest disease. ACT 112: Negative or not required by law. Electronically signed by: Hola Hunt M.D. 08/12/2021 7:24 AM Diabetes Follow up Diabetes Follow-up Needed for HgbA1c >9% Hospital Course (1) Hyperglycemic crisis in diabetes mellitus: (2) Noncompliance with medication regimen: (3) Hypomagnesemia: (4) Bilateral leg cramps: This is a 46-year-old male who has a significant past medical history of insulin-dependent uncontrolled T2DM, morbid obesity, HTN, Crohn's disease who presents to ED secondary to elevated blood sugar and palpitations x2 days. He was found to have significant hyperglycemia with BG 749 but not in DKA or HHS. He was managed for uncontrolled diabetes mellitus with hyperglycemia due to medication non compliance due to inability to afford medicationsHe was given iv insulin 10 U and then started on sc basal bolus insulin with good control of blood sugar. A1c 12.5. Seen by application systems administrator and recommendations noted. Provided coupon for anita. Called by RN that patient wanted to leave- I saw him at bedside. He states that he is not going to eat anything today and will moss picker his toujeo and trulicity first thing in the morning and will use it. His BG has been fairly controlled in 170s and had received 60 U of lantus in am. He will continue to check his BG and follow up with his diabetes provider for further management. He is comfortable and stable for discharge. Recommended to come back to ED if BG is significantly elevated >400. Prescribed glucagon kit if hypoglycemia. Total Time Total Time Spent Total Time Spent (In Minutes): 40 Discharge Plan Discharge Items Patient Disposition: Home - Self-Care Reason For Visit: HYPERGLYCEMIA Discharge Diagnosis: Uncontrolled DM-2 with hyperglycemia Activity: Resume your previous activity Non-emergency contact: Primary Care Provider Call non-emergency contact if: you have any medication questions and your symptoms worsen Follow-up/Referrals: Charity Martin MD [Primary Care Provider] - Diet: Carb Consistent or DM2 Addtl Attending Provider Instructions: Continue your trulicity and toujeo Continue checking your blood sugar twice daily and as needed for hypo or hyperglycemia. Follow up with your diabetes doctor and family doctor for further management of your diabetes Pending Studies at Discharge: No Stand-Alone Forms: My [employer], Smoking Cessation Medications and DC Order Prescriptions: New GlucaGen Diagnostic Kit 1 mg/mL Recon Soln 1 mg subcut UD PRN (Reason: hypoglycemia) Qty: 1 RF: 0 Continued Toujeo SoloStar U-300 Insulin 300 unit/mL (1.5 mL) insulin pen 100 unit subcut DAILY Qty: 4.5 RF: 3 magnesium oxide 400 mg (241.3 mg magnesium) tablet 400 mg PO BID Qty: 30 RF: 0 Trulicity 1.5 mg/0.5 mL pen injector 1.5 mg SUBCUT WK RF: 0 Otc Restless Leg Tablet 2 tab PO HS RF: 0 lisinopril 2.5 mg tablet 2.5 mg PO QAM RF: 0 Discharge Orders: Discharge Order (Routine); Ordered 08/13/21 Ordered By: Bi Jesus Admission Data Admit Date/Time: 08/12/21 08:30 Attending Provider: Bi Jesus Admit Provider: Adri Donald I. Primary Care Provider: Charity Martin Other Providers: Bi Jesus Other Interventions: Discharge Summary Assessment (RN) Last Done: 08/13/21 18:14
--- NOTE | 2021-08-14 06:10 | Electrocardiogram Report ---
Test Reason : Blood Pressure : / mmHG Vent. Rate : 079 BPM Atrial Rate : 079 BPM P-R Int : 146 ms QRS Dur : 096 ms QT Int : 370 ms P-R-T Axes : 045 036 023 degrees QTc Int : 424 ms Normal sinus rhythm Early repolarization Normal ECG When compared with ECG of 08-MAY-2021 11:03, No significant change was found Confirmed by Rashid Galloway ([id number]) on 08/14/2021 6:10:28 AM Referred By: REFERRED SELF Confirmed By:Rashid Galloway
== END 2021-08-13 18:29 | disposition home or self-care (01) ==
LOC: ED 05:51 → 2E 05:51 → SUATTDRO 08:30 → 2E 09:40

== ENCOUNTER 2023-03-20 23:51 | Inpatient (IN) ==
[2023-03-21] MEDS ORDERED: cefTRIAXone SODIUM 2,000 MG/50 ML BAG IV STA (00:09)
--- NOTE | 2023-03-21 00:15 | Emergency Department Note ---
History of Present Illness General Chief complaint: Wound Time Seen by Provider: 03/20/23 23:59 History of Present Illness Maximum Pain Intensity: 8 This 47-year-old type II diabetic presents the ER for left leg pain and swelling for the past day. Patient states he fell in [place] yesterday is not sure if something bit him. Patient denies chest pain, dyspnea, fever, chills, flulike illness, history of DVT. Home Medications Medication Instructions Recorded Confirmed Type insulin glargine U-300 conc 300 100 unit (0.3333 mL) subcut DAILY 12/24/19 03/21/23 Rx unit/mL (1.5 mL) subcutaneous pen #4.5 mL (Toujeo SoloStar U-300 Insulin) dulaglutide 1.5 mg/0.5 mL 1.5 mg subcut WK 08/12/21 03/21/23 History subcutaneous pen injector (BabyBus) lisinopril 2.5 mg tablet 2.5 mg PO QAM 08/12/21 03/21/23 History glucagon 1 mg/mL solution for 1 mg subcut UD PRN hypoglycemia #1 08/13/21 03/21/23 Rx injection (GlucaGen Diagnostic Kit) ea Allergies Allergy/AdvReac Type Severity Reaction Status Date / Time Iodinated Contrast Media Allergy Intermediate Rash Verified 08/12/21 07:02 metformin AdvReac Intermediate Swelling ~ Unverified 08/12/21 07:02 nausea Past Med/Surg History Medical History Bilateral leg cramps T2DM (type 2 diabetes mellitus) Anemia Bradycardia Valvular heart disease Abnormal ECG Ileitis Hx of Crohn's disease Surgical History History of tonsillectomy History of appendectomy History of cholecystectomy Family History Mother Diabetes Other Colitis Social History Smoking Status: Former smoker Tobacco Type: Cigarettes Second Hand Exposure: No; Do You Dip or Chew Tobacco: No; Hx Alcohol Use: Yes Alcohol type: beer Hx Substance Use: No Preferred Language: Honduran Communication Ability: Effective Visual Impairment: No Limitations Hearing Ability: Normal Procurement Manager Required: No Beliefs That Will Affect Care: None marital status: Single Current Living Situation: Significant Other current occupational status: employed current occupation: works at [employer] Other Information That Helps Us Care for You: No Feels Safe at Home: Yes Safety Concerns: Feels Safe At This Time Assistive Devices: Glasses Review of Systems A total of 10 systems reviewed and were otherwise negative Physical Exam Vital Signs Vital Signs - 24 hr 03/20/23 23:54 03/21/23 00:10 03/21/23 00:19 Temperature 36.5 C Temperature Source Temporal Artery Scan Pulse Rate 95 H 78 Pulse Rate [Finger] 80 Pulse Rhythm Regular Pulse Rhythm [Finger] Regular Respiratory Rate 18 16 16 Respiratory Effort / Characteristics Non-Labored Spontaneous Non-Labored Respiratory Depth Normal Normal Blood Pressure 157/79 H Blood Pressure [Left Arm] 131/89 Blood Pressure Mean 105 Blood Pressure Mean [Left Arm] 103 Pulse Oximetry 97 97 98 Oxygen Delivery Method Room Air Room Air Room Air Sepsis New/Unexplained Change in Mental Status N/A Sepsis Action Taken by Nursing No Action Required 03/21/23 01:15 03/21/23 01:15 03/21/23 01:30 Temperature Temperature Source Pulse Rate 77 73 75 Pulse Rate [Finger] Pulse Rhythm Pulse Rhythm [Finger] Respiratory Rate 13 15 Respiratory Effort / Characteristics Respiratory Depth Blood Pressure 124/75 123/69 Blood Pressure [Left Arm] Blood Pressure Mean 91 87 Blood Pressure Mean [Left Arm] Pulse Oximetry 98 97 Oxygen Delivery Method Sepsis New/Unexplained Change in Mental Status Sepsis Action Taken by Nursing 03/21/23 02:30 03/21/23 03:00 03/21/23 03:30 Temperature Temperature Source Pulse Rate 75 76 72 Pulse Rate [Finger] Pulse Rhythm Pulse Rhythm [Finger] Respiratory Rate 20 21 16 Respiratory Effort / Characteristics Respiratory Depth Blood Pressure 115/82 120/78 114/76 Blood Pressure [Left Arm] Blood Pressure Mean 93 92 88 Blood Pressure Mean [Left Arm] Pulse Oximetry 94 95 97 Oxygen Delivery Method Sepsis New/Unexplained Change in Mental Status Sepsis Action Taken by Nursing VITALS: Vitals are noted on the nurse's note and reviewed by myself. Vital signs stable. GENERAL: Pleasant gentleman, in no acute distress, nondiaphoretic, well- developed well-nourished. SKIN: Left lower leg erythematous and edematous concerning for infection, capillary reflex less than 2 seconds. HEENT: Normocephalic. PERRLA. EOMI. Nares patent. Mucous membranes moist. Neck is supple without nuchal rigidity. HEART: Regular rate and rhythm LUNGS: Clear to auscultation bilaterally without wheezes, rales or rhonchi. No retractions or accessory muscle use. ABDOMEN: Positive bowel sounds x 4. Normal tympanic percussion. Soft, nontender, without masses or organomegaly. Ramirez sign negative. No guarding or rebound tenderness. MUSCULOSKELETAL: No gross musculoskeletal defects. NEURO: Patient was alert and oriented to person place and time. No focal neurological deficits. Course Administered Medications Potassium Chloride/Sodium Chloride (Normal Saline W/20 Meq Kcl) 20 meq in 1,000 mls @ 100 mls/hr IV .Q10H ONE; Protocol Stop: 03/21/23 14:59 Last Admin: 03/21/23 05:33 Dose: 100 mls/hr Documented By: JB Insulin Aspart (Insulin Aspart Per Unit Charge) 0 units SC ACHS BONNIE Stop: 04/20/23 04:59 Last Admin: 03/21/23 05:19 Dose: 3 units Documented By: JB Co-signed By: ELIAZAR Ketorolac Tromethamine (Ketorolac Tromethamine 15 Mg/Ml Vial) 15 mg IV Q6H PRN PRN Reason: Pain Stop: 03/26/23 03:47 Last Admin: 03/21/23 05:18 Dose: 15 mg Documented By: JB Discontinued Medications Ceftriaxone Sodium (Rocephin) 2,000 mg in 50 mls @ 100 mls/hr IV NOW STA Stop: 03/21/23 00:38 Last Infusion: 03/21/23 01:48 Dose: Infused Documented By: LUIS MIGUEL Admin: 03/21/23 01:13 Dose: 100 mls/hr Documented By: JAYMIE Doxycycline Hyclate 100 mg/ (Dextrose) 100 mls @ 50 mls/hr IV NOW STA Stop: 03/21/23 04:45 Last Infusion: 03/21/23 06:09 Dose: Infused Documented By: Admin: 03/21/23 03:52 Dose: 50 mls/hr Documented By: JAYMIE Insulin Glargine (Lantus Per Unit Charge) 100 units SQ NOW ONE Stop: 03/21/23 05:01 Last Admin: 03/21/23 05:21 Dose: 100 units Documented By: JB Co-signed By: ELIAZAR Medical Decision Making Medical Records Attestation: I reviewed the patient's medical records. Home Medications Current Medication List: was personally reviewed by me Laboratory Data Attestation: I reviewed the patient's lab results. 03/21/23 00:25 03/21/23 00:25 Lab Results 03/21/23 03/21/23 Range/Units 00:25 00:36 WBC 8.18 (4.8-10.8) K/ul RBC 4.76 (4.70-6.10) M/uL Hgb 14.1 (14.0-18.0) g/dl Hct 42.5 (42.0-52.0) % MCV 89.3 (80.0-100.0) fL MCH 29.6 (25.0-34.0) pg MCHC 33.2 (32.0-36.0) g/dL RDW Std Deviation 42.1 (36.4-46.3) fL RDW Coeff of Toni 12.8 (11.5-14.5) % Plt Count 207 (130-400) K/uL MPV 9.0 L (9.4-12.4) fL Immature Gran % (Auto) 0.4 % Neut % (Auto) 65.8 % Lymph % (Auto) 21.9 % [place] % (Auto) 10.8 % Eos % (Auto) 0.9 % Baso % (Auto) 0.2 % Neut # (Auto) 5.39 (1.40-6.50) K/uL Lymph # (Auto) 1.79 (1.20-3.40) K/uL [place] # (Auto) 0.88 H (0.11-0.59) K/uL Eos # (Auto) 0.07 (0.00-0.50) K/uL Baso # (Auto) 0.02 (0.00-0.20) K/uL Immature Gran # (Auto) 0.03 (0.01-0.20) K/uL VBG pH 7.47 H (7.36-7.41) VBG pCO2 41 (38-50) mmHg VBG pO2 54 mmHg VBG HCO3 30 mmol/L VBG O2 Saturation 84.8 % VBG Base Excess 5.6 mEq/L Sodium 134 L (136-145) mmol/L Potassium 3.7 (3.5-5.1) mmol/L Chloride 97 L (98-107) mmol/L Carbon Dioxide 28 (21-32) mmol/L Anion Gap 9 (3-11) BUN 18 (6-23) mg/dl Creatinine 1.22 (0.6-1.4) mg/dl Est Cr Clr Drug Dosing 94.6 ml/min Est GFR ( Amer) 80.2 ml/min Est GFR (Non-Af Amer) 69.2 ml/min BUN/Creatinine Ratio 14.8 (10-20) Glucose 317 H* (70-99(Fasting)) mg/dl Lactate 1.5 (0.4-2.0) mmol/L Calcium 9.1 (8.6-10.3) mg/dl Magnesium 1.7 (1.7-2.4) mg/dl Total Bilirubin 0.4 (0.2-1.0) mg/dl Direct Bilirubin 0.0 (0-0.2) mg/dl AST 13 (13-39) U/L ALT 19 (7-52) U/L Alkaline Phosphatase 105 H (34-104) U/L Troponin I High Sens 10.5 (0-20) pg/ml Total Protein 7.7 (6.0-8.3) gm/dl Albumin 3.8 (3.4-5.0) gm/dl Procalcitonin 1.90 H (0-0.5) ng/ml Urine Color Yellow Urine Appearance Cloudy A (Clear) Urine pH 5.5 (4.5-7.5) Ur Specific [place] > 1.045 H (1.000-1.030) Urine Protein 1+ H (Negative) Urine Glucose (UA) 3+ H (Negative) Urine Ketones Trace H (Negative) Urine Blood Negative (Negative) Urine Nitrite Negative (Negative) Urine Bilirubin Negative (Negative) Urine Urobilinogen Negative (Negative) Ur Leukocyte Esterase Negative (Negative) Urine WBC (Auto) 5-10 H (0-5) /hpf Urine RBC (Auto) 0-4 (0-4) /hpf U Hyaline Cast (Auto) 5-10 H (0-5) /lpf U Epithel Cells (Auto) >30 H (0-5) /lpf Urine Bacteria (Auto) 1+ H (Negative) Imaging Data Attestation: I personally reviewed and interpreted this imaging study as follows: Radiologist's Impression: Venous Doppler Study 03/21/23 00:09 ULTRASOUND LEFT LOWER EXTREMITY VENOUS CLINICAL HISTORY: Left leg pain and swelling. Erythema. COMPARISON STUDY: No priors. TECHNIQUE: Real-time, grayscale, and color Doppler sonography of the deep veins of the left lower extremity was performed from the inguinal crease to the calf. Compression and augmentation were utilized. FINDINGS: There is no sonographic evidence of deep venous thrombosis identified in the left lower extremity. The common femoral, superficial femoral, and popliteal veins are patent and normally compressible. The greater saphenous vein and the profunda femoris vein at the junction with the common femoral vein are clear. The visualized calf veins are patent. A prominent left inguinal lymph node is likely reactive. IMPRESSION: There is no sonographic evidence of deep venous thrombosis identified in the left lower extremity. ACT 112: Negative or not required by law. Electronically signed by: Jayant Ma M.D. 03/21/2023 6:35 AM [facility] Narrative Prior records reviewed and summarized as above. Triage Nursing notes reviewed. Additional history obtained from nursing The patient's history was concerning for swelling and redness of the skin. Differential diagnosis: Etiologies such as cellulitis, abscess, MRSA infection, DVT, necrotizing fasciitis, dermatitis, drug eruption, as well as others were entertained.. Physical examination: The physical examination was consistent with cellulitis ER treatment provided: Rocephin was ordered On reassessment the patient felt better. Diagnostics interpreted by me: EKG ordered for weakness EKG: Normal sinus, normal intervals, no acute ST-T wave changes. Impression normal sinus rhythm independently interpreted by myself The labs Independently Interpreted by myself revealed No worrisome leukocytosis, hyperglycemia without DKA Blood cultures are pending Imaging studies: Chest x-ray with no acute consolidation, pneumothorax or free air per my independent interpretation Ultrasound was negative for DVT per my independent interpretation. Consultation: A consultation was placed with the hospitalist. The case was discussed and diagnostics were reviewed. The patient was evaluated in the ER for further treatment. This appears to be isolated cellulitis. Patient had a rapid onset of symptoms. His blood sugar was elevated. Patient was agreeable treatment plan of admission. Medicine was consulted and case discussed. Patient will be admitted to the medical service for further evaluation and treatment for his leg cellulitis and poorly controlled diabetes. Patient was not in DKA. By the evaluation outlined above emergent etiologies such as abscess, necrotizing fasciitis, DVT, as well as others were deemed relatively unlikely. The pt informed about the findings as listed above. All questions were answered and pleased with the treatment. The chart was completed utilizing [employer] Speech voice recognition software. Grammatical errors, random word insertions, pronoun errors, and incomplete sentences are an occassional consequence of this system due to software limitations, ambient noise, and hardware issues. Any formal questions or concerns about the content, text, or information contained within the body of this dictation should be directly addressed to the physician medical research assistant for clarification. Impression & Plan Cellulitis of left leg, Poorly controlled diabetes mellitus Discharge Plan Visit Data Chief Complaint: Wound ED Provider: Albert Littlejohn ED Midlevel Provider: Glenny Carty Discharge Problem: Cellulitis of left leg, Poorly controlled diabetes mellitus Patient Disposition: Admitted As Inpatient Condition: Good Discharge Instructions Interventions: ED Discharge Assessment Last Done: 03/21/23 04:43
[2023-03-21 00:40] LABS: Appearance Urine Cloudy (Clear); Bacteria Urine Automated 1+ (Negative); Bilirubin Urine Negative (Negative); Blood Urine Negative (Negative); Color Urine Yellow; Epithelial Cell Urine Auto >30 /lpf (0-5); Glucose Urine UA 3+ (Negative); Ketones Urine Trace (Negative); Leukocyte Esterase Urine Negative (Negative); Nitrite Urine Negative (Negative); Protein Urine 1+ (Negative); RBC Urine Automated 0-4 /hpf (0-4); Specific Gravity Urine > 1.045 (1.000-1.030); Urobilinogen Urine Negative (Negative); pH Urine 5.5 (4.5-7.5)
[2023-03-21 00:45] LABS: Hematocrit (blood only) 42.5 % (42.0-52.0); Hemoglobin 14.1 g/dl (14.0-18.0); Mean Corpuscular Hemoglobin 29.6 pg (25.0-34.0); Mean Corpuscular Hgb Conc 33.2 g/dL (32.0-36.0); Mean Corpuscular Volume 89.3 fL (80.0-100.0); Red Blood Count 4.76 M/uL (4.70-6.10); White Blood Count 8.18 K/ul (4.8-10.8)
[2023-03-21 00:46] LABS: Basophils # (auto) 0.02 K/uL (0.00-0.20); Basophils % (auto) 0.2 %; Eosinophils # (auto) 0.07 K/uL (0.00-0.50); Eosinophils % (auto) 0.9 %; Immature Granulocytes # (auto) 0.03 K/uL (0.01-0.20); Immature Granulocytes % (auto) 0.4 %; Lymphocytes # (auto) 1.79 K/uL (1.20-3.40); Lymphocytes % (auto) 21.9 %; Monocytes # (auto) 0.88 K/uL (0.11-0.59); Monocytes % (auto) 10.8 %; Neutrophils # (auto) 5.39 K/uL (1.40-6.50); Neutrophils % (auto) 65.8 %; Platelet Count 207 K/uL (130-400); RDW Coefficient of Variation 12.8 % (11.5-14.5); RDW Standard Deviation 42.1 fL (36.4-46.3)
[2023-03-21 00:54] LABS: Base Excess VBG 5.6 mEq/L; HCO3 VBG 30 mmol/L; Oxygen Saturation VBG 84.8 %; PCO2 VBG 41 mmHg (38-50); PO2 VBG 54 mmHg; pH VBG 7.47 (7.36-7.41)
[2023-03-21 01:04] LABS: Albumin Level 3.8 gm/dl (3.4-5.0); BUN Creatinine Ratio 14.8 (10-20); Bilirubin,Total 0.4 mg/dl (0.2-1.0); Calcium 9.1 mg/dl (8.6-10.3); Creatinine Clr Calc Pharmacy 94.6 ml/min; Est GFR (African American) 80.2 ml/min; Est GFR (Non-African American) 69.2 ml/min; Magnesium 1.7 mg/dl (1.7-2.4); Potassium 3.7 mmol/L (3.5-5.1); Total Protein 7.7 gm/dl (6.0-8.3)
[2023-03-21 01:10] LABS: Troponin I High Sensitivity 10.5 pg/ml (0-20)
--- OUTSIDE RECORDS SUMMARY | 2023-03-21 02:04 | External Medical Summary | Summary of Care ---
Author Name Unknown Organization [facility] Address [address] [place] [address] Phone [phone] Care Team Providers Care Fleet Service Manager Name Role Phone Charity Martin MD Primary Care Provider [phone] Reason for Visit * Reason Onset Date Comments Scheduling 10/17/2022 Colonoscopy Encounter Details Date Type Department Care Team Description 10/17/2022 Telephone General Internal Medicine [facility] [address] [place] [address] Charity Martin MD [address] [place] [address] Scheduling (Colonoscopy ) Allergies Active Allergy Reactions Severity Noted Date Comments Iodinated Contrast Media 12/30/2019 Metformin Wheezing 04/02/2020 documented as of this encounter (statuses as of 11/19/2022) Medications Medication Sig Dispensed Refills Start Date End Date Status ReliOn Pen [place] 32G X 4 MM USE 1 ONCE DAILY 0 0 Active Pen [place] 32G X 5 MMIndications:Ty pe 2 diabetes mellitus with hemoglobin A1c goal of less than 7.0% ([facility]) Use as directed. 50 Each 1 1 Active Glucagon Emergency 1 MG Injection KitIndications:T ype 2 diabetes mellitus with hyperglycemia, unspecified whether skilled nursing insulin use (HCC) Inject as directed when sugar goes low 1 Kit 1 2 Active Insulin Pen Needle 30G X 8 MM (NovoFine Autocover Pen Needle) Use once daily 100 Each 3 2 Active BD Pen Needle Short U/F 31G X 8 MM (Insulin Pen Needle) Use once daily 100 Each 3 2 Active Lisinopril 2.5 MG Oral Tablet (Prinivil) Take 1 Tablet by mouth in the morning. 90 Tablet 3 3 Active Aspirin 81 MG Oral Tablet Chewable Take 1 Tab by mouth daily. with food. 100 Tab 5 0 023 Discontinued Magnesium Oxide 400 (241.3 Mg) MG Oral Tablet Take by mouth 400 mg in the morning AND 400 mg before bedtime. 0 2 023 Discontinued Trulicity 1.5 MG/0.5ML Subcutaneous Solution Pen-injector (Dulaglutide)Ind ications:Type 2 diabetes mellitus with hemoglobin A1c goal of less than 7.0% ([facility]),Type 2 diabetes mellitus with hyperglycemia, unspecified whether skilled nursing insulin use (HCC) INJECT 1.5MG SUBCUTANEOUSLY ONCE A WEEK Strength: 1.5 MG/0.5ML 6 mL 0 3 023 Discontinued(Me dication/Dose Changed) Toujeo SoloStar 300 UNIT/ML Subcutaneous Solution Pen-injectorIndi cations:Type 2 diabetes mellitus with hemoglobin A1c goal of less than 7.0% ([facility]) INJECT 100 UNITS SUBCUTANEOUSLY ONCE DAILY 12 mL 0 3 023 Discontinued(Re fill) Omeprazole Magnesium 20 MG Oral Tablet Delayed Release (PriLOSEC OTC) Take 1 Tablet by mouth in the morning. 90 Tablet 3 3 023 Discontinued documented as of this encounter (statuses as of 11/19/2022) Active Problems Problem Noted Date Crohn's disease 05/21/2021 Overview: per pt BMI 40.0-44.9, adult 04/03/2020 Essential hypertension with goal blood p ressure less than 140/90 04/03/2020 Right leg swelling 04/03/2020 Type 2 diabetes mellitus with hemoglobin A1c goal of less than 7.0% 04/03/2020 Morbid obesity due to excess calories Type 2 diabetes mellitus with hyperglyce elena documented as of this encounter (statuses as of 11/19/2022) Immunizations Name Administration Dates Next Due Pneumococcal Conjugate Vaccine, 20-valent (Prevn ar20) 10/16/2022 Pneumococcal Polysaccharide PPV23 (Pneumovax) TDAP (age 10 and older)(Boostrix) 04/02/2020 documented as of this encounter Social History Tobacco Use Types Packs/Day Years Used Date Smoking Tobacco: Former Smokeless Tobacco: Never Alcohol Use Standard Drinks/Week Comments Yes 0 (1 standard drink = 0.6 oz pur e alcohol) Alcohol Habits Answer Date Recorded How often do you have a drink containing alcohol ? Monthly or less 12/30/2019 How many drinks containing a lcohol do you have on a typical day when you are drinking? Not asked 12/30/2019 How often do you have six or more drinks on one occasion? Not asked 12/30/2019 Food Insecurity Answer Date Recorded Within the past 12 months, y ou worried that your food would run out before you got money to buy more. Never true 04/02/2020 Within the past 12 months, t he food you bought just didn't last and you didn't have money to get more. Never true 04/02/2020 Sex Assigned at Date Recorded Male 04/02/2020 10:36 AM EST Job Start Date Occupation Industry Not on file Not on file Not on file documented as of this encounter Miscellaneous Notes * Telephone Encounter - YUDELKA Flores - 11/19/2022 2:10 PM EDT LMOM for pt to call back to schedule * Telephone Encounter - YUDELKA Flores - 10/30/2022 10:07 AM EDT Letter sent * Telephone Encounter - YUDELKA Flores - 10/27/2022 2:02 PM EDT LMOM for pt to call back to schedule * Telephone Encounter - YUDELKA Flores - 10/20/2022 11:26 AM EDT LMOM for pt to call back to schedule * Telephone Encounter - YUDELKA Barakat - 10/20/2022 9:56 AM EDT Pt calling back stating this week coming he only has Thursday and Thursday off and he will not know his schedule for the following week until he goes in that week pt states any time is fine [phone] * Telephone Encounter - YUDELKA Flores - 10/17/2022 4:03 PM EDT Colonoscopy Order placed during recent appointment with Charity Martin. No documentation regarding pt scheduling preferences. Please contact pt about scheduling preferences and then route to pool below for scheduling: [facility] SCHEDULING POOL/CLASS [[id number]] Thank you documented in this encounter Plan of Treatment Upcoming Encounters Date Type Specialty Care Team Description 12/15/2022 Cardiac Studies Cardiac Studies 01/16/2023 Office Visit Internal Medicine Charity Martin MD [address] [facility] [place] [address] 01/22/2023 Office Visit Gastroenterology Chapo Urban MD [address] [place] [address] Health Maintenance Due Date Last Done Comments Hepatitis B (1 of 3 - 3-dose series) 1975 COVID-19 Vaccine (#1) 1975 DIABETES-EYE EXAM 06/20/1991 Cologuard 2018 Colonoscopy 2018 Colorectal Cancer Screening 2018 Fecal Occult Blood Test 2018 Sigmoidoscopy 2018 Depression Screening 12/29/2020 12/30/2019 Diabetic Foot Exam 12/29/2020 12/30/2019 Influenza Vaccine (FLU shot) (#1) 2022 HbA1c 04/18/2023 10/16/2022, 05/21/2021 Albumin/Creatinine Ratio 10/17/2023 023, 05/21/2021 GFR 10/30/2023 10/29/2022, 10/16/2022, 05/21/2021 Lipid Panel 10/17/2027 10/16/2022, 05/21/2021 DTaP,Tdap,and Td Vaccines (2 - Td or Tdap) 04/02/2030 04/02/2020 Hepatitis C Screening Completed 10/16/2022 , 10/16/2022, 10/16/2022 Pneumococcal Vaccine: Pediatrics (0 to 5 Years) and At-Risk Patients (6 to 64 Years) Completed 10/16/2022, 04/02/2020 GARDASIL-HPV IMMUNIZATION SERIES Aged Out No longer eligible b ased on patient's age to complete this topic MENINGOCOCCAL (MENACTRA/MENVEO) Aged Out No longer eligible b ased on patient's age to complete this topic documented as of this encounter Medical Devices Not on filedocumented as of this encounter Care Teams Fleet Service Manager Relationship Specialty Start Date End Date Charity Martin MD [address] [place] [address], [place] [address] PCP - General Internal Medicine 04/02/20 documented as of this encounter
--- OUTSIDE RECORDS SUMMARY | 2023-03-21 02:04 | External Medical Summary | Summary of Care ---
Author Name Unknown Organization [facility] Address [address] [place] [address] Phone [phone] Care Team Providers Care Large Animal Husbandry Technician Name Role Phone Charity Martin MD Primary Care Provider [phone] Reason for Visit * Reason Onset Date Comments Test Results 10/17/2022 Encounter Details Date Type Department Care Team Description 10/17/2022 Telephone General Internal Medicine [facility] [address] [facility] [place] [address] Charity Martin MD [address] [facility] [place] [address] Test Results Allergies Active Allergy Reactions Severity Noted Date Comments Iodinated Contrast Media 12/30/2019 Metformin Wheezing 04/02/2020 documented as of this encounter (statuses as of 11/24/2022) Medications Medication Sig Dispensed Refills Start Date End Date Status ReliOn Pen [place] 32G X 4 MM USE 1 ONCE DAILY 0 0 Active Pen [place] 32G X 5 MMIndications:Ty pe 2 diabetes mellitus with hemoglobin A1c goal of less than 7.0% ([facility]) Use as directed. 50 Each 1 1 Active Glucagon Emergency 1 MG Injection KitIndications:T ype 2 diabetes mellitus with hyperglycemia, unspecified whether care home insulin use (HCC) Inject as directed when [...] 2 diabetes mellitus with hyperglycemia, unspecified whether intermodal customer service insulin use (HCC) INJECT 1.5MG SUBCUTANEOUSLY ONCE [...] as of this encounter (statuses as of 11/24/2022) Active Problems Problem Noted Date Crohn's disease [...] as of this encounter (statuses as of 11/24/2022) Immunizations Name Administration Dates Next Due Pneumococcal [...] encounter Miscellaneous Notes * Telephone Encounter - Alvina Farmer LPN - 11/24/2022 3:29 PM EDT Called pt and left a vm message asking to call the office. * Telephone Encounter - Micheline Leong CMA - 11/05/2022 5:44 PM EDT Called, left message for patient to return call. * Telephone Encounter - Micheline Leong CMA - 10/20/2022 9:25 AM EDT Called, left message for patient to return call. * Telephone Encounter - Charity Martin MD - 10/17/2022 4:57 PM EDT He has incidental finding like- 1. slightly large liver from fatty liver from obesity and uncontrolled diabetes . Wt loss will helpthat control or reverse otherwise could progress more 2.Also has small left kidney stone not causing obstruction - drinking plenty of fluid juaquin water is a good idea ( 60-70 oz/day ) These are not causing current symptoms but a good idea to see GI Nutrition for wt loss which will help with many things . * Telephone Encounter - Micheline Leong CMA - 10/17/2022 2:45 PM EDT Provider to address: jay Reason for Call: Test Results Contact: Telephone Call Contact Type: Care Coordination Outcome: Patient aware and verbalized understanding and is agreeable, asking about cyst on his kidney and ifthis is of any concerns. Scheduling please assist with MTM appt. Total Time including non face to face (minutes): 10 * Telephone Encounter - Micheline Leong CMA - 10/17/2022 2:39 PM EDT ----- Message from Charity Martin MD sent at 10/17/2022 2:24 PM EDT ----- Labs - hba1c very high at 11.1 . Increase Trulicity to 3 mg weekly and toujeo to 102 daily . If fasting sugar > 125 3 days in a row increase it by 1 unit and continue . Recheck with me in 3 monthswith sugar reading . Will do POC hba1c then . Be will likely need short acting insulin like novologfor meal coverage . Also suggest to write down before each meal and at night and email or drop in clinic for further adjustment . Suggest to consider MTM Vit b12 slightly low- start OTC Vit b12 1000 mcg daily Sed rate high from active chron's CT with active chron's but no other lesions . Very important to keep GI appoint. CXR good, no CHF documented in this encounter Plan of Treatment Upcoming Encounters Date Type Specialty Care Team Description 12/15/2022 Cardiac Studies Cardiac Studies 01/16/2023 Office Visit Internal Medicine Charity Martin MD [address] [place] [address] 01/22/2023 Office Visit Gastroenterology Chapo Urban MD [address] [place] [address] Health Maintenance Due Date Last Done Comments [...] filedocumented as of this encounter Care Teams Large Animal Husbandry Technician Relationship Specialty Start Date End Date Charity Martin MD [address] [place] [address], [place] [id number] PCP - General Internal Medicine 04/02/20 documented as of this encounter
--- OUTSIDE RECORDS SUMMARY | 2023-03-21 02:04 | External Medical Summary | Summary of Care ---
Author Name Unknown Organization [facility] Address [address] [place] [address] Phone [phone] Care Team Providers Care Forestry Workers Name Role Phone Charity Martin MD Primary Care Provider [phone] Reason for Visit * Reason Onset Date Comments Follow Up 01/15/2023 Encounter Details Date Type Department Care Team (Late st Contact Info) Description 01/15/2023 Telephone Gastroenterology, [facility] [address] [place] [address] Chapo Urban MD [address] [place] [address] Follow Up Allergies Active Allergy Reactions Criticality Noted Date Comments Iodinated Contrast Media 12/30/2019 Metformin Wheezing 04/02/2020 documented as of this encounter (statuses as of 01/16/2023) Medications Medication Sig Dispensed Refills Start Date End Date Status ReliOn Pen [place] 32G X 4 MM USE 1 ONCE DAILY 0 12/24/2019 Active Pen [place] 32G X 5 MMIndications:Type 2 diabetes mellitus with hemoglobin A1c goal of less than 7.0% ([facility]) Use as directed. 50 Each 1 04/02/2020 Active Glucagon Emergency 1 MG Injection KitIndications:Type 2 diabetes mellitus with hyperglycemia, unspecified whether director long term care insulin use (HCC) Inject as directed when sugar goes low 1 Kit 1 08/20/2021 Active Insulin Pen Needle 30G X 8 MM (NovoFine Autocover Pen Needle) Use once daily 100 Each 3 09/23/2021 Active BD Pen Needle Short U/F 31G X 8 MM (Insulin Pen Needle) Use once daily 100 Each 3 09/24/2021 Active Lisinopril 2.5 MG Oral Tablet (Prinivil) Take 1 Tablet by mouth in the morning. 90 Tablet 3 10/16/2022 Active Toujeo SoloStar 300 UNIT/ML Subcutaneous Solution Pen-injectorIndication s:Type 2 diabetes mellitus with hemoglobin A1c goal of less than 7.0% (HCC),Uncontrolled type 2 diabetes mellitus with hyperglycemia (HCC) 85 units every evening 12 mL 0 10/29/2022 Active Ondansetron HCl 4 MG Oral TabletIndications:Type 2 diabetes mellitus with hemoglobin A1c goal of less than 7.0% (HCC),Hypoglycemia,Oleg sea and vomiting, unspecified vomiting type Take 1 Tablet by mouth every 8 hours as needed for Nausea. 30 Tablet 0 10/29/2022 Active Trulicity 1.5 MG/0.5ML Subcutaneous Solution Pen-injector (Dulaglutide) Inject 1.5 mg under the skin once a week. 2 mL 11 12/24/2022 Active documented as of this encounter (statuses as of 01/16/2023) Active Problems Problem Noted Date Diagnosed Date Crohn's disease 05/21/2021 Overview: per pt BMI 40.0-44.9, adult 04/03/2020 Essential hypertension with goal blood pressure less than 140/90 04/03/2020 Right leg swelling 04/03/2020 Type 2 diabetes mellitus wit h hemoglobin A1c goal of less than 7.0% 04/03/2020 Morbid obesity due to excess calories 04/03/2020 Type 2 diabetes mellitus with hyperglycemia documented as of this encounter (statuses as of 01/16/2023) Immunizations Name Administration Dates Next Due Pneumococcal Conjugate Vaccine, 20-valent (Prevn ar20) 10/16/2022 Pneumococcal Polysaccharide PPV23 (Pneumovax) TDAP (age 10 and older)(Boostrix) 04/02/2020 documented as of this encounter Social History Tobacco Use Types Packs/Day Years Used Date Smoking Tobacco: Former Smokeless Tobacco: Never Alcohol Use Standard Drinks/Week Comments Yes 0 (1 standard drink = 0.6 oz pur e alcohol) AUDIT-C Answer Date Recorded Frequency of Alcohol Consumption Monthly or less 12/30/2019 Average Number of Drinks Not asked 020 Frequency of Binge Drinking Not asked 12/08 PHQ-2 Answer Date Recorded PHQ-2 Score 0 12/30/2019 Hunger Vital Sign Answer Date Recorded Within the past 12 months, y ou worried that your food would run out before you got the money to buy more. Never true 04/02/19 21 Within the past 12 months, t he food you bought just didn't last and you didn't have money to get more. Never true 04/02/2020 Sex and Gender Information Value Date Recorded Sex Assigned at Male 04/02/2020 10:36 AM EST Gender Identity Male 04/02/2020 10:36 AM EST Sexual Orientation Straight 04/02/2020 10 :36 AM EST Job Start Date Occupation Industry Not on file Not on file Not on file documented as of this encounter Miscellaneous Notes * Telephone Encounter - Radha Gamboa LPN - 01/15/2023 2:04 PM EST Pt is seen by [facility] PCP, however, not sure when was diagnosed with crohn's, where and when lastscopes were? Can pt give us that information? Left detailed msg on phone for pt to call us back, tia can obtain those records prior to appt next week. documented in this encounter Plan of Treatment Upcoming Encounters Date Type Department Care Team (Late st Contact Info) Description 01/16/2023 8:40 AM EST Office Visit General Internal Medicine [facility] [address] [place] [address] Charity Martin MD [address] [place] [address] 01/22/2023 11:00 AM EST Office Visit Gastroenterology, [facility] [address] [place] [address] Chapo Urban MD [address] [place] [address] Health Maintenance Due Date Last Done Comments Hepatitis B (1 of 3 - 3-dose series) 1975 COVID-19 Vaccine (#1) 1975 Diabetic Eye Exam 06/20/1991 Cologuard 2018 Colonoscopy 2018 Colorectal Cancer Screening 2018 Fecal Occult Blood Test 2018 Sigmoidoscopy 2018 Depression Screening 12/29/2020 12/30/2019 Diabetic Foot Exam 12/29/2020 12/30/2019 Influenza Vaccine (FLU shot) (#1) 2022 HbA1c 04/18/2023 10/16/2022, 05/21/2021 Albumin/Creatinine Ratio 10/17/2023 023, 05/21/2021 GFR 10/30/2023 10/29/2022, 10/16/2022, 05/21/2021 Lipid Panel 10/17/2027 10/16/2022, 05/21/2021 DTaP,Tdap,and Td Vaccines (2 - Td or Tdap) 04/02/2030 04/02/2020 Pneumococcal Vaccine: Pediatrics (0 to 5 Years) [...] filedocumented as of this encounter Care Teams Forestry Workers Relationship Specialty Start Date End Date Charity Martin MD [address] [facility] [place] [address] PCP - General Internal Medicine 04/02/20 documented as of this encounter
--- OUTSIDE RECORDS SUMMARY | 2023-03-21 02:04 | External Medical Summary | Summary of Care ---
Author Name Unknown Organization [facility] Address [address] [place] [place] [address] Phone [phone] Care Team Providers Care Commercial Lines Account Assistant Name Role Phone Charity Martin MD Primary Care Provider [phone] Reason for Visit * Reason Onset Date Comments Referral 11/17/2022 Encounter Details Date Type Department Care Team Description 11/17/2022 Telephone Pharmacy Call Center [address] [place] [address] Pharmacist1, [facility] [address] [facility] [address] Referral Allergies Active Allergy Reactions Severity Noted Date Comments Iodinated Contrast Media 12/30/2019 Metformin Wheezing 04/02/2020 documented as of this encounter (statuses as of 11/17/2022) Medications Medication Sig Dispensed Refills Start Date End Date Status ReliOn Pen [place] 32G X 4 MM USE 1 ONCE DAILY 0 12/24/2019 Active Pen [place] 32G X 5 MMIndications:Type 2 diabetes mellitus with hemoglobin A1c goal of less than 7.0% (HCC) Use as directed. 50 Each 1 04/02/2020 Active Glucagon Emergency 1 MG Injection KitIndications:Type 2 diabetes mellitus with hyperglycemia, unspecified whether middle or intermediate school principal insulin use (HCC) Inject as directed when [...] the morning. 90 Tablet 3 10/16/2022 Active Dulaglutide 3 MG/0.5ML Subcutaneous Solution Pen-injector (Trulicity)Indications :Uncontrolled type 2 diabetes mellitus with hyperglycemia (HCC) Inject 3 mg under the skin once a week. Inc since 10/21/2022 Do not start before November 04, 2022. 6 mL 0 11/04/2022 Active Toujeo SoloStar 300 UNIT/ML Subcutaneous Solution [...] for Nausea. 30 Tablet 0 10/29/2022 Active documented as of this encounter (statuses as of 11/17/2022) Active Problems Problem Noted Date Crohn's disease [...] as of this encounter (statuses as of 11/17/2022) Immunizations Name Administration Dates Next Due Pneumococcal [...] encounter Miscellaneous Notes * Telephone Encounter - BIANKA Redman - 11/17/2022 1:41 PM EDT Alexis Murry has not contacted the clinic to schedule/reschedule an appointment for DM management per referral from PCP despite multiple requests (via phone, letter and/or [facility]) to do so byour team. Patient is discharged from [facility] services at this time. Thank you, Lita Denton Monument Letterer [facility] ([facility]) 11/17/2022, 1:42 PM documented in this encounter Plan of Treatment Upcoming Encounters Date Type Specialty Care Team Description 12/15/2022 Cardiac Studies Cardiac Studies 01/16/2023 Office Visit Internal Medicine Charity Martin MD [address] [facility] [place] [address] 01/22/2023 Office Visit Gastroenterology Chapo Urban MD [address] [place] [address] Health Maintenance Due Date Last Done Comments [...] filedocumented as of this encounter Care Teams Commercial Lines Account Assistant Relationship Specialty Start Date End Date Charity Martin MD [address] [place] [address], [place] [address] PCP - General Internal Medicine 04/02/20 documented as of this encounter
--- OUTSIDE RECORDS SUMMARY | 2023-03-21 02:04 | External Medical Summary | Summary of Care ---
Author Name Unknown Organization [facility] Address [address] [place] [address] Phone [phone] Care Team Providers Care Operations Section Manager Name Role Phone Charity Martin MD Primary Care Provider [phone] Reason for Referral * Evaluate & Treat - Unlimited Visits (Within 10 days (routine)) - Pending Review Specialty Diagnoses / Procedures Referred By nUruly mg Referred To Contact Gastroenterology Diagnoses Crohn's disease of colon, unspecified complication (HCC) Kim Syed MD [address] [place] [address] Referral ID Status Reason Start Date Expiration Date Visits Requested Visits Authorized [id number] Pending Review Specialty Services Required 10/29/[phone] Question Answer Referral Priority Within 10 days (routine) For what condition is the patient being referred? All Gastro Conditions * Evaluate & Treat - Unlimited Visits (Within 10 days (routine)) - Pending Review Specialty Diagnoses / Procedures Referred By Unrluy mg Referred To Contact Pharmacist / Pharmacy Diagnoses Uncontrolled type 2 diabetes mellitus with hyperglycemia (HCC) Kim Syed MD [address] [place] [address] Referral ID Status Reason Start Date Expiration Date Visits Requested Visits Authorized [id number] Pending Review Specialty Services Required 10/29/2022 99 99 Question Answer Referral Priority Within 10 days (routine) Department: Primary Care Reason for Referral: DM Target A1c: < 7 Comments Pharmacist Medication Therapy Management: Minimum frequency patient should be seen in person for medication management: as appropriate per clinical condition and patient status By my signature, I understand that my patient Alexis Murry will have his medication therapy managed by the [facility] ([facility]) per established policies, procedures, and protocols. I also certify that this referral may serve as an initiation of service for the management of drug therapy in the above noted patient. [facility] providers will be responsible for scheduling patient visits, obtaining appropriate laboratory studies, and adjusting medication management therapy per patient's need, in addition to those roles spelled out in the clinic policy, procedures, and drug management protocols. I understand that the service provided by the [facility] is voluntary and have informed patient that they can refuse the service at their discretion. I am aware that the [facility] will provide me with a copy of the patient encounter via my [employer] [employer]. I authorize the [facility] to carry out these activities on my behalf. I consider this program to be a necessary part of the patient's medical care. Kim Syed MD Reason for Visit * Reason Comments Acute The pt stated they a re here due to N/V r/t the increased dose of Trulicity. Pt stated he is also experiencing severe episodes of hypoglycemia r/t the dosage increase. Encounter Details Date Type Department Care Team Description 10/29/2022 Office Visit General Internal Medicine [facility] [address] [facility], [place] [address] Kim Syed MD [address] [place] [address] Nausea and vomiting, unspecified vomiting type*; Type 2 diabetes mellitus with hyperglycemia, unspecified whether care home insulin use (HCC); Type 2 diabetes mellitus with hemoglobin A1c goal of less than 7.0% (HCC); Hypoglycemia; Uncontrolled type 2 diabetes mellitus with hyperglycemia (HCC); Crohn's disease of colon, unspecified complication ([facility]) Allergies Active Allergy Reactions Severity Noted Date Comments Iodinated Contrast Media 12/30/2019 Metformin Wheezing 04/02/2020 documented as of this encounter (statuses as of 11/24/2022) Medications Medication Sig Dispensed Refills Start Date End Date Status ReliOn Pen [place] 32G X 4 MM USE 1 ONCE DAILY 0 12/24/19 20 Active Pen [place] 32G X 5 MMIndications:Typ e 2 diabetes mellitus with hemoglobin A1c goal of less than 7.0% (HCC) Use as directed. 50 Each 1 04/02/19 21 Active Glucagon Emergency 1 MG Injection KitIndications:Ty pe 2 diabetes mellitus with hyperglycemia, unspecified whether care home insulin use (HCC) Inject as directed when sugar goes low 1 Kit 1 08/21/19 22 Active Insulin Pen Needle 30G X 8 MM (NovoFine Autocover Pen Needle) Use once daily 100 Each 3 09/24/19 22 Active BD Pen Needle Short U/F 31G X 8 MM (Insulin Pen Needle) Use once daily 100 Each 3 09/25/19 22 Active Lisinopril 2.5 MG Oral Tablet (Prinivil) Take 1 Tablet by mouth in the morning. 90 Tablet 3 10/17/19 23 Active Dulaglutide 3 MG/0.5ML Subcutaneous Solution Pen-injector (Trulicity)Indica tions:Uncontrolle d type 2 diabetes mellitus with hyperglycemia (HCC) Inject 3 mg under the skin once a week. Inc since 10/21/2022 Do not start before November 04, 2022. 6 mL 0 11/05/19 23 Active Toujeo SoloStar 300 UNIT/ML Subcutaneous Solution Pen-injectorIndic ations:Type 2 diabetes mellitus with hemoglobin A1c goal of less than 7.0% (HCC),Uncontrolle d type 2 diabetes mellitus with hyperglycemia (HCC) 85 units every evening 12 mL 0 10/30/19 23 Active Ondansetron HCl 4 MG Oral TabletIndications :Type 2 diabetes mellitus with hemoglobin A1c goal of less than 7.0% (HCC),Hypoglycemi a,Nausea and vomiting, unspecified vomiting type Take 1 Tablet by mouth every 8 hours as needed for Nausea. 30 Tablet 0 10/30/19 23 Active Aspirin 81 MG Oral Tablet Chewable Take 1 Tab by mouth daily. with food. 100 Tab 5 12/30/19 20 023 Discontinued Magnesium Oxide 400 (241.3 Mg) MG Oral Tablet Take by mouth 400 mg in the morning AND 400 mg before bedtime. 0 05/09/19 22 023 Discontinued Trulicity 1.5 MG/0.5ML Subcutaneous Solution Pen-injector (Dulaglutide)Consuelo cations:Type 2 diabetes mellitus with hemoglobin A1c goal of less than 7.0% ([facility]),Type 2 diabetes mellitus with hyperglycemia, unspecified whether care home insulin use ([facility]) INJECT 1.5MG SUBCUTANEOUSLY ONCE A WEEK Strength: 1.5 MG/0.5ML 6 mL 0 07/26/19 23 023 Discontinued(Me dication/Dose Changed) Toutitus SoloStar 300 UNIT/ML Subcutaneous Solution Pen-injectorIndic ations:Type 2 diabetes mellitus with hemoglobin A1c goal of less than 7.0% ([facility]) INJECT 100 UNITS SUBCUTANEOUSLY ONCE DAILY 12 mL 0 10/07/19 23 023 Discontinued(Re fill) Omeprazole Magnesium 20 MG Oral Tablet Delayed Release (PriLOSEC OTC) Take 1 Tablet by mouth in the morning. 90 Tablet 3 10/17/19 23 023 Discontinued documented as of this encounter [...] on file documented as of this encounter Last Filed Vital Signs Vital Sign Reading Time Taken Comments Blood Pressure 130/88 10/29/2022 2:44 PM EDT Pulse 95 10/29/2022 2:44 PM EDT Temperature 36.5 C (97.7 F) 10/29/2022 2:44 PM ED T Respiratory Rate - - Oxygen Saturation 96% 10/29/2022 2:44 PM EDT Inhaled Oxygen Concentration - - Weight 132.7 kg (292 lb 9.6 oz) 10/29/2022 2:44 PM EDT Height 182.9 cm (6') 10/29/2022 2:44 PM EDT Body Mass Index 39.68 10/29/2022 2:44 PM EDT documented in this encounter Progress Notes * Kim Syed MD - 10/29/2022 3:08 PM EDT SUBJECTIVE: Alexis Murry is a 47 year old male. Chief Complaint Patient presents with Acute The pt stated they are here due to N/V r/t the increased dose of Trulicity. Pt stated he is also experiencing severe episodes of hypoglycemia r/t the dosage increase. HPI: Patient with a problem list as below presents today with symptoms of nausea vomiting since increase dose of Trulicity. Saw PCP October 16, labs showed A1c 11%, Trulicity was increased from 1.5-3 mg weekly and Toujeo increased from 100- 102 units. He has been using to 1.5 mg injections once a week last dose was yesterday, admits to nausea with vomiting, feeling of fullness in the stomach and low blood sugars in the 30-40 range. He is not had to use glucagon or use glucose tablets, states fasting sugar this morning was around 50-60, in the evenings towards after the mean has been around 140 now. He did not bring in his glucometer, willing to be referred to [facility] clinic to consider continuous glucose monitoring device. Will also switch his Trulicity to 3 mg dose weekly so decrease the side effects and also advised to eat small amounts at more frequent intervals until he gets used to thenew medication, decrease Toujeo to 85 units . History of Crohn's and has loose stools, states he could not afford medications in the past, has not seen GI here willing to be referred is scheduled for colonoscopy later this year Hemoglobin AIC Results: Lab Results Component Value Date/Time HEMOGLOBIN A1C - [facility] 11.1 (H) 10/16/2022 02:41 PM HEMOGLOBIN A1C - [facility] 12.3 (H) 05/21/2021 12:18 PM Results for orders placed or performed in visit on 10/16/22 LIPID PANEL WITH DIRECT LDL IF TG IS HIGH Result Value Ref Range Triglycerides 318 (H) <=174 mg/dL Cholesterol 180 <200 mg/dL HDL Cholesterol 42 >39 mg/dL Non-HDL Cholesterol 138 <=159 mg/dL HEMOGLOBIN A1C Result Value Ref Range Hemoglobin A1C 11.1 (H) 4.0 - 5.6 % Estimated Average Glucose 272 (H) <126 mg/dL COMPREHENSIVE METABOLIC PANEL Result Value Ref Range BUN 13 6 - 20 mg/dL Creatinine 1.0 0.6 - 1.2 mg/dL Estimated Glomerular Filtration Rate >90 >=60 mL/min Sodium 142 135 - 146 mmol/L Potassium 4.1 3.5 - 5.1 mmol/L Chloride 101 98 - 107 mmol/L CO2 29 22 - 32 mmol/L Anion Gap 12 7 - 15 mmol/L Glucose 143 (H) 70 - 120 mg/dL Albumin 4.2 3.8 - 5.0 g/dL AST 17 10 - 50 U/L Alkaline Phosphatase 131 (H) 35 - 130 U/L Bilirubin, Total 0.4 <=1.2 mg/dL Calcium 9.3 8.4 - 10.2 mg/dL Protein 7.2 6.0 - 8.3 g/dL ALT 32 10 - 50 U/L ALBUMIN / CREATININE RATIO, URINE Result Value Ref Range Albumin, Random Urine 4.25 mg/dL Creatinine, Random Urine 187 mg/dL Albumin / Creatinine Ratio, Urine 23 <30 mg/g Creat MAGNESIUM Result Value Ref Range Magnesium 1.9 1.5 - 2.6 mg/dL VITAMIN B12 Result Value Ref Range Vitamin B12 297 232 - 1,245 pg/mL CBC Result Value Ref Range WBC 7.39 4.00 - 10.80 K/uL RBC 4.71 4.50 - 5.25 M/uL HGB 14.3 14.0 - 16.8 g/dL HCT 43.4 40.0 - 48.4 % MCV 92.1 82.0 - 99.5 fL MCH 30.4 27.0 - 34.0 pg MCHC 32.9 32.0 - 36.0 g/dL RDW 13.2 11.5 - 15.5 % PLT 225 140 - 400 K/uL MPV 8.4 6.6 - 11.1 fL HIV ANTIGEN & ANTIBODY SCREEN W/ CONFIRMATION Result Value Ref Range HIV Antigen & Antibody Negative Negative ERYTHROCYTE SEDIMENTATION RATE (ESR) Result Value Ref Range ESR 28 (H) <15 mm/hour LIPASE Result Value Ref Range Lipase 28 13 - 60 U/L HEPATITIS C ANTIBODY Result Value Ref Range Hepatitis C Antibody Negative Negative LDL CHOLESTEROL (DIRECT MEASURE) Result Value Ref Range LDL Cholesterol (Direct Measure) 90 <=129 mg/dL Patient Active Problem List Diagnosis Code Type 2 diabetes mellitus with hyperglycemia ([facility]) E11.65 BMI 40.0-44.9, adult ([facility]) Z68.41 Essential hypertension with goal blood pressure less than 140/90 I10 Right leg swelling M79.89 Type 2 diabetes mellitus with hemoglobin A1c goal of less than 7.0% ([facility]) E11.9 Morbid obesity due to excess calories ([facility]) E66.01 Crohn's disease ([facility]) K50.90 Current Outpatient Medications Medication Sig Dispense Refill ReliOn Pen [place] 32G X 4 MM USE 1 ONCE DAILY Pen [place] 32G X 5 MM Use as directed. 50 Each 1 Glucagon Emergency 1 MG Injection Kit Inject as directed when sugar goes low 1 Kit 1 Insulin Pen Needle 30G X 8 MM (NovoFine Autocover Pen Needle) Use once daily 100 Each 3 BD Pen Needle Short U/F 31G X 8 MM (Insulin Pen Needle) Use once daily 100 Each 3 Trulicity 1.5 MG/0.5ML Subcutaneous Solution Pen-injector (Dulaglutide) INJECT 1.5MG SUBCUTANEOUSLYONCE A WEEK Strength: 1.5 MG/0.5ML 6 mL 0 Toujeo SoloStar 300 UNIT/ML Subcutaneous Solution Pen-injector INJECT 100 UNITS SUBCUTANEOUSLY ONCEDAILY 12 mL 0 Lisinopril 2.5 MG Oral Tablet (Prinivil) Take 1 Tablet by mouth in the morning. 90 Tablet 3 No current facility-administered medications for this visit. Review of patient's allergies indicates: Allergen Reactions Iodinated Contrast Media Metformin Wheezing OBJECTIVE: BP 130/88 | Pulse 95 | Temp 36.5 C (97.7 F) | Ht 1.829 m (6') | Wt 132.7 kg (292 lb 9.6 oz) | SpO2 96% | BMI 39.68 kg/m | BSA 2.6 m PHYSICAL EXAM: General: alert, healthy, no distress, well developed Neck: supple, no adenopathy, thyroid Not enlarged without nodularity Heart: regular rhythm and rate,No murmurs. Lungs: lungs clear to auscultation Extremities: no edema Abdomen: Soft, non-tender, normal bowel sounds, no masses or organomegaly ASSESSMENT/PLAN: Nausea and vomiting, unspecified vomiting type (Primary) - Ondansetron HCl 4 MG Oral Tablet; Take 1 Tablet by mouth every 8 hours as needed for Nausea. - BASIC METABOLIC PANEL; Future; Expected date: 10/29/2022 Type 2 diabetes mellitus with hyperglycemia, unspecified whether care home insulin use (HCC) Type 2 diabetes mellitus with hemoglobin A1c goal of less than 7.0% (HCC) - Toujeo SoloStar 300 UNIT/ML Subcutaneous Solution Pen-injector; 85 units every evening - Ondansetron HCl 4 MG Oral Tablet; Take 1 Tablet by mouth every 8 hours as needed for Nausea. - BASIC METABOLIC PANEL; Future; Expected date: 10/29/2022 Hypoglycemia - Ondansetron HCl 4 MG Oral Tablet; Take 1 Tablet by mouth every 8 hours as needed for Nausea. - BASIC METABOLIC PANEL; Future; Expected date: 10/29/2022 Uncontrolled type 2 diabetes mellitus with hyperglycemia (HCC) - Dulaglutide 3 MG/0.5ML Subcutaneous Solution Pen-injector (Trulicity); Inject 3 mg under the skinonce a week. Inc since 10/21/2022 Do not start before November 04, 2022. - Toujeo SoloStar 300 UNIT/ML Subcutaneous Solution Pen-injector; 85 units every evening - PHARMACIST MEDS THERAPY MGMT REFERRAL OP - BASIC METABOLIC PANEL; Future; Expected date: 10/29/2022 Crohn's disease of colon, unspecified complication (HCC) - GASTROENTEROLOGY REFERRAL OP Chg to 3mg inj trulicity, eat small amts more fequently, dec kyra howard prn , mtm referral Follow Up: Return if symptoms worsen or fail to improve, for Labs Today. | For: Labs Today | Check-out note: Keshawn fu pcp in mid jan , mtm appt soon (This note was completed using the dictation program Fluency Direct. As such, there may be misspellings, word substitutions, or other variations that should not change the essence of the clinical content of this encounter note. If there is need for further clarification, please direct questions to the provider listed above.) Patient and / caregiver verbalize understanding of above instructions and agrees with plan of care. Kim Syed MD 10/29/2022 documented in this encounter Nursing Notes * Igor Sam LPN - 10/29/2022 2:40 PM EDT Chief Complaint Patient presents with Acute The pt stated they are here due to N/V r/t the increased dose of Trulicity. Pt stated he is also experiencing severe episodes of hypoglycemia r/t the dosage increase. documented in this encounter Plan of Treatment Upcoming Encounters Date Type Specialty Care Team Description 12/15/2022 Cardiac Studies Cardiac Studies 01/16/2023 Office Visit Internal Medicine Charity Martin MD [address] [place] [address] 01/22/2023 Office Visit Gastroenterology Chapo Urban MD [address] [place] [address] Scheduled Referrals Name Type Priority Associated Diagnoses Orde r Schedule PHARMACIST MEDS THERAPY MGMT REFERRAL OP Referral Within 10 days (routine) Uncontrolled type 2 diabetes mellitus with hyperglycemia (HCC) Ordered: 10/29/2022 GASTROENTEROLOGY REFERRAL OP Referral Within 10 days (routine) Crohn's disease of colon, unspecified complication (HCC) Ordered: 10/29/2022 Health Maintenance Due Date Last Done Comments [...] Not on filedocumented as of this encounter Results * (ABNORMAL) BASIC METABOLIC PANEL (10/29/2022 3:39 PM EDT) BUN 15 6 - 20 mg/dL 10/29/2022 4:01 PM EDT [facility] 56-02 Creatinine 1.0 0.6 - 1.2 mg/dL 10/29/2022 4:01 PM EDT [facility] 56 Estimated Glomerular Filtration Rate 89 >=60 mL/min 10/29/2022 4:01 PM EDT [facility] 56 Comment:eGFR is calculated b ased on the CKD-EPI 2020 equation Sodium 140 135 - 146 mmol/L 10/29/2022 4:01 PM EDT [facility] 56- Potassium 3.6 3.5 - 5.1 mmol/L 10/29/2022 4:01 PM EDT [facility] 56 Chloride 102 98 - 107 mmol/L 10/29/2022 4:01 PM [address]T [address] CO2 24 22 - 32 mmol/L 10/29/2022 4:01 PM EDT [address] Anion Gap 14 7 - 15 mmol/L 10/29/2022 4:01 PM EDT [facility] 56 Glucose 152(H) 70 - 120 mg/dL 10/29/2022 4:01 PM EDT [place] [address] Calcium 9.2 8.4 - 10.2 mg/dL 10/29/2022 4:01 PM EDT [facility] 56 Blood Venous blood specimen / Unknown Venipuncture / Unknown 10/29/2022 3:39 PM EDT 10/29/2022 3:39 PM EDT Kim Syed MD LAB BLOOD ORDERABLES [facility] [address] [place] [address] documented in this encounter Visit Diagnoses Diagnosis Nausea and vomiting, unspecified vomiting type- Primary Type 2 diabetes mellitus with hyperglycemia, unspecified whether continuous churn buttermaker insulin use (HCC) Type 2 diabetes mellitus with hemoglobin A1c goal of less than 7.0% (HCC) Hypoglycemia Hypoglycemia, unspecified Uncontrolled type 2 diabetes mellitus with hyperglycemia (HCC) Crohn's disease of colon, unspecified complication (HCC) documented in this encounter Care Teams Operations Section Manager Relationship Specialty Start Date End Date Charity Martin MD [address] [facility] [address] PCP - General Internal Medicine 04/02/20 documented as of this encounter"
--- OUTSIDE RECORDS SUMMARY | 2023-03-21 02:04 | External Medical Summary | Summary of Care ---
Author Name Unknown Organization [facility] Address [address] [place] [address] Phone [phone] Care Team Providers Care Raspberry Checker Name Role Phone Charity Martin MD Primary Care Provider [phone] Reason for Visit * Reason Onset Date Comments Test Results 10/17/2022 Encounter Details Date Type Department Care Team Description 10/17/2022 Telephone General Internal Medicine [facility] [address] [facility] [place] [address] Charity Martin MD [address] [facility] [place] [address] Test Results Allergies Active Allergy Reactions Severity Noted Date Comments Iodinated Contrast Media 12/30/2019 Metformin Wheezing 04/02/2020 documented as of this encounter (statuses as of 12/26/2022) Medications Medication Sig Dispensed Refills Start Date End Date Status ReliOn Pen [place] 32G X 4 MM USE 1 ONCE DAILY 0 0 Active Pen [place] 32G X 5 MMIndications:Ty pe 2 diabetes mellitus with hemoglobin A1c goal of less than 7.0% ([facility]) Use as directed. 50 Each 1 1 Active Glucagon Emergency 1 MG Injection KitIndications:T ype 2 diabetes mellitus with hyperglycemia, unspecified whether terminal computer operator insulin use (HCC) Inject as directed when [...] hemoglobin A1c goal of less than 7.0% ([facility]),Type 2 diabetes mellitus with hyperglycemia, unspecified whether longterm insulin use (HCC) INJECT 1.5MG SUBCUTANEOUSLY ONCE A WEEK Strength: 1.5 MG/0.5ML 6 mL 0 3 023 Discontinued(Me dication/Dose Changed) Toujeo SoloStar 300 UNIT/ML Subcutaneous Solution Pen-injectorIndi cations:Type 2 diabetes mellitus with hemoglobin A1c goal of less than 7.0% ([facility]) INJECT 100 UNITS SUBCUTANEOUSLY ONCE DAILY 12 mL 0 3 023 Discontinued(Re fill) Omeprazole Magnesium 20 MG Oral Tablet Delayed Release (PriLOSEC OTC) Take 1 Tablet by mouth in the morning. 90 Tablet 3 3 023 Discontinued documented as of this encounter (statuses as of 12/26/2022) Active Problems Problem Noted Date Crohn's disease [...] as of this encounter (statuses as of 12/26/2022) Immunizations Name Administration Dates Next Due Pneumococcal [...] encounter Miscellaneous Notes * Telephone Encounter - Igor Sam LPN - 12/26/2022 3:49 PM EDT Letter sent * Telephone Encounter - Alvina Farmer LPN [...] Encounters Date Type Specialty Care Team Description 01/16/2023 Office Visit Internal Medicine Charity Martin MD [address] [place] [address] 01/22/2023 Office Visit Gastroenterology Chapo Urban MD [address] [place] [address] Health Maintenance Due Date Last Done Comments [...] filedocumented as of this encounter Care Teams Raspberry Checker Relationship Specialty Start Date End Date Charity Martin MD [address] [facility] [place] [address] PCP - General Internal Medicine 04/02/20 documented as of this encounter
--- OUTSIDE RECORDS SUMMARY | 2023-03-21 02:05 | External Medical Summary | Summary of Care ---
Author Name Unknown Organization [facility] Address [address] [place] [address] Phone [phone] Care Team Providers Care Rat Farmer Name Role Phone Charity Martin MD Primary Care Provider [phone] Reason for Visit * Reason Onset Date Comments Medication Problem 10/16/2022 Encounter Details Date Type Department Care Team Description 10/16/2022 Telephone General Internal Medicine [facility] [address] [place] [address] Charity Martin MD [address] [place] [facility] [place] [address] Medication Problem Allergies Active Allergy Reactions Severity Noted Date Comments Iodinated Contrast Media 12/30/2019 Metformin Wheezing 04/02/2020 documented as of this encounter (statuses as of 10/16/2022) Medications Medication Sig Dispensed Refills Start Date End Date Status ReliOn Pen [place] 32G X 4 MM USE 1 ONCE DAILY 0 12/24/2019 Active Aspirin 81 MG Oral Tablet Chewable Take 1 Tab by mouth daily. with food. 100 Tab 5 12/30/2019 Active Pen [place] 32G X 5 MMIndications:Type 2 diabetes mellitus with hemoglobin A1c goal of less than 7.0% ([facility]) Use as directed. 50 Each 1 04/02/2020 Active Additional Information Patient not taking.Reported on 10/16/2022 Magnesium Oxide 400 (241.3 Mg) MG Oral Tablet Take by mouth 400 mg in the morning AND 400 mg before bedtime. 0 05/08/2021 Active Glucagon Emergency 1 MG Injection KitIndications:Typ e 2 diabetes mellitus with hyperglycemia, unspecified whether intermediate card tender insulin use (HCC) Inject as directed when sugar goes low 1 Kit 1 08/20/2021 Active Insulin Pen Needle 30G X 8 MM (NovoFine Autocover Pen Needle) Use once daily 100 Each 3 09/23/2021 Active Additional Information Patient not taking.Reported on 10/16/2022 BD Pen Needle Short U/F 31G X 8 MM (Insulin Pen Needle) Use once daily 100 Each 3 09/24/2021 Active Additional Information Patient not taking.Reported on 10/16/2022 Trulicity 1.5 MG/0.5ML Subcutaneous Solution Pen-injector (Dulaglutide)Indic ations:Type 2 diabetes mellitus with hemoglobin A1c goal of less than 7.0% ([facility]),Type 2 diabetes mellitus with hyperglycemia, unspecified whether intermediate card tender insulin use (HCC) INJECT 1.5MG SUBCUTANEOUSLY ONCE A WEEK Strength: 1.5 MG/0.5ML 6 mL 0 07/25/2022 Active Toujeo SoloStar 300 UNIT/ML Subcutaneous Solution Pen-injectorIndica tions:Type 2 diabetes mellitus with hemoglobin A1c goal of less than 7.0% ([facility]) INJECT 100 UNITS SUBCUTANEOUSLY ONCE DAILY 12 mL 0 10/06/2022 Active Omeprazole Magnesium 20 MG Oral Tablet Delayed Release (PriLOSEC OTC) Take 1 Tablet by mouth in the morning. 90 Tablet 3 10/16/2022 Active Lisinopril 2.5 MG Oral Tablet (Prinivil) Take 1 Tablet by mouth in the morning. 90 Tablet 3 10/16/2022 Active documented as of this encounter (statuses as of 10/16/2022) Active Problems Problem Noted Date Crohn's disease [...] as of this encounter (statuses as of 10/16/2022) Immunizations Name Administration Dates Next Due Pneumococcal [...] encounter Miscellaneous Notes * Telephone Encounter - Rosa Elena Reaves LPN - 10/16/2022 6:19 PM EDT Pt aware, he v/u and will go to the appt tomorrow. * Telephone Encounter - Charity Martin MD - 10/16/2022 5:31 PM EDT Discussed with deburring technician and I thought she called him Due to severe diabetes I decided to do without contrast but in the same appointment as he is scheduled Tomorrow * Telephone Encounter - YUDELKA Hughes - 10/16/2022 4:29 PM EDT Patient states that prednisone and bendadryll was supposed to be called in for his appointment tomorrow. He needs to take it 13 hours and sometime again prior to appointment. Needs this in 1 hour documented in this encounter Plan of Treatment Upcoming Encounters Date Type Specialty Care Team Description 10/17/2022 Imaging Radiology 12/15/2022 Cardiac Studies Cardiac Studies 01/22/2023 Office Visit Gastroenterology Chapo Urban MD [address] [place] [address] Health Maintenance Due Date Last Done Comments Hepatitis B (1 of 3 - 3-dose series) 1975 COVID-19 Vaccine (#1) 1973 HIV Screening 1988 DIABETES-EYE EXAM 06/20/1991 Hepatitis C Screening 06/20/1991 Cologuard 2018 Colonoscopy 2018 Colorectal Cancer Screening 2018 Fecal Occult Blood Test 2018 Sigmoidoscopy 2018 DIABETES-FOOT EXAM 12/29/2020 12/30/2019 Depression Screening, Annual for Pts 12 and Over 12/29/2020 12/30/2019 HbA1c 11/21/2021 05/21/2021 Albumin/Creatinine Ratio 05/21/2022 05/21/2021 Influenza Vaccine (FLU shot) (#1) 2022 GFR 10/17/2023 10/16/2022, 05/21/2021 Lipid Panel 05/21/2026 05/21/2021 DTaP,Tdap,and Td Vaccines (2 - Td [...] filedocumented as of this encounter Care Teams Rat Farmer Relationship Specialty Start Date End Date Charity Martin MD [address] [place] [address] PCP - General Internal Medicine 04/02/20 documented as of this encounter
--- OUTSIDE RECORDS SUMMARY | 2023-03-21 02:05 | External Medical Summary | Summary of Care ---
Author Name Unknown Organization [facility] Address [address] [place] [address] Phone [phone] Care Team Providers Care Tongue And Groove Machine Feeder Name Role Phone Charity Martin MD Primary Care Provider [phone] Reason for Visit * Reason Onset Date Comments Scheduling 10/17/2022 Colonoscopy Encounter Details Date Type Department Care Team Description 10/17/2022 Telephone General Internal Medicine [facility] [address] [place] [address] Charity Martin MD [address] [place] [facility] [place] [address] Scheduling (Colonoscopy ) Allergies Active Allergy Reactions Severity Noted Date Comments Iodinated Contrast Media 12/30/2019 Metformin Wheezing 04/02/2020 documented as of this encounter (statuses as of 10/20/2022) Medications Medication Sig Dispensed Refills Start Date End Date Status ReliOn Pen [place] 32G X 4 MM USE 1 ONCE DAILY 0 12/24/2019 Active Aspirin 81 MG Oral Tablet Chewable Take 1 Tab by mouth daily. with food. 100 Tab 5 12/30/2019 Active Pen [place] 32G X 5 MMIndications:Type 2 diabetes mellitus with hemoglobin A1c goal of less than 7.0% ([facility]) Use as directed. 50 Each 1 04/02/2020 Active Additional Information Patient not taking.Reported on 10/16/2022 Magnesium Oxide 400 (241.3 Mg) MG Oral Tablet Take by mouth 400 mg in the morning AND 400 mg before bedtime. 0 05/08/2021 Active Glucagon Emergency 1 MG Injection KitIndications:Typ e 2 diabetes mellitus with hyperglycemia, unspecified whether [facility] insulin use (HCC) Inject as directed when [...] hemoglobin A1c goal of less than 7.0% ([facility]),Type 2 diabetes mellitus with hyperglycemia, unspecified whether intermediate frame tender insulin use (HCC) INJECT 1.5MG SUBCUTANEOUSLY ONCE A WEEK Strength: 1.5 MG/0.5ML 6 mL 0 07/25/2022 Active Toujeo SoloStar 300 UNIT/ML Subcutaneous Solution Pen-injectorIndica tions:Type 2 diabetes mellitus with hemoglobin A1c goal of less than 7.0% ([facility]) INJECT 100 UNITS SUBCUTANEOUSLY ONCE DAILY 12 mL 0 10/06/2022 Active Omeprazole Magnesium 20 MG Oral Tablet Delayed Release (PriLOSEC OTC) Take 1 Tablet by mouth in the morning. 90 Tablet 3 10/16/2022 Active Lisinopril 2.5 MG Oral Tablet (Prinivil) Take 1 Tablet by mouth in the morning. 90 Tablet 3 10/16/2022 Active documented as of this encounter (statuses as of 10/20/2022) Active Problems Problem Noted Date Crohn's disease [...] as of this encounter (statuses as of 10/20/2022) Immunizations Name Administration Dates Next Due Pneumococcal [...] week pt states any time is fine [phone] * Telephone Encounter - YUDELKA Flores - 10/17/2022 4:03 PM EDT Colonoscopy Order placed during recent appointment with Charity Martin. No documentation regarding pt scheduling preferences. Please contact pt about scheduling preferences and then route to pool below for scheduling: [facility] SCHEDULING POOL/CLASS [[id number]] Thank you documented in this encounter Plan of Treatment Upcoming Encounters Date Type Specialty Care Team Description 12/15/2022 Cardiac Studies Cardiac Studies 01/22/2023 Office Visit Gastroenterology Chapo Urban MD [address] [place] [address] Health Maintenance Due Date Last Done Comments Hepatitis B (1 of 3 - 3-dose series) 1975 COVID-19 Vaccine (#1) 1973 DIABETES-EYE EXAM 06/20/1991 Cologuard 2018 Colonoscopy 2018 Colorectal Cancer Screening 2018 Fecal Occult Blood Test 2018 Sigmoidoscopy 2018 DIABETES-FOOT EXAM 12/29/2020 12/30/2019 Depression Screening, Annual for Pts 12 and Over 12/29/2020 12/30/2019 Influenza Vaccine (FLU shot) (#1) 2022 HbA1c 04/18/2023 10/16/2022, 05/21/2021 Albumin/Creatinine Ratio 10/17/2023 023, 05/21/2021 GFR 10/17/2023 10/16/2022, 05/21/2021 Lipid Panel 10/17/2027 10/16/2022, 05/21/2021 [...] filedocumented as of this encounter Care Teams Tongue And Groove Machine Feeder Relationship Specialty Start Date End Date Charity Martin MD [address] [place] [id number] PCP - General Internal Medicine 04/02/20 documented as of this encounter
--- OUTSIDE RECORDS SUMMARY | 2023-03-21 02:05 | External Medical Summary | Summary of Care ---
Author Name Unknown Organization [facility] Address [address] [place] [address] Phone [phone] Care Team Providers Care Farm Service Adviser Name Role Phone Charity Martin MD Primary Care Provider [phone] Reason for Visit * Reason Comments Outpatient Testing Encounter Details Date Type Department Care Team Description 10/16/2022 Laboratory [address] [place] [address] [place] [id number] [facility] [address] [place] [address] Encounter for long-term (current) use of medications; Encounter for long-term (current) use of other medications; Generalized abdominal pain; Diarrhea, unspecified type; Type 2 diabetes mellitus with hyperglycemia, unspecified whether long-term insulin use (HCC); Screening for HIV without presence of risk factors; Encounter for HCV screening test for low risk patient; Crohn's disease without complication, unspecified gastrointestinal tract location (HCC) Allergies Active Allergy Reactions Severity Noted Date Comments Iodinated Contrast Media 12/30/2019 Metformin Wheezing 04/02/2020 documented as of this encounter (statuses as of 10/16/2022) Medications Medication Sig Dispensed Refills Start Date End Date Status ReliOn Pen [place] 32G X 4 MM USE 1 ONCE DAILY 0 12/24/2019 Active Aspirin 81 MG Oral Tablet Chewable Take 1 Tab by mouth daily. with food. 100 Tab 5 12/30/2019 Active Pen [place] 32G X 5 MMIndications:Type 2 diabetes mellitus [...] diabetes mellitus with hyperglycemia, unspecified whether terminal clerk insulin use ([facility]) Inject as directed when sugar goes low [...] hemoglobin A1c goal of less than 7.0% ([facility]),Type 2 diabetes mellitus with hyperglycemia, unspecified whether terminal clerk insulin use ([facility]) INJECT 1.5MG SUBCUTANEOUSLY ONCE A WEEK Strength: 1.5 MG/0.5ML 6 mL 0 07/25/2022 Active Toujeo SoloStar 300 UNIT/ML Subcutaneous Solution Pen-injectorIndica tions:Type 2 diabetes mellitus with hemoglobin A1c goal of less than 7.0% ([facility]) INJECT 100 UNITS SUBCUTANEOUSLY ONCE DAILY [...] on file documented as of this encounter Plan of Treatment Upcoming Encounters Date Type Specialty Care Team Description 12/15/2022 Cardiac Studies Cardiac Studies 01/22/2023 Office Visit Gastroenterology Chapo Urban MD [address] [place] [address] Pending Results Name Type Priority Associated Diagnoses Date /Time LIPID PANEL WITH DIRECT LDL IF TG IS HIGH Lab Routine Encounter for long-term (current) use of medications 10/16/2022 2:41 PM EDT HEMOGLOBIN A1C Lab Routine Encounter for long-term (current) use of medications 10/16/2022 2:41 PM EDT COMPREHENSIVE METABOLIC PANEL Lab Routine Encounter for long-term (current) use of medications 10/16/2022 2:41 PM EDT ALBUMIN / CREATININE RATIO, URINE Lab Routine Encounter for long-term (current) use of medications 10/16/2022 2:41 PM EDT MAGNESIUM Lab Routine Encounter for long-term (current) use of other medications 10/16/2022 2:41 PM EDT VITAMIN B12 Lab Routine Encounter for long-term (current) use of other medications 10/16/2022 2:41 PM EDT HIV ANTIGEN & ANTIBODY SCREEN W/ CONFIRMATION Lab Routine Screening for HIV without presence of risk factors 10/16/2022 2:41 PM EDT HEPATITIS C ANTIBODY SCREEN WITH PROGRESSION TO HEPATITIS C RNA QUANTITATIVE Lab Routine Encounter for HCV screening test for low risk patient 10/16/2022 2:41 PM EDT ERYTHROCYTE SEDIMENTATION RATE (ESR) Lab Routine Crohn's disease without complication, unspecified gastrointestinal tract location (HCC) 10/16/2022 2:41 PM EDT LIPASE Lab Routine Generalized abdominal pain 10/16/2022 2:41 PM EDT HEPATITIS C ANTIBODY Lab Routine Encounter for HCV screening test for low risk patient 10/16/2022 2:41 PM EDT HEPATITIS C RNA ADD ON Lab Routine Encounter for HCV screening test for low risk patient 10/16/2022 2:41 PM EDT Health Maintenance Due Date Last Done Comments [...] HbA1c 11/21/2021 05/21/2021 Albumin/Creatinine Ratio 05/21/2022 05/21/2021 GFR 05/21/2022 05/21/2021 Influenza Vaccine (FLU shot) (#1) 2022 Lipid Panel 05/21/2026 05/21/2021 DTaP,Tdap,and Td Vaccines [...] Not on filedocumented as of this encounter Procedures Procedure Name Priority Date/Time Associated Diagnosis Comments CBC Routine 10/16/2022 2:41 PM EDT Generalized abdominal pain Diarrhea, unspecified type documented in this encounter Results * CBC (10/16/2022 2:41 PM EDT) WBC 7.39 4.00 - 10.80 K/uL 10/16/2022 2:52 PM EDT [facility] 56 RBC 4.71 4.50 - 5.25 M/uL 10/16/2022 2:52 PM EDT [facility] 56 HGB 14.3 14.0 - 16.8 g/dL 10/16/2022 2:52 PM EDT [facility] 56 HCT 43.4 40.0 - 48.4 % 10/16/2022 2:52 PM EDT [facility] 56 MCV 92.1 82.0 - 99.5 fL 10/16/2022 2:52 PM EDT [facility] 56 MCH 30.4 27.0 - 34.0 pg 10/16/2022 2:52 PM EDT [facility] 56 MCHC 32.9 32.0 - 36.0 g/dL 10/16/2022 2:52 PM EDT [facility] 56 RDW 13.2 11.5 - 15.5 % 10/16/2022 2:52 PM EDT [facility] 56 PLT 225 140 - 400 K/uL 10/16/2022 2:52 PM EDT [facility] 56 MPV 8.4 6.6 - 11.1 fL 10/16/2022 2:52 PM EDT [facility] Blood Venous blood specimen / Unknown Venipuncture / Unknown 10/16/2022 2:41 PM EDT 10/16/2022 2:41 PM EDT Charity Martin MD LAB BLOOD ORDERABLES Performing Organization Address City/State/[facility] Co de Phone Number [facility] [address] [place] [address] documented in this encounter Visit Diagnoses Diagnosis Encounter for long-term (current) use of medications Encounter for long-term (current) use of other medications Encounter for long-term (current) use of other medications Generalized abdominal pain Abdominal pain, generalized Diarrhea, unspecified type Type 2 diabetes mellitus with hyperglycemia, unspecified whether long-term insulin use (HCC) Screening for HIV without presence of risk factors Special screening examination for other specified viral diseases Encounter for HCV screening test for low risk patient Crohn's disease without complication, unspecified gastrointestinal tract location (HCC) documented in this encounter Care Teams Farm Service Adviser Relationship Specialty Start Date End Date [facility]ity Martin MD [address] [facility] [address] PCP - General Internal Medicine 04/02/20 documented as of this encounter
--- OUTSIDE RECORDS SUMMARY | 2023-03-21 02:05 | External Medical Summary | Summary of Care ---
Author Name Unknown Organization [facility] Address [address] [place] [address] Phone [phone] Care Team Providers Care Manager Document Name Role Phone Charity Martin MD Primary Care Provider [phone] Reason for Visit * Reason Comments Outpatient Testing Encounter Details Date Type Department Care Team Description 10/29/2022 Laboratory [address] [place] [address] [place] [id number] [place] [address]en[address] [place] [address] Type 2 diabetes mellitus with hemoglobin A1c goal of less than 7.0% ([facility]); Hypoglycemia; Nausea and vomiting, unspecified vomiting type; Uncontrolled type 2 diabetes mellitus with hyperglycemia ([facility]) Allergies Active Allergy Reactions Severity Noted Date Comments Iodinated Contrast Media 12/30/2019 Metformin Wheezing 04/02/2020 documented as of this encounter (statuses as of 10/29/2022) Medications Medication Sig Dispensed Refills Start Date End Date Status ReliOn Pen [place] 32G X 4 MM USE 1 ONCE DAILY 0 12/24/2019 Active Pen [place] 32G X 5 MMIndications:Type 2 diabetes mellitus with hemoglobin A1c goal of less than 7.0% ([facility]) Use as directed. 50 Each 1 04/02/2020 Active Glucagon Emergency 1 MG Injection KitIndications:Type 2 diabetes mellitus with hyperglycemia, unspecified whether halfway insulin use ([facility]) Inject as directed when sugar goes low [...] as of this encounter (statuses as of 10/29/2022) Active Problems Problem Noted Date Crohn's disease [...] as of this encounter (statuses as of 10/29/2022) Immunizations Name Administration Dates Next Due Pneumococcal [...] Visit Internal Medicine Charity Martin MD [address] [facility] [place] [address] 01/22/2023 Office Visit Gastroenterology Chapo Urban MD [address] [place] [address] Pending Results Name Type Priority Associated Diagnoses Date /Time BASIC METABOLIC PANEL Lab STAT Type 2 diabetes mellitus with hemoglobin A1c goal of less than 7.0% (HCC) Hypoglycemia Nausea and vomiting, unspecified vomiting type Uncontrolled type 2 diabetes mellitus with hyperglycemia (HCC) 10/29/2022 3:39 PM EDT Health Maintenance Due Date Last [...] Not on filedocumented as of this encounter Visit Diagnoses Diagnosis Type 2 diabetes mellitus with hemoglobin A1c goal of less than 7.0% (HCC) Hypoglycemia Hypoglycemia, unspecified Nausea and vomiting, unspecified vomiting type Uncontrolled type 2 diabetes mellitus with hyperglycemia (HCC) documented in this encounter Care Teams Manager Document Relationship Specialty Start Date End Date Charity Martin MD [address] [place] [id number] PCP - General Internal Medicine 04/02/20 documented as of this encounter
--- OUTSIDE RECORDS SUMMARY | 2023-03-21 02:05 | External Medical Summary | Summary of Care ---
Author Name Unknown Organization [facility] Address [address] [place] [address] Phone [phone] Care Team Providers Care Valuer Name Role Phone Charity Martin MD Primary Care Provider [phone] Reason for Visit * Reason Onset Date Comments Scheduling 10/17/2022 Colonoscopy Encounter Details Date Type Department Care Team Description 10/17/2022 Telephone General Internal Medicine [facility] [address] [place] [address] Charity Martin MD [address] [place] [facility] [place] [address] Scheduling (Colonoscopy ) Allergies Active Allergy Reactions Severity Noted Date Comments Iodinated Contrast Media 12/30/2019 Metformin Wheezing 04/02/2020 documented as of this encounter (statuses as of 10/30/2022) Medications Medication Sig Dispensed Refills Start Date End Date Status ReliOn Pen [place] 32G X 4 MM USE 1 ONCE DAILY 0 0 Active Pen [place] 32G X 5 MMIndications:Ty pe 2 diabetes mellitus with hemoglobin A1c goal of less than 7.0% ([facility]) Use as directed. 50 Each 1 1 Active Glucagon Emergency 1 MG Injection KitIndications:T ype 2 diabetes mellitus with hyperglycemia, unspecified whether intermodal customer service insulin use (HCC) Inject as directed when [...] hemoglobin A1c goal of less than 7.0% ([facility]),Type 2 diabetes mellitus with hyperglycemia, unspecified whether intermodal customer service insulin use (HCC) INJECT 1.5MG SUBCUTANEOUSLY ONCE A WEEK Strength: 1.5 MG/0.5ML 6 mL 0 3 023 Discontinued(Me dication/Dose Changed) Toujeo SoloStar 300 UNIT/ML Subcutaneous Solution Pen-injectorIndi cations:Type 2 diabetes mellitus with hemoglobin A1c goal of less than 7.0% ([facility]) INJECT 100 UNITS SUBCUTANEOUSLY ONCE DAILY 12 mL 0 3 023 Discontinued(Re fill) Omeprazole Magnesium 20 MG Oral Tablet Delayed Release (PriLOSEC OTC) Take 1 Tablet by mouth in the morning. 90 Tablet 3 3 023 Discontinued documented as of this encounter (statuses as of 10/30/2022) Active Problems Problem Noted Date Crohn's disease [...] as of this encounter (statuses as of 10/30/2022) Immunizations Name Administration Dates Next Due Pneumococcal [...] week pt states any time is fine [phone] * Telephone Encounter - YUDELKA Flores - 10/17/2022 4:03 PM EDT Colonoscopy Order placed during recent appointment with Charity Martin. No documentation regarding pt scheduling preferences. Please contact pt about scheduling preferences and then route to pool below for scheduling: KERWIN BELTRÁN [facility] SCHEDULING POOL/CLASS [[id number]] Thank you documented in this encounter Plan of Treatment Upcoming Encounters Date Type Specialty Care Team Description 12/15/2022 Cardiac Studies Cardiac Studies 01/16/2023 Office Visit Internal Medicine Charity Martin MD [address] [facility] [place] [address] 01/22/2023 Office Visit Gastroenterology Chapo Urban MD [address] [place] [address] Health Maintenance Due Date Last Done Comments [...] filedocumented as of this encounter Care Teams Valuer Relationship Specialty Start Date End Date Charity Martin MD [address] [place] [address], [place] [address] PCP - General Internal Medicine 04/02/20 documented as of this encounter
--- OUTSIDE RECORDS SUMMARY | 2023-03-21 02:05 | External Medical Summary ---
Author Name Unknown Address Unknown Organization [id number]:[facility] [place] [address] [facility] [address] Laboratory Report Ordering Provider Test Date Status TREE PETTY 10/16/2022 14:41:49 Final Observation Date Value Abnormality Reference (Units ) Status HbA1C 10/16/2022 14:41:49 11.1 Above high normal 4. 0-5.6 (%) Final The use of HbA1c to monitor glycemic status is based on normal hemoglobin and HbA composition. This test should not be used in patients with abnormal hemoglobin that affects the half life of the red blood cell or the in vivo glycation rates. Glucose, estimated average 10/16/2022 14:41:49 272 Above high normal <126 (mg/dL) Anurag rivers Performing Location [facility] [address] [facility] [address]
--- OUTSIDE RECORDS SUMMARY | 2023-03-21 02:05 | External Medical Summary ---
Author Name Unknown Address Unknown Organization [id number]:[facility] [place] [address] Laboratory Report Ordering Provider Test Date Status CIPRIANO BRENNAN 10/29/2022 15:39:09 Final Observation Date Value Abnormality Reference (Units ) Status BUN 10/29/2022 15:39:09 15 6-20 (mg/dL) Final Creatinine 10/29/2022 15:39:09 1.0 0.6-1.2 (mg/dL) Final Glomerular filtration rate/1.73 sq M.predicted [Volume Rate/Area] in Serum, Plasma or Blood by Creatinine-based formula (CKD-EPI) 10/29/2022 15:39:09 89 >=60 (mL/min) Final eGFR is calculated based on the CKD-EPI 2020 equation SODIUM 10/29/2022 15:39:09 140 135-146 (m mol/L) Final Potassium 10/29/2022 15:39:09 3.6 3.5-5.1 (m mol/L) Final Cl 10/29/2022 15:39:09 102 98-107 (mm ol/L) Final CO2 10/29/2022 15:39:09 24 22-32 (mmo l/L) Final Anion gap 10/29/2022 15:39:09 14 7-15 (mmol /L) Final Glucose 10/29/2022 15:39:09 152 Above high normal 70 -120 (mg/dL) Final Calcium 10/29/2022 15:39:09 9.2 8.4-10.2 ( mg/dL) Final Performing Location [facility] [place] [address]
--- OUTSIDE RECORDS SUMMARY | 2023-03-21 02:05 | External Medical Summary | Summary of Care ---
Author Name Unknown Organization [facility] Address [address] [place] [address] Phone [phone] Care Team Providers Care Criminal Justice Program Director Name Role Phone Charity Martin MD Primary Care Provider [phone] Reason for Visit * Reason Onset Date Comments Scheduling 10/17/2022 Colonoscopy Encounter Details Date Type Department Care Team Description 10/17/2022 Telephone General Internal Medicine [facility] [address] [place] [address] Charity Martin MD [address] [place] [address] Scheduling (Colonoscopy ) Allergies Active Allergy Reactions Severity Noted Date Comments Iodinated Contrast Media 12/30/2019 Metformin Wheezing 04/02/2020 documented as of this encounter (statuses as of 10/27/2022) Medications Medication Sig Dispensed Refills Start Date End Date Status ReliOn Pen [place] 32G X 4 MM USE 1 ONCE DAILY 0 12/24/2019 Active Aspirin 81 MG Oral Tablet Chewable Take 1 Tab by mouth daily. with food. 100 Tab 5 12/30/2019 Active Pen [place] 32G X 5 MMIndications:Type 2 diabetes mellitus with hemoglobin A1c goal of less than 7.0% ([facility]) Use as directed. 50 Each 1 04/02/2020 Active Additional Information Patient not taking.Reported on 10/16/2022 Magnesium Oxide 400 (241.3 Mg) MG Oral Tablet Take by mouth 400 mg in the morning AND 400 mg before bedtime. 0 05/08/2021 Active Glucagon Emergency 1 MG Injection KitIndications:Typ e 2 diabetes mellitus with hyperglycemia, unspecified whether alf insulin use (HCC) Inject as directed when [...] hemoglobin A1c goal of less than 7.0% (HCC),Type 2 diabetes mellitus with hyperglycemia, unspecified whether long term care social worker insulin use (HCC) INJECT 1.5MG SUBCUTANEOUSLY ONCE A WEEK Strength: 1.5 MG/0.5ML 6 mL 0 07/25/2022 Active Toujeo SoloStar 300 UNIT/ML Subcutaneous Solution Pen-injectorIndica tions:Type 2 diabetes mellitus with hemoglobin A1c goal of less than 7.0% ([facility]) INJECT 100 UNITS SUBCUTANEOUSLY ONCE DAILY 12 mL 0 10/06/2022 Active Omeprazole Magnesium 20 MG Oral Tablet Delayed Release (PriLOSEC OTC) Take 1 Tablet by mouth in the morning. 90 Tablet 3 10/16/2022 Active Lisinopril 2.5 MG Oral Tablet (Prinivil) Take 1 Tablet by mouth in the morning. 90 Tablet 3 10/16/2022 Active documented as of this encounter (statuses as of 10/27/2022) Active Problems Problem Noted Date Crohn's disease [...] as of this encounter (statuses as of 10/27/2022) Immunizations Name Administration Dates Next Due Pneumococcal [...] week pt states any time is fine [phone] * Telephone Encounter - YUDELKA Flores - 10/17/2022 4:03 PM EDT Colonoscopy Order placed during recent appointment with Charity Martin. No documentation regarding pt scheduling preferences. Please contact pt about scheduling preferences and then route to pool below for scheduling: KERWIN AMAYA SCHEDULING POOL/CLASS [[id number]] Thank you documented in this encounter Plan of Treatment Upcoming Encounters Date Type Specialty Care Team Description 12/15/2022 Cardiac Studies Cardiac Studies 01/22/2023 Office Visit Gastroenterology Chapo Urban MD [address] [place] [address] Health Maintenance Due Date Last Done Comments [...] filedocumented as of this encounter Care Teams Criminal Justice Program Director Relationship Specialty Start Date End Date Charity Martin MD [address] [place] [address], [place] [address] PCP - General Internal Medicine 04/02/20 documented as of this encounter
--- OUTSIDE RECORDS SUMMARY | 2023-03-21 02:05 | External Medical Summary ---
Author Name Unknown Address Unknown Organization [id number] [address] [place] [address] Laboratory Report Ordering Provider Test Date Status TREE PETTY 10/16/2022 14:41:49 Final Observation Date Value Abnormality Reference (Units ) Status LDL, (direct) 10/16/2022 14:41:49 90 <=129 (mg/dL) Final LDL Cholesterol Reference Ra nges (mg/dL):
<70 Target level for high risk ASCVD patient
<100 Optimal for general population
100-129 Near optimal for general population
130-159 Borderline high
160-189 High
>=190 Very high Performing Location [facility] - [address] [place] [address]
--- OUTSIDE RECORDS SUMMARY | 2023-03-21 02:05 | External Medical Summary | Summary of Care ---
Author Name Unknown Organization [facility] Address [address] [place] [address] Phone [phone] Care Team Providers Care Human Resource Advisor Name Role Phone Charity Martin MD Primary Care Provider [phone] Reason for Visit * Reason Onset Date Comments Test Results 10/17/2022 Encounter Details Date Type Department Care Team Description 10/17/2022 Telephone General Internal Medicine [facility] [address] [place] [address] Charity Martin MD [address] [facility] [place] [address] Test Results Allergies Active Allergy Reactions Severity Noted Date Comments Iodinated Contrast Media 12/30/2019 Metformin Wheezing 04/02/2020 documented as of this encounter (statuses as of 11/05/2022) Medications Medication Sig Dispensed Refills Start Date End Date Status ReliOn Pen [place] 32G X 4 MM USE 1 ONCE DAILY 0 0 Active Pen [place] 32G X 5 MMIndications:Ty pe 2 diabetes mellitus with hemoglobin A1c goal of less than 7.0% ([facility]) Use as directed. 50 Each 1 1 Active Glucagon Emergency 1 MG Injection KitIndications:T ype 2 diabetes mellitus with hyperglycemia, unspecified whether [facility] insulin use (HCC) Inject as directed when [...] 2 diabetes mellitus with hyperglycemia, unspecified whether termite control representative insulin use (HCC) INJECT 1.5MG SUBCUTANEOUSLY ONCE [...] as of this encounter (statuses as of 11/05/2022) Active Problems Problem Noted Date Crohn's disease [...] as of this encounter (statuses as of 11/05/2022) Immunizations Name Administration Dates Next Due Pneumococcal [...] encounter Miscellaneous Notes * Telephone Encounter - Micheline Leong CMA [...] Internal Medicine Charity Martin MD [address] [facility] [address] [place] [address] 01/22/2023 Office Visit Gastroenterology Chapo Urban MD [address] [place] [address] Health Maintenance Due Date Last Done Comments [...] filedocumented as of this encounter Care Teams Human Resource Advisor Relationship Specialty Start Date End Date Charity Martin MD [address] [place] [address] PCP - General Internal Medicine 04/02/20 documented as of this encounter
--- OUTSIDE RECORDS SUMMARY | 2023-03-21 02:05 | External Medical Summary | Summary of Care ---
Author Name Unknown Organization [facility] Address [address] [place] [address] Phone [phone] Care Team Providers Care Senior Mobile Solutions Architect Name Role Phone Charity Martin MD Primary Care Provider [phone] Reason for Visit * Reason Onset Date Comments Scheduling 10/17/2022 Colonoscopy Encounter Details Date Type Department Care Team Description 10/17/2022 Telephone General Internal Medicine [facility] [address] [place] [address] Charity Martin MD [address] [place] [address] Scheduling (Colonoscopy ) Allergies Active Allergy Reactions Severity Noted Date Comments Iodinated Contrast Media 12/30/2019 Metformin Wheezing 04/02/2020 documented as of this encounter (statuses as of 10/20/2022) Medications Medication Sig Dispensed Refills Start Date End Date Status ReliOn Pen [place] 32G X 4 MM USE 1 ONCE DAILY 0 12/24/2019 Active Aspirin 81 MG Oral Tablet Chewable Take 1 Tab by mouth daily. with food. 100 Tab 5 12/30/2019 Active Pen [place] 32G X 5 MMIndications:Type 2 diabetes mellitus with hemoglobin A1c goal of less than 7.0% ([facility]) Use as directed. 50 Each 1 04/02/2020 Active Additional Information Patient not taking.Reported on 10/16/2022 Magnesium Oxide 400 (241.3 Mg) MG Oral Tablet Take by mouth 400 mg in the morning AND 400 mg before bedtime. 0 05/08/2021 Active Glucagon Emergency 1 MG Injection KitIndications:Typ e 2 diabetes mellitus with hyperglycemia, unspecified whether penitentiary insulin use (HCC) Inject as directed when [...] A1c goal of less than 7.0% ([facility]),Type 2 diabetes mellitus with hyperglycemia, unspecified whether penitentiary insulin use (HCC) INJECT 1.5MG SUBCUTANEOUSLY ONCE A WEEK Strength: 1.5 MG/0.5ML 6 mL 0 07/25/2022 Active Toujeo SoloStar 300 UNIT/ML Subcutaneous Solution Pen-injectorIndica tions:Type 2 diabetes mellitus with hemoglobin A1c goal of less than 7.0% ([facility]) INJECT 100 UNITS SUBCUTANEOUSLY ONCE [...] Miscellaneous Notes * Telephone Encounter - YUDELKA Barakat - 10/20/2022 9:56 AM EDT Pt calling back stating this week coming he only has Thursday and Thursday off and he will not know his schedule for the following week until he goes in that week pt states any time is fine [phone] * Telephone Encounter - YUDELKA Flores - 10/17/2022 4:03 PM EDT Colonoscopy Order placed during recent appointment with Charity Martin. No documentation regarding pt scheduling preferences. Please contact pt about scheduling preferences and then route to pool below for scheduling: KERWIN AMAYA SCHEDULING POOL/CLASS [[id number]] Thank you documented in this encounter Plan of Treatment Upcoming Encounters Date Type Specialty Care Team Description 12/15/2022 Cardiac Studies Cardiac Studies 01/22/2023 Office Visit Gastroenterology Chapo Urban MD [address] [place] [address] Health Maintenance Due Date Last Done Comments [...] filedocumented as of this encounter Care Teams Senior Mobile Solutions Architect Relationship Specialty Start Date End Date Charity Martin MD [address] [facility] [place] [address] PCP - General Internal Medicine 04/02/20 documented as of this encounter
--- OUTSIDE RECORDS SUMMARY | 2023-03-21 02:05 | External Medical Summary ---
Author Name Unknown Address Unknown Organization [facility] [place] [address] Laboratory Report Ordering Provider Test Date Status ABEL VACA 10/16/2022 14:41:49 Final Observation Date Value Abnormality Reference (Units ) Status Magnesium 10/16/2022 14:41:49 1.9 1.5-2.6 (m g/dL) Final Performing Location [facility] [place] [address]
--- OUTSIDE RECORDS SUMMARY | 2023-03-21 02:05 | External Medical Summary | Summary of Care ---
Author Name Unknown Organization [facility] Address [address] [place] [address] Phone [phone] Care Team Providers Care Spinning Machine Tender Name Role Phone Charity Martin MD Primary Care Provider [phone] Reason for Visit * Reason Onset Date Comments Scheduling 10/17/2022 Colonoscopy Encounter Details Date Type Department Care Team Description 10/17/2022 Telephone General Internal Medicine [facility] [address] [place] [address] Charity Martin MD [address] [place] [facility] [place] [address] Scheduling (Colonoscopy ) Allergies Active Allergy Reactions Severity Noted Date Comments Iodinated Contrast Media 12/30/2019 Metformin Wheezing 04/02/2020 documented as of this encounter (statuses as of 10/17/2022) Medications Medication Sig Dispensed Refills Start Date End Date Status ReliOn Pen [place] 32G X 4 MM USE 1 ONCE DAILY 0 12/24/2019 Active Aspirin 81 MG Oral Tablet Chewable Take 1 Tab by mouth daily. with food. 100 Tab 5 12/30/2019 Active Pen [place] 32G X 5 MMIndications:Type 2 diabetes mellitus with hemoglobin A1c goal of less than 7.0% ([facility]) Use as directed. 50 Each 1 04/02/2020 [...] hemoglobin A1c goal of less than 7.0% ([facility]),Type 2 diabetes mellitus with hyperglycemia, unspecified whether alf insulin use (HCC) INJECT 1.5MG SUBCUTANEOUSLY ONCE A WEEK Strength: 1.5 MG/0.5ML 6 mL 0 07/25/2022 Active Toujeo SoloStar 300 UNIT/ML Subcutaneous Solution Pen-injectorIndica tions:Type 2 diabetes mellitus with hemoglobin A1c goal of less than 7.0% ([facility]) INJECT 100 UNITS SUBCUTANEOUSLY ONCE DAILY 12 mL 0 10/06/2022 Active Omeprazole Magnesium 20 MG Oral Tablet Delayed Release (PriLOSEC OTC) Take 1 Tablet by mouth in the morning. 90 Tablet 3 10/16/2022 Active Lisinopril 2.5 MG Oral Tablet (Prinivil) Take 1 Tablet by mouth in the morning. 90 Tablet 3 10/16/2022 Active documented as of this encounter (statuses as of 10/17/2022) Active Problems Problem Noted Date Crohn's disease [...] as of this encounter (statuses as of 10/17/2022) Immunizations Name Administration Dates Next Due Pneumococcal [...] route to pool below for scheduling: [facility] SCHEDULING POOL/CLASS [[id number]] Thank you documented in this encounter Plan of Treatment Upcoming Encounters Date Type Specialty Care Team Description 12/15/2022 Cardiac Studies Cardiac Studies 01/22/2023 Office Visit Gastroenterology Chapo Urban MD [address] [place] [address] Health Maintenance Due Date Last Done Comments [...] (2 - Td or Tdap) 04/02/2030 04/02/2020 HIV Screening Completed 10/16/2022 Hepatitis C Screening Completed 10/16/2022 , 10/16/2022, [...] filedocumented as of this encounter Care Teams Spinning Machine Tender Relationship Specialty Start Date End Date Charity Martin MD [address] [place] [address] PCP - General Internal Medicine 04/02/20 documented as of this encounter
--- OUTSIDE RECORDS SUMMARY | 2023-03-21 02:05 | External Medical Summary | Summary of Care ---
Author Name Unknown Organization [facility] Address [address] [place] [address] Phone [phone] Care Team Providers Care Duty Manager Name Role Phone Charity Martin MD Primary Care Provider [phone] Reason for Referral * Precert (Within 24 hrs (call dept; emergent)) - Pending Review Specialty Diagnoses / Procedures Referred By Contac t Referred To Contact Radiology Diagnoses Crohn's disease without complication, unspecified gastrointestinal tract location (HCC) Diarrhea, unspecified type Abdominal pain, generalized Procedures CT ABD/PELVIS WO IV/ORAL CONTRAST Charity Martin MD [address] [facility] [place] [address] Referral ID Status Reason Start Date Expiration Date Visits Requested Visits Authorized [id number] Pending Review Precert 10/17/2022 01/15/2023 999 999 * Precert (Within 10 days (routine)) - Pending Review Specialty Diagnoses / Procedures Referred By Contac t Referred To Contact Cardiac Studies Diagnoses Generalized edema ROJAS (dyspnea on exertion) Procedures ECHO, COMPLETE (2D), TRANS-THORACIC Charity Martin MD [address] [place] [address] Referral ID Status Reason Start Date Expiration Date Visits Requested Visits Authorized [id number] Pending Review Precert 10/16/2022 999 999 * Evaluate & Treat - Unlimited Visits (Within 30 days (routine)) - Pending Review Specialty Diagnoses / Procedures Referred By Contac t Referred To Contact Gastroenterology Diagnoses Crohn's disease without complication, unspecified gastrointestinal tract location (HCC) Charity Martin MD [address] [facility] [place] [address] Referral ID Status Reason Start Date Expiration Date Visits Requested Visits Authorized [id number] Pending Review Specialty Services Required 10/16/2022 999 999 Question Answer Referral Priority Within 30 days (routine) For what condition is the patient being referred? All Gastro Conditions Comments CD - uncontrolled not on meds due to finances * Evaluate & Treat - Unlimited Visits (Within 10 days (routine)) - Pending Review Specialty Diagnoses / Procedures Referred By Unruly mg Referred To Contact Gastroenterology Diagnoses Special screening for malignant neoplasms, colon Charity Martin MD [address] [facility] [place] [address] Referral ID Status Reason Start Date Expiration Date Visits Requested Visits Authorized [id number] Pending Review Ancillary Services Required 10/16/2022 999 999 Question Answer Referral Priority Within 10 days (routine) Comments ALERT: Do not order for pediatric patients (18 years or younger). Cancel off screen and order PEDS GASTROENTEROLOGY CONSULT (Type: 1 visit only-Evaluate and Treat) The following Pt. Instructions are available: - Gastro Colonoscopy Prep Instructions [29415] - Gastro Colonoscopy Prep Instructions (Egyptian Version) [[id number]] Go to the Pt. Instructions section within the Visit Navigator to access. Colonoscopy ASGE Guidelines: Average risk screening (begin at age 50, 10 year intervals) ADDITIONAL INFORMATION 1. Is the patient on Coumadin? No 2. Is the patient on Pradaxa? No Reason for Visit * Reason Comments Follow Up Encounter Details Date Type Department Care Team Description 10/16/2022 Office Visit General Internal Medicine [facility] [place] [address] [place] [address] Charity Martin MD [address] [facility] [place] [place] [address] Type 2 diabetes mellitus with hemoglobin A1c goal of less than 7.0% ([facility])*; Type 2 diabetes mellitus with hyperglycemia, unspecified whether usp insulin use ([facility]); Crohn's disease without complication, unspecified gastrointestinal tract location ([facility]); BMI 40.0-44.9, adult ([facility]); Essential hypertension with goal blood pressure less than 140/90; Morbid obesity due to excess calories ([facility]); Right leg swelling; Generalized abdominal pain; Screening for HIV without presence of risk factors; Special screening for malignant neoplasms, colon; Encounter for HCV screening test for low risk patient; Diarrhea, unspecified type; Generalized edema; ROJAS (dyspnea on exertion); Need for prophylactic vaccination against Streptococcus pneumoniae (pneumococcus); Abdominal pain, generalized Allergies Active Allergy Reactions Severity Noted Date Comments Iodinated Contrast Media 12/30/2019 Metformin Wheezing 04/02/2020 documented as of this encounter (statuses as of 10/27/2022) Medications Medication Sig Dispensed Refills Start Date End Date Status ReliOn Pen [place] 32G X 4 MM USE 1 ONCE DAILY 0 12/24/2019 Active Aspirin 81 MG Oral Tablet Chewable Take 1 Tab by mouth daily. with food. 100 Tab 5 12/30/2019 Active Pen [place] 32G X 5 MMIndications:Typ e 2 diabetes mellitus with hemoglobin A1c goal of less than 7.0% ([facility]) Use as directed. 50 Each 1 04/02/2020 Active Additional Information Patient not taking.Reported on 10/16/2022 Magnesium Oxide 400 (241.3 Mg) MG Oral Tablet Take by mouth 400 mg in the morning AND 400 mg before bedtime. 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 ([facility]) Inject as directed when sugar goes low [...] 10/16/2022 Trulicity 1.5 MG/0.5ML Subcutaneous Solution Pen-injector (Dulaglutide)Consuelo cations:Type 2 diabetes mellitus with hemoglobin A1c goal of less than 7.0% ([facility]),Type 2 diabetes mellitus with hyperglycemia, unspecified whether usp insulin use ([facility]) INJECT 1.5MG SUBCUTANEOUSLY ONCE A WEEK Strength: 1.5 MG/0.5ML 6 mL 0 07/25/2022 Active Toujeo SoloStar 300 UNIT/ML Subcutaneous Solution Pen-injectorIndic ations:Type 2 diabetes mellitus with hemoglobin A1c goal of less than 7.0% ([facility]) INJECT 100 UNITS SUBCUTANEOUSLY ONCE DAILY 12 mL 0 10/06/2022 Active Omeprazole Magnesium 20 MG Oral Tablet Delayed Release (PriLOSEC OTC) Take 1 Tablet by mouth in the morning. 90 Tablet 3 10/16/2022 Active Lisinopril 2.5 MG Oral Tablet (Prinivil) Take 1 Tablet by mouth in the morning. 90 Tablet 3 10/16/2022 Active Omeprazole Magnesium 20 MG Oral Tablet Delayed Release (PriLOSEC OTC) 20 mg. 0 12/15/2019 3 Discontinu ed(Refill) Lisinopril 2.5 MG Oral Tablet (Prinivil) Take by mouth 2.5 mg in the morning. 0 3 Discontinu ed(Refill) documented as of this encounter (statuses as [...] Sign Reading Time Taken Comments Blood Pressure 120/76 10/16/2022 1:45 PM EDT Pulse 60 10/16/2022 1:45 PM EDT Temperature 36.1 C (97 F) 10/16/2022 1:45 PM EDT Respiratory Rate 16 10/16/2022 1:45 PM EDT Oxygen Saturation 97% 10/16/2022 1:45 PM EDT Inhaled Oxygen Concentration - - Weight 135.5 kg (298 lb 11.2 oz) 10/16/2022 1:45 PM EDT Height 182.9 cm (6') 10/16/2022 1:45 PM EDT Body Mass Index 40.51 10/16/2022 1:45 PM EDT documented in this encounter Progress Notes * Igor Sam LPN - 10/16/2022 2:12 PM EDT Pre-Administration Time Out Procedure Performed: Yes Patient Identified (Ask Name/Date of ): Yes Does the patient have a fever greater than 101 degrees today? No Patient allergic to latex? No Has the patient ever fainted after receiving an injection? No VFC Stock: No Immunization(s) verified: Yes, Immunization Name: Prevnar and Prevnar 20 (PCV20), VIS Sheet(s) given: Yes Verified Side and Site: Yes Verified Shot(s) with Parent(s)/Patient: Yes * Charity Martin MD - 10/16/2022 1:51 PM EDT Images from the original note were not included. History of Present Illness Alexis Murry is a 47 year old male that presents for Follow Up 45 year oldYOmale with PMH significant for recently diagnosed DM type 2 , remote tobacco abuse, GERD presents here for recheck. Acute concern :- -He said that he has been having stomach issues but he has crohn's and colitis and he said that is what is causing it. Loose stool with mucus and occ blood but not that often . BM 4-5 times and oftenloose Interimmedical history : hasn't been to follow up much . Was out of insulin and went ot ERR with very high BP , weakness and found to have DKA with sugar of 600s Watching diet and exercise : trying some with diet now Routine labs : due Routine HM : agreeable to catch u p some Chronic medical problem: reviewed and stable Physical Exam Vitals: 10/16/22 1345 Temp: 36.1 C (97 F) Pulse: 60 Resp: 16 SpO2: 97% BP: 120/76 BMI: 40.5 Physical Exam Vitals and nursing note reviewed. Constitutional: General: He is not in acute distress. Appearance: He is normal weight. HENT: Head: Normocephalic. Cardiovascular: Rate and Rhythm: Normal rate and regular rhythm. Pulmonary: Effort: Pulmonary effort is normal. No respiratory distress. Breath sounds: No wheezing. Abdominal: General: Bowel sounds are normal. There is no distension. Palpations: Abdomen is soft. There is no mass. Musculoskeletal: General: No swelling, tenderness or signs of injury. Cervical back: Neck supple. No rigidity. Skin: General: Skin is warm. Findings: No erythema, lesion or rash. Neurological: General: No focal deficit present. Mental Status: He is alert. Motor: No weakness. Psychiatric: Mood and Affect: Mood normal. I have reviewed the following results: Assessment and Plan Type 2 diabetes mellitus with hemoglobin A1c goal of less than 7.0% (HCC) See below Type 2 diabetes mellitus with hyperglycemia, unspecified whether usp insulin use (HCC) Stable Continue current treatment as directed - HEMOGLOBIN A1C; Future - ALBUMIN / CREATININE RATIO, URINE; Future Crohn's disease without complication, unspecified gastrointestinal tract location (HCC) Discussed importance of geeing GI on regular basis - GASTROENTEROLOGY REFERRAL OP - ERYTHROCYTE SEDIMENTATION RATE (ESR); Future - CT ABD/PELVIS WO IV/ORAL CONTRAST; Future BMI 40.0-44.9, adult (HCC) Essential hypertension with goal blood pressure less than 140/90 Morbid obesity due to excess calories (HCC) Right leg swelling Generalized abdominal pain - COMPREHENSIVE METABOLIC PANEL; Future - CBC; Future - LIPASE; Future Screening for HIV without presence of risk factors - HIV ANTIGEN & ANTIBODY SCREEN W/ CONFIRMATION; Future Special screening for malignant neoplasms, colon - COLONOSCOPY, GI REFERRAL OP Encounter for HCV screening test for low risk patient - HEPATITIS C ANTIBODY SCREEN WITH PROGRESSION TO HEPATITIS C RNA QUANTITATIVE; Future Diarrhea, unspecified type - COMPREHENSIVE METABOLIC PANEL; Future - CBC; Future - GASTROINTESTINAL PATHOGEN PANEL, STOOL; Future - CLOSTRIDIUM DIFFICILE, PCR; Future - CT ABD/PELVIS WO IV/ORAL CONTRAST; Future Generalized edema - ECHO, COMPLETE (2D), TRANS-THORACIC; Future - XR CHEST 2 VIEWS ROJAS (dyspnea on exertion) - ECHO, COMPLETE (2D), TRANS-THORACIC; Future - XR CHEST 2 VIEWS Need for prophylactic vaccination against Streptococcus pneumoniae (pneumococcus) - PNEUMOCOCCAL VACC, PCV20, IM ([id number]) Abdominal pain, generalized - CT ABD/PELVIS WO IV/ORAL CONTRAST; Future Wrap-Up Time: I spent a total of 40-54 minutes (exact time 45 mins) on the date of service in preparation, delivery, and documentation of the care provided to Alexis Murry excluding any time spent in the performance of separately billed services. documented in this encounter Nursing Notes * Rosa Elena Reaves LPN - 10/16/2022 1:44 PM EDT Patient presents today for a follow up. He said that he has been having stomach issues but he has crohn's and colitis and he said that is what is causing it. documented in this encounter Plan of Treatment Upcoming Encounters Date Type Specialty Care Team Description 12/15/2022 Cardiac Studies Cardiac Studies 01/22/2023 Office Visit Gastroenterology Chapo Urban MD [address] [place] [address] Scheduled Orders Name Type Priority Associated Diagnoses Orde r Schedule GASTROINTESTINAL PATHOGEN PANEL, STOOL Lab Routine Diarrhea, unspecified type Expected: 10/16/2022 (Approximate), Expires: 10/16/2023 CLOSTRIDIUM DIFFICILE, PCR Lab Routine Diarrhea, unspecified type Expected: 10/16/2022 (Approximate), Expires: 10/16/2023 ECHO, COMPLETE (2D), TRANS-THORACIC Echocardiology Routine Generalized edema ROJAS (dyspnea on exertion) Expected: 10/16/2022, Expires: 11/16/2024 Scheduled Referrals Name Type Priority Associated Diagnoses Orde r Schedule COLONOSCOPY, GI REFERRAL OP Referral Within 10 days (routine) Special screening for malignant neoplasms, colon Ordered: 10/16/2022 GASTROENTEROLOGY REFERRAL OP Referral Within 30 days (routine) Crohn's disease without complication, unspecified gastrointestinal tract location (HCC) Ordered: 10/16/2022 Health Maintenance Due Date Last Done Comments [...] Procedure Name Priority Date/Time Associated Diagnosis Comments XR CHEST 2 VIEWS STAT 10/16/2022 2:37 PM EDT Generalized edema ROJAS (dyspnea on exertion) documented in this encounter Results * CT ABD/PELVIS WO IV/ORAL CONTRAST (10/17/2022 11:33 AM EDT) Anatomical Region Laterality Modality Body, Abdomen, Pelvis Computed T omography 10/17/2022 12:2 4 PM EDT Impressions 10/17/2022 12:21 PM EDT IMPRESSION Findings concerning for active inflammation of the distal ileum. No evidence of stricture or bowel obstruction. Narrative 10/17/2022 12:21 PM EDT EXAM EXAM: CT ABD/PELVIS WO IV/ORAL CONTRAST DATE and TIME: 10/17/2022 11:33 am HISTORY generalized abd pain and cramping , diarrhea . CD not on Rx TECHNIQUE Axial images of the abdomen and pelvis were obtained. Sagittal and coronal images were reconstructed from the axial data. Oral Contrast: Not administered. IV Contrast: Not administered. COMPARISON None FINDINGS Lower chest: Lung bases are unremarkable. Lines and devices: None. Liver: Hepatomegaly (24 cm) with hepatic steatosis. Gallbladder: Cholecystectomy. Bile ducts: Unremarkable. Pancreas: Unremarkable. Spleen: Unremarkable. Adrenals: Unremarkable. Kidneys/Ureters: Punctate nonobstructing left renal calculus. Left renal cyst. No hydronephrosis. Bladder: Unremarkable. Reproductive organs: Unremarkable. Peritoneum/Retroperitoneum: Unremarkable. Bowel: Long segment bowel wall thickening of the distal ileum, suggestive of ileitis. No upstream dilated loops of bowel to suggest underlying stricture. Lymph nodes: No lymphadenopathy. Vessels: Unremarkable. Abdominal Wall/Soft Tissues: Unremarkable. Bones: Degenerative osseous changes. Procedure Note Mike Aggarwal MD - 10/17/2022 EXAM EXAM: CT ABD/PELVIS WO IV/ORAL CONTRAST DATE and TIME: 10/17/2022 11:33 am HISTORY generalized abd pain and cramping , diarrhea . CD not on Rx TECHNIQUE Axial images of the abdomen and pelvis were obtained. Sagittal and coronalimages were reconstructed from the axial data. Oral Contrast: Not administered. IV Contrast: Not administered. COMPARISON None FINDINGS Lower chest: Lung bases are unremarkable. Lines and devices: None. Liver: Hepatomegaly (24 cm) with hepatic steatosis. Gallbladder: Cholecystectomy. Bile ducts: Unremarkable. Pancreas: Unremarkable. Spleen: Unremarkable. Adrenals: Unremarkable. Kidneys/Ureters: Punctate nonobstructing left renal calculus. Left renalcyst. No hydronephrosis. Bladder: Unremarkable. Reproductive organs: Unremarkable. Peritoneum/Retroperitoneum: Unremarkable. Bowel: Long segment bowel wall thickening of the distal ileum, suggestiveof ileitis. No upstream dilated loops of bowel to suggest underlyingstricture. Lymph nodes: No lymphadenopathy. Vessels: Unremarkable. Abdominal Wall/Soft Tissues: Unremarkable. Bones: Degenerative osseous changes. IMPRESSION IMPRESSION Findings concerning for active inflammation of the distal ileum. Noevidence of stricture or bowel obstruction. Charity Martin MD RAD CT * LIPASE (10/16/2022 2:41 PM EDT) Lipase 28 13 - 60 U/L 10/17/2022 12:52 AM EDT [facility] Blood Venous blood specimen / Unknown Venipuncture / Unknown 10/16/2022 2:41 PM EDT 10/16/2022 2:41 PM EDT Charity Martin MD LAB BLOOD ORDERABLES [facility] [address] [place] [address] * (ABNORMAL) ERYTHROCYTE SEDIMENTATION RATE (ESR) (10/16/2022 2:41 PM EDT) [facility] ESR 28(H) <15 mm/hour 10/16/2022 10:22 PM EDT [facility] Blood Venous blood specimen / Unknown Venipuncture / Unknown 10/16/2022 2:41 PM EDT 10/16/2022 2:41 PM EDT Charity Martin MD LAB BLOOD ORDERABLES Performing Organization Address City/[facility] Co de Phone Number [facility] [address] [place] [address] * HIV ANTIGEN & ANTIBODY SCREEN W/ CONFIRMATION (10/16/2022 2:41 PM EDT) [facility] HIV Antigen & Antibody Negative Negative 10/16/2022 10:34 PM EDT [facility] Comment:Negative HIV-1/2 ant igen and antibody screening tset results usually indicate the absence of HIV-1 and HIV-2 infection. However, such negative results do not rule-out acute HIV infection. If acute HIV-1 infection is highly suspected, it is recommended that a specimen be submitted for detection of HIV-1 RNA. Blood Venous blood specimen / Unknown Venipuncture / Unknown 10/16/2022 2:41 PM EDT 10/16/2022 2:41 PM EDT Charity Martin MD LAB BLOOD ORDERABLES Performing Organization Address City/[facility] Co de Phone Number LABORATORY [place] [address] [place] [address] * CBC (10/16/2022 2:41 PM EDT) [facility] WBC 7.39 4.00 - 10.80 K/uL 10/16/2022 2:52 PM EDT [facility] 56- RBC 4.71 4.50 - 5.25 M/uL 10/16/2022 2:52 PM EDT [facility] 56- HGB 14.3 14.0 - 16.8 g/dL 10/16/2022 2:52 PM EDT [place] [address] HCT 43.4 40.0 - 48.4 % 10/16/2022 2:52 PM EDT [place] [address] MCV 92.1 82.0 - 99.5 fL 10/16/2022 2:52 PM EDT [place] [address] MCH 30.4 27.0 - 34.0 pg 10/16/2022 2:52 PM EDT [place] [address] MCHC 32.9 32.0 - 36.0 g/dL 10/16/2022 2:52 PM EDT [place] [address] RDW 13.2 11.5 - 15.5 % 10/16/2022 2:52 PM EDT [address]T 225 140 - 400 K/uL 10/16/2022 2:52 PM EDT [place] [address] MPV 8.4 6.6 - 11.1 fL 10/16/2022 2:52 PM EDT [place] [address] Blood Venous blood specimen / Unknown Venipuncture / Unknown 10/16/2022 2:41 PM EDT 10/16/2022 2:41 PM EDT Charity Martin MD LAB BLOOD ORDERABLES [place] [address] [place] [address] * XR CHEST 2 VIEWS (10/16/2022 2:37 PM EDT) Anatomical Region Laterality Modality Chest Computed Radiogr aphy 10/16/2022 2:56 PM EDT Impressions 10/16/2022 2:53 PM EDT IMPRESSION 1. No active cardiopulmonary disease seen. Narrative 10/16/2022 2:53 PM EDT EXAM XR CHEST 2 VIEWS - 10/16/2022 2:37 pm HISTORY cough and ROJAS TECHNIQUE Frontal and lateral radiographs of the chest were obtained. COMPARISON None FINDINGS FOREIGN BODIES, SUPPORT TUBES, LINES, DEVICES: None. LUNGS, PLEURA: No consolidation. No pneumothorax or effusion. CARDIOVASCULAR, MEDIASTINUM: Normal cardiomediastinal silhouette. OTHER: None. Procedure Note Srini Blake MD - 10/16/2022 EXAM XR CHEST 2 VIEWS - 10/16/2022 2:37 pm HISTORY cough and ROJAS TECHNIQUE Frontal and lateral radiographs of the chest were obtained. COMPARISON None FINDINGS FOREIGN BODIES, SUPPORT TUBES, LINES, DEVICES: None. LUNGS, PLEURA: No consolidation. No pneumothorax or effusion. CARDIOVASCULAR, MEDIASTINUM: Normal cardiomediastinal silhouette. OTHER: None. IMPRESSION IMPRESSION 1. No active cardiopulmonary disease seen. 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) Crohn's disease without complication, unspecified gastrointestinal tract location (HCC) BMI 40.0-44.9, adult (HCC) Body Mass Index 40.0-44.9, adult Essential hypertension with goal blood pressure less than 140/90 Morbid obesity due to excess calories (HCC) Right leg swelling Generalized abdominal pain Abdominal pain, generalized Screening for HIV without presence of risk factors Special screening examination for other specified viral diseases Special screening for malignant neoplasms, colon Encounter for HCV screening test for low risk patient Diarrhea, unspecified type Generalized edema Edema ROJAS (dyspnea on exertion) Other dyspnea and respiratory abnormality Need for prophylactic vaccination against Streptococcus pneumoniae (pneumococcus) Need for prophylactic vaccination against streptococcus pneumoniae (pneumococcus) Abdominal pain, generalized Crohn's disease without complication, unspecified gastrointestinal tract location (HCC) Diarrhea, unspecified type Abdominal pain, generalized documented in this encounter Care Teams Duty Manager Relationship Specialty Start Date End Date Charity Martin MD [address] [place] [address], [place] [address] PCP - General Internal Medicine 04/02/20 documented as of this encounter
--- OUTSIDE RECORDS SUMMARY | 2023-03-21 02:06 | External Medical Summary ---
Author Name Unknown Address Unknown Organization [id number]:LABORATORY [facility] - [address] [facility] [address] [place] [address] Laboratory Report Ordering Provider Test Date Status TREE PETTY 10/16/2022 14:41:49 Final Observation Date Value Abnormality Reference (Units ) Status Triglyceride 10/16/2022 14:41:49 318 Above high normal <=174 (mg/dL) Final Triglyceride Reference Range s (mg/dL):
<150 Acceptable
150-174 Borderline high
175-499 High
>=500 Very high Cholesterol 10/16/2022 14:41:49 180 <200 (mg /dL) Final Total Cholesterol Reference Ranges (mg/dL):
<200 Desirable
200-239 Borderline high
>=240 High HDL 10/16/2022 14:41:49 42 >39 (mg/dL ) Final HDL Cholesterol Reference Ra nges (mg/dL):
>=60 High (Desirable)
<50 Low (Undesirable) For Females
<40 Low (Undesirable) For Males NON-HDL CHOLESTEROL 10/16/2022 14:41:49 138 <=159 (mg/dL) Final Non-HDL Cholesterol Referenc e Range (mg/dL):
<100 Target level for high risk ASCVD patient
<130 Optimal for general population
130-159 Near optimal for general population
160-189 Borderline High
190-219 High
>=220 Very High Performing Location LABORATORY [facility] - [address] [place] [id number]
--- OUTSIDE RECORDS SUMMARY | 2023-03-21 02:06 | External Medical Summary ---
Author Name Unknown Address Unknown Organization [id number]:[facility] [place] [address] [facility] [address] Laboratory Report Ordering Provider Test Date Status TREE PETTY 10/16/2022 14:41:49 Final Normal: <30 mg/g creatinine< br/>High: 30-300 mg/g creatinine
Very High: >300 mg/g creatinine
Nephrotic: >2200 mg/g creatinine Observation Date Value Abnormality Reference (Units ) Status Albumin, Urine 10/16/2022 14:41:49 4.25 (mg/dL) Final Creatinine, Urine 10/16/2022 14:41:49 187 (mg/dL) Final Albumin/Creatinine [Mass Ratio] in Urine 10/16/2022 14:41:49 23 <30 (mg/g Creat) Final Performing Location [facility] [address] [facility] [address]
--- OUTSIDE RECORDS SUMMARY | 2023-03-21 02:06 | External Medical Summary ---
Author Name Unknown Address Unknown Organization [id number][place] [place] [address] [place] [address] Laboratory Report Ordering Provider Test Date Status GABRIELLA ANDREW 10/16/2022 14:41:49 Final Observation Date Value Abnormality Reference (Units ) Status Lipase 10/16/2022 14:41:49 28 13-60 (U/L ) Final Performing Location [facility] [place] [address] [place] [address]
--- OUTSIDE RECORDS SUMMARY | 2023-03-21 02:06 | External Medical Summary ---
Author Name Unknown Address Unknown Organization [id number]:LABORATORY [facility] [place] - [address] [place] [address] Ave. [facility] [address] Laboratory Report Ordering Provider Test Date Status GABRIELLA ANDREW 10/16/2022 14:41:49 Final Observation Date Value Abnormality Reference (Units ) Status HIV 1+2 Ab+HIV1 p24 Ag [Presence] in Serum or Plasma by Immunoassay 10/16/2022 14:41:49 Negative Negative Final Negative HIV-1/2 antigen and antibody screening tset results usually indicate the absence of HIV-1 and HIV-2 infection. However, such negative results do not rule-out acute HIV infection. If acute HIV-1 infection is highly suspected, it is recommended that a specimen be submitted for detection of HIV-1 RNA. Performing Location LABORATORY [facility] [place] - [facility] [address] [facility] [address] [facility] [address]
--- OUTSIDE RECORDS SUMMARY | 2023-03-21 02:06 | External Medical Summary ---
Author Name Unknown Address Unknown Organization [id number]:LABORATORY [facility] [place] - [address] [facility] [address] Laboratory Report Ordering Provider Test Date Status GABRIELLA ANDREW 10/16/2022 14:41:49 Final Observation Date Value Abnormality Reference (Units ) Status Erythrocyte sedimentation rate by Photometric method 10/16/2022 14:41:49 28 Above high normal <15 (mm/hour) Final Performing Location LABORATORY [facility] [place] - [address] [facility] [address]
--- OUTSIDE RECORDS SUMMARY | 2023-03-21 02:06 | External Medical Summary ---
Author Name Unknown Address Unknown Organization [id number]:LABORATORY [facility] [place] - [address] [place] [address] Laboratory Report Ordering Provider Test Date Status ABEL VACA 10/16/2022 14:41:49 Final Observation Date Value Abnormality Reference (Units ) Status Vitamin B12 10/16/2022 14:41:49 898 014-3129 (pg/mL) Final Performing Location LABORATORY [facility] [place] - [address] [place] [address]
--- OUTSIDE RECORDS SUMMARY | 2023-03-21 02:06 | External Medical Summary ---
Author Name Unknown Address Unknown Organization K09:LABORATORY [place] [address] Laboratory Report Ordering Provider Test Date Status GABRIELLA ANDREW 10/16/2022 14:41:49 Final Observation Date Value Abnormality Reference (Units ) Status WBC, Total 10/16/2022 14:41:49 7.39 4.00-10.8 0 (K/uL) Final RBC 10/16/2022 14:41:49 4.71 4.50-5.25 (M/uL) Final Hemoglobin 10/16/2022 14:41:49 14.3 14.0-16.8 (g/dL) Final HCT 10/16/2022 14:41:49 43.4 40.0-48.4 (%) Final MCV 10/16/2022 14:41:49 92.1 82.0-99.5 (fL) Final MCH 10/16/2022 14:41:49 30.4 27.0-34.0 (pg) Final MCHC 10/16/2022 14:41:49 32.9 32.0-36.0 (g/dL) Final RDW 10/16/2022 14:41:49 13.2 11.5-15.5 (%) Final Platelets 10/16/2022 14:41:49 225 140-400 (K /uL) Final MPV 10/16/2022 14:41:49 8.4 6.6-11.1 ( fL) Final Performing Location LABORATORY [place] [address]
--- OUTSIDE RECORDS SUMMARY | 2023-03-21 02:06 | External Medical Summary | Summary of Care ---
Author Name Unknown Organization [facility] Address [address] [place] [address] Phone [phone] Care Team Providers Care Trimmer Operator Name Role Phone Lorrie Martin MD Primary Care Provider [phone] Reason for Visit * Reason Comments eRx-Medication Refill Encounter Details Date Type Department Care Team Description 10/03/2022 Refill General Internal Medicine [facility] [address] [place] [address] Lorrie Martin MD [address] [place] [address] Type 2 diabetes mellitus with hemoglobin A1c goal of less than 7.0% ([facility]) Allergies Active Allergy Reactions Severity Noted Date Comments Iodinated Contrast Media 12/30/2019 Metformin Wheezing 04/02/2020 documented as of this encounter (statuses as of 10/08/2022) Medications Medication Sig Dispensed Refills Start Date End Date Status ReliOn Pen [place] 32G X 4 MM USE 1 ONCE DAILY 0 0 Active Omeprazole Magnesium 20 MG Oral Tablet Delayed Release (PriLOSEC OTC) 20 mg. 0 0 Active Aspirin 81 MG Oral Tablet Chewable Take 1 Tab by mouth daily. with food. 100 Tab 5 0 Active Pen [place] 32G X 5 MMIndications:Typ e 2 diabetes mellitus with hemoglobin A1c goal of less than 7.0% (HCC) Use as directed. 50 Each 1 1 Active Additional Information Patient not taking.Reported on 05/08/2021 Magnesium Oxide 400 (241.3 Mg) MG Oral Tablet Take by mouth 400 mg in the morning AND 400 mg before bedtime. 0 2 Active Lisinopril 2.5 MG Oral Tablet (Prinivil) Take by mouth 2.5 mg in the morning. 0 Active Glucagon Emergency 1 MG Injection KitIndications:Ty pe 2 diabetes mellitus with hyperglycemia, unspecified whether prison insulin use (HCC) Inject as directed when sugar goes low 1 Kit 1 2 Active Insulin Pen Needle 30G X 8 MM (NovoFine Autocover Pen Needle) Use once daily 100 Each 3 2 Active BD Pen Needle Short U/F 31G X 8 MM (Insulin Pen Needle) Use once daily 100 Each 3 2 Active Trulicity 1.5 MG/0.5ML Subcutaneous Solution Pen-injector (Dulaglutide)Consuelo cations:Type 2 diabetes mellitus with hemoglobin A1c goal of less than 7.0% (HCC),Type 2 diabetes mellitus with hyperglycemia, unspecified whether prison insulin use (HCC) INJECT 1.5MG SUBCUTANEOUSLY ONCE A WEEK Strength: 1.5 MG/0.5ML 6 mL 0 3 Active Toujeo SoloStar 300 UNIT/ML Subcutaneous Solution Pen-injectorIndic ations:Type 2 diabetes mellitus with hemoglobin A1c goal of less than 7.0% (HCC) INJECT 100 UNITS SUBCUTANEOUSLY ONCE DAILY 12 mL 0 3 Active Toujeo SoloStar 300 UNIT/ML Subcutaneous Solution Pen-injectorIndic ations:Type 2 diabetes mellitus with hemoglobin A1c goal of less than 7.0% (HCC) INJECT 100 UNITS SUBCUTANEOUSLY ONCE DAILY 12 mL 1 3 10/07/19 23 Discontinued documented as of this encounter (statuses as of 10/08/2022) Active Problems Problem Noted Date Crohn's disease 05/21/2021 Overview: per pt BMI 40.0-44.9, adult 04/03/2020 Essential hypertension with goal blood p ressure less than 140/90 04/03/2020 Right leg swelling 04/03/2020 Type 2 diabetes mellitus with hemoglobin A1c goal of less than 7.0% 04/03/2020 Morbid obesity due to excess calories 01 / Type 2 diabetes mellitus with hyperglyce elena documented as of this encounter (statuses as of 10/08/2022) Immunizations Name Administration Dates Next Due Pneumococcal Polysaccharide PPV23 (Pneumovax) TDAP (age 8 [...] Miscellaneous Notes * Telephone Encounter - BIANKA Ramos - 10/08/2022 3:23 PM EDT Received message from [facility] regarding patient needing labs. Placed call to patient to advise. Left message on voicemail advising of required labs Thank you, Manjula Keen [employer] [place] [facility] 10/08/2022, 3:23 PM * Telephone Encounter - Sarah Leon [facility] - 10/06/2022 5:22 AM EDTSigned Prescriptions: Disp Refills Toujeo SoloStar 300 UNIT/ML Subcutaneous S*12 mL 0 Sig: INJECT 100 UNITS SUBCUTANEOUSLY ONCE DAILY Authorizing Provider: LORRIE MARTIN Ordering User: SARAH LEON * Telephone Encounter - Sarah Leon RPh - 10/06/2022 5:21 AM EDT 2nd attempt Provided 1 refill until appt. Per refill protocol patient should have routine on file within past year. Reviewed AMP report, Care Gaps/Health Maintenance, medications list, and for any routine labs typically ordered for this patient. Lab orders placed. Please contact patient to advise of labs ordered for blood draw AND URINE specimen (patient will have to be able to void to provide sample). Recommend patient to fast if able for labs. Patient may still have water and regular medications. Advise to obtain labs before requesting the next refill. Thank you, Sarah Leon, PharmD. Clinical Pharmacist [facility] ([facility]) (formerly Telepharmacy) 10/06/2022, 5:22 AM documented in this encounter Plan of Treatment Upcoming Encounters Date Type Specialty Care Team Description 10/16/2022 Office Visit Internal Medicine Lorrie Martin MD [address] [place] [address] Health Maintenance Due Date Last Done Comments Hepatitis B (1 of 3 - 3-dose series) 1973 COVID-19 Vaccine (#1) 1973 HIV Screening 1988 DIABETES-EYE EXAM 06/20/1991 Hepatitis C Screening 06/20/1991 Cologuard 2018 Colonoscopy 2018 Colorectal Cancer Screening 2018 Fecal Occult Blood Test 2018 Sigmoidoscopy 2018 DIABETES-FOOT EXAM 12/29/2020 12/30/2019 Depression Screening, Annual for Pts 12 and Over 12/29/2020 12/30/2019 Pneumococcal Vaccine: Pediat rics (0 to 5 Years) and At-Risk Patients (6 to 64 Years) (2 - PCV) 04/02/2021 04/02/2020 HbA1c 11/21/2021 05/21/2021 Albumin/Creatinine Ratio 05/21/2022 05/21/2021 GFR 05/21/2022 05/21/2021 Influenza Vaccine (FLU shot) (#1) 2022 Lipid Panel 05/21/2026 05/21/2021 DTaP,Tdap,and Td Vaccines (2 - Td or Tdap) 04/02/2030 04/02/2020 GARDASIL-HPV IMMUNIZATION SERIES Aged Out No longer eligible based on patient's age to complete this topic MENINGOCOCCAL (MENACTRA/MENVEO) Aged Out No longer eligible based on patient's age to complete this topic documented as of this encounter Medical Devices Not on filedocumented as of this encounter Visit Diagnoses Diagnosis Type 2 diabetes mellitus with hemoglobin A1c goal of less than 7.0% (HCC) documented in this encounter Care Teams Trimmer Operator Relationship Specialty Start Date End Date Lorrie Martin MD [address] [place] [address] PCP - General Internal Medicine 04/02/20 documented as of this encounter
--- OUTSIDE RECORDS SUMMARY | 2023-03-21 02:06 | External Medical Summary ---
Author Name Unknown Address Unknown Organization K09:LABORATORY [facility] - [address] [place] [address] Laboratory Report Ordering Provider Test Date Status SAURABH PETTYUS 10/16/2022 14:41:49 Final Observation Date Value Abnormality Reference (Units ) Status BUN 10/16/2022 14:41:49 13 6-20 (mg/dL) Final Creatinine 10/16/2022 14:41:49 1.0 0.6-1.2 (mg/dL) Final Glomerular filtration rate/1.73 sq M.predicted [Volume Rate/Area] in Serum, Plasma or Blood by Creatinine-based formula (CKD-EPI) 10/16/2022 14:41:49 >90 >=60 (mL/min) Final eGFR is calculated based on the CKD-EPI 2020 equation SODIUM 10/16/2022 14:41:49 142 135-146 (m mol/L) Final Potassium 10/16/2022 14:41:49 4.1 3.5-5.1 (m mol/L) Final Cl 10/16/2022 14:41:49 101 98-107 (mm ol/L) Final CO2 10/16/2022 14:41:49 29 22-32 (mmo l/L) Final Anion gap 10/16/2022 14:41:49 12 7-15 (mmol /L) Final Glucose 10/16/2022 14:41:49 143 Above high normal 70 -120 (mg/dL) Final Albumin 10/16/2022 14:41:49 4.2 3.8-5.0 (g /dL) Final AST (Aspartate aminotransferase) 10/16/2022 14:41:49 17 10-50 (U/L) Fin al Alk Phos 10/16/2022 14:41:49 131 Above high normal 35 -130 (U/L) Final Bilirubin, Total 10/16/2022 14:41:49 0.4 <=1 .2 (mg/dL) Final Calcium 10/16/2022 14:41:49 9.3 8.4-10.2 ( mg/dL) Final Protein 10/16/2022 14:41:49 7.2 6.0-8.3 (g /dL) Final ALT (Alanine aminotransferase) 10/16/2022 14:41:49 32 10-50 (U/L) Anurag rivers Performing Location LABORATORY [facility] [address] [place] [address]
--- OUTSIDE RECORDS SUMMARY | 2023-03-21 02:06 | External Medical Summary ---
Author Name Unknown Address Unknown Organization K01:LAB[facility]ATORY [facility] - [address] [place] [address] Laboratory Report Ordering Provider Test Date Status GABRIELLA ANDREW 10/16/2022 14:41:49 Final Observation Date Value Abnormality Reference (Units ) Status Hep C Ab 10/16/2022 14:41:49 Negative Negative Final Further HCV quantitative pardeep ting not performed per protocol. Performing Location LABORATORY [facility] - [address] [place] [address]
[2023-03-21] MEDS ORDERED: DOXYCYCLINE HYCLATE 100 MG in DEXTROSE 5% MINI-B 100 ML IV STA (02:46)
[2023-03-21] MEDS ORDERED: GLUCAGON FOR INJ 1 MG VIAL SQ PRN (03:44)
[2023-03-21] MEDS ORDERED: GLUCOSE 40% GEL 15 GM TUBE PO PRN (03:44)
[2023-03-21] MEDS ORDERED: CARBOHYDRATES FOR HYPOGLYCEMIA PO PRN (03:44)
[2023-03-21] MEDS ORDERED: DEXTROSE 50% 50 ML SYRINGE IV PRN (03:44)
[2023-03-21] MEDS ORDERED: GLUCOSE 10 TAB/TUBE PO PRN (03:44)
--- NOTE | 2023-03-21 03:46 | History & Physical Report ---
Date of Service March 21, 2023 Assessment & Plan (1) Cellulitis of left leg: Plan: No overt sepsis for now Elevated procalcitonin. hypertension, BP on the lower side DM 2 insulin requiring, suboptimal control as of recent hemoglobin A1c of 11.07 October 2022 Crohn's disease, currently stable past tobacco abuse GMF Doxycycline Add Cefepime if without improvement Local measures for leg cellulitis Basal bolus insulin, ISS BG goal 1 10-1 40, carb count coverage, update hemoglobin A1c DVT prophylaxis per Lovenox subcu Full code Text document was generated using [employer] voice recognition software. It may contain grammatical or spelling errors. Kindly contact undersigned for clarification of any documentation item in question. History of Present Illness Chief Complaint: Worsening left leg swelling Primary Care Provider: Charity Martin MD History obtained from patient and records. Medical history significant for hypertension, DM 2 insulin requiring, Crohn's disease, past tobacco abuse. Last confinement August 2021 for hyperglycemic crisis. Patient fell in a smith yesterday after running after his cat. Subsequent left leg pain and swelling throughout the day. Patient admits to scratching left leg at night due to itch. No fever, no chills, no chest pain, no SOB. Patient consulted ER for worsening symptoms. IV ceftriaxone administered at the ER. 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 Allergies Allergy/AdvReac Type Severity Reaction Status Date / Time Iodinated Contrast Media Allergy Intermediate Rash Verified 08/12/21 07:02 metformin AdvReac Intermediate Swelling ~ Unverified 08/12/21 07:02 nausea Home Medications Medication Instructions Recorded Confirmed Type insulin glargine U-300 conc 300 100 unit (0.3333 mL) subcut DAILY 12/24/19 03/21/23 Rx unit/mL (1.5 mL) subcutaneous pen #4.5 mL (Rosa M SoloStar U-300 Insulin) dulaglutide 1.5 mg/0.5 mL 1.5 mg subcut WK 08/12/21 03/21/23 History [facility] lisinopril 2.5 mg tablet 2.5 mg PO QAM 08/12/21 03/21/23 History glucagon 1 mg/mL solution for 1 mg subcut UD PRN hypoglycemia #1 08/13/21 03/21/23 Rx injection (GlucaGen Diagnostic Kit) ea Past Med/Surg History Medical History Bilateral leg cramps T2DM (type 2 diabetes mellitus) Anemia Bradycardia Valvular heart disease Abnormal ECG Ileitis Hx of Crohn's disease Surgical History History of tonsillectomy History of appendectomy History of cholecystectomy Family History Mother Diabetes Other Colitis Social History Smoking Status: Former smoker Tobacco Type: Cigarettes Second Hand Exposure: No; Do You Dip or Chew Tobacco: No; Hx Alcohol Use: Yes Alcohol type: beer Hx Substance Use: No Preferred Language: Bulgarian Communication Ability: Effective Visual Impairment: No Limitations Hearing Ability: Normal Mental Health Practitioner Required: No Beliefs That Will Affect Care: None marital status: Single Current Living Situation: Significant Other current occupational status: employed current occupation: works at [employer] Other Information That Helps Us Care for You: No Feels Safe at Home: Yes Safety Concerns: Feels Safe At This Time Assistive Devices: Glasses Review of Systems Review of Systems: As per HPI, all other systems reviewed and negative Physical Exam Physical Exam: GENERAL: Comfortable, slightly anxious, obese, no respiratory distress SKIN: Normal color, warm HEENT: Alopecia, bespectacled [place] palpebral conjunctivae, no ptosis, dry buccal mucosa NECK : Supple, short neck, no tenderness CHEST : CTA, no tenderness HEART : RRR, no obvious murmurs ABDOMEN: Some distention, nontender EXTREMITIES : Tender LLE induration NEUROLOGIC : Coherent, no facial asymmetry, no other gross focality Results & Data Results & Data Vital Signs (Past 12 Hours) Vital Signs Temp Pulse Pulse Resp BP BP Pulse Ox 03/21/23 02:30 75 20 115/82 94 03/21/23 01:30 75 15 123/69 97 03/21/23 01:15 73 13 124/75 98 03/21/23 01:15 77 03/21/23 00:19 78 16 98 03/21/23 00:10 80 16 131/89 97 03/20/23 23:54 36.5 C 95 H 18 157/79 H 97 O2 Del Method 03/21/23 02:30 03/21/23 01:30 03/21/23 01:15 03/21/23 01:15 03/21/23 00:19 Room Air 03/21/23 00:10 Room Air 03/20/23 23:54 Room Air Laboratory Results Laboratory Results WBC 8.18 K/ul (4.8-10.8) 03/21/23 00:25 RBC 4.76 M/uL (4.70-6.10) 03/21/23 00:25 Hgb 14.1 g/dl (14.0-18.0) 03/21/23 00:25 Hct 42.5 % (42.0-52.0) 03/21/23 00:25 MCV 89.3 fL (80.0-100.0) 03/21/23 00:25 MCH 29.6 pg (25.0-34.0) 03/21/23 00:25 MCHC 33.2 g/dL (32.0-36.0) 03/21/23 00:25 RDW Std Deviation 42.1 fL (36.4-46.3) 03/21/23 00:25 RDW Coeff of Toni 12.8 % (11.5-14.5) 03/21/23 00:25 Plt Count 207 K/uL (130-400) 03/21/23 00:25 MPV 9.0 fL (9.4-12.4) L 03/21/23 00:25 Immature Gran % (Auto) 0.4 % 03/21/23 00:25 Neut % (Auto) 65.8 % 03/21/23 00:25 Lymph % (Auto) 21.9 % 03/21/23 00:25 [place] % (Auto) 10.8 % 03/21/23 00:25 Eos % (Auto) 0.9 % 03/21/23 00:25 Baso % (Auto) 0.2 % 03/21/23 00:25 Neut # (Auto) 5.39 K/uL (1.40-6.50) 03/21/23 00:25 Lymph # (Auto) 1.79 K/uL (1.20-3.40) 03/21/23 00:25 [place] # (Auto) 0.88 K/uL (0.11-0.59) H 03/21/23 00:25 Eos # (Auto) 0.07 K/uL (0.00-0.50) 03/21/23 00:25 Baso # (Auto) 0.02 K/uL (0.00-0.20) 03/21/23 00:25 Immature Gran # (Auto) 0.03 K/uL (0.01-0.20) 03/21/23 00:25 VBG pH 7.47 (7.36-7.41) H 03/21/23 00:36 VBG pCO2 41 mmHg (38-50) 03/21/23 00:36 VBG pO2 54 mmHg 03/21/23 00:36 VBG HCO3 30 mmol/L 03/21/23 00:36 VBG O2 Saturation 84.8 % 03/21/23 00:36 VBG Base Excess 5.6 mEq/L 03/21/23:36 Sodium 134 mmol/L (136-145) L 03/21/23 00:25 Potassium 3.7 mmol/L (3.5-5.1) 03/21/23 00:25 Chloride 97 mmol/L (98-107) L 03/21/23 00:25 Carbon Dioxide 28 mmol/L (21-32) 03/21/23 00:25 Anion Gap 9 (3-11) 03/21/23 00:25 BUN 18 mg/dl (6-23) 03/21/23 00:25 Creatinine 1.22 mg/dl (0.6-1.4) 03/21/23 00:25 Est Cr Clr Drug Dosing 94.6 ml/min 03/21/23 00:25 Est GFR ( Amer) 80.2 ml/min 03/21/23 00:25 Est GFR (Non-Af Amer) 69.2 ml/min 03/21/23 00:25 BUN/Creatinine Ratio 14.8 (10-20) 03/21/23 00:25 Glucose 317 mg/dl (70-99(Fasting)) H* 03/21/23 00:25 Lactate 1.5 mmol/L (0.4-2.0) 03/21/23 00:25 Calcium 9.1 mg/dl (8.6-10.3) 03/21/23 00:25 Magnesium 1.7 mg/dl (1.7-2.4) 03/21/23 00:25 Total Bilirubin 0.4 mg/dl (0.2-1.0) 03/21/23 00: Direct Bilirubin 0.0 mg/dl (0-0.2) 03/21/23 00:25 AST 13 U/L (13-39) 03/21/23: ALT 19 U/L (7-52) 03/21/23:25 Alkaline Phosphatase 105 U/L (34-104) H 03/21/23 00:25 Troponin I High Sens 10.5 pg/ml (0-20) 03/21/23 00: Total Protein 7.7 gm/dl (6.0-8.3) 03/21/23 00: Albumin 3.8 gm/dl (3.4-5.0) 03/21/23 00: Procalcitonin 1.90 ng/ml (0-0.5) H 03/21/23 00:25 Urine Color Yellow 03/21/23 00: Urine Appearance Cloudy (Clear) A 03/21/23 00: Urine pH 5.5 (4.5-7.5) 03/21/23 00:25 Ur Specific [place] > 1.045 (1.000-1.030) H 03/21/23 00:25 Urine Protein 1+ (Negative) H 03/21/23 00:25 Urine Glucose (UA) 3+ (Negative) H 03/21/23 00:25 Urine Ketones Trace (Negative) H 03/21/23 00:25 Urine Blood Negative (Negative) 03/21/23 00: Urine Nitrite Negative (Negative) 03/21/23 00: Urine Bilirubin Negative (Negative) 03/21/23: Urine Urobilinogen Negative (Negative) 03/21/23 00:25 Ur Leukocyte Esterase Negative (Negative) 03/21/23 00:25 Urine WBC (Auto) 5-10 /hpf (0-5) H 03/21/23 00:25 Urine RBC (Auto) 0-4 /hpf (0-4) 03/21/23 00:25 U Hyaline Cast (Auto) 5-10 /lpf (0-5) H 03/21/23 00:25 U Epithel Cells (Auto) >30 /lpf (0-5) H 03/21/23 00:25 Urine Bacteria (Auto) 1+ (Negative) H 03/21/23 00:25 LLE venous Dopplers : There is no sonographic evidence of deep venous thrombosis identified in the left lower extremity.
[2023-03-21] MEDS ORDERED: ACETAMINOPHEN 325 MG TAB PO PRN (03:48)
[2023-03-21] MEDS ORDERED: IBUPROFEN 200 MG TAB PO PRN (03:48)
[2023-03-21] MEDS ORDERED: KETOROLAC TROMETHAMINE 15 MG/ML VIAL IV PRN (03:48)
[2023-03-21] MEDS ORDERED: PROMETHAZINE HCL 12.5 MG in SODIUM CHLORIDE 0.9% 50 ML IV PRN (03:48)
[2023-03-21] MEDS ORDERED: NSS + 20MEQ KCL 20 MEQ/1,000 ML BAG IV ONE (05:00)
[2023-03-21] MEDS ORDERED: LANTUS PER UNIT CHARGE SQ ONE (05:00)
[2023-03-21] MEDS: INSULIN ASPART PER UNIT CHARGE SC SCH ×5 (05:19→20:57)
--- NOTE | 2023-03-21 06:37 | Ultrasound Report ---
ULTRASOUND LEFT LOWER EXTREMITY VENOUS CLINICAL HISTORY: Left leg pain and swelling. Erythema. COMPARISON STUDY: No priors. TECHNIQUE: Real-time, grayscale, and color Doppler sonography of the deep veins of the left lower ext remity was performed from the inguinal crease to the calf. Compression and augmentation were utilized . FINDINGS: There is no sonographic evidence of deep venous thrombosis identified in the left lower ext remity. The common femoral, superficial femoral, and popliteal veins are patent and normally compress ible. The greater saphenous vein and the profunda femoris vein at the junction with the common femora l vein are clear. The visualized calf veins are patent. A prominent left inguinal lymph node is likel y reactive. IMPRESSION: There is no sonographic evidence of deep venous thrombosis identified in the left lower e xtremity. ACT 112: Negative or not required by law. Electronically signed by: Jayant Ma M.D. 03/21/2023 6:35 AM
--- NOTE | 2023-03-21 07:09 | XRay Report ---
SINGLE VIEW CHEST CLINICAL HISTORY: Sepsis. FINDINGS: An AP, portable, upright chest radiograph is compared to study dated 08/12/2021. The cardiome diastinal silhouette is top normal for projection. There is minimal bibasilar atelectasis. The lungs and pleural spaces are otherwise clear. No pneumothorax is seen. The bony thorax is grossly intact. IMPRESSION: No active disease in the chest. ACT 112: Negative or not required by law. Electronically signed by: Jayant Ma M.D. 03/21/2023 7:07 AM
[2023-03-21 07:32] LABS: Estimated Average Glucose 392 mg/dl; Hemoglobin A1C 15.3 % (4.5-5.6)
[2023-03-21] MEDS: lisinopril 2.5 MG TAB PO SCH (08:24)
[2023-03-21] MEDS: ENOXAPARIN INJ 40 MG/0.4 ML SYR SQ SCH (08:24)
[2023-03-21] MEDS ORDERED: ENOXAPARIN INJ 40 MG/0.4 ML SYR SQ SCH (09:00)
--- NOTE | 2023-03-21 11:48 | Communication Note ---
Date of Service: March 21, 2023 Patient was seen and examined at bedside. 47-year-old male with PMH of hypertension, T2DM insulin requiring, Crohn's disease, past tobacco abuse came in with left leg pain and swelling after trauma to LLE. Patient denies fever or chills or shortness of breath or chest pain. He is being managed for the following: LLE cellulitis Came in with LLE erythema/swelling/pain. Denies fever. LLE Doppler negative for DVT. Elevated procalcitonin. No sepsis POA. Patient was started on doxycycline 03/21, continue. Continue to monitor for improvement of infection. Other chronic medical conditions: Continue with/resume home meds as and when able. Hypertension: Continue home lisinopril. T2DM: A1c of 15.3 this admission [patient has been made aware and discussed regarding medication compliance and weight loss and need for medication adjustment/endocrinology follow-up/diabetic clinic follow-up], patient reports compliance with his medication except for missing Trulicity sometimes. He also reports losing 50 pounds in last 1 year [EMR shows about 150 kg in December 2019, admitting weight around 120 kg this time]. Patient reports he has been on Trulicity and Toujeo for about 2 years. His A1c was 11.1 in October 2022. nurses educator consult. Will monitor the need for insulin while in hospital. Will need medication adjustment prior to discharge and close follow-up with diabetic clinic/endocrinology follow-up on discharge. Chron's disease: Currently stable Past tobacco abuse DVT prophylaxis per Lovenox subcu Full code Text document was generated using [employer] voice recognition software. It may contain grammatical or spelling errors. Kindly contact undersigned for clarification of any documentation item in question.
[2023-03-21] MEDS: LANTUS PER UNIT CHARGE SQ SCH (20:56)
[2023-03-21] MEDS: DOXYCYCLINE HYCLATE 100 MG CAP PO SCH (20:57)
[2023-03-22 07:05] LABS: Basophils # (auto) 0.04 K/uL (0.00-0.20); Basophils % (auto) 0.5 %; Eosinophils # (auto) 0.08 K/uL (0.00-0.50); Hematocrit (blood only) 42.6 % (42.0-52.0); Hemoglobin 13.9 g/dl (14.0-18.0); Immature Granulocytes # (auto) 0.03 K/uL (0.01-0.20); Immature Granulocytes % (auto) 0.4 %; Lymphocytes # (auto) 1.71 K/uL (1.20-3.40); Lymphocytes % (auto) 22.4 %; Mean Corpuscular Hemoglobin 29.7 pg (25.0-34.0); Mean Corpuscular Hgb Conc 32.6 g/dL (32.0-36.0); Monocytes % (auto) 10.5 %; Neutrophils # (auto) 4.99 K/uL (1.40-6.50); Neutrophils % (auto) 65.2 %; Platelet Count 207 K/uL (130-400); RDW Coefficient of Variation 12.8 % (11.5-14.5); RDW Standard Deviation 42.5 fL (36.4-46.3); Red Blood Count 4.68 M/uL (4.70-6.10); White Blood Count 7.65 K/ul (4.8-10.8)
[2023-03-22 07:11] LABS: BUN Creatinine Ratio 17.5 (10-20); Calcium 8.4 mg/dl (8.6-10.3); Creatinine Clr Calc Pharmacy 124.4 ml/min; Est GFR (African American) 105.8 ml/min; Est GFR (Non-African American) 91.3 ml/min; Magnesium 1.7 mg/dl (1.7-2.4); Potassium 3.5 mmol/L (3.5-5.1)
[2023-03-22] MEDS: DOXYCYCLINE HYCLATE 100 MG CAP PO SCH ×2 (08:07→21:11)
[2023-03-22] MEDS: lisinopril 2.5 MG TAB PO SCH (08:07)
[2023-03-22] MEDS: INSULIN ASPART PER UNIT CHARGE SC SCH ×4 (08:39→21:13)
[2023-03-22] MEDS: ENOXAPARIN INJ 40 MG/0.4 ML SYR SQ SCH (08:40)
[2023-03-22] MEDS: cefTRIAXone SODIUM 2,000 MG in DEXTROSE 5 % MINI-B 50 ML IV SCH (13:31)
--- NOTE | 2023-03-22 14:50 | Hospitalist Progress Note ---
Date of Service March 22, 2023 Assessment & Plan (1) Cellulitis of left leg: Plan 47-year-old male with PMH of hypertension, T2DM insulin requiring, Crohn's disease, past tobacco abuse came in with left leg pain and swelling after trauma to LLE. Patient denies fever or chills or shortness of breath or chest pain. He is being managed for the following: LLE cellulitis Came in with LLE erythema/swelling/pain. Denies fever. LLE Doppler negative for DVT. Elevated procalcitonin. No sepsis POA. Patient was started on doxycycline 03/21, continue. Not much improvement, added ceftriaxone 03/22. Continue to monitor for improvement of infection. Other chronic medical conditions: Continue with/resume home meds as and when able. Hypertension: Continue home lisinopril. T2DM: A1c of 15.3 this admission [patient has been made aware and discussed regarding medication compliance and weight loss and need for medication adjustment/endocrinology follow-up/diabetic clinic follow-up], patient reports compliance with his medication except for missing Trulicity sometimes. He also reports losing 50 pounds in last 1 year [EMR shows about 150 kg in December 2019, admitting weight around 120 kg this time]. Patient reports he has been on Trulicity and Toujeo for about 2 years. His A1c was 11.1 in October 2022. pitting machine operator consult. Appears that patient has very poor dietary habit which he is willing to improve and would like to closely follow-up with his diabetic clinic for any medication changes. He has not tolerated medication changes in the past. Appreciate job boss Recs. Chron's disease: Currently stable Past tobacco abuse DVT prophylaxis per Lovenox subcu Full code Text document was generated using [employer] voice recognition software. It may contain grammatical or spelling errors. Kindly contact undersigned for clarification of any documentation item in question. Admission and Anticipated Discharge Date Admission Date: March 21, 2023 Subjective Patient was seen and examined at bedside. Patient was lying in bed, on room air, resting comfortably, not in any acute distress. Patient denies fever/headache/dizziness. Patient reports not much improvement in his LLE pain and erythema. We discussed about adding antibiotic. He agreed. Upon further discussion, patient has very poor dietary habits, contact center assistant was at bedside who educated patient in detail regarding healthy lifestyle and dietary habits and their effect on his blood glucose control. also educated him on using insulin at different sites [rotating sites] and keeping the injected needle for longer duration so that he does not lose insulin. Physical Exam Physical Exam: GENERAL: Comfortable, slightly anxious, obese, no respiratory distress SKIN: Normal color, warm HEENT: Alopecia, bespectacled [place] palpebral conjunctivae, no ptosis, dry buccal mucosa NECK : Supple, short neck, no tenderness CHEST : CTA, no tenderness HEART : RRR, no obvious murmurs ABDOMEN: Some distention, nontender EXTREMITIES : Tender LLE induration, erythema about the same, tenderness about the same/slightly improved. NEUROLOGIC : Coherent, no facial asymmetry, no other gross focality Results & Data Results & Data Vital Signs (Past 12 Hours) Vital Signs Temp Pulse Resp BP Pulse Ox O2 Del Method 03/22/23 07:21 36.5 C 55 L 16 99/62 L 98 Room Air
[2023-03-22] MEDS: ADVANCED PROBIOTIC 1250 MG CAPSULE PO SCH (15:31)
--- NOTE | 2023-03-22 20:28 | Electrocardiogram Report ---
Test Reason : Blood Pressure : / mmHG Vent. Rate : 074 BPM Atrial Rate : 074 BPM P-R Int : 142 ms QRS Dur : 092 ms QT Int : 366 ms P-R-T Axes : 040 044 033 degrees QTc Int : 406 ms Normal sinus rhythm Normal ECG When compared with ECG of 12-AUG-2021 06:38, ST less elevated in Lateral leads Confirmed by Jed Landers ([id number]) on 03/22/2023 8:28:03 PM Referred By: REFERRED SELF Confirmed By:Jed Landers
[2023-03-22] MEDS: LANTUS PER UNIT CHARGE SQ SCH (21:12)
[2023-03-23 07:43] LABS: Hemoglobin 13.6 g/dl (14.0-18.0); Mean Corpuscular Hemoglobin 29.3 pg (25.0-34.0); Mean Corpuscular Hgb Conc 32.4 g/dL (32.0-36.0); Mean Corpuscular Volume 90.5 fL (80.0-100.0); Mean Platelet Volume 8.5 fL (9.4-12.4); Platelet Count 215 K/uL (130-400); RDW Coefficient of Variation 12.7 % (11.5-14.5); RDW Standard Deviation 42.4 fL (36.4-46.3); Red Blood Count 4.64 M/uL (4.70-6.10); White Blood Count 7.14 K/ul (4.8-10.8)
[2023-03-23 08:04] LABS: BUN Creatinine Ratio 16.5 (10-20); Calcium 8.6 mg/dl (8.6-10.3); Creatinine Clr Calc Pharmacy 124.4 ml/min; Est GFR (African American) 105.8 ml/min; Est GFR (Non-African American) 91.3 ml/min; Magnesium 1.7 mg/dl (1.7-2.4); Phosphorus 4.3 mg/dl (2.5-4.9); Potassium 3.3 mmol/L (3.5-5.1)
[2023-03-23] MEDS: ADVANCED PROBIOTIC 1250 MG CAPSULE PO SCH (08:14)
[2023-03-23] MEDS: lisinopril 2.5 MG TAB PO SCH (08:14)
[2023-03-23] MEDS: INSULIN ASPART PER UNIT CHARGE SC SCH ×2 (08:14→12:24)
[2023-03-23] MEDS: ENOXAPARIN INJ 40 MG/0.4 ML SYR SQ SCH (08:15)
[2023-03-23] MEDS: DOXYCYCLINE HYCLATE 100 MG CAP PO SCH (08:15)
[2023-03-23] MEDS ORDERED: POTASSIUM CHLORIDE CRTAB 20 MEQ TABCR PO STA (09:37)
[2023-03-23] MEDS: cefTRIAXone SODIUM 2,000 MG in DEXTROSE 5 % MINI-B 50 ML IV SCH (12:28)
--- NOTE | 2023-03-23 12:33 | Discharge Summary ---
Date of Service March 23, 2023 Admission HPI Per Admitting Provider History obtained from patient and records. Medical history significant for hypertension, DM 2 insulin requiring, Crohn's disease, past tobacco abuse. Last confinement August 2021 for hyperglycemic crisis. Patient fell in a smith yesterday after running after his cat. Subsequent left leg pain and swelling throughout the day. Patient admits to scratching left leg at night due to itch. No fever, no chills, no chest pain, no SOB. Patient consulted ER for worsening symptoms. IV ceftriaxone administered at the ER. 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 Admission Exam Per Admitting Provider GENERAL: Comfortable, slightly anxious, obese, no respiratory distress SKIN: Normal color, warm HEENT: Alopecia, bespectacled [place] palpebral conjunctivae, no ptosis, dry buccal mucosa NECK : Supple, short neck, no tenderness CHEST : CTA, no tenderness HEART : RRR, no obvious murmurs ABDOMEN: Some distention, nontender EXTREMITIES : Tender LLE induration NEUROLOGIC : Coherent, no facial asymmetry, no other gross focality Principal Diagnosis LLE cellulitis Uncontrolled T2DM, likely secondary to dietary indiscretion and poor insulin use technique Discharge Exam GENERAL: Comfortable, NAD, obese, no respiratory distress SKIN: Normal color, warm HEENT: Alopecia, bespectacled [place] palpebral conjunctivae, no ptosis, dry buccal mucosa NECK : Supple, short neck, no tenderness CHEST : CTA, no tenderness HEART : RRR, no obvious murmurs ABDOMEN: Some distention, nontender EXTREMITIES : Tender LLE induration, --improved significantly NEUROLOGIC : Coherent, no facial asymmetry, no other gross focality Discharge Data Allergies Allergy/AdvReac Type Severity Reaction Status Date / Time Iodinated Contrast Media Allergy Intermediate Rash Verified 08/12/21 07:02 metformin AdvReac Intermediate Swelling ~ Unverified 08/12/21 07:02 nausea Consultations 03/21/23 02:48 ED Decision to Admit Stat Ordered Studies 03/21/23 00:09 US venous doppler LE Stat Hospital Course (1) Cellulitis of left leg: Plan 47-year-old male with PMH of hypertension, T2DM insulin requiring, Crohn's disease, past tobacco abuse came in with left leg pain and swelling after trauma to LLE. Patient denies fever or chills or shortness of breath or chest pain. He was managed for the following: LLE cellulitis Came in with LLE erythema/swelling/pain. Denies fever. LLE Doppler negative for DVT. Elevated procalcitonin. No sepsis POA. Patient was started on doxycycline 03/21, continue. Not much improvement, added ceftriaxone 03/22. Significant improvement in his pain and tenderness today. Will discharge on cefdinir and doxycycline to complete the course. Probiotics added. Other chronic medical conditions: Continue with/resume home meds as and when able. Hypertension: Continue home lisinopril. T2DM: A1c of 15.3 this admission [patient has been made aware and discussed regarding medication compliance and weight loss and need for medication adjustment/endocrinology follow-up/diabetic clinic follow-up], patient reports compliance with his medication except for missing Trulicity sometimes. He also reports losing 50 pounds in last 1 year [EMR shows about 150 kg in December 2019, admitting weight around 120 kg this time]. Patient reports he has been on Trulicity and Toujeo for about 2 years. His A1c was 11.1 in October 2022. development educator consult. Appears that patient has very poor dietary habit which he is willing to improve and would like to closely follow-up with his diabetic clinic for any medication changes. He has not tolerated medication changes in the past. Also he has poor insulin injection technique which asthma educator educated him on proper technique. Appreciate asthma educator Recs. Patient to follow-up closely with his diabetic clinic upon discharge. Chron's disease: Currently stable Past tobacco abuse DVT prophylaxis per Lovenox subcu Full code Text document was generated using [employer] voice recognition software. It may contain grammatical or spelling errors. Kindly contact undersigned for clarification of any documentation item in question. Patient is being discharged with following instruction at the point of discharge: Follow-up with your primary care physician within a week time and likely you will need labs CBC/CMP/magnesium/phosphorus. For your LLE cellulitis, you will be discharged on antibiotic to complete the course. Probiotics will be added. Take antibiotics as prescribed. For your uncontrolled type 2 diabetes mellitus, as discussed at the bedside, utilize proper insulin injection technique. Maintain heart healthy diet as per the handouts given to you by asthma educator. Follow closely with your diabetic clinic. Take your medications as prescribed. Please make sure that you are able to get your medications today by calling your pharmacy before you leave the hospital so that your treatment continuity is not broken. Home Health Attestation I certify that this patient is under my care and that I, or a physicians assistant professor sculpture working with me, had a face to-face encounter that meets the home health [id number] encounter requirements with this patient. The encounter with the patient was in whole, or in part, for the following medical condition, which is the primary reason for home health care (list medical condition): I certify that, based on my findings, the following services are medically necessary home health services: My clinical findings support the need for the above services because: Further, I certify that my clinical findings support that this patient is homebound (i.e. absences from home require considerable and taxing effort and are for medical reasons or judaism services or infrequently or of short duration when for other reasons) because: Certification for Home Health Services: Based on the above findings, I certify that this patient is confined to the home and needs intermittent long-term care, physical therapy and/or speech therapy or continues to need occupational therapy. The patient is under my care, and I have initiated the establishment of the plan of care. This patient will be followed by a physician who will periodically review the plan of care. Total Time Total Time Spent Total Time Spent (In Minutes): 45 Discharge Plan Discharge Items Patient Disposition: Home - Self-Care Reason For Visit: LLE CELLULITIS Discharge Diagnosis: LLE cellulitis Uncontrolled T2DM, likely secondary to dietary indiscretion and poor insulin use technique Condition on Discharge: Good Activity: Resume your previous activity Non-emergency contact: Primary Care Provider Call non-emergency contact if: you have any medication questions, your symptoms worsen and your temperature is above 101.5 Follow-up/Referrals: Charity Martin MD [Primary Care Provider] - (Date & Time 03/27/2023 11:00 AM Provider Charity Martin MD Department General Internal Medicine [facility] ) Diet: Carb Consistent or DM2 Addtl Attending Provider Instructions: Follow-up with your primary care physician within a week time and likely you will need labs CBC/CMP/magnesium/phosphorus. For your LLE cellulitis, you will be discharged on antibiotic to complete the course. Probiotics will be added. Take antibiotics as prescribed. For your uncontrolled type 2 diabetes mellitus, as discussed at the bedside, utilize proper insulin injection technique. Maintain heart healthy diet as per the handouts given to you by asthma educator. Follow closely with your diabetic clinic. Take your medications as prescribed. Please make sure that you are able to get your medications today by calling your pharmacy before you leave the hospital so that your treatment continuity is not broken. Pending Studies at Discharge: Yes Stand-Alone Forms: My [facility], Smoking Cessation Medications and DC Order Prescriptions: New doxycycline hyclate 100 mg Capsule 100 mg PO BID 5 Days Qty: 10 0RF Advanced Probiotic 625 mg (10 billion cell) Capsule 2 cap PO DAILY 7 Days Qty: 14 0RF Toujeo Max U-300 SoloStar 300 unit/mL (3 mL) insulin pen 100 unit subcut DAILY Qty: 12 0RF cefdinir 300 mg capsule 300 mg PO BID 5 Days Qty: 10 0RF Continued Trulicity 1.5 mg/0.5 mL pen injector 1.5 mg SUBCUT WK Rx Instructions: Thursday lisinopril 2.5 mg tablet 2.5 mg PO QAM GlucaGen Diagnostic Kit 1 mg/mL Recon Soln 1 mg subcut UD PRN (Reason: hypoglycemia) Qty: 1 0RF Discontinued Toujeo SoloStar U-300 Insulin 300 unit/mL (1.5 mL) insulin pen 100 unit subcut DAILY Qty: 4.5 3RF Discharge Orders: Discharge Order (Routine); Ordered 03/23/23 Ordered By: Shanita Rodriguez Admission Data Admit Date/Time: 03/21/23 03:48 Attending Provider: Shanita Rodriguez Admit Provider: Anatoliy Stiles Primary Care Provider: Charity Martin Other Providers: Anatoliy Stiles
== END 2023-03-23 13:53 | disposition home or self-care (01) | DRG 603 ==
LOC: ED 23:51 → 3N 03-21 03:48

== ENCOUNTER 2024-02-02 12:19 | Inpatient (IN) ==
--- NOTE | 2024-02-02 12:44 | Emergency Department Note ---
Impression & Plan Acute CVA (cerebrovascular accident), Visual disturbance, Coagulopathy, History of pulmonary embolism, Acute hyperglycemia ED Provider Note NAME: GARCIA CHEN AGE: 48 SEX: M : 1975 ARRIVES VIA: Walk-In INFORMANT: [Patient] ED PROVIDER(S): [Jayant Calvert MD] CHIEF COMPLAINT: Visual disturbance HISTORY OF PRESENT ILLNESS: The patient is a 48-year-old male who was in our ED 6 days ago, found to have a saddle PE, he was life flighted to [facility] where a thrombectomy was performed. He was in their hospital 2 days. At discharge, the patient was complaining of some flashes to his left vision. He states that the doctors there were not concerned. The flashes have been a continued issue now for the last 6 days. Today, he spoke to his doctor's office, he was referred in for a CT scan. The patient is not currently short of breath. He states he does wear glasses but has not seen an eye doctor in a long time. He has not noticed any difficulty with his visual acuity, it is just the flashing and funny lines in the vision on the left. The patient does not have a headache. He is currently on Eliquis twice a day since discharge from [facility]. PMHx/PSHx/Social Hx: See Below PHYSICAL EXAM: GENERAL: Patient is in no acute distress. Wearing glasses. HEENT: No acute trauma, normocephalic atraumatic, mucous membranes moist, no nasal congestion. Pupils equal and reactive to light. NECK: No stridor, no adenopathy, no meningismus, trachea is midline. LUNGS: Clear to auscultation bilaterally, no wheeze, no rhonchi, breath sounds equal. HEART: Without murmurs gallops or rubs, regular rate and rhythm. ABDOMEN: Soft, nontender, no peritonitis. EXTREMITIES: No cyanosis, full range of motion of all the joints without pain or difficulty. NEUROLOGIC: Oriented x 3, no acute motor or sensory deficits, no focal weakness. SKIN: No jaundice, no diaphoresis. DIFFERENTIAL DIAGNOSIS: Retinal detachment, vitreous hemorrhage, stroke, intracranial bleeding, among others. EMERGENCY DEPARTMENT PROCEDURES: Retinal scans were performed bilaterally. No acute finding per my interpretation. MEDICAL DECISION MAKING: There is no leukocytosis or concerning anemia. There was a normal platelet count. No renal failure. Glucose was initially recorded at a high value, 337. Brain CT shows a subacute right posterior circulation infarct. No acute bleeding. On exam, patient had no focal neurologic findings. He was awake and interactive. Stroke scale per nursing staff was 0. I did call and speak with neurology. The patient needs continued Eliquis and a stroke workup. Certainly, a cardiac septal defect may have been responsible for the CVA. His CVA likely occurred at around the same time as his massive PE. As the patient's stroke is subacute, he has had symptoms for 5 days, he is not a tPA candidate. I did speak with the patient. Hospitalization is warranted. Further stroke workup is warranted. Case management and the on-call hospitalist were consulted. Of note, because of the hyperglycemia, the patient was given 8 units of IV insulin. His sugar was recorded afterwards at a value of 172. Prior/Outside records/notes reviewed: Previous ED visit note describing his presentation, care and need for transfer. Imaging/x-ray results per my interpretation: Chronic Medical/Social conditions affecting care: Recent saddle PE requiring thrombectomy. Currently on Eliquis. Care/Management discussed with: [facility] neurology-Dr. Carmine Galvan. Case management and the on-call hospitalist. 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 Ex-smoker Acute respiratory failure with hypoxia Elevated troponin (Acute) Acute saddle pulmonary embolism with acute cor pulmonale (Acute) Poorly controlled diabetes mellitus (Acute) Cellulitis of left leg (Acute) T2DM (type 2 diabetes mellitus) Hx of Crohn's disease Medical History Bilateral leg cramps Anemia Bradycardia Valvular heart disease Abnormal ECG Ileitis Surgical History History of tonsillectomy History of appendectomy History of cholecystectomy Family History Mother Diabetes Other Colitis Social History Smoking Status: Former smoker Tobacco Type: Cigarettes Second Hand Exposure: No; Do You Dip or Chew Tobacco: No; Hx Alcohol Use: No Hx Substance Use: No Preferred Language: Montserratian Communication Ability: Effective Visual Impairment: No Limitations Hearing Ability: Normal Student Ministry Pastor Required: No Beliefs That Will Affect Care: None marital status: Single Current Living Situation: Significant Other current occupational status: employed current occupation: works at [employer] Other Information That Helps Us Care for You: No Feels Safe at Home: Yes Safety Concerns: Feels Safe At This Time Assistive Devices: Glasses Allergies Allergies Allergy/AdvReac Type Severity Reaction Status Date / Time Iodinated Contrast Media Allergy Intermediate Rash Verified 08/12/21 07:02 metformin AdvReac Intermediate Swelling ~ Unverified 08/12/21 07:02 nausea Home Meds Home Medications Medication Instructions Recorded Confirmed dulaglutide 1.5 mg/0.5 mL 1.5 mg subcut UD 08/12/21 02/02/24 subcutaneous pen injector (Trulicity) lisinopril 2.5 mg tablet 2.5 mg PO UD 08/12/21 02/02/24 Eliquis 10 mg PO BID 02/02/24 02/02/24 furosemide 20 mg tablet 20 mg PO UD 02/02/24 02/02/24 insulin glargine U-300 conc 300 100 unit subcut HS 02/02/24 02/02/24 unit/mL (3 mL) subcutaneous pen (Toujeo Max U-300 SoloStar) Previous Rx's Medication Instructions Recorded glucagon 1 mg/mL solution for 1 mg subcut UD PRN hypoglycemia #1 08/13/21 injection (GlucaGen Diagnostic Kit) ea Results & Data (ED) Vital Signs Vital Signs - 24 hr 02/02/24 12:22 02/02/24 13:39 02/02/24 14:00 Temperature 36.5 C Temperature Source Temporal Artery Scan Pulse Rate 83 Pulse Rate [Finger] 68 67 Pulse Rhythm [Finger] Regular Regular Pulse Strength [Finger] Normal Normal Respiratory Rate 16 18 18 Respiratory Effort / Characteristics Non-Labored Non-Labored Spontaneous Non-Labored Spontaneous Respiratory Depth Normal Normal Normal Respiratory Pattern Regular Blood Pressure 151/92 H Blood Pressure [Left Arm] 113/76 121/81 Blood Pressure Mean 111 Blood Pressure Mean [Left Arm] 88 94 Blood Pressure Position [Left Arm] Lying Lying Pulse Oximetry 98 97 96 Oxygen Delivery Method Room Air Room Air Room Air Sepsis Recent Fever Within 48 Hours No Sepsis New/Unexplained Change in Mental Status N/A Sepsis Action Taken by Nursing No Action Required 02/02/24 15:00 Temperature Temperature Source Pulse Rate Pulse Rate [Finger] 71 Pulse Rhythm [Finger] Pulse Strength [Finger] Respiratory Rate 18 Respiratory Effort / Characteristics Non-Labored Spontaneous Respiratory Depth Normal Respiratory Pattern Blood Pressure Blood Pressure [Left Arm] 125/77 Blood Pressure Mean Blood Pressure Mean [Left Arm] 93 Blood Pressure Position [Left Arm] Pulse Oximetry 98 Oxygen Delivery Method Room Air Sepsis Recent Fever Within 48 Hours Sepsis New/Unexplained Change in Mental Status Sepsis Action Taken by Group Home Medications Current Medication List: was personally reviewed by me Laboratory Data Attestation: I reviewed the patient's lab results. 02/02/24 13:00 02/02/24 13:00 Lab Results 02/02/24 02/02/24 Range/Units 13:00 14:15 WBC 8.63 (4.8-10.8) K/ul RBC 4.79 (4.70-6.10) M/uL Hgb 14.3 (14.0-18.0) g/dl Hct 41.3 L (42.0-52.0) % MCV 86.2 (80.0-100.0) fL MCH 29.9 (25.0-34.0) pg MCHC 34.6 (32.0-36.0) g/dL RDW Std Deviation 39.2 (36.4-46.3) fL RDW Coeff of Toni 12.9 (11.5-14.5) % Plt Count 254 (130-400) K/uL MPV 8.9 L (9.4-12.4) fL PT 10.7 (9.0-12.0) Seconds INR 1.0 (0.9-1.1) APTT 28 (21-31) Seconds PTT Ratio 1.0 Sodium 133 L (136-145) mmol/L Potassium 4.0 (3.5-5.1) mmol/L Chloride 98 (98-107) mmol/L Carbon Dioxide 26 (21-32) mmol/L Anion Gap 9 (3-11) BUN 14 (6-23) mg/dl Creatinine 0.85 (0.6-1.4) mg/dl Est Cr Clr Drug Dosing 139.4 ml/min eGFR 105.86 BUN/Creatinine Ratio 16.5 (10-20) Glucose 337 H* (70-99(Fasting)) mg/dl POC Glucose 289 H (70-99) mg/dl Calcium 9.4 (8.6-10.3) mg/dl Administered Medications Insulin Aspart (Insulin Aspart Per Unit Charge) 0 units SC ACHS BONNIE Stop: 03/03/24 16:29 Last Admin: 02/02/24 18:18 Dose: 7 units Documented By: CORA Co-signed By: JESSICA Discontinued Medications Insulin Human Regular (Novolin-R Insulin Per Unit Charge) 10 units IV NOW STA Stop: 02/02/24 14:05 Last Admin: 02/02/24 15:09 Dose: Not Given Documented By: WAI Insulin Human Regular (Novolin-R Insulin Per Unit Charge) 8 units IV NOW STA Stop: 02/02/24 14:26 Last Admin: 02/02/24 14:52 Dose: 8 units Documented By: WAI Co-signed By: DEEDEE Imaging Data Radiologist's Impression: Head CT 02/02/24 12:36 CT OF THE HEAD WITHOUT CONTRAST CLINICAL HISTORY: eliquis, visual change COMPARISON STUDY: Head CT January 27, 2024. CT DOSE: 625.8 mGy.cm TECHNIQUE: Helical axial images of the head were obtained without IV contrast. Automated exposure control was utilized for the study. A dose lowering technique was utilized adhering to the principles of ALARA. FINDINGS: No acute intracranial hemorrhage is present. A 7.2 x 3.6 cm hypodense focus with loss of cross-white differentiation within the right occipital lobe and posterior right temporal lobe has developed since CT of January 27, 2024. There is minimal mass effect with sulcal effacement. White matter hypodense foci favor small vessel disease. These are unchanged. There are no calvarial fractures. IMPRESSION: 1. Interval development of a 7.2 x 3.6 cm hypodense focus with loss of cross- white differentiation within the right occipital lobe and posterior right temporal lobe suggestive of a large subacute right CERTIFIED NURSE infarct. Mild mass effect with sulcal effacement. 2. No acute intracranial hemorrhage. ACT 112: Negative or not required by law. Electronically signed by: Parag Mike M.D. 02/02/2024 1:53 PM Venous Doppler Study 02/02/24 14:48 EXAM: US Duplex Bilateral Lower Extremities Veins INDICATION: DVT. TECHNIQUE: Real-time duplex ultrasound scan of the bilateral lower extremity veins integrating B-mode two-dimensional vascular structure, Doppler spectral analysis, color flow Doppler imaging and compression. COMPARISON: Left 03/21/2023 FINDINGS: Right deep veins: No DVT in the right common femoral, femoral or popliteal veins. The veins demonstrate normal color flow, are normally compressible, with normal phasic flow and/or augmentation response. Right superficial veins: No abnormality noted. No thrombus in the visualized right great saphenous vein. Left deep veins: There is nonocclusive thrombus of the mid left femoral vein. Occlusive thrombus extends from the distal femoral vein through the popliteal vein and involving the peroneal vein in the calf. Common femoral and tibial veins patent. Left superficial veins: No abnormality noted. No thrombus in the visualized left great saphenous vein. Soft tissues: No abnormality noted. IMPRESSION: 1. Positive left femoral, popliteal and peroneal vein DVT. 2. No deep venous thrombosis of the right lower extremity. ACT 112: Negative or not required by law. Electronically signed by Ana M Diego 02-02-2024 5:46 PM Discharge Plan Visit Data Chief Complaint: Visual Disturbance Stated Complaint: HEADSCAN, VISION FLASHES, DOC WANTS SCAN ED Provider: Jayant Calvert Discharge Problem: Acute CVA (cerebrovascular accident), Visual disturbance, Coagulopathy, History of pulmonary embolism, Acute hyperglycemia Patient Disposition: Admitted As Inpatient Condition: Fair Discharge Instructions Interventions: ED Discharge Assessment Last Done: 02/02/24 16:30
[2024-02-02 13:34] LABS: Hematocrit (blood only) 41.3 % (42.0-52.0); Hemoglobin 14.3 g/dl (14.0-18.0); Mean Corpuscular Hemoglobin 29.9 pg (25.0-34.0); Mean Corpuscular Hgb Conc 34.6 g/dL (32.0-36.0); Mean Corpuscular Volume 86.2 fL (80.0-100.0); Mean Platelet Volume 8.9 fL (9.4-12.4); Platelet Count 254 K/uL (130-400); RDW Coefficient of Variation 12.9 % (11.5-14.5); RDW Standard Deviation 39.2 fL (36.4-46.3); Red Blood Count 4.79 M/uL (4.70-6.10); White Blood Count 8.63 K/ul (4.8-10.8)
--- NOTE | 2024-02-02 13:55 | CT Scan Report ---
CT OF THE HEAD WITHOUT CONTRAST CLINICAL HISTORY: donquis, visual change COMPARISON STUDY: Head CT January 27, 2024. CT DOSE: 625.8 mGy.cm TECHNIQUE: Helical axial images of the head were obtained without IV contrast. Automated exposure con trol was utilized for the study. A dose lowering technique was utilized adhering to the principles o f ALARA. FINDINGS: No acute intracranial hemorrhage is present. A 7.2 x 3.6 cm hypodense focus with loss of gr ay-white differentiation within the right occipital lobe and posterior right temporal lobe has develo ped since CT of January 27, 2024. There is minimal mass effect with sulcal effacement. White matter hypodense foci favor small vessel disease. These are unchanged. There are no calvarial fractures. IMPRESSION: 1. Interval development of a 7.2 x 3.6 cm hypodense focus with loss of cross-white differentiation wit hin the right occipital lobe and posterior right temporal lobe suggestive of a large subacute right P CA infarct. Mild mass effect with sulcal effacement. 2. No acute intracranial hemorrhage. ACT 112: Negative or not required by law. Electronically signed by: Parag Mike M.D. 02/02/2024 1:53 PM
[2024-02-02 14:00] LABS: BUN Creatinine Ratio 16.5 (10-20); Calcium 9.4 mg/dl (8.6-10.3); Creatinine Clr Calc Pharmacy 139.4 ml/min
[2024-02-02 14:06] LABS: Partial Thromboplastin Time 28 Seconds (21-31); Prothrombin Time 10.7 Seconds (9.0-12.0)
[2024-02-02] MEDS ORDERED: GLUCAGON FOR INJ 1 MG VIAL SQ PRN (14:47)
[2024-02-02] MEDS ORDERED: CARBOHYDRATES FOR HYPOGLYCEMIA PO PRN (14:47)
[2024-02-02] MEDS ORDERED: GLUCOSE 40% GEL 15 GM TUBE PO PRN (14:47)
[2024-02-02] MEDS ORDERED: DEXTROSE 50% 50 ML SYRINGE IV PRN (14:47)
[2024-02-02] MEDS ORDERED: GLUCOSE 10 TAB/TUBE PO PRN (14:47)
[2024-02-02] MEDS: NovoLIN-R INSULIN PER UNIT CHARGE IV STA ×2 (14:52→15:09)
--- NOTE | 2024-02-02 15:04 | History & Physical Report ---
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 lobe subacute infarct on CT scan Neurologist precision lens polisher was consulted and will be seen by neurologist tomorrow Advised to have echo and MRI to evaluate the process and continue current medications Patient remains stable otherwise Patent Foramen Ovale Paradoxical Embolisation (2) Acute saddle pulmonary embolism with acute cor pulmonale: Plan: As above Will get hypercoagulation workup US showed Left Femoral,Popliteal and Peroneal veins thrombus (3) T2DM (type 2 diabetes mellitus): Plan: Has been taking long-acting insulin 100 units at night every day Will continue that and also put him on sliding scale insulin coverage Will hold his lisinopril and also hydrochlorothiazide to maintain blood pressure (4) Hx of Crohn's disease: Plan: no acute issue (5) Ex-smoker: (6) Flashing lights: Plan As above and is secondary to subacute stroke DVT prophylaxis on Eliquis CODE STATUS Full History of Present Illness Chief Complaint: Flushing lights in the left eye since last Primary Care Provider: Charity Martin MD He is a 48-year-old obese male significant past medical history of diabetes on insulin and also stable Crohn's disease has had saddle pulmonary emboli on January and came to emergency room with acute respiratory failure. He was transferred to [facility] and has had thrombectomy on the same day. He left [facility] Center on on Eliquis. He has been complaining of flashing of lights in the left eye since and he told about that to the providers at [facility] and was told that everything will be fine. He is flashing of lights in the left side did not improve and it was bothering him too much at his workplace today and was advised to come to the emergency room after talking to his primary care physician. Denies any numbness or tingling in the extremities or any weakness involving any side of the body, denies any problem with speech or any problems swallowing. Does not have any problem with ambulating he is only symptoms remain dull headache involving mostly on the right side. CT scan in the emergency room noted to have subacute infarct involving the right occipital lobe and posterior right temporal lobe since CT of January 27, 2024. There is minimal mass effect. the ER physician did talk to the neurologist Dr. Galvan and was advised that the patient can safely go home or can be observed in the hospital with an echo and an MRI and the patient will be seen tomorrow and continue with the current management that he is getting. this was discussed with the patient in detail and was admitted to telemetry unit for continuation of care. Allergies Allergy/AdvReac Type Severity Reaction Status Date / Time Iodinated Contrast Media Allergy Intermediate Rash Verified 08/12/21 07:02 metformin AdvReac Intermediate Swelling ~ Unverified 08/12/21 07:02 nausea Home Medications Medication Instructions Recorded Confirmed Type dulaglutide 1.5 mg/0.5 mL 1.5 mg subcut UD 08/12/21 02/02/24 History subcutaneous pen injector (Trulicity) lisinopril 2.5 mg tablet 2.5 mg PO UD 08/12/21 02/02/24 History glucagon 1 mg/mL solution for 1 mg subcut UD PRN hypoglycemia #1 08/13/21 02/02/24 Rx injection (GlucaGen Diagnostic Kit) ea Eliquis 10 mg PO BID 02/02/24 02/02/24 History furosemide 20 mg tablet 20 mg PO UD 02/02/24 02/02/24 History insulin glargine U-300 conc 300 100 unit subcut HS 02/02/24 02/02/24 History unit/mL (3 mL) subcutaneous pen (Toujeo Max U-300 SoloStar) Past Med/Surg History Problem List (Updated 02/02/24 @ 15:10 by Monico Malloy MD) Flashing lights Stroke due to embolism of posterior cerebral artery Ex-smoker Acute respiratory failure with hypoxia Elevated troponin (Acute) Acute saddle pulmonary embolism with acute cor pulmonale (Acute) Poorly controlled diabetes mellitus (Acute) Cellulitis of left leg (Acute) T2DM (type 2 diabetes mellitus) Hx of Crohn's disease Medical History Bilateral leg cramps T2DM (type 2 diabetes mellitus) Anemia Bradycardia Valvular heart disease Abnormal ECG Ileitis Hx of Crohn's disease Surgical History History of tonsillectomy History of appendectomy History of cholecystectomy Family History Mother Diabetes Other Colitis Social History Smoking Status: Former smoker Tobacco Type: Cigarettes Second Hand Exposure: No; Do You Dip or Chew Tobacco: No; Hx Alcohol Use: Yes Alcohol type: beer Hx Substance Use: No Preferred Language: Bolivian Communication Ability: Effective Visual Impairment: No Limitations Hearing Ability: Normal Mental Health Program Specialist Required: No Beliefs That Will Affect Care: None marital status: Single Current Living Situation: Significant Other current occupational status: employed current occupation: works at [employer] Feels Safe at Home: Yes Assistive Devices: None Review of Systems Review of Systems: All systems reviewed and are unremarkable except as noted below Physical Exam Physical Exam: lying in bed without any apparent distress Constitutional: well developed and well nourished; not ill appearing and not obese Eyes: PERRL, conjunctivae normal, anicteric sclerae ENMT: external ear and nose normal, oropharynx normal Neck: trachea midline, no thyromegaly Respiratory: no respiratory distress Auscultation: lungs clear to auscultation bilaterally Cardiovascular: Rate/Rhythm: regular rate and regular rhythm; not tachycardic Heart Sounds: normal S1 and normal S2; no murmur Extremities: + edema ( trace edema bilaterally) Gastrointestinal (Abdomen): Inspection/Auscultation: normal bowel sounds; abdomen not distended Percussion/Palpation: abdomen soft; abdomen nontender Musculoskeletal: no acute arthritis involving any of the joint Neurologic: normal touch/pain/proprioception and moves all extremities; no focal motor deficits Psychiatric: A+Ox3, euthymic affect Lymphatic: no cervical or axillary lymphadenopathy Results & Data Results & Data Vital Signs (Past 12 Hours) Vital Signs Temp Pulse Pulse Resp BP BP Pulse Ox 02/02/24 14:00 67 18 121/81 96 02/02/24 13:39 68 18 113/76 97 02/02/24 12:22 36.5 C 83 16 151/92 H 98 O2 Del Method 02/02/24 14:00 Room Air 02/02/24 13:39 Room Air 02/02/24 12:22 Room Air Laboratory Results Short CBC 02/02/24 Range/Units 13:00 WBC 8.63 (4.8-10.8) K/ul Hgb 14.3 (14.0-18.0) g/dl Hct 41.3 L (42.0-52.0) % Plt Count 254 (130-400) K/uL BMP 02/02/24 13:00 Sodium 133 L Potassium 4.0 Chloride 98 Carbon Dioxide 26 BUN 14 Creatinine 0.85 Glucose 337 H* Calcium 9.4 Medications Administered Current Inpatient Medications Dextrose (Dextrose 50% 50 Ml Syringe) 25 - 50 ml IV UD PRN; Protocol PRN Reason: Hypoglycemia Protocol Stop: 03/03/24 14:46 Glucagon (Glucagon For Inj 1 Mg Vial) 1 mg SQ UD PRN; Protocol PRN Reason: Hypoglycemia Protocol Stop: 03/03/24 14:46 Glucose (Glucose 40% Gel 15 Gm Tube) 15 - 30 gm PO UD PRN; Protocol PRN Reason: Hypoglycemia Protocol Stop: 03/03/24 14:46 Glucose (Glucose 10 Tab/Tube) 4 - 8 tab PO UD PRN; Protocol PRN Reason: Hypoglycemia Protocol Stop: 03/03/24 14:46 Insulin Aspart (Insulin Aspart Per Unit Charge) 0 units SC ACHS BONNIE Stop: 03/03/24 16:29 Miscellaneous (Carbohydrates For Hypoglycemia ) 15 - 30 gm PO UD PRN PRN Reason: Hypoglycemia Protocol Stop: 03/03/24 14:46
--- NOTE | 2024-02-02 17:47 | Ultrasound Report ---
EXAM: US Duplex Bilateral Lower Extremities Veins INDICATION: DVT. TECHNIQUE: Real-time duplex ultrasound scan of the bilateral lower extremity veins integrating B-mode two-dimensional vascular structure, Doppler spectral analysis, color flow Doppler imaging and compression. COMPARISON: Left 03/21/2023 FINDINGS: Right deep veins: No DVT in the right common femoral, femoral or popliteal veins. The veins demonstrate normal color flow, are normally compressible, with normal phasic flow and/or augmentation response. Right superficial veins: No abnormality noted. No thrombus in the visualized right great saphenous vein. Left deep veins: There is nonocclusive thrombus of the mid left femoral vein. Occlusive thrombus extends from the distal femoral vein through the popliteal vein and involving the peroneal vein in the calf. Common femoral and tibial veins patent. Left superficial veins: No abnormality noted. No thrombus in the visualized left great saphenous vein. Soft tissues: No abnormality noted. IMPRESSION: 1. Positive left femoral, popliteal and peroneal vein DVT. 2. No deep venous thrombosis of the right lower extremity. ACT 112: Negative or not required by law. Electronically signed by Ana M Diego 02-02-2024 5:46 PM
[2024-02-02] MEDS: INSULIN ASPART PER UNIT CHARGE SC SCH (18:18)
[2024-02-02] MEDS: LANTUS PER UNIT CHARGE SC ONE (20:18)
[2024-02-02] MEDS: APIXABAN 5 MG TABLET PO SCH (20:18)
[2024-02-02] MEDS ORDERED: NON-FORMULARY MEDICATION (Insulin Glargine U-300 Conc [Toujeo Max U-300 Solostar] 300 unit SQ SCH (21:00)
[2024-02-02] MEDS ORDERED: LANTUS PER UNIT CHARGE SC SCH (21:00)
[2024-02-03 03:52] VITALS: RESP 18
--- OUTSIDE RECORDS SUMMARY | 2024-02-03 04:31 | External Medical Summary | Summary of Care ---
Author Name Unknown Organization [facility] Address [address] [place] [address] Phone [phone] Care Team Providers Care Drawing Supervisor Name Role Phone Charity Martin MD Primary Care Provider [phone] Encounter Details Date Type Department Care Team (Latest Contact Info) Description 01/27/2024 2:10 PM EST - 01/27/2024 11:59 PM EST Hospital Encounter Radiology Film File [address], [place] [id number] Arrived Discharge Disposition: Home - Self Care Allergies Active Allergy Reactions Criticality Noted Date Comments Iodinated Contrast Media 12/30/2019 Metformin Wheezing 04/02/2020 documented as of this encounter (statuses as of 01/29/2024) Medications ReliOn Pen [place] 32G X 4 MM USE 1 ONCE DAILY 0 Active Pen [place] 32G X 5 MMIndications:Type 2 diabetes mellitus with hemoglobin A1c goal of less than 7.0% ([facility]) Use as directed. 50 Each 1 1 Active Insulin Pen Needle 30G X 8 MM (NovoFine Autocover Pen Needle) Use once daily 100 Each 3 2 Active BD Pen Needle Short U/F 31G X 8 MM (Insulin Pen Needle) Use once daily 100 Each 3 2 Active Lisinopril 2.5 MG Oral Tablet (Prinivil) Take 1 Tablet by mouth in the morning. 90 Tablet 3 3 Active Trulicity 1.5 MG/0.5ML Subcutaneous Solution Pen-injector (Dulaglutide) Inject 1.5 mg under the skin once a week. 2 mL 11 3 Active Probiotic Acidophilus Oral Capsule 2 Capsules. 4 Active hydrOXYzine HCl 25 MG Oral TabletIndications: Cellulitis of left lower extremity Take 1 Tablet by mouth every 6 hours as needed for Itching. 40 Tablet 2 4 Active Glucagon Emergency 1 MG Injection KitIndications:Typ e 2 diabetes mellitus with hemoglobin A1c goal of less than 7.0% (HCC) Inject as directed when sugar goes low 1 Kit 1 4 Active Fluconazole 150 MG Oral Tablet (Diflucan)Indicati ons:Cellulitis of left lower extremity,Tinea pedis of both feet 1 tab once a week for 6 weeks 1 Tablet 4 Active Toujeo SoloStar 300 UNIT/ML Subcutaneous Solution Pen-injectorIndica tions:Type 2 diabetes mellitus with hemoglobin A1c goal of less than 7.0% (HCC),Uncontrolled type 2 diabetes mellitus with hyperglycemia (HCC) 100 units every evening 12 mL 3 4 Active Ozempic (0.25 or 0.5 MG/DOSE) 2 MG/3ML Solution Pen-injector (Semaglutide(0.25 or 0.5MG/DOS))Indicat ions:Type 2 diabetes mellitus with hyperglycemia, unspecified whether signaling design engineer insulin use (HCC),Morbid obesity due to excess calories (HCC) Inject 0.5 mg under the skin once a week. 3 mL 5 4 Active Furosemide 20 MG Oral Tablet (Lasix)Indications :Venous stasis Take 1 Tablet by mouth in the morning. 30 Tablet 1 4 Active Potassium Chloride ER 10 MEQ Oral Capsule Extended ReleaseIndications :Venous stasis Take 1 Capsule by mouth in the morning. 30 Capsule 1 4 Active documented as of this encounter (statuses as of 01/29/2024) Active Problems Problem Noted Date Diagnosed Date Venous stasis dermatitis of both lower extremiti es 05/17/2023 Crohn's disease of colon, unspecified complicati on 03/31/2023 Crohn's disease 05/21/2021 Overview (05/21/2021): per pt BMI 40.0-44.9, adult 04/03/2020 Essential hypertension with goal blood pressure less than 140/90 04/03/2020 Right leg swelling 04/03/2020 Type 2 diabetes mellitus wit h hemoglobin A1c goal of less than 7.0% 04/03/2020 Morbid obesity due to excess calories 04/03/2020 Type 2 diabetes mellitus with hyperglycemia documented as of this encounter (statuses as of 01/29/2024) Immunizations Name Administration Dates Next Due Pneumococcal [...] money to get more. Never true 04/02/2020 Utilities Answer Date Recorded Do you have trouble paying y our heating, water, or electric bill? (Adult - for ages 18 years and over) Not on file 08/25/2023 Is your family able to pay t he heat, water, or electric bill? (Household - for ages 0-17 years) Not on file 08/25/2023 Does your family have access to good internet? (Household - for ages 0-17 years) Not on file 08/25/2023 Social Connections Answer Date Recorded How often do you feel lonely or isolated from those around you? (Adult - for ages 18 years and over) Not on file 08/25/2023 Sex and Gender Information Value Date Recorded Sex Assigned at Male 04/02/2020 10:36 AM EST Legal Sex Male 12:24 PM EDT Gender Identity Male 04/02/2020 10:36 AM EST Sexual Orientation Straight 04/02/2020 10 :36 AM EST documented as of this encounter Plan of Treatment Health Maintenance Due Date Last Done Comments Diabetic Eye Exam 06/20/1991 Hepatitis B Vaccine (1 of 3 - 19+ 3-dose series) 1992 Cologuard 2018 Colonoscopy 2018 Colorectal Cancer Screening 2018 Fecal Occult Blood Test 2018 Sigmoidoscopy 2018 Depression Screening 12/29/2020 12/30/2019 HbA1c 04/18/2023 10/16/2022, 05/21/2021 Zoster Vaccines (1 of 2) 06/20/2023 Albumin/Creatinine Ratio 10/17/2023 023, 05/21/2021 GFR 10/30/2023 10/29/2022, 10/16/2022, 05/21/2021 COVID-19 Vaccine (1 - 2023-2 5 season) 2023 Influenza Vaccine (FLU shot) (#1) 2023 Diabetic Foot Exam 05/05/2024 05/05/2023, 12/30/2019 Lipid Panel 10/17/2027 10/16/2022, 05/21/2021 DTap/Tdap Vaccines (2 - Td o r Tdap) 04/02/2030 04/02/2020 Pneumococcal Vaccine: Pediatrics (0 to 5 Years) and At-Risk Patients (6 to 64 Years) Completed 10/16/2022, 04/02/2020 HPV (Gardasil) Vaccine Aged Out No lo nger eligible based on patient's age to complete this topic MENINGOCOCCAL (MENACTRA/MENVEO) Aged Out No longer eligible b ased on patient's age to complete this topic documented as of this encounter Medical Devices Not on filedocumented as of this encounter Procedures Procedure Name Priority Date/Time Associated Diagnosis Comments RADIOLOGY EXAM - CT (IMAGES ONLY, NO REPORT) Routine 01/27/2024 2:10 PM EST documented in this encounter Results * RADIOLOGY EXAM - CT (IMAGES ONLY, NO REPORT) (01/27/2024 2:10 PM EST) 01/27/2024 2:10 PM EST Narrative Scheduling, Silent - 01/28/2024 7:13 PM EST This is an imaging study not interpreted or resulted by a [facility] or [facility] radiologist. Charity Martin MD RAD CT Final Result documented in this encounter Care Teams Drawing Supervisor Relationship Specialty Start Date End Date Charity Martin MD [address] [place] [address] [place] [address] PCP - General Internal Medicine 04/02/20 documented as of this encounter
--- OUTSIDE RECORDS SUMMARY | 2024-02-03 04:31 | External Medical Summary | Summary of Care ---
Author Name Unknown Organization [facility] Address [address] [place] [address] Phone [phone] Care Team Providers Care Space Technologist Name Role Phone Charity Martin MD Primary Care Provider [phone] Encounter Details Date Type Department Care Team (Late st Contact Info) Description 01/27/2024 Orders Only General Internal Medicine [facility] [address] [facility] [place] [address] Charity Martin MD [address] [facility] [place] [address] Allergies Active Allergy Reactions Criticality Noted Date Comments Iodinated Contrast Media 12/30/2019 Metformin Wheezing 04/02/2020 documented as of this encounter (statuses as of 01/28/2024) Medications ReliOn Pen [place] 32G X 4 MM USE 1 ONCE DAILY 0 Active Pen [place] 32G X 5 MMIndications:Type 2 diabetes mellitus with hemoglobin A1c goal of less than 7.0% ([facility]) Use as directed. 50 Each [...] 2 diabetes mellitus with hyperglycemia, unspecified whether ocean transportation intermediary insulin use (HCC),Morbid obesity due to excess [...] as of this encounter (statuses as of 01/28/2024) Active Problems Problem Noted Date Diagnosed Date [...] as of this encounter (statuses as of 01/28/2024) Immunizations Name Administration Dates Next Due Pneumococcal [...] interpreted or resulted by a [facility] or [facility] contracted radiologist. Charity Martin MD RAD CT Final Result documented in this encounter Care Teams Space Technologist Relationship Specialty Start Date End Date Charity Martin MD [address] [place] [address] [place] [address] PCP - General Internal Medicine 04/02/20 documented as of this encounter
--- OUTSIDE RECORDS SUMMARY | 2024-02-03 04:31 | External Medical Summary | Summary of Care ---
Author Name Unknown Organization [facility] Address [address] [place] [address] Phone [phone] Care Team Providers Care Bracelet Maker Novelty Name Role Phone Charity Martin MD Primary Care Provider [phone] Encounter Details Date Type Department Care Team (Latest Contact Info) Description 01/27/2024 12:25 PM EST - 01/27/2024 12:54 PM EST Hospital Encounter Radiology Film File [address] [place] [address] Arrived Discharge Disposition: Home - Self Care Allergies Active Allergy Reactions Criticality Noted Date Comments Iodinated Contrast Media 12/30/2019 Metformin Wheezing 04/02/2020 documented as of this encounter (statuses as of 01/29/2024) Medications ReliOn Pen [place] 32G X 4 MM USE 1 ONCE DAILY 0 Active Pen [place] 32G X 5 MMIndications:Type 2 diabetes mellitus with hemoglobin A1c goal of less than 7.0% ([facility]) Use as directed. 50 Each [...] diabetes mellitus with hyperglycemia, unspecified whether termite exterminator insulin use (HCC),Morbid obesity due to excess [...] Date/Time Associated Diagnosis Comments RADIOLOGY EXAM - GENERAL RAD (IMAGES ONLY,NO REPORT) Routine 01/27/2024 12:25 PM EST documented in this encounter Results * RADIOLOGY EXAM - GENERAL RAD (IMAGES ONLY,NO REPORT) (01/27/2024 12:25 PM EST) 01/27/2024 12:2 1 PM EST Narrative Scheduling, Silent - 01/28/2024 7:09 PM EST This is an imaging study not interpreted or resulted by a [facility] or [facility] radiologist. Charity Martin MD RADIOLOGY (RAD GENERAL) Final Result documented in this encounter Care Teams Bracelet Maker Novelty Relationship Specialty Start Date End Date Charity Martin MD [address] [place] [address] [place] [address] PCP - General Internal Medicine 04/02/20 documented as of this encounter
--- OUTSIDE RECORDS SUMMARY | 2024-02-03 04:31 | External Medical Summary | Summary of Care ---
Author Name Unknown Organization [facility] Address [address] [place] [address] Phone [phone] Care Team Providers Care Foster Care Therapist Name Role Phone Charity Martin MD Primary Care Provider [phone] Encounter Details Date Type Department Care Team (Late st Contact Info) Description 01/27/2024 Orders Only General Internal Medicine [facility] [address] [facility] [place] [address] Charity Martin MD [address] [facility] [place] [address] Allergies Active Allergy Reactions Criticality Noted Date Comments Iodinated Contrast Media 12/30/2019 Metformin Wheezing 04/02/2020 documented as of this encounter (statuses as of 01/28/2024) Medications ReliOn Pen [place] 32G X 4 MM USE 1 ONCE DAILY 0 Active Pen [place] 32G X 5 MMIndications:Type 2 diabetes mellitus with hemoglobin A1c goal of less than 7.0% ([facility]) Use as directed. 50 Each 1 [...] 2 diabetes mellitus with hyperglycemia, unspecified whether manager intermediate insulin use (HCC),Morbid obesity due to excess [...] Result documented in this encounter Care Teams Foster Care Therapist Relationship Specialty Start Date End Date Charity Martin MD [address] [facility] [place] [address] PCP - General Internal Medicine 04/02/20 documented as of this encounter
--- OUTSIDE RECORDS SUMMARY | 2024-02-03 04:31 | External Medical Summary | Continuity of Care Document ---
Author Name Unknown Organization [facility] Address [address] [place] [id number] Encounter [facility] [id number] Date(s): 01/27/24 - 01/29/[address] [id number] [phone] Encounter Diagnosis Pulmonary embolus(Discharge Diagnosis) - 01/27/24 Discharge Disposition: Home or Self Care Attending Physician: MD Dangelo, Kaiser Joyce Admitting Physician: MD Pierson Michael J Referring Physician: MD Jaswinder, Umesh Sheridan Allergies, Adverse Reactions, Alerts Substance Criticality Severity Reaction Reaction Severity Status IVP dye Unknown Active metFORMIN Wheezing Active Functional Status 01/29/24 Neurological Symptoms None ADLs Independent Facial Symmetry Symmetric Gait Steady Swallowing Difficulty None Level of Consciousness Neuro Alert History of Fall in Last 3 Months Valdez Y es Presence of Secondary Diagnosis Valdez Ye s Use of Ambulatory Aid Valdez None/bedrest /nurse assist IV/Heparin Lock Fall Risk Valdez Yes Gait/Transferring Fall Risk Valdez Normal /bedrest/immobile Mental Status Fall Risk Valdez Oriented t o own ability Valdez Fall Risk Score 60 Valdez Fall Risk High risk Speech Pattern Clear Medications Eliquis 5 mg oral tablet Start: 01/29/24 3:12:00 PM EST, 1 tab, PO, bid, Disp# 90 tab, Refills: 3, take two tabs in the morning and two tabs in the evening from 01/29-02/03. On 02/04- take one tab in the morning and one tab in the evening carrie, Pharmacy: [facility] Start Date: 01/29/24 Status: Ordered furosemide 20 mg oral tablet Start: 01/27/24 8:18:00 PM EST, 1 tab, PO, Daily Start Date: 01/27/24 Status: Ordered HumaLOG Sliding Scale Adult Critical Care Dose Range: SSI, injection, subQ, 01/28/24 8:00:00 PM EST, 01/28/24 8:51:47 PM EST, 01/28/24 1:57:00 EST Start Date: 01/28/24 Stop Date: 01/28/24 Status: Completed HumaLOG Sliding Scale Adult Critical Care Dose Range: SSI, injection, subQ, 01/29/24 12:00:00 AM EST, 01/29/24 12:13:55 AM EST, 01/28/24 1:57:00 EST Start Date: 01/29/24 Stop Date: 01/29/24 Status: Completed HumaLOG Sliding Scale Adult Critical Care Dose Range: SSI, injection, subQ, 01/29/24 4:00:00 AM EST, 01/29/24 4:08:35 AM EST, 01/28/24 1:57:00 EST Start Date: 01/29/24 Stop Date: 01/29/24 Status: Completed lisinopril Start: 01/27/24 8:22:00 PM EST Start Date: 01/27/24 Status: Ordered Toujeo SoloStar 300 units/mL subcutaneous solution 80 unit =, subQ, Daily, INJECT 100 UNITS EVERY EVENING SUBCUTANEOUSLY Start Date: 01/27/24 Status: Ordered Trulicity Pen 1.5 mg/0.5 mL subcutaneous solution Start: 01/27/24 8:18:00 PM EST, 0.75 mg =, subQ, q7days, Disp# 6 mL Start Date: 01/27/24 Status: Ordered Mental Status 01/27/24 Primary Language British Problem List Condition Confirmation Course Effective Dates Status [facility] atus Informant Crohn disease of colon Confirmed Active Hypertension Confirmed Active Diabetes mellitus type 2, insulin dependent Confirmed Active Previous Tobacco user Confirmed Active Venous stasis Confirmed Active Diagnosis Diagnosis Type Effective Dates Health Status Cl inical Service Informant Pulmonary embolus Discharge Diagnosis 01/27/24 Non-Specified Procedures Procedure Date Related Diagnosis Body Site Status CT of abdomen and pelvis 1 02/10/18 Completed 11) Findings consistent with mild interstitial edematous pancreatitis at the pancreatic tail. No acute peripancreatic fluid collection. No evidence of necrosis. 2) Significant wall thickening of the terminal ileum along a length of approx. 15-20 cm. No resulting obstruction. This is most consistent with ileitis, which could be infectious or inflammatory. Less likely diagnostic considerations include lymphoma. It is recommemnded that this be followed to resolution and/or gastroenterology consultation. Results Laboratory List Name Date Glucose Meter (GLUCOSE METER) 01/29/24 Glucose Meter (GLUCOSE METER) 01/29/24 Glucose Meter (GLUCOSE METER) 01/29/24 Partial Thromboplastin Time (PTT) Complete Blood Count (CBC w Platelets) 1 03/30/23 Comprehensive Metabolic Panel (CMP) 01/08 05/02 Magnesium Level (Mg Level) 01/29/24 Prothrombin Time w/ INR (PT/INR) 4 Partial Thromboplastin Time (PTT) Partial Thromboplastin Time (PTT) ACT, Celite, by IStat (Dental Therapist) (ACT CE LITE ISTAT (CATH)) 01/28/24 ACT, Celite, by IStat (Dental Therapist) (ACT CE LITE ISTAT (CATH)) 01/28/24 NT-Pro BNP 01/28/24 Blood Type/Antibody Screen ( for possible transfusion) (Type and Screen (for possible transfusion)) 01/28/24 Prothrombin Time w/ INR (PT/INR) 4 Complete Blood Count (CBC w Platelets) 1 03/29/23 Comprehensive Metabolic Panel (CMP) 01/08 04/01 Magnesium Level (Mg Level) 01/28/24 Blood Type (ABO/Rh) (ABO/RH) 01/28/24 Complete Blood Count w Differential (CBC w Platelets and Diff) 01/27/24 Comprehensive Metabolic Panel (CMP) 01/08 Magnesium Level 01/27/24 Phosphorus Level 01/27/24 Lactic Acid Level 01/27/24 Hemoglobin A1C (Glycohemoglobin) 4 MRSA Surveillance (Nasal Swab) 01/27/24 Troponin T ( 5th Gen) 01/27/24 Venous Blood Gases (VBG Venous Blood Gas ) 01/27/24 Urine Analysis w/ Reflexed M icroscopic. (Urinalysis w/ Reflexed Microscopic.) 01/27/24 Most recent to oldest [Reference Range]: 1 2 3 ABO/Rh O POSITIVE (01/28/24 4:30 AM) O POSITIVE (01/28/24 4:30 AM) Antibody Scr NEGATIVE (01/28/24 4:30 AM) Expires at 0600AM on 01/31/2024 (01/28/24 4:30 AM) # Units 0 (01/28/24 4:30 AM) R Number NRQ (01/28/24 4:30 AM) eGFR CKD-EPI [>60 mL/min/1.73 m2] >90 mL/min/1.73 m2 (01/29/24 4:02 AM) >90 mL/min/1.73 m2 (01/28/24 4:31 AM) >90 mL/min/1.73 m2 (01/27/24 10:08 PM) Blood Glucose [70-120 mg/dL] 245 mg/dL 1 *HI* (01/29/24 4:08 AM) 329 mg/dL 2 *HI* (01/29/24 12:13 AM) 377 mg/dL 3 *HI* (01/28/24 8:51 PM) Estimated Average Glucose >427 mg/dL (01/27/24 6:25 PM) Troponin T ( 5th Gen) [<22 ng/L] 137 ng/L 4 *HI* (01/27/24 6:25 PM) Troponin T ( 5th Gen) Delta NOT CALCULATED (01/27/24 6:25 PM) O2 Flow (v) 6 L/min (01/27/24 6:25 PM) BNP, NT-Pro [<125 pg/mL] 887 pg/mL *HI* (01/28/24 12:06 PM) Estimated CrCl 130.35 mL/min (01/29/24 4:53 AM) 134.75 mL/min (01/28/24 5:48 AM) 155.75 mL/min (01/27/24 11:00 PM) MPV [9.0-12.2 fL] 9.1 fL (01/29/24 4:02 AM) 9.7 fL (01/28/24 4:31 AM) 9.7 fL (01/27/24 10:08 PM) Immature Gran% 0.5 % (01/27/24 10:08 PM) Neut% 65.0 % (01/27/24 10:08 PM) Lymph% 26.1 % (01/27/24 10:08 PM) Citrus% 6.5 % (01/27/24 10:08 PM) Baso% 0.4 % (01/27/24 10:08 PM) Eos% 1.5 % (01/27/24 10:08 PM) Immat Gran, Abs [0-0.4 K/uL] 0.05 K/uL (01/27/24 10:08 PM) Neut, Abs [2.0-7.7 K/uL] 6.11 K/uL (01/27/24 10:08 PM) Lymph, Abs [1.0-3.4 K/uL] 2.45 K/uL (01/27/24 10:08 PM) Citrus, Abs [0-1.0 K/uL] 0.61 K/uL (01/27/24 10:08 PM) Baso, Abs [0-0.1 K/uL] 0.04 K/uL (01/27/24 10:08 PM) Eos, Abs [0-0.5 K/uL] 0.14 K/uL (01/27/24 10:08 PM) Type of Diff: AUTO (01/27/24 10:08 PM) RDW [11.5-14.2 %] 13.0 % (01/29/24 4:02 AM) 12.7 % (01/28/24 4:31 AM) 12.6 % (01/27/24 10:08 PM) Component RED CELLS (01/28/24 4:30 AM) MRSA Surveillance, on Admission [MSND] MRSA NOT detected (01/27/24 6:25 PM) Anion Gap [5-14 mmol/L] 12 mmol/L (01/29/24 4:02 AM) 12 mmol/L (01/28/24 4:31 AM) 14 mmol/L (01/27/24 10:08 PM) Alb [3.5-5.2 g/dL] 2.7 g/dL *LOW* (01/29/24 4:02 AM) 3.1 g/dL *LOW* (01/28/24 4:31 AM) 3.0 g/dL *LOW* (01/27/24 10:08 PM) Alk Phos [40-130 unit/L] 87 unit/L 5 (01/29/24 4:02 AM) 112 unit/L 6 (01/28/24 4:31 AM) 111 unit/L 7 (01/27/24 10:08 PM) ALT [0-41 unit/L] 10 unit/L (01/29/24 4:02 AM) 17 unit/L (01/28/24 4:31 AM) 18 unit/L (01/27/24 10:08 PM) AST [0-40 unit/L] 14 unit/L (01/29/24 4:02 AM) 17 unit/L (01/28/24 4:31 AM) 19 unit/L (01/27/24 10:08 PM) Bili (u) [NEG] NEGATIVE (01/27/24 5:50 PM) BUN [6-23 mg/dL] 13 mg/dL (01/29/24 4:02 AM) 11 mg/dL (01/28/24 4:31 AM) 11 mg/dL (01/27/24 10:08 PM) Ca [8.4-10.2 mg/dL] 7.3 mg/dL *LOW* (01/29/24 4:02 AM) 8.0 mg/dL *LOW* (01/28/24 4:31 AM) 7.5 mg/dL *LOW* (01/27/24 10:08 PM) Cl- [98-107 mmol/L] 107 mmol/L (01/29/24 4:02 AM) 108 mmol/L *HI* (01/28/24 4:31 AM) 100 mmol/L (01/27/24 10:08 PM) HCO3 [22-29 mmol/L] 22 mmol/L (01/29/24 4:02 AM) 21 mmol/L *LOW* (01/28/24 4:31 AM) 21 mmol/L *LOW* (01/27/24 10:08 PM) Cret [0.70-1.30 mg/dL] 0.92 mg/dL (01/29/24 4:02 AM) 0.89 mg/dL (01/28/24 4:31 AM) 0.77 mg/dL (01/27/24 10:08 PM) HbA1c [<5.7 %] >16.5 % 8 *HI* (01/27/24 6:25 PM) Glu [74-109 mg/dL] 256 mg/dL 9 *HI* (01/29/24 4:02 AM) 194 mg/dL 10 *HI* (01/28/24 4:31 AM) 430 mg/dL 11 *HI* (01/27/24 10:08 PM) Gluc Meter [74-109 mg/dL] 340 mg/dL *HI* (01/29/24 5:58 PM) 247 mg/dL *HI* (01/29/24 1:47 PM) 293 mg/dL *HI* (01/29/24 9:13 AM) Hct [39-48 %] 33.8 % *LOW* (01/29/24 4:02 AM) 39.3 % (01/28/24 4:31 AM) 40.3 % (01/27/24 10:08 PM) Hgb [13.0-17.0 g/dL] 11.4 g/dL *LOW* (01/29/24 4:02 AM) 13.3 g/dL (01/28/24 4:31 AM) 13.8 g/dL (01/27/24 10:08 PM) INR [0.9-1.1] 1.1 12 (01/29/24 4:02 AM) 1.1 13 (01/28/24 4:31 AM) K [3.5-5.1 mmol/L] 3.3 mmol/L *LOW* (01/29/24 4:02 AM) 3.3 mmol/L *LOW* (01/28/24 4:31 AM) 3.3 mmol/L *LOW* (01/27/24 10:08 PM) Ketones [NEG mg/dL] 80 mg/dL *Abnormal* (01/27/24 5:50 PM) Lactate [0.5-2.2 mmol/L] 1.9 mmol/L (01/27/24 6:25 PM) Leuk Est [NEG] NEGATIVE (01/27/24 5:50 PM) MCH [28-33 pg] 29.8 pg (01/29/24 4:02 AM) 29.6 pg (01/28/24 4:31 AM) 29.7 pg (01/27/24 10:08 PM) MCHC [32-36 g/dL] 33.7 g/dL (01/29/24 4:02 AM) 33.8 g/dL (01/28/24 4:31 AM) 34.2 g/dL (01/27/24 10:08 PM) MCV [81-96 fL] 88.5 fL (01/29/24 4:02 AM) 87.5 fL (01/28/24 4:31 AM) 86.7 fL (01/27/24 10:08 PM) Mg [1.6-2.6 mg/dL] 1.7 mg/dL (01/29/24 4:02 AM) 2.1 mg/dL (01/28/24 4:31 AM) 1.7 mg/dL (01/27/24 10:08 PM) Na [136-145 mmol/L] 141 mmol/L (01/29/24 4:02 AM) 141 mmol/L (01/28/24 4:31 AM) 135 mmol/L *LOW* (01/27/24 10:08 PM) Nitrite (u) [NEG] NEGATIVE (01/27/24 5:50 PM) PO4 [2.5-4.5 mg/dL] 1.8 mg/dL *LOW* (01/27/24 10:08 PM) Plts [150-350 K/uL] 170 K/uL (01/29/24 4:02 AM) 188 K/uL (01/28/24 4:31 AM) 196 K/uL (01/27/24 10:08 PM) PT [12.0-14.2 seconds] 14.2 seconds (01/29/24 4:02 AM) 14.3 seconds *HI* (01/28/24 4:31 AM) PTT [23-35 seconds] 63 seconds 14 *HI* (01/29/24 5:56 AM) 63 seconds 15 *HI* (01/29/24 12:03 AM) 113 seconds 16 *Critical High* (01/28/24 6:37 PM) RBC [4.40-5.60 M/uL] 3.82 M/uL *LOW* (01/29/24 4:02 AM) 4.49 M/uL (01/28/24 4:31 AM) 4.65 M/uL (01/27/24 10:08 PM) ACT (Celite), POC [74-125 seconds] 266 seconds *HI* (01/28/24 2:19 PM) 232 seconds *HI* (01/28/24 1:44 PM) T Bili [0.0-1.2 mg/dL] 0.3 mg/dL (01/29/24 4:02 AM) 0.3 mg/dL (01/28/24 4:31 AM) 0.3 mg/dL (01/27/24 10:08 PM) Prot [6.4-8.3 g/dL] 5.0 g/dL *LOW* (01/29/24 4:02 AM) 5.9 g/dL *LOW* (01/28/24 4:31 AM) 6.0 g/dL *LOW* (01/27/24 10:08 PM) Appear (u) CLEAR (01/27/24 5:50 PM) Color (u) STRAW (01/27/24 5:50 PM) Glu (u) [NEG mg/dL] >=500 mg/dL *Abnormal* (01/27/24 5:50 PM) Hgb (u) [NEG] NEGATIVE (01/27/24 5:50 PM) pH (u) [5.0-8.0 unit] 6.0 unit (01/27/24 5:50 PM) Prot (u) [NEG mg/dL] 30 mg/dL *Abnormal* (01/27/24 5:50 PM) Urobili [0.1-1.0 EU/dL] 0.1-1.0 EU/dL (01/27/24 5:50 PM) SG [1.005-1.030] >1.030 17 *HI* (01/27/24 5:50 PM) Temp(v) NOT PROVIDED C (01/27/24 6:25 PM) Base XS(v) 0.9 mmol/L (01/27/24 6:25 PM) HCO3(v) [24-28 mmol/L] 26.6 mmol/L (01/27/24 6:25 PM) pCO2(v) [41-51 mmHg] 45.0 mmHg (01/27/24 6:25 PM) pH(v) [7.33-7.43 unit] 7.380 unit (01/27/24 6:25 PM) pO2(v) 19.0 mmHg (01/27/24 6:25 PM) WBC [4.0-10.4 K/uL] 9.12 K/uL (01/29/24 4:02 AM) 9.75 K/uL (01/28/24 4:31 AM) 9.40 K/uL (01/27/24 10:08 PM) 1Result Comment: Performed at: [address] [place] [id number] 2Result Comment: Performed at: [address] [place] [address] 3Result Comment: Performed at: [address] [place] [address] 4Result Comment: To use the high-sensitivity cTnT assay, at least 2 blood samples should be drawnat time 0 and then at least 1h later. If the cTnT concentration at time 0 is greater than or equal to 53 ng/L in a patient whose clinicalpresentation is consistent with acute coronary syndrome, then there is a high likelihood that acutemyocardial injury is present. However, confirmation of acute myocardial injury still requires a second cTnT kamari drawn. Delta cut-offs for determining the presence of acute myocardial injury have beenvalidated at the 1-hour and 2-hour time points referenced here. A 1-hour delta troponin >5 ng/L indicates acute myocardial injury. A 2h delta troponin >7 ng/L indicates acute myocardial injury. Values below these are consistent with chronic myocardial injury. For patients where there is a high index of suspicion for acute coronary syndrome, repeating the tests at 1 or 2 hours, and calculating a new delta, may be indicated. If the second sample is collected in less than 60 minutes, no delta calculationwill be performed. Deltas for blood samples drawn more than 3 hours apart have not been validated and will not be reported. Please interpret with caution. 5Result Comment: Low levels of ALKP may indicate a deficiency in zinc, magnesium, or malnutritionbutcan also be an indicator of a rare genetic disease hypophosphatasia (HPP). 6Result Comment: Low levels of ALKP may indicate a deficiency in zinc, magnesium, or malnutritionbutcan also be an indicator of a rare genetic disease hypophosphatasia (HPP). 7Result Comment: Low levels of ALKP may indicate a deficiency in zinc, magnesium, or malnutritionbutcan also be an indicator of a rare genetic disease hypophosphatasia (HPP). 8Result Comment: ADA Recommended [place]esta Reference Range: Normal: <5.7% Prediabetes: 5.7-6.4% Diabetes: >6.4% Hb A1c results in patients with severe anemia or recent RBC transfusion are unreliable and do not represent the patient glycemic control. 9Result Comment: ADA recommendation for FASTING Serum/Plasma Glucose: Normal: 70-100 mg/dL Prediabetes: 100-125 mg/dL Diabetes: 126 mg/dL or higher 10Result Comment: ADA recommendation for FASTING Serum/Plasma Glucose: Normal: 70-100 mg/dL Prediabetes: 100-125 mg/dL Diabetes: 126 mg/dL or higher 11Result Comment: ADA recommendation for FASTING Serum/Plasma Glucose: Normal: 70-100 mg/dL Prediabetes: 100-125 mg/dL Diabetes: 126 mg/dL or higher 12Result Comment: Suggested therapeutic range for low-intensity Coumadin therapy for venous thromboembolism is INR 2.0-3.0 (ex: atrial fibrillation, history of TIA/stroke). For high risk patients, the suggested therapeutic range is INR 2.5-3.5 (ex: mechanical prosthetic valves). 13Result Comment: Suggested therapeutic range for low-intensity Coumadin therapy for venous thromboembolism is INR 2.0-3.0 (ex: atrial fibrillation, history of TIA/stroke). For high risk patients, the suggested therapeutic range is INR 2.5-3.5 (ex: mechanical prosthetic valves). 14Result Comment: Heparin therapeutic range for Anti XA Activity from 0.3 to 0.7 IU/mL is 65-105 seconds. 15Result Comment: Heparin therapeutic range for Anti XA Activity from 0.3 to 0.7 IU/mL is 65-105 seconds. 16Result Comment: Heparin therapeutic range for Anti XA Activity from 0.3 to 0.7 IU/mL is 65-105 seconds. CHECKED Heparin contamination cannot be ruled out. Suggest recollect if clinically indicated. 17Result Comment: CHECKED Radiology Reports * Exam Date Time Procedure Performing Provider Status 01/29/24 3:04 PM Echo TransTHORacic TTE Complete w/ Co nt Cole Jesusjesus manuelbryant; Final Notes: (Echo TransTHORacic TTE Complete w/ Cont) Reason For Exam: pulmonary embolism Echo TransTHORacic TTE Complete w/ Cont Report Signatures Finalized by Eagle Alvarado MD on 01/29/2024 03:01 PM [place] Act 112: No-No further action needed Summary 1. Normal left ventricular size and systolic function with no regional wall motion abnormalities. 2. Estimated Ejection Fraction 60-65%. 3. No left ventricular hypertrophy. 4. RV not well seen but appears normal in size and function. 5. Normal atrial and IVC dimensions. 6. No significant valvular abnormalities. 7. Normal pulmonary artery pressure. 8. No prior studies for comparison. Patient Info Name: GARCIA CHEN Age: 48 years : 1975 Gender: Male Ht: 185 cm Wt: 118 kg BSA: 2.51 m2 HR: 67 bpm BP: 111 / 73 mmHg Heart Rhythm: Sinus Rhythm Technical Quality: Poor Exam Date: 01/29/2024 1:17 PM Exam Location: [place] [address] Patient Status: Inpatient Staff Ordering Physician: David Frausto Dock Coordinator: BOOGIE Umana Attending Physician: Kaiser Pierson RESIDENT Study Info CPT J3490 - 94256 - Indications I2699 - Other pulmonary embolism without acute cor pulmonale Procedure(s) * A complete two-dimensional, color flow and Doppler transthoracic echocardiogram was performed. * Failed 2D images were enhanced with Definity per lab protocol. * Dock Coordinator, BOOGIE Umana, provided education about ultrasound enhancing agent to the patient. Exam Type: Cardiac Basic Left Ventricle Normal left ventricular size and systolic function with no regional wall motion abnormalities. Estimated Ejection Fraction 60-65%. No left ventricular hypertrophy. Normal diastolic function. Right Ventricle RV not well seen but appears normal in size and function. Left Atrium Normal left atrial size. Right Atrium Normal right atrial size. Aortic Valve Unremarkable aortic valve. Pulmonic Valve Unremarkable pulmonic valve. Mitral Valve Unremarkable mitral valve. Tricuspid Valve Unremarkable tricuspid valve; trace tricuspid regurgitation. Pericardium/Pleural No significant pericardial effusion. Inferior Vena Cava Normal IVC size and inspiratory collapse. Aorta Normal aortic root. Left Ventricular Outflow Tract Name Value Normal LVOT Doppler LVOT Peak Velocity 1.31 m/s LVOT Peak Gradient 6 mmHg LVOT Mean Gradient 3 mmHg LVOT VTI 22.15 cm LVOT VTI/AV VTI Ratio 0.64 Pulmonic Valve Name Value Normal RVOT Doppler RVOT Peak Velocity 0.89 m/s RVOT Peak Gradient 3 mmHg RVOT Mean Gradient 2 mmHg PV Doppler PV Peak Gradient 6 mmHg PV Mean Gradient 2 mmHg Mitral Valve Name Value Normal MV Doppler MV Decel Glenn 491.70 cm/s2 MV PHT 52 ms MV Diastolic Function MV E Peak Velocity 0.88 m/s <=0.50 MV A Peak Velocity 0.77 m/s MV E/A 1.15 <=0.80 MV Decel Time 180 ms MV Annular TDI MV Septal s' Velocity 12.71 cm/s MV Septal e' Velocity 15.89 cm/s >=7.00 MV E/e' (Septal) 5.6 <=8.0 MV Lateral s' Velocity 11.49 cm/s MV Lateral e' Velocity 13.57 cm/s >=10.00 MV E/e' (Lateral) 6.51 <=8.00 MV e' Average 14.73 MV E/e' (Average) 6.03 <=14.00 Tricuspid Valve Name Value Normal TV Regurgitation Doppler TR Peak Velocity 2.37 m/s <=2.80 TR Peak Gradient 22 mmHg Estimated PAP/RSVP RA Pressure 3 mmHg <=5 PA Systolic Pressure 25 mmHg <40 PVR (Wood Units) 126.58 dsc-5 TV Diastolic Function TV E Peak Velocity 0.51 m/s TV A Peak Velocity 0.31 m/s TV E/A 1.64 0.80-2.00 TV Decel Time 236 ms >=120 TV Annular TDI TV Lateral Elizabet s' Velocity 18.8 cm/s 9.5-18.7 TV Lateral Elizabet e' Velocity 13.8 cm/s <7.8 TV E/e' 3.67 2.00-6.00 Aorta Name Value Normal Ascending Aorta Sinus of Valsalva Diameter 3.3 cm 3.1-3.7 Sinus of Valsalva Index 1.31 cm/m2 1.50-1.90 Venous Name Value Normal IVC/SVC IVC Diameter (Insp 2D) 0.5 cm IVC Diameter (Exp 2D) 2.0 cm <=2.1 IVC Diameter Percent Change (2D) 77 % >=50 Aortic Valve Name Value Normal AV Doppler AV Peak Velocity 1.69 m/s <2.00 AV Peak Gradient 10 mmHg AV Mean Gradient 6 mmHg <20 AV VTI 34.73 cm AV V1/V2 Ratio 0.78 AV Accel Time 66 ms Ventricles Name Value Normal LV Dimensions 2D/MM IVS Diastolic Thickness (2D) 1.0 cm 0.6-1.0 LVID Diastole (2D) 4.8 cm 3.6-5.6 LVIW Diastolic Thickness (2D) 1.0 cm 0.6-1.0 LVID Systole (2D) 2.5 cm 2.5-4.0 LV Mass (2D Cubed) 171.72 g 88.00-224.00 LV Mass Index (2D Cubed) 0.01 g/cm2 0.00-0.01 Relative Wall Thickness (2D) 0.42 LV Fractional Shortening/Ejection Fraction 2D/MM LV Fractional Shortening (2D) 49 % 25-43 RV Dimensions 2D/MM TAPSE 2.5 cm >=1.7 Atria Name Value Normal LA Dimensions LA Area (4C) 16.2 cm2 LA Length (4C) 5.7 cm LA Area (2C) 15.4 cm2 LA Length (2C) 5.2 cm LA Volume (4C A-L) 39.06 ml LA Volume (2C A-L) 38.76 ml LA Volume (BP A-L) 41 ml 18-58 LA Volume Index (BP A-L) 16.23 ml/m2 <=34.00 RA Dimensions RA Area (4C) 12.1 cm2 <=18.0 Final Signed by:MD Alvarado Urs A Signed (Electronic Signature):01/29/2024 1:17 p * Exam Date Time Procedure Performing Provider Status 01/28/24 11:14 AM VL Lower Ext Venous Duplex Bilateral Arleen Tian; Final Notes: (VL Lower Ext Venous Duplex Bilateral) Reason For Exam: Unilateral leg swelling VL Lower Ext Venous Duplex Bilateral [facility] FINAL REPORT Name: GARCIA CHEN : 1975 Visit: [id number] Date: 28 Jan 2024 TYPE OF TEST: Peripheral Venous Testing REASON FOR TEST Lower extremity swelling INTERPRETATION/FINDINGS Venous duplex examination was performed of bilateral lower extremities. 1. Acute, occlusive, deep vein thrombus visualized within the mid/distal femoral, distal femoral, popliteal, and peroneal veins. 2. No evidence of deep or superficial vein thrombosis within bilateral common femoral, saphenofemoral junction, proximal deep femoral, proximal femoral, gastrocnemius, posterior tibial, proximal small saphenous, and the right mid and distal femoral, popliteal and peroneal veins. 3. David Frausto MD notified of technologist's preliminary findings at 11:05 am on 01/28/2024, read back and verified. No prior studies for comparison. IMPRESSION/COMMENTS I have personally reviewed the data relevant to the interpretation of this study. TECHNOLOGIST: Arleen Tian RDCS, T PHYSICIAN: Noris Moeller M.D. Signed: 01/29/2024 08:05 AM Final Dictated by:MD Moeller Kristine L Dictated DT/TM:01/29/2024 8:05 Signed by:MD Moeller Kristine L Signed (Electronic Signature):01/29/2024 8:05 a Transcribed by:KLS Vital Signs Most recent to oldest [Reference Range]: 1 2 3 Height 185.42 cm (01/27/24 6:00 PM) Patient Weight 118.3 kg (01/29/24 6:00 AM) 124 kg (01/28/24 4:39 AM) 120 kg (01/27/24 6:00 PM) Body Mass Index 34.9 kg/m2 (01/27/24 6:00 PM) Temperature [36.5-37.9 DegC] 36.5 DegC (01/29/24 8:00 AM) 36.5 DegC (01/29/24 4:00 AM) 36.3 DegC *LOW* (01/29/24 12:00 AM) Heart Rate 73 bpm (01/29/24 4:00 PM) 79 bpm (01/29/24 10:00 AM) 76 bpm (01/29/24 9:00 AM) Respiratory Rate 12 br/min (01/29/24 10:00 AM) 19 br/min (01/29/24 9:00 AM) 16 br/min (01/29/24 8:00 AM) Blood Pressure 112/62mmHg (01/29/24 10:00 AM) 136/101mmHg (01/29/24 9:00 AM) 111/64mmHg (01/29/24 8:00 AM) Mean Blood Pressure 78 mmHg (01/29/24 10:00 AM) 114 mmHg (01/29/24 9:00 AM) 79 mmHg (01/29/24 8:00 AM) Cuff Pulse Pressure 50 mmHg (01/29/24 10:00 AM) 35 mmHg (01/29/24 9:00 AM) 47 mmHg (01/29/24 8:00 AM) BP Location # 1 Right Arm, Non-invasive (01/29/24 10:00 AM) Right Arm (01/29/24 9:00 AM) Right Arm (01/29/24 8:00 AM) Social History Social History Type Response Smoking Status Never smoked cigaret pardeep Sex Male Sex Representation Male (finding) History and physical note * MD Pierson Michael J: MODIFY MD Pierson Michael J: MODIFY, MODIFY, MODIFY, MODIFY, MODIFY Event Display: H&P Authored Date: Name:GARCIA CHEN Patient Number:[id number] :1975 Date of Service:01/27/2024 Chief Complaint Transfer from [facility] for Thrombectomy for Saddle PE with R heart strain History of Present Illness Mr. Garcia Chen is a 48-year-old male with past medical history of type 2 diabetes, hypertension,Crohn's disease not on active treatmentwho [facility] todayafterlosing his balance, loss of vision, and passed out at work. His coworkers noted that he was pale prior to passing out. After passing out he next remembers waking up in the ambulance.His blood sugar this morning wasin the 400s. He also notes some shortness of breath today. He previously had small episodes where he isfelt dizzy but has never hadany episodes of passing out that he can recall. He reportsthathe has no cough for the past week,and has been feelinga little bit dehydrated and waking up in middle of the night to pee. The ED notereports some confusion upon presentation, blood sugar greater than 600onarrival, tachycardia,did reporthaving previous chest pain. At the outside hospital chest x-ray showed mildly enlarged heart, no consolidation suggestive of pneumonia. CT headshowedno acute intracranialabnormality. CT PEshowedlarge central pulmonary embolus with extensiveright lung predominant pulmonary emboli, dilated pulmonary artery with evidence of right heart strain, bibasilar atelectasis without pleural effusion, hepatomegaly with hepatic steatosis. He received2 L of fluids for suspected DKA/hyperglycemiain theand mild hypotension,blood work showedno signs of DKAUA showed 1+ ketonesandanion gap of 13. Heparin drip started fora large saddlePEwith right heart strain. Troponin was initially 81, up trended to 276. He was stable on 5 L nasal cannula. Discussion oftransferfor thrombectomy. [facility] ICU was full, transferred to [place] for thrombectomy. Upon arrival he is breathing comfortably on 6 L nasal cannula. He reports some mild shortness of breath, but no chest pain. He currently has a headache, he had vision changes earlierwhen he hastoand could not see,but denies any vision changes now. He has a history of type 2 diabetes, most recent A1c was unable to be measured as it was greater than 15per the patient. He checks his blood glucose at home 3 times a day, he states it supposed to be 90-100's usually around 2 50- 300. This morning it was 451 when he woke up. He reports drinking a lot ofGatorade and waterin the past 24 hours. His home regimen is Trulicity0.75 weeklyand 80 units insulin daily. He has a history of Crohn's diseasenot currently on active treatment as he cannot affordthe medications. He manages his Crohn's withdiet,he reportsregular co nstipation and diarrhea secondary to his Crohn's disease. He was previouslyon lisinopril for hypertension and furosemide secondary to venous stasis secondary to diabetes. He ran out of both of these medications and did not refill them. He takes an [id number]-[id number] medication for restless leg syndrome. He has not recently seen an eye doctor. He reports a broken tooth, he has an appointment scheduledwith a dentist in March. He reports no family history of any clotting disorders that he is aware of. He has not had any previous blood clots and has never been on blood thinners. 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 He is not active at home. He has a family history of diabetes andbreast cancer. He reports quitting smoking a while ago. He drinks alcoholsociallyapproximately1 beer per month,a note from 2019 reports previousheavy alcohol use. Deniesanyillicit drug use. Sister is next of kin, okay to call her and give her any updates. [id number] OSH Significant Labs: Sodium 130 Potassium 4.1 Anion gap13 Creatinine 1.13 Glucose 664 Xbziqotu64.2repeat 276 BNP 35 TSH 2.586 WBC 13.61 RVP negative VBG pH7.38pCO2 [id number] 25 UAsignificant for 3+ glucose, 1+ ketones Review of Systems Constitutional: No fever, No chills, No fatigue. Respiratory: SOB and cough. Cardiovascular:Lightheadedness/presyncope, earlier today.No chest pain, No palpitations. _ Gastrointestinal: No nausea, No vomiting, No abdominal pain. Chronic diarrhea and constipation. Musculoskeletal: RLS. No other muscle pain. Integumentary: No rash, No pruritus, No breakdown. Neurologic: Alert and oriented X4, No abnormal balance currently. Headache. Physical Exam Vitals & Measurements T:36.3C HR:97(Monitored) RR:19 BP:121/86 SpO2:94% Oxygen Flow:6(L/Min) Oxygen Therapy:Humidified, Nasal cannula HT:185.42cm WT:120.000kg(Dosing) WT:120kg BMI:34.9 BMI:34.90 kg/m2 General:Well-appearing, well nourished. No acute distress. HEENT:Normocephalic, atraumatic.MMM, no scleral icterus. Neck: Trachea midline Cardiac:Regular rate and rhythm. No murmurs orrubs. Lungs:Clear to auscultation bilaterally.No wheezes orcrackles. Good respiratory effect. On 6LNC. Abdomen:Soft, non-distended, non-tender with no rebound/rigidity/guarding. No masses or lesions noted. Extremities:No cyanosis or clubbing. No edema. Neuro: Alert and oriented x3.No focal deficits Skin:Warm and well perfused. No rashes or lesions. Psych:Fluent speech, appropriate affect, with good insight Diagnostic Results Images 2024-01-27 20:15:14 2024-01-27 20:15:47 2024-01-27 20:16:09 2024-01-27 20:16:31 Assessment/Plan Mr. Garcia Chen is a 48-year-old male with past medical history of type 2 diabetes, hypertension,Crohn's disease not on active treatment who presented to [facility] after passing out at work and found to have large Saddle PE with right heart strain and transferred to [facility] for thrombectomy. Neuro #Altered mental status - Resolved Mild confusionupon presentation to OSH likely related to SOB/PE/Hyperglycemia - CThead at OSH no acute intracranial abnormality Cardio #Hypertension - Not currently taking any antihypertensives outpatient due to running out of meds #Right heart strain - Seen on OSH CT PE -Formal TTE pending #Elevated Troponin - Likely 2/2 right heart strain 2/2 saddle PE - Repeat troponin on admission pending - EKG at outside hospitalabove Pulmonary #Acute Saddle Pulmonary embolus - CT PE @ OSH report above. Images uploaded to PACS. Large central pulmonary embolus with extensiveright lung predominant pulmonary emboli, dilated pulmonary artery with evidence of right heart strain - Continue Heparin drip - Plan for thrombectomy in the morning - Supplemental O2 as needed, currently requiring 6L O2 GI/FEN #Crohn's Disease - Not on active treatment due to cost - Reports frequent diarrhea 2/2 Crohn's disease #Hepatomegaly #hepatic steatosis - Seen on CT PE /Renal No acute needs Endocrine #Diabetes Mellitus #Hyperglycemia - On Trulicity0.75 weekly and Insulin 80U daily at home - Last A1C >15 per pt - Repeat A1C pending - CMP, VBGon admission pending. pH at OSH 7.38 - Will check CMP qAM - Hyperglycemia improving with IV fluids - Start SSI Heme/Onc #Leukocytosis - No signs of acute infection, likely reactive - UA at OSH no signs of UTI Infectious Disease No acute needs Diet:NPO pending procedure DVT PPx:Heparin Drip GI PPx:Not indicated Glucose:SSI Lines:PIVx3 Dispo: Admit to ICU Code Status:FULL CODE, confirmed at bedside POA:Sister Jaqueline [phone] Kevin Kumar MD Internal Medicine PGY-1 Attestation Pulmonary/Critical Care AttendingImpression andPlan: Garcia Chen is a 48-year-old male with significant history of type 2 diabetes, hypertension, Crohn's disease (not on active treatment) initially presented to [facility] after syncopizing at workultimately found to have a submassive saddle PE with right heart strain and associated endocardial necrosis. He was transferred to [facility] and admitted on 01/27/24 for anticipated aspiration thrombectomy. His is hemodynamically stable with no indication for systemic TPA. Critical Care Issues: -Submassive PE -Acute hypoxemic respiratory failure -Ventilator - 4lpm NC -Pulmonary toilet -humidified O2, bronchodilators, mucolytics, chest physiotherapy, upright positioning -Sedation/pain/delirium control -PRN -Continuous infusions:Heparin -DVT prx -Heparin -GI prx -NA -Antibiotics-NA -Temp/fever - Afebrile -Cultures -NGTD -Nutrition -NPO -Glycemic control -SSI -Code status-FULL -Mentation/consciousness AAOx3 -Life support lines/tubes -PIV I personally examined this patient andparticipated in the evaluation, management and treatment plan. I reviewed the physiologic trends of last 24-hours in the EMR I personally reviewed the EMR including laboratory/pathology/microbiologystudies, imaging, EKGs and any other pertinent objective information pertaining to this patient. Iapproved the orders, discussed the medical decision making,patients condition and management with residentteam as well as with the patient and family. High level MDM required for above conditions based on risk and complexity CC [id number] Problem List/Past Medical History Ongoing Crohn disease of colon Diabetes mellitus type 2, insulin dependent Hypertension Previous Tobacco user Venous stasis Procedure/Surgical History CT of abdomen and pelvis| Service Date: 02/10/2018 Medications Inpatient heparin, 3000 unit= 0.6 mL, IV Push, As indicated, PRN heparin 25,000 unit + Dextrose 5% in Water 250 mL(heparin for infusion 25,000 unit + dextrose 5% (heparin drips) 250 mL), 250 mL, Per Protocol, STARTING DOSE (units/hr): 1,500, Order Calculation Weight: 130 kg, IV Drip, Routine, 01/27/24 18:11:00 EST, 60 day, Hard Stop, 03/27/24 18:10:00 EST insulin lispro(HumaLOG Sliding Scale Moderate), SSI, subQ, ac and hs mupirocin topical(mupirocin 2% nasal ointment), 1 appl, each nostril, bid Sodium Chloride 0.9% 1,000 mL(NS 1,000 mL), 1000 mL, IV Fluid Home dulaglutide(Trulicity Pen 1.5 mg/0.5 mL subcutaneous solution), 0.75 mg, subQ, q7days furosemide(furosemide 20 mg oral tablet), 20 mg= 1 tab, PO, Daily insulin glargine(Toujeo SoloStar 300 units/mL subcutaneous solution), 80 unit, subQ, Daily lisinopril Allergies IVP dyeUnknown metFORMINWheezing Social History Smoking Status Never smoked cigarettes Previous tobacco use Social alcohol use - possible previous heavy use No illicit drug use 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 [employer] Family History Diabetes and breast cancer Electronic Signature on File Electronically Reviewed/Signed by: Kevin Kumar MD Author Signature Dt/Tm:01/27/2024 08:49 PM Resident Division of Internal Medicine Electronically Reviewed/Signed by: Kevin Kumar MD Cosigner Signature Dt/Tm: 01/27/2024 09:52 PM Resident Division of Internal Medicine Electronically Reviewed/Signed by: Kaiser Pierson MD Cosigner Signature Dt/Tm: 01/28/2024 09:48 AM Division of Pulmonary Medicine AB Discharge instructions * MD Caroline, Akram: PERFORM Event Display: Patient Discharge Instructions Authored Date: [id number] GARCIA CHEN :1975 Visit Date:01/27/2024 Patient Discharge Instructions [facility] For medical concerns, call: . Date of Admission:01/27/2024 Date of Discharge:01/29/2024 Physician:MD Dangelo, Kaiser Joyce Service:Pulmonary Discharge Disposition: . Advance Directive:None Reason for Hospitalization You were hospitalized for a pulmonary embolism (clot in your lung). This is most likely due to deepvein blood clot in the leg that broke off and got to your lung. Your Diagnoses Pulmonary embolus My Health Patient Portal: [employer] makes it easy for you to manage your health information online. My [facility] is a free service that provides you instant, secure access to your medical information anytime, anywhere. Sign in or set up your account today at [email or web address] Thank you for allowing us to assist you with your healthcare needs. If you need additional community resources, [facility] can help at https://www.pa211.org. 211 can assist you in connecting with social programs based on your unique needs and locations. 211 is an anonymous search that can help you locate resources for: Food, Housing, Transportation, Goods, Education and Healthcare. Medications Patient is enrolled in Rx-to-Go Program New medications will be delivered from [facility] to patient's room at discharge: Mon-Sun from 9AM-5 PM. Medications MUST be PICKED UP at [facility] if patient is discharged Mon-Sun after 5 PM or anytime on holidays. Please note, the [facility] closes at 8 PM on weekdays and 5:30 PM on Saturdays, Sundays, and holidays. What How Much When Instructions Next Dose New apixaban (Eliquis 5 mg oral tablet) 1 tab(s) by mouth 2 times daily Refills: 3 take two tabs in the morning and two tabs in the evening from -. On - take one tab in the morning and one tab in the evening carrie Arthurup at [facility] Changed insulin glargine (Toujeo SoloStar 300 units/ mL subcutaneous solution) 80 unit(s) subcutaneously Once daily INJECT 100 UNITS EVERY EVENING SUBCUTANEOUSLY Unchanged dulaglutide (Trulicity Pen 1.5 mg/ 0.5 mL subcutaneous solution) 0.75 Milligram subcutaneously Every 7 days Unchanged furosemide (furosemide 20 mg oral tablet) 1 tab(s) by mouth Once daily Unchanged lisinopril Pharmacy Information [facility]: [address] [place] [address] PARTH Cristobal [phone] Allergies IVP dyeUnknown metFORMINWheezing What to do next Instructions From Your Doctor You were [facility] treatmentof:You were hospitalized for a pulmonary embolism. This is most likely due to deep vein blood clot in the leg.The clot most likely broke off and got stuck in your lung. This lead to the troubled breathing you encountered. Due to the fact that you had symptoms, fainting, we transferred you from [facility] to [facility] for treatment. We started you on Heparin, an anticlot medication, up until the surgery was performed. The surgery was conducted by Cardiology in which they removed the bilateral blood clots. The procedure was successful. We continued the heparin drip to prevent a clot and the clot breaking off and traveling in the blood. We transitioned you to an oral anticoagulant, Eliquis. The fact that there is no apparent source of the clot, we describe this to be an unprovoked clot. Thus it requires taking Eliquis indefinitely. A discharge summary will be sent to your primary care physician to ensure continuity of care. Please bring this discharge summary with you to your next office appointment so that your provider can review it at that time. Follow-up appointments: Keep all your follow-up appointments as already scheduled. If you cannot make an appointment, notify your provider. Please schedule a follow-up appointment with your primary care physician within one week of discharge. New Medications: 1) apixaban (Eliquis 5 mg oral tablet) Instructions: Take two tabs in the morning and two tabs in the evening from -. On - take one tab in the morning and one tab in the evening indefinitely Changes Made to Home Medications: None. The remainder of yourhome medicationsare listed above, there havebeen no other changes Follow-up Appointments 1) Please follow up with your primary care physician within 7-14 days after your discharge. Afollow-up appointment has been requested and you should hear from their office soon. If you do not receive a phone call from your PCP's officewithin 2 days of leaving the hospital,please reach out to your PCP directly to schedulethe appointment. 2) We have requested an appointmentwith, to follow up from your hospitalization. You should receive a phone call within a week of discharge to schedule this appointment.If you do not,you should call the office to schedule a follow up appointment. A discharge summary will be sent to your primary care physician to ensure continuity of care. Please also bring these discharge instructions to all of your follow-up appointments. If you notice the following symptoms CONTACT DOCTOR FOR Increased or unrelieved pain, including chest pain or pressure Redness, swelling, odor or bleeding from any procedure site Temperature over 101 Increasing difficulty with breathing Increasing swelling of legs or belly Persistent cough with sputum Palpitations or irregular heart beats Persistent vomiting Dizziness or blackouts Black or tarry stools Hives or painful rash, swollen lips or tongue, swollen throat or face Contact the [facility] Careline at . If unable to contact your physician and you feel it is an emergency, go to the nearest Emergency Room or call 911 Diet Instructions Discharge Diet Please eat a regular and healthy diabetic/cardiac friendly diet as you can tolerate. This includes a diet rich in vegetables and fruits, whole grains, high fiber foods, lean meat and poultry, fish, and fat-free or 1% dairy products. Your diet should be low in sugars, carbohydrates, saturated fat, trans fat, and cholesterol. Try to avoid processed foods as much as possible. It is important that you drink lots of water to keep well hydrated. Activity Instructions Please return to baseline activity after discharge. Follow-Up Appointments Scheduled Follow-Up Appointments Follow up with your PCP within a week. Placed an order for Someone Will Contact You Regarding These Appointments Provider or Location Time Frame Details about visit Internal Medicine 4-7 days Please call your provider to make an appointment. The Following Services Have Been Arranged for You No Post-Acute Placement(s) Listed No Post-Acute Service(s) Listed Tests Pending TTE- Transthoracic Echo Procedures Performed Procedure(s):Right Heart Cath, US Guided Vascular Access, Pulmonary angiography (CPT 15835), Percutaneous pulmonary artery mechanical thrombectomy (CPT 62358), and Computer-aided mechanical thrombectomy (ICD-10-PCS [id number]) Immunizations This Visit None. Special Instructions Common Emergency Awareness Tips Call 911 immediately if: experiencing any of the warning signs and symptoms of stroke: B.E. F.A.S.T. Balance: is there trouble with walking or coordination Eyes: is there double vision or visual loss Face: Smile, do both sides of face move equally Arm: Raise arms, do both arms move equally Speech: Is speech slurred or inappropriate Time: Time is critical, call 911 immediately Heart Attack Signs Chest discomfort: Most heart attacks involve discomfort in the center of the chest and lasts more than a few minutes, or goes away and comes back. It can feel like uncomfortable pressure, squeezing, fullness or pain. Discomfort in upper body: Symptoms can include pain or discomfort in one or both arms, back, neck, jaw or stomach. Shortness of breath: With or without discomfort. Other signs: Breaking out in a cold sweat, nausea, or lightheaded. Remember, MINUTES DO MATTER. If you experience any of these heart attack warning signs, call to get immediate medical attention! Education [employer] Venous Thromboembolism Prevention Venous thromboembolism (VTE) is a condition that includes deep vein thrombosis (DVT) and pulmonary embolism (PE). A DVT is a blood clot, also called a thrombus, that occurs in a deep vein. It usuallyoccurs in the leg but can also occur in the pelvis, arm, or neck. Sometimes, pieces of a blood clot can break off and travel through the bloodstream to other parts of the body. When that happens, the blood clot is called an embolus. An embolus that travels to the arteries of the lungs is called a pulmonary embolism, and it can severely impair the function of the l ungs, heart, and blood vessels. An embolism can block the blood flow in the blood vessels of other organs as well. How can this condition affect me? VTE is a serious health condition that can cause disability or . It is very important to get help right away. Do not ignore your symptoms. What can increase my risk? You are more likely to develop this condition if you: Have had recent major surgery. Have had recent major trauma, such as a broken bone (fracture) or an injury to an organ. Have certain health conditions, such as cancer or a blood disorder that increases the risk for blood clots. Are hospitalized for an illness. Are wearing a splint or cast for a bone fracture and are unable to move that extremity for long periods of time. Have a personal or family history of VTE. Are 60 years of age or older. Other risks include: Taking certain medicines, such as control pills or hormone replacement therapy. Being or recently giving . Being overweight. Using products that contain nicotine and tobacco. Not moving for a long period of time. This may include being on bed rest or long-distance travel inan airplane or car. What actions can I take to prevent this? If you are in the hospital: A VTE may be prevented by taking medicines that are prescribed to prevent blood clots (anticoagulants). You can also help to prevent VTE while in the hospital by taking these actions: Get out of bed and walk. This keeps blood moving through the veins, which decreases the risk of developing VTE. Ask your health care provider if this is safe for you to do. Ask your health care provider if you should use a sequential compression device (SCD). This is a machine that pumps air into compression sleeves that are wrapped around your legs. Ask your health care provider if you should wear tight, elastic stockings that apply pressure to the lower legs (compression stockings). Compression stockings are sometimes used with SCDs. At home after a surgery If you had surgery, understand that you have an increased risk for VTE for the first 46 weeks after the surgery. During this time: Avoid traveling for more than 4 hours. If you must travel after surgery, ask your health care provider about additional preventive actions that you can take, such as frequent breaks to move around and walk. Avoid sitting or lying still for too long. If possible, get up and walk around one time every hour.Ask your health care provider when this is safe for you to do. Stay active as directed by your health care provider. While traveling Travel that takes more than 4 hours can increase the risk of a VTE. To prevent VTE when traveling: Exercise your arms and legs every hour. You can do this by standing, stretching, and bending and straightening your arms and legs. If you are traveling by airplane, train, or bus, walk up and down the aisle as often as possible to get your blood moving. If you are traveling by car, stop and get outof the car every hour to walk, stretch, and exercise your arms and legs. Other types of exercise might include: Keeping your feet flat on the ground and raising your toes. Switching from tightening the muscles in your calves and thighs to relaxing those same muscles while you are sitting. Pointing and flexing your feet at the ankle joints while you are sitting. Drink enough water to keep your urine pale yellow. Wear compression stockings during long travel periods. Avoid drinking alcohol during long travel. Generally, it is not recommended that you take medicines to prevent DVT during routine travel. Other tips Some other actions you can take in your daily life to help prevent blood clots include: Stay active. Avoid sitting or lying in bed for long periods of time without moving your arms and legs. Exercise by moving your arms and legs for 30 minutes or more every day. Avoid crossing your legs when you are sitting. Wear compression stockings as told by your health care provider. These stockings help to prevent blood clots and reduce swelling in your legs. Do not let them bunch up when you are wearing them. Avoid wearing other tight clothing around your legs or waist. Do not use any products that contain nicotine or tobacco. These products include cigarettes, chewing tobacco, and vaping devices, such as e-cigarettes. This is especially important if you take estrogen medicines. If you need help quitting, ask your health care provider. Avoid using medicines that contain estrogen if you do not need them. These include control pills and hormone replacement therapy. Maintain a healthy weight. Where to find more information Centers for Disease Control and Prevention: www.cdc.gov [place] [employer]: www.heart.org National Heart, Lung, and Blood [facility]: www.nhlbi.nih.gov Get help right away if: You have chest pain or shortness of breath. You cough up blood. You have a rapid or irregular heartbeat. You feel light-headed or dizzy. You have new or increased pain, swelling, or redness in an arm or leg. You have numbness or tingling in an arm or leg. You are on blood thinning medicines and have a sudden severe headache or blood in your vomit, stool, or urine. These symptoms may be an emergency. Get help right away. Call 911. Do not wait to see if the symptoms will go away. Do not drive yourself to the hospital. Summary Venous thromboembolism (VTE) is a condition that includes deep vein thrombosis (DVT) and pulmonary embolism (PE). VTE is a serious health condition that can cause disability or . It is very important to get help right away. Do not ignore your symptoms. Risk factors include immobility, trauma to the veins, major surgeries, and certain medical conditions that increase the risk of forming blood clots. Avoid sitting or lying in bed for long periods of time without moving your arms and legs. Get help right away if you are on blood thinning medicines and have a sudden severe headache or blood in your vomit, stool, or urine. This information is not intended to replace advice given to you by your health care provider. Make sure you discuss any questions you have with your health care provider. Document Revised: 10/08/2021 Document Reviewed: 09/16/2021 [employer] Patient Education 2023 [email or web address]. Bleeding Precautions When on Anticoagulant Therapy, Adult Anticoagulant therapy, also called blood thinner therapy, is medicine that helps to prevent and treat blood clots. The medicine works by stopping blood clots from forming or growing. Blood clots thatform in your blood vessels can be dangerous. They can break loose and travel to the heart, lungs, or brain. This increases the risk of a heart attack, stroke, or blocked lung artery (pulmonary embolism). Anticoagulants also increase the risk of bleeding. It is important to take anticoagulants exactly as told by your health care provider. Why do I need to be on anticoagulant therapy? You may need this medicine if you are at risk of developing a blood clot. Conditions that increase your risk of a blood clot include: Having an irregular heartbeat, such as atrial fibrillation (AF). Having had surgery, such as: A valve replacement. A hip or knee replacement. Having been born with a heart problem (congenital heart disease). Having certain types of cancer. Having certain diseases that can increase blood clotting. Having a high risk of stroke or heart attack. What are the common anticoagulant medicines? There are several types of anticoagulant medicines. They each work in different ways to prevent blood clots. The most common types are: Medicines that you take by mouth (oralmedicines), such as: Warfarin. Direct oral anticoagulants (DOACs), such as: Dabigatran. Apixaban, edoxaban, and rivaroxaban. Injections, such as: Heparin. Enoxaparin or fondaparinux. What do I need to remember while on anticoagulant therapy? Taking anticoagulants You may bleed more easily while taking anticoagulants. Be careful not to injure yourself. Take your medicine at the same time every day. If you forget to take your medicine, take it as soonas you remember. Do not double your dosage of medicine if you miss a whole day. If it is almost time for your next dose, take only that dose and call your health care provider. Do not stop taking your medicine unless your health care provider approves. Stopping the medicine can increase your risk of developing a blood clot. You may need to have regular blood tests while you are taking anticoagulants. If you are taking warfarin, you will need a blood test to measure the time that it takes your bloodto clot (INR test), as told by your health care provider. Taking other medicines Take dmop-xrc-ytdfhhx and prescription medicines only as told by your health care provider. Talk with your health care provider before you take any medicines that contain aspirin or NSAIDs, such as ibuprofen. These medicines increase your risk for dangerous bleeding. Ask your health care provider before you start taking any new medicines, vitamins, herbs, or supplements because they could interfere with your therapy. General instructions If you are or trying to get , talk with a health care provider about anticoagulants. Some of these medicines are not safe to take during . Tell all health care providers, including your dentist, that you are on anticoagulant therapy. It is especially important to tell providers before you have any surgery, medical procedures, or dental work done. Keep all follow-up visits. This is important. This includes blood tests. What precautions should I take? Avoid situations that cause bleeding. Consider the following: Use a softer toothbrush. Floss with waxed, not unwaxed, dental floss. Shave with an electric razor, not a blade. Be careful when handling and using sharp objects. Wear gloves while you do yard work. Avoid activities such as contact sports that may put you at risk for injury. Always wear your seat belt. Prevent falls by: Removing loose rugs and extensions cords from areas where you walk. Using a cane or walker if you need it. Keeping a night-light on at night. Always wear shoes outdoors, and wear non-skid slippers indoors. Be careful when cutting your fingernails and toenails. Discuss ways to manage or avoid constipation with your health care provider. Place non-skid bath mats in the bathtub. If possible, install grab bars. What other precautions are important if on warfarin therapy? If you are taking a type of anticoagulant called warfarin, make sure you: Work with a dietitian to make an eating plan. Do not make any sudden changes to your diet without talking with your health care provider. Do not drink alcohol. It can interfere with your medicine and increase your risk of bleeding. Tell your health care provider if you stop smoking. Your warfarin dose may need to be decreased. Call your health care provider about any medicine changes, including if you start taking antibiotics for an infection, as this may affect your INR level. Get regular blood tests to check your INR level as told by your health care provider. What are some questions to ask my health care provider? What is the best anticoagulant therapy for my condition? How long will I need anticoagulant therapy? What are the side effects of anticoagulant therapy? When should I take my medicine? What should I do if I forget to take it? Will I need to have regular blood tests? Do I need to change my diet? Are there foods or drinks that I should avoid? What activities are safe for me? What should I do if I want to get ? What should I do if I have an illness that causes vomiting or diarrhea? What should I do if I am unable to eat for a few days? Contact a health care provider if: You miss a dose of medicine and are not sure what to do. You have minor bleeding, such as nosebleeds or bleeding gums. You have: Menstrual bleeding that is heavier than normal. Blood in your urine, or urine that is pink or brown. Easy bruising. Black and tarry stool (feces) or bright red stool. A rash or other skin reaction from the medicine. You become . Get help right away if: You have bleeding that will not stop after 20 minutes of holding pressure. You have a severe headache or stomachache. You have bloody vomit or you cough up blood, or your vomit looks like coffee grounds. You fall or hit your head. You have sudden numbness or weakness of the face, arm, or leg. You have trouble walking. You have confusion. These symptoms may represent a serious problem that is an emergency. Do not wait to see if the symptoms will go away. Get medical help right away. Call your local emergency services (911 in the [place] Do not drive yourself to the hospital. Summary Anticoagulant therapy, also called blood thinner therapy, is medicine that helps to prevent and treat blood clots. Anticoagulants can increase the risk of bleeding. It is important that you take anticoagulants exactly as told by your health care provider. Get help right away for bleeding that does not stop or if you fall and hit your head. Talk with your health care provider about any precautions that you should take while on anticoagulant therapy. Take fhff-wmk-zvyieki and prescription medicines only as told by your health care provider. This information is not intended to replace advice given to you by your health care provider. Make sure you discuss any questions you have with your health care provider. Document Revised: 04/22/2021 Document Reviewed: 04/22/2021 [employer] Patient Education 2023 [email or web address]. Anesthesia records * Services, CPDI: PERFORM Event Display: Sedation & Analgesia Record Authored Date: Patient Care team information Care Team Personnel Name: DO Collazo Vamsi K Position: Resident Member Role: Lifetime Relationship Address: [address] [place] [id number] Name: Janell Pinedo Brittani Position: Pharmacist Member Role: Pharmacy - Lifetime Care Team Related Persons Name: BUNNY LEY"
--- OUTSIDE RECORDS SUMMARY | 2024-02-03 04:31 | External Medical Summary | Summary of Care ---
Author Name Unknown Organization [facility] Address [address] [place] [address] Phone [phone] Care Team Providers Care Certified Procedural Coder Name Role Phone Charity Martin MD Primary Care Provider [phone] Encounter Details Date Type Department Care Team (Latest Contact Info) Description 01/27/2024 12:55 PM EST - 01/27/2024 2:09 PM EST Hospital Encounter Radiology Film File [address] [place], [place] [id number] Arrived Discharge Disposition: Home - Self Care Allergies Active Allergy Reactions Criticality Noted Date Comments Iodinated Contrast Media 12/30/2019 Metformin Wheezing 04/02/2020 documented as of this encounter (statuses as of 01/29/2024) Medications ReliOn Pen Aneta 32G X 4 MM USE 1 ONCE DAILY 0 Active Pen Aneta 32G X 5 MMIndications:Type 2 diabetes mellitus with hemoglobin A1c goal of less than 7.0% ([facility]) Use as directed. 50 Each [...] hyperglycemia, unspecified whether terminal clerk insulin use (HCC),Morbid obesity due to excess [...] CT (IMAGES ONLY, NO REPORT) Routine 01/27/2024 12:55 PM EST documented in this encounter Results * RADIOLOGY EXAM - CT (IMAGES ONLY, NO REPORT) (01/27/2024 12:55 PM EST) 01/27/2024 12:5 2 PM EST Narrative Scheduling, Silent - 01/28/2024 7:11 PM EST This is an imaging study not interpreted or resulted by a [facility] or [facility] contracted radiologist. Charity Martin MD RAD CT Final Result documented in this encounter Care Teams Certified Procedural Coder Relationship Specialty Start Date End Date Charity Martin MD [address] [place] [address] [place] [address] PCP - General Internal Medicine 04/02/20 documented as of this encounter
--- OUTSIDE RECORDS SUMMARY | 2024-02-03 04:31 | External Medical Summary | Summary of Care ---
Author Name Unknown Organization [facility] Address [address] [place] [address] Phone [phone] Care Team Providers Care Machine Crater Name Role Phone Charity Martin MD Primary Care Provider [phone] Encounter Details Date Type Department Care Team (Late st Contact Info) Description 01/27/2024 Orders Only General Internal Medicine [facility] [address] [place] [address] Charity Martin MD [address] [facility] [place] [address] Allergies Active Allergy Reactions Criticality Noted Date Comments Iodinated Contrast Media 12/30/2019 Metformin Wheezing 04/02/2020 documented as of this encounter (statuses as of 01/28/2024) Medications ReliOn Pen [place] 32G X 4 MM USE 1 ONCE DAILY 0 Active Pen [place] 32G X 5 MMIndications:Type 2 diabetes mellitus with hemoglobin A1c goal of less than 7.0% ([facility]) Use as directed. 50 Each 1 [...] with hyperglycemia, unspecified whether long term care phlebotomist insulin use (HCC),Morbid obesity due to excess [...] Result documented in this encounter Care Teams Machine Crater Relationship Specialty Start Date End Date Charity Martin MD [address] [place] [address] [place], [place] [address] PCP - General Internal Medicine 04/02/20 documented as of this encounter
[2024-02-03 06:33] LABS: Basophils # (auto) 0.05 K/uL (0.00-0.20); Basophils % (auto) 0.5 %; Eosinophils # (auto) 0.15 K/uL (0.00-0.50); Eosinophils % (auto) 1.5 %; Hematocrit (blood only) 37.2 % (42.0-52.0); Hemoglobin 12.7 g/dl (14.0-18.0); Immature Granulocytes # (auto) 0.05 K/uL (0.01-0.20); Immature Granulocytes % (auto) 0.5 %; Lymphocytes # (auto) 2.23 K/uL (1.20-3.40); Lymphocytes % (auto) 21.6 %; Mean Corpuscular Hemoglobin 29.6 pg (25.0-34.0); Mean Corpuscular Hgb Conc 34.1 g/dL (32.0-36.0); Mean Corpuscular Volume 86.7 fL (80.0-100.0); Mean Platelet Volume 8.9 fL (9.4-12.4); Monocytes # (auto) 0.76 K/uL (0.11-0.59); Monocytes % (auto) 7.4 %; Neutrophils # (auto) 7.09 K/uL (1.40-6.50); Neutrophils % (auto) 68.5 %; Platelet Count 255 K/uL (130-400); RDW Coefficient of Variation 13.2 % (11.5-14.5); RDW Standard Deviation 40.3 fL (36.4-46.3); Red Blood Count 4.29 M/uL (4.70-6.10); White Blood Count 10.33 K/ul (4.8-10.8)
[2024-02-03 07:04] LABS: BUN Creatinine Ratio 20.5 (10-20); Calcium 8.7 mg/dl (8.6-10.3); Creatinine Clr Calc Pharmacy 150.1 ml/min; Magnesium 1.5 mg/dl (1.7-2.4); Phosphorus 4.2 mg/dl (2.5-4.9); Potassium 3.1 mmol/L (3.5-5.1)
--- NOTE | 2024-02-03 08:01 | Magnetic Resonance Report ---
EXAM: MR brain wo con CLINICAL HISTORY: PREV. STROKE LAST THURSDAY FLOWN TO BRONX FOR THROMBECTOMY LAST THURSDAY NOW SYNCOPE AND ELEVATED BLOOD SUGAR C/O LEFT SIDED VISION IMPAIRMENT TECHNIQUE: MRI of the brain was performed without contrast with multiplanar sequences obtained. COMPARISON: CT brain dated 01/27/2024 FINDINGS: Brain Parenchyma: Multiple periventricular and deep white matter foci of high T2 and FLAIR signal are noted in both frontal parietal occipital regions suggesting mild microvascular chronic ischemic changes Fazekas grade 1 Wedge-shaped area cortical and subcortical in location is noted in the right occipital region following the right posterior cerebral artery territory displaying a low signal on T1 high signal on T2 and FLAIR images with associated mild diffusion restriction. There is associated gyriform areas of low signal intensity noted on T2 star images. There is an associated mild mass effect in the form of effacement of the related cortical sulci and effacement of the right ambient cistern. Findings suggestive of subacute infarction following right posterior cerebral artery territory with hemorrhagic transformation. No mass lesions or focal cortical abnormalities were identified. Bulky pituitary gland with convex upper margin measuring up to 9 mm in height, clinical and lab correlation are advised. Ventricles and Sulci: Normal size and configuration of the lateral ventricles, third ventricle, and fourth ventricle. No evidence of hydrocephalus or ventriculomegaly. Sylvian fissures, sulci, and cisterns are within normal limits. Posterior Fossa: The cerebellum and brainstem appear normal without evidence of mass lesions or signal abnormalities. Cranial Nerves: Normal course and appearance of cranial nerves identified. Vessels: No evidence of vascular malformations or aneurysms. Intracranial arteries and veins appear normal without evidence of stenosis or occlusion. Orbits and Skull Base: Orbits and skull base structures are normal without evidence of abnormalities. Minimal left maxillary and posterior ethmoidal sinusitis. IMPRESSION: 1. 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 Compared to prior CT there is a mild increase in the associated mass effect of the infarct with new hemorrhagic transformation. 2. Bulky pituitary gland with convex upper margin measuring up to 9 mm in height, clinical and lab correlation are advised. [facility] was called at at 6:53 AM CORPORATE RECEPTIONIST, 02/03/2024 and [place] (circuit clerk) was informed about the presence of critical medical findings. She will inform the provider. Electronically signed by Yadiel Kendall 02-03-2024 08:01 AM
[2024-02-03] MEDS: ACETAMINOPHEN 325 MG TAB PO PRN (09:16)
--- NOTE | 2024-02-03 10:05 | Neurology Consultation ---
Date of Consultation February 03, 2024 Assessment & Plan (1) Acute CVA (cerebrovascular accident): Acute right COPRA SAMPLER stroke in the setting of recent PE and PFO in a 48M with a PMH of DM2, prior tobacco abuse. On exam he does have restricted visual field deficits but no other findings. MRI shows petechial hemorrhage but no rosana hematoma. Suspect the stroke is secondary to her recent PE and PFO. Plan -- continue Eliquis -- cardiology referral for PFO -- ophthalmology referral for visual field assessment. Telehealth Consultation Telehealth Information Telehealth Information: I performed this visit using a real-time telehealth connection between my location and the patients location ([facility]). After connecting through interactive tele-video, patient was identified by name and date of and/or wristband check.Patient (or authorized healthcare patient representative) was informed that this was a telemedicine visit and it was being conducted confidentially over secure lines. My office door was closed and no one else was present in the room with me.Patient (or authorized healthcare patient representative) provided consent to proceed with the visit, expressed an understanding of privacy and security of the telemedicine visit, and gave permission to have a hospital patient representative in the room in order to assist with the visit and to conduct portions of the visit, as needed. I informed the patient (or authorized healthcare patient representative) that I reviewed their record and presented the opportunity for them to ask any questions regarding the visit today. The patient agreed to participate. History of Present Illness Reason for Consultation: stroke Attending Physician: Shanita Rodriguez MD History of Present Illness Alexis Murry is a 48M with a PMH of recent PE sp embolectomy, DM2, prior tobacco abuse who presented with stroke like symptoms. He reports that while he was at the hospital with his his PE he started having nearly constant flashing across his left visual field. Since his discharge this flashing has persisted but has improved. When he told his PCP this they sent him to the ED for a scan. The CT in the ED showed a right COPRA SAMPLER stroke with HI2 hemorrhagic transformation. He was admitted for work up. He does report intermittent headaches during this time in the back of his head. he denies weakness, numbness, speech changes, or double vision. Allergies Allergy/AdvReac Type Severity Reaction Status Date / Time Iodinated Contrast Media Allergy Intermediate Rash Verified 08/12/21 07:02 metformin AdvReac Intermediate Swelling ~ Unverified 08/12/21 07:02 nausea Home Medications Medication Instructions Recorded Confirmed Type dulaglutide 1.5 mg/0.5 mL 1.5 mg subcut UD 08/12/21 02/02/24 History subcutaneous pen injector (Trulicity) lisinopril 2.5 mg tablet 2.5 mg PO UD 08/12/21 02/02/24 History glucagon 1 mg/mL solution for 1 mg subcut UD PRN hypoglycemia #1 08/13/21 02/02/24 Rx injection (GlucaGen Diagnostic Kit) ea Eliquis 10 mg PO BID 02/02/24 02/02/24 History furosemide 20 mg tablet 20 mg PO UD 02/02/24 02/02/24 History insulin glargine U-300 conc 300 100 unit subcut HS 02/02/24 02/02/24 History unit/mL (3 mL) subcutaneous pen (Toujeo Max U-300 SoloStar) Patient History Medical History Bilateral leg cramps Anemia Bradycardia Valvular heart disease Abnormal ECG Ileitis Surgical History History of tonsillectomy History of appendectomy History of cholecystectomy Family History Mother Diabetes Other Colitis Social History Smoking Status: Former smoker Tobacco Type: Cigarettes Second Hand Exposure: No; Do You Dip or Chew Tobacco: No; Hx Alcohol Use: No Hx Substance Use: No Preferred Language: Indonesian Communication Ability: Effective Visual Impairment: No Limitations Hearing Ability: Normal Receiver Bulk System Required: No Beliefs That Will Affect Care: None marital status: Single Current Living Situation: Significant Other current occupational status: employed current occupation: works at [employer] Other Information That Helps Us Care for You: No Feels Safe at Home: Yes Safety Concerns: Feels Safe At This Time Assistive Devices: Glasses Physical Exam NEUROLOGIC EXAMINATION: Mental Status:alert, oriented to time, place, person, normal recent memory, normal remote memory, normal attention span, normal concentration, normal language, and normal fund of knowledge Cranial Nerves: CN 2 - diminished visual chavez on the left CN 3, 4, 6 - extra-ocular movements intact and no nystagmus CN 5 - facial sensation intact CN 7 - no facial asymmetry CN 8 - intact hearing CN 9, 10 - palate symmetric, normal gag CN 11 - good shoulder shrug CN 12 - tongue midline MOTOR: Strength was at least antigravity throughout, Pronator drift was absent, and There were no abnormal movements SENSATION: intact GAIT: deferred COORDINATION: no ataxia with finger to nose testing and heel to singh testing REFLEXES: cannot assess over telemedicine Results & Data Vital Signs (Past 12 Hours) Vital Signs Temp Pulse Pulse Resp BP Pulse Ox O2 Del Method 02/03/24 07:38 36.8 C 64 18 108/70 96 Room Air 02/03/24 07:00 68 02/03/24 03:51 36.4 C L 71 18 115/73 97 Room Air 02/02/24 23:10 74 02/02/24 22:47 36.7 C 64 14 107/73 98 Room Air Laboratory Results Abnormal Lab Results 02/02/24 02/02/24 02/02/24 13:00 14:15 15:25 WBC 8.63 RBC 4.79 Hgb 14.3 Hct 41.3 L MCV 86.2 MCH 29.9 MCHC 34.6 RDW Std Deviation 39.2 RDW Coeff of Toni 12.9 Plt Count 254 MPV 8.9 L Immature Gran % (Auto) Neut % (Auto) Lymph % (Auto) Edgar % (Auto) Eos % (Auto) Baso % (Auto) Neut # (Auto) Lymph # (Auto) Edgar # (Auto) Eos # (Auto) Baso # (Auto) Immature Gran # (Auto) PT 10.7 INR 1.0 APTT 28 PTT Ratio 1.0 Sodium 133 L Potassium 4.0 Chloride 98 Carbon Dioxide 26 Anion Gap 9 BUN 14 Creatinine 0.85 Est Cr Clr Drug Dosing 139.4 eGFR 105.86 BUN/Creatinine Ratio 16.5 Glucose 337 H* POC Glucose 289 H 238 H Calcium 9.4 Phosphorus Magnesium 02/02/24 02/02/24 02/03/24 18:06 20:29 05:34 WBC 10.33 RBC 4.29 L Hgb 12.7 L Hct 37.2 L MCV 86.7 MCH 29.6 MCHC 34.1 RDW Std Deviation 40.3 RDW Coeff of Toni 13.2 Plt Count 255 MPV 8.9 L Immature Gran % (Auto) 0.5 Neut % (Auto) 68.5 Lymph % (Auto) 21.6 Edgar % (Auto) 7.4 Eos % (Auto) 1.5 Baso % (Auto) 0.5 Neut # (Auto) 7.09 H Lymph # (Auto) 2.23 Edgar # (Auto) 0.76 H Eos # (Auto) 0.15 Baso # (Auto) 0.05 Immature Gran # (Auto) 0.05 PT INR APTT PTT Ratio Sodium 139 Potassium 3.1 L D Chloride 104 Carbon Dioxide 26 Anion Gap 9 BUN 16 Creatinine 0.78 Est Cr Clr Drug Dosing 150.1 eGFR 108.64 BUN/Creatinine Ratio 20.5 H Glucose 108 H POC Glucose 172 H 200 H Calcium 8.7 Phosphorus 4.2 Magnesium 1.5 L 02/03/24 07:43 WBC RBC Hgb Hct MCV MCH MCHC RDW Std Deviation RDW Coeff of Toni Plt Count MPV Immature Gran % (Auto) Neut % (Auto) Lymph % (Auto) Edgar % (Auto) Eos % (Auto) Baso % (Auto) Neut # (Auto) Lymph # (Auto) Edgar # (Auto) Eos # (Auto) Baso # (Auto) Immature Gran # (Auto) PT INR APTT PTT Ratio Sodium Potassium Chloride Carbon Dioxide Anion Gap BUN Creatinine Est Cr Clr Drug Dosing eGFR BUN/Creatinine Ratio Glucose POC Glucose 100 H Calcium Phosphorus Magnesium Diagnostic Findings Head CT 02/02/24 12:36 CT OF THE HEAD WITHOUT CONTRAST CLINICAL HISTORY: eliquis, visual change COMPARISON STUDY: Head CT January 27, 2024. CT DOSE: 625.8 mGy.cm TECHNIQUE: Helical axial images of the head were obtained without IV contrast. Automated exposure control was utilized for the study. A dose lowering technique was utilized adhering to the principles of ALARA. FINDINGS: No acute intracranial hemorrhage is present. A 7.2 x 3.6 cm hypodense focus with loss of cross-white differentiation within the right occipital lobe and posterior right temporal lobe has developed since CT of January 27, 2024. There is minimal mass effect with sulcal effacement. White matter hypodense foci favor small vessel disease. These are unchanged. There are no calvarial fractures. IMPRESSION: 1. Interval development of a 7.2 x 3.6 cm hypodense focus with loss of cross- white differentiation within the right occipital lobe and posterior right temporal lobe suggestive of a large subacute right COPRA SAMPLER infarct. Mild mass effect with sulcal effacement. 2. No acute intracranial hemorrhage. ACT 112: Negative or not required by law. Electronically signed by: Parag Mike M.D. 02/02/2024 1:53 PM Brain MRI 02/02/24 14:46 EXAM: MR brain wo con CLINICAL HISTORY: PREV. STROKE LAST THURSDAY FLOWN TO [facility] FOR THROMBECTOMY LAST THURSDAY NOW SYNCOPE AND ELEVATED BLOOD SUGAR C/O LEFT SIDED VISION IMPAIRMENT TECHNIQUE: MRI of the brain was performed without contrast with multiplanar sequences obtained. COMPARISON: CT brain dated 01/27/2024 FINDINGS: Brain Parenchyma: Multiple periventricular and deep white matter foci of high T2 and FLAIR signal are noted in both frontal parietal occipital regions suggesting mild microvascular chronic ischemic changes Fazekas grade 1 Wedge-shaped area cortical and subcortical in location is noted in the right occipital region following the right posterior cerebral artery territory displaying a low signal on T1 high signal on T2 and FLAIR images with associated mild diffusion restriction. There is associated gyriform areas of low signal intensity noted on T2 star images. There is an associated mild mass effect in the form of effacement of the related cortical sulci and effacement of the right ambient cistern. Findings suggestive of subacute infarction following right posterior cerebral artery territory with hemorrhagic transformation. No mass lesions or focal cortical abnormalities were identified. Bulky pituitary gland with convex upper margin measuring up to 9 mm in height, clinical and lab correlation are advised. Ventricles and Sulci: Normal size and configuration of the lateral ventricles, third ventricle, and fourth ventricle. No evidence of hydrocephalus or ventriculomegaly. Sylvian fissures, sulci, and cisterns are within normal limits. Posterior Fossa: The cerebellum and brainstem appear normal without evidence of mass lesions or signal abnormalities. Cranial Nerves: Normal course and appearance of cranial nerves identified. Vessels: No evidence of vascular malformations or aneurysms. Intracranial arteries and veins appear normal without evidence of stenosis or occlusion. Orbits and Skull Base: Orbits and skull base structures are normal without evidence of abnormalities. Minimal left maxillary and posterior ethmoidal sinusitis. IMPRESSION: 1. 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 Compared to prior CT there is a mild increase in the associated mass effect of the infarct with new hemorrhagic transformation. 2. Bulky pituitary gland with convex upper margin measuring up to 9 mm in height, clinical and lab correlation are advised. [facility] was called at at 6:53 AM RANGE MASTER, 02/03/2024 and [place] (past due accounts clerk) was informed about the presence of critical medical findings. She will inform the provider. Electronically signed by Yadiel Kendall 02-03-2024 08:01 AM Venous Doppler Study 02/02/24 14:48 EXAM: US Duplex Bilateral Lower Extremities Veins INDICATION: DVT. TECHNIQUE: Real-time duplex ultrasound scan of the bilateral lower extremity veins integrating B-mode two-dimensional vascular structure, Doppler spectral analysis, color flow Doppler imaging and compression. COMPARISON: Left 03/21/2023 FINDINGS: Right deep veins: No DVT in the right common femoral, femoral or popliteal veins. The veins demonstrate normal color flow, are normally compressible, with normal phasic flow and/or augmentation response. Right superficial veins: No abnormality noted. No thrombus in the visualized right great saphenous vein. Left deep veins: There is nonocclusive thrombus of the mid left femoral vein. Occlusive thrombus extends from the distal femoral vein through the popliteal vein and involving the peroneal vein in the calf. Common femoral and tibial veins patent. Left superficial veins: No abnormality noted. No thrombus in the visualized left great saphenous vein. Soft tissues: No abnormality noted. IMPRESSION: 1. Positive left femoral, popliteal and peroneal vein DVT. 2. No deep venous thrombosis of the right lower extremity. ACT 112: Negative or not required by law. Electronically signed by Ana M Diego 02-02-2024 5:46 PM
[2024-02-03] MEDS: APIXABAN 5 MG TABLET PO SCH (10:30)
[2024-02-03 12:41] VITALS: BP 105/71; PULSE 70; TEMP 98.1; O2SAT 95
[2024-02-03] MEDS: POTASSIUM CHLORIDE CRTAB 20 MEQ TABCR PO STA (13:10)
--- NOTE | 2024-02-03 13:27 | Discharge Summary ---
Date of Service February 03, 2024 Admission HPI Per Admitting Provider He is a 48-year-old obese male significant past medical history of diabetes on insulin and also stable Crohn's disease has had saddle pulmonary emboli on January and came to emergency room with acute respiratory failure. He was transferred to [facility] and has had thrombectomy on the same day. He left [facility] on on Eliquis. He has been complaining of flashing of lights in the left eye since and he told about that to the providers at [facility] and was told that everything will be fine. He is flashing of lights in the left side did not improve and it was bothering him too much at his workplace today and was advised to come to the emergency room after talking to his primary care physician. Denies any numbness or tingling in the extremities or any weakness involving any side of the body, denies any problem with speech or any problems swallowing. Does not have any problem with ambulating he is only symptoms remain dull headache involving mostly on the right side. CT scan in the emergency room noted to have subacute infarct involving the right occipital lobe and posterior right temporal lobe since CT of January 27, 2024. There is minimal mass effect. the ER physician did talk to the neurologist Dr. Galvan and was advised that the patient can safely go home or can be observed in the hospital with an echo and an MRI and the patient will be seen tomorrow and continue with the current management that he is getting. this was discussed with the patient in detail and was admitted to telemetry unit for continuation of care. Admission Exam Per Admitting Provider Physical Exam: lying in bed without any apparent distress Constitutional: well developed and well nourished; not ill appearing and not obese Eyes: PERRL, conjunctivae normal, anicteric sclerae ENMT: external ear and nose normal, oropharynx normal Neck: trachea midline, no thyromegaly Respiratory: no respiratory distress Auscultation: lungs clear to auscultation bilaterally Cardiovascular: Rate/Rhythm: regular rate and regular rhythm; not tachycardic Heart Sounds: normal S1 and normal S2; no murmur Extremities: + edema ( trace edema bilaterally) Gastrointestinal (Abdomen): Inspection/Auscultation: normal bowel sounds; abdomen not distended Percussion/Palpation: abdomen soft; abdomen nontender Musculoskeletal: no acute arthritis involving any of the joint Neurologic: normal touch/pain/proprioception and moves all extremities; no focal motor deficits Psychiatric: A+Ox3, euthymic affect Lymphatic: no cervical or axillary lymphadenopathy Principal Diagnosis 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 NAD, on RA. HEENT: No pallor, no icterus. Pupils equal, round and reactive to light. Oral mucosa moist. NECK: No JVD, no neck masses. HEART: S1 and S2 heard. Regular rate and rhythm. Not tachycardic. No murmur, no gallop. RESPIRATORY SYSTEM: Normal AP diameter. No accessory muscle use. No wheezing, no crackles. ABDOMEN: Soft, bowel sounds present, nontender, no distention. CENTRAL NERVOUS SYSTEM: No facial droop. Speech is clear. Obeys simple commands. Moves extremities. Power b/l equal and 5/5. EXTREMITIES: No edema, no erythema seen. Discharge Data Allergies Allergy/AdvReac Type Severity Reaction Status Date / Time Iodinated Contrast Media Allergy Intermediate Rash Verified 08/12/21 07:02 metformin AdvReac Intermediate Swelling ~ Unverified 08/12/21 07:02 nausea Consultations 02/02/24 14:24 ED Decision to Admit Stat 02/02/24 19:52 Consult Neurology Routine Ordered Studies 02/02/24 12:36 CT head/brain wo con Stat 02/02/24 14:46 MRI Brain [MR brain wo con] Urgent 02/02/24 14:48 US leg [US venous doppler LE BI] Stat Hospital Course (1) History of pulmonary embolism: Plan 48-year-old obese male with PMH of T2DM on insulin, stable Crohn's disease who recently had saddle pulmonary emboli on 27 January 2024 and was transferred to [facility] where he had thrombectomy and was discharged on Eliquis starting 01/27. He has been complaining of flashing of lights in the left eye since that presentation and presents this time with the same complaint. He reports no complete improvement in the flashing of lights in the left eye but denies any increase in the symptoms but rather reports some improvement in his symptoms. Denies any numbness or tingling or weakness of any limbs. He was being managed for the following: Stroke due to embolism of posterior cerebral artery Stroke in the setting of recent PE and PFO Continued flashing of left eye, no increase in symptoms, rather some improvement in his symptoms per patient. No other new neurological symptoms per patient. CT head negative for hemorrhage. Brain MRI - Right occipital early subacute infarction following right posterior cerebral artery territory with hemorrhagic transformation. Finding of echo regarding PFO and finding of MRI brain was discussed with the patient at bedside and his sister Jaqueline over the phone. Discussed the case with neurology, recommends continuing of Eliquis, referral for cardiology and ophthalmology as OP. Patient has been explained to set up appointment with cardiology and ophthalmology upon discharge. Patient also explained to set up appointment with neurology upon discharge. Patient made aware to coordinate with PCP office to set up those referral. Patient is hemodynamically stable, no new neurological symptoms, rather stable neurologically. Recent PE, LLE DVT: Patient has been started on Eliquis from his recent admission at [facility], patient to continue with his Eliquis as has been prescribed. Pt aware of his LLE DVT. Uncontrolled T2DM: Discussed with patient at bedside in detail the need for diabetic clinic follow-up upon discharge. He was suggested to coordinate with PCP office to set up the referral. we discussed about putting him on stable dose of insulin aspart/short acting insulin at 4 units with each meal upon discharge, but he has been encouraged to follow-up with diabetic clinic for close monitoring/continuous management of his uncontrolled diabetes. He states that he has been allergic reaction to metformin in the past. Patient is being discharged home with following instruction at the point of discharge: Follow-up with your primary care physician within a week time and likely you will need labs CBC/CMP/magnesium/phosphorus. You were evaluated for concern of ongoing stroke related symptoms. Neurology evaluated you, as discussed at bedside, you have concern of petechial hemor rhage in the MRI brain, your Eliquis needs to be continued given recent massive lung blood clot and current lower extremity blood clot. As discussed at the bedside, if you have new headache or increasing visual symptoms or any new numbness/tingling/weakness of arms and limbs, you need to visit emergency immediately to get repeat imaging of your head for stroke workup. Continue Eliquis as has been prescribed to you from [facility]. Follow-up with neurology in 1 weeks time upon discharge. Given your visual symptoms, you will need ophthalmology evaluation in 1 to 2 weeks time. Coordinate with your PCP office to set up the referral. As discussed at the bedside, you have right to left shunt between your heart [consistent with PFO] which could be the source of embolic stroke. You will need cardiology evaluation in 1 to 2 weeks time upon discharge, coordinate with your PCP office to set up the test referral. As discussed at the bedside, since your blood glucose is running very high in 300s-400s at home for you and your A1c is very high. We recommend that you establish with diabetic clinic upon discharge, coordinate with the PCP office to set up the referral. Also as discussed, you will be discharged on fixed dose of short acting insulin at 4 units with each meal, continue to monitor your fingerstick glucose and follow precautions for hypoglycemia as prior. You will need close monitoring and continuous assessment for strict control of your diabetes. Take your medications as prescribed. Please make sure that you are able to get your medications today by calling your pharmacy before you leave the hospital so that your treatment continuity is not broken. Home Health Attestation I certify that this patient is under my care and that I, or a physicians tax accounting assistant working with me, had a face to-face encounter that meets the home health [id number] encounter requirements with this patient. The encounter with the patient was in whole, or in part, for the following medical condition, which is the primary reason for home health care (list medical condition): I certify that, based on my findings, the following services are medically necessary home health services: My clinical findings support the need for the above services because: Further, I certify that my clinical findings support that this patient is homebound (i.e. absences from home require considerable and taxing effort and are for medical reasons or confucianism services or infrequently or of short duration when for other reasons) because: Certification for Home Health Services: Based on the above findings, I certify that this patient is confined to the home and needs intermittent usp care, physical therapy and/or speech therapy or continues to need occupational therapy. The patient is under my care, and I have initiated the establishment of the plan of care. This patient will be followed by a physician who will periodically review the plan of care. Total Time Total Time Spent Total Time Spent (In Minutes): 55 Discharge Plan Discharge Items Patient Disposition: Home - Self-Care Reason For Visit: FLUSHING LIGHTS, LEFY EYE, RT SUBACUTE STROKE Discharge Diagnosis: Stroke due to embolism of posterior cerebral artery Uncontrolled T2DM Condition on Discharge: Fair Activity: As commented below Activity Comment: Avoid fall, avoid straining/heavy activity. Non-emergency contact: Primary Care Provider Call non-emergency contact if: you have any medication questions, your symptoms worsen and your temperature is above 101 Follow-up/Referrals: Charity Martin MD [Primary Care Provider] - Diet: Carb Consistent or DM2 and Heart Healthy Addtl Attending Provider Instructions: Follow-up with your primary care physician within a week time and likely you will need labs CBC/CMP/magnesium/phosphorus. You were evaluated for concern of ongoing stroke related symptoms. Neurology evaluated you, as discussed at bedside, you have concern of petechial hemorrhage in the MRI brain, your Eliquis needs to be continued given recent massive lung blood clot and current lower extremity blood clot. As discussed at the bedside, if you have new headache or increasing visual symptoms or any new numbness/tingling/weakness of arms and limbs, you need to visit emergency immediately to get repeat imaging of your head for stroke workup. Continue Eliquis as has been prescribed to you from [facility]. Follow-up with neurology in 1 weeks time upon discharge. Given your visual symptoms, you will need ophthalmology evaluation in 1 to 2 weeks time. Coordinate with your PCP office to set up the referral. As discussed at the bedside, you have right to left shunt between your heart [consistent with PFO] which could be the source of embolic stroke. You will need cardiology evaluation in 1 to 2 weeks time upon discharge, coordinate with your PCP office to set up the test referral. As discussed at the bedside, since your blood glucose is running very high in 300s-400s at home for you and your A1c is very high. We recommend that you establish with diabetic clinic upon discharge, coordinate with the PCP office to set up the referral. Also as discussed, you will be discharged on fixed dose of short acting insulin at 4 units with each meal, continue to monitor your fingerstick glucose and follow precautions for hypoglycemia as prior. You will need close monitoring and continuous assessment for strict control of your diabetes. Take your medications as prescribed. Please make sure that you are able to get your medications today by calling your pharmacy before you leave the hospital so that your treatment continuity is not broken. Pending Studies at Discharge: No Stand-Alone Forms: My [facility], Work/School Release, Smoking Cessation Medications and DC Order Prescriptions: New insulin aspart U-100 [Novolog U-100 Insulin aspart] 100 unit/mL Solution 4 unit SC ACHS Qty: 10 0RF Continued Trulicity 1.5 mg/0.5 mL pen injector 1.5 mg SUBCUT UD Rx Instructions: hasn't been taking because it makes him sick and wants to go back down to starting dose. lisinopril 2.5 mg tablet 2.5 mg PO UD Rx Instructions: 2.5 mg po qam. Is supposed to be taking medication but ran out awhile back and didnt get any refills for it. GlucaGen Diagnostic Kit 1 mg/mL Recon Soln 1 mg subcut UD PRN (Reason: hypoglycemia) Qty: 1 0RF furosemide 20 mg tablet 20 mg PO UD Rx Instructions: 20 mg po qam. Is supposed to be taking medication but ran out awhile back and didnt get any refills for it. Eliquis 10 mg PO BID Rx Instructions: per patient he takes 2 tablets po qam and 2 tablets po hs. No fill history available insulin glargine U-300 conc [Toujeo Max U-300 SoloStar] 300 unit/mL (3 mL) insulin pen 100 unit subcut HS Discharge Orders: Discharge Order (Routine); Ordered 02/03/24 Ordered By: Shanita Izaguirre/Other Patient Handouts: Patent Foramen [place], ED Stroke (Completed), ED Deep Vein Thrombosis (DVT) Admission Data Admit Date/Time: 02/02/24 15:16 Attending Provider: Shanita Rodriguez Admit Provider: Monico Malloy Primary Care Provider: Charity Martin Other Providers: Monico Malloy; Alexis Galvan Other Interventions: Discharge Summary Assessment (RN) Last Done: 02/03/24 12:59
[2024-02-03 13:54] LABS: Estimated Average Glucose > 438 mg/dl; Hemoglobin A1C > 16.9 % (4.5-5.6)
--- OUTSIDE RECORDS SUMMARY | 2024-02-03 15:50 | External Medical Summary | Summary of Care ---
Author Name Unknown Organization [facility] Address [address] [place] [address] Phone [phone] Care Team Providers Care It Service Manager Name Role Phone Charity Martin MD Primary Care Provider [phone] Reason for Visit * Reason Onset Date Comments FYI 01/28/2024 Order Request 01/28/2024 Encounter Details Date Type Department Care Team (Late st Contact Info) Description 01/28/2024 Telephone General Internal Medicine [facility] [address] [place] [address] Charity Martin MD [address] [place] [address] FYI; Order Request Allergies Active Allergy Reactions Criticality Noted Date Comments Iodinated Contrast Media 12/30/2019 Metformin Wheezing 04/02/2020 documented as of this encounter (statuses as of 02/02/2024) Medications ReliOn [place] 32G X 4 MM USE 1 ONCE DAILY 0 Active [place] 32G X 5 MMIndications:Type 2 diabetes mellitus with hemoglobin A1c goal of less than 7.0% ([facility]) Use as directed. 50 Each 1 [...] hemoglobin A1c goal of less than 7.0% ([facility]) Inject as directed when sugar goes low [...] 2 diabetes mellitus with hyperglycemia, unspecified whether exterminator helper insulin use (HCC),Morbid obesity due to excess [...] as of this encounter (statuses as of 02/02/2024) Active Problems Problem Noted Date Diagnosed Date [...] as of this encounter (statuses as of 02/02/2024) Immunizations Name Administration Dates Next Due Pneumococcal [...] AM EST documented as of this encounter Miscellaneous Notes * Telephone Encounter - Charity Martin MD - 02/02/2024 12:24 PM EST Noted * Telephone Encounter - Tiffani Pena LPN - 02/02/2024 11:53 AM EST Spoke with pt's emergency contact - they were questioning if order was going to be sent for imagingor if pt needed to go through the ER - did inform them that Dr. Martin said to go through the ER to be evaluated Verbalized understanding * Telephone Encounter - Nahid Herrera OSA - 02/02/2024 11:51 AM EST Reason for patient's call: discuss further Caller was transferred to the clinic. * Telephone Encounter - Howard Fan RN - 02/02/2024 11:43 AM EST Called and spoke with patient's emergency contact Patience and informed her of Dr. Martin's previous message. She verbalized understanding. I offered to call 911 for the patient and she declined. She said the patient is at work right now, and she will call them and arrange for him to be taken to the ER. FYI. * Telephone Encounter - Charity Martin MD - 02/02/2024 11:40 AM EST Due to recent fall , now being on blood thinner and now with headache with other symptoms needs to r/o any intracranial bleed - needs to go back to ER for urgent evaluation and imaging * Telephone Encounter - Howard Fan RN - 02/02/2024 11:32 AM EST Please see previous message. Called and spoke with patient's emergency contact Patience. She said the patient came home from [place] last Thursday. She said he has been having issues with seeing flashes of light in his vision and headache off and on. She said they called Dr. Kaiser Pierson of [facility] he recommended that if symptoms continue that the patient should get a scan done, possible in the ER. Patience said the patient returned to work today on light duty. She said he was hoping to schedule hospital follow up in a couple of weeks so he could get the time off work. Please advise. * Telephone Encounter - Nahid Herrera OSA - 02/02/2024 9:16 AM EST An order was requested for this patient. Name of Requesting Provider: Patient Order Requested: Head CT w/o contrast Diagnosis/Reason for Request: still having issues from passing out - had surgery - flashes of lights If order request is for Mammogram: Is the patient having any breast symptoms? N/A Is there a chance of ? N/A Has the patient had any breast problems in the past? NA What location AND department does the patient wish to have their order completed at? N/a Fax Number, if applicable: n/a - Please call sig other with any questions and to let her know aboutorder If the caller is not a current patient, please advise the patient to call their current PCP to havethe order's prior to being seen in our office. The patient was informed that our providers would not order anything (medication, labs, etc.) prior to being seen. * Telephone Encounter - Elaine Diaz OSA - 01/28/2024 8:22 AM EST Pt's significant other calling to let PCP know pt passed out at work yesterday, they called the ambulance and took him to [facility] and they called life flight to take him to [facility] for a blood clot and high blood sugar. They said he is in stable condition now and were going to do the surgery this AM if everything went well. FYI documented in this encounter Plan of Treatment Health Maintenance [...] filedocumented as of this encounter Care Teams It Service Manager Relationship Specialty Start Date End Date Charity Martin MD [address] [place] [address] PCP - General Internal Medicine 04/02/20 documented as of this encounter
--- OUTSIDE RECORDS SUMMARY | 2024-02-03 15:50 | External Medical Summary | Summary of Care ---
Author Name Unknown Organization [facility] Address [address] [place] [address] Phone [phone] Care Team Providers Care Medical Care Evaluation Specialist Name Role Phone Charity Martin MD Primary Care Provider [phone] Reason for Visit * Reason Onset Date Comments FYI 01/28/2024 Order Request 01/28/2024 Encounter Details Date Type Department Care Team (Late st Contact Info) Description 01/28/2024 Telephone General Internal Medicine [facility] [address] [facility] [place] [address] Charity Martin MD [address] [place] [address] FYI; Order Request Allergies Active Allergy Reactions Criticality Noted Date Comments Iodinated Contrast Media 12/30/2019 Metformin Wheezing 04/02/2020 documented as of this encounter (statuses as of 02/02/2024) Medications ReliOn [place] 32G X 4 MM USE 1 ONCE DAILY 0 Active [place] 32G X 5 MMIndications:Type 2 diabetes mellitus with hemoglobin A1c goal of less than 7.0% ([facility]) Use as directed. 50 Each 1 1 [...] A1c goal of less than 7.0% ([facility]) Inject as directed when sugar goes low [...] 2 diabetes mellitus with hyperglycemia, unspecified whether ad terminal makeup operator insulin use (HCC),Morbid obesity due to excess [...] encounter Miscellaneous Notes * Telephone Encounter - Tiffani Pena LPN [...] She said the patient came home from [place] last Thursday. She said he has been having issues with seeing flashes of light in his vision and headache off and on. She said they called Dr. Kaiser Pierson of [facility] he recommended that if symptoms continue that [...] called the ambulance and took him to [facility] and they called life flight to take him to [facility] for a blood clot and high blood [...] filedocumented as of this encounter Care Teams Medical Care Evaluation Specialist Relationship Specialty Start Date End Date Charity Martni MD [address] [place] [address] PCP - General Internal Medicine 04/02/20 documented as of this encounter
[2024-02-05] MEDS ORDERED: APIXABAN 5 MG TABLET PO SCH (09:00)
== END 2024-02-03 15:23 | disposition home or self-care (01) | DRG 64 ==
LOC: ED 12:19 → SUATTDRO 15:16 → 4W 15:16